=== PATIENT | male | born 1965 | race Caucasian/White ===

== ENCOUNTER → 2023-01-26 13:29 | Outpatient (CLI) | payer BC, SELFPAY ==
[2023-01-26 12:33] LABS: Alanine Aminotransferase 19 U/L (12-78); Albumin Level 2.8 g/dl (3.5-5.0); Alkaline Phosphatase 84 U/L (38-126); Anion Gap 9.5 mEq/L (5-15); Aspartate Amino Transferase 26 U/L (17-59); Bilirubin,Total 0.4 mg/dl (0.2-1.3); Blood Urea Nitrogen 25 mg/dl (9-20); Calcium 8.6 mg/dl (8.4-10.2); Carbon Dioxide 26 mmol/L (22.0-30.0); Chloride 105 mmol/L (98-107); Chol/HDL Ratio 5.8 (1-3.5); Cholesterol 213 mg/dl (140-200); Estimated Glomerular Filt Rate 52 ml/min (>60); GFR (African American) 63 ML/MIN (>60); Globulin 2.8 g/dL (1.3-3.2); Glucose 230 mg/dl (74-100); HDL Cholesterol 37 mg/dl (40-60); Potassium 4.5 mmoL/L (3.5-5.1); Sodium 136 mmol/L (136-145); Total Protein,Serum 5.6 g/dl (6.3-8.2); Triglycerides 165 mg/dl (30-150); VLDL Cholesterol 33 mg/dL (0-40)
[2023-01-26 12:43] LABS: NT Pro Brain Natriuretic Pep. 902 pg/mL (0-125)
[2023-01-26 12:44] LABS: Direct LDL Cholesterol 126.45 mg/dL (100-129)
[2023-01-26 12:51] LABS: Basophils # 0.1 K/mm3 (0-0.2); Basophils % 0.5 % (0.1-2.0); Eosinophils # 0.2 K/mm3 (0.0-0.4); Eosinophils % 2.5 % (0.1-12.0); Hematocrit 41.4 % (42.0-52.0); Hemoglobin 13.8 g/dL (14.1-18.0); Lymphocytes # 2.1 K/mm3 (0.7-4.5); Lymphocytes % 23.5 % (10-50); Mean Corpuscular HGB Conc 33.3 g/dL (31.8-35.4); Mean Corpuscular Hemoglobin 31.9 pg (27.0-31.2); Mean Corpuscular Volume 95.6 fl (80-94); Monocytes # 0.7 K/mm3 (0.1-1.0); Monocytes % 7.6 % (1.7-9.3); Neutrophils % 65.9 % (37.0-80.0); Platelet Count 318 K/mm3 (142-424); Red Blood Count 4.33 M/mm3 (4.60-6.20); Red Cell Distribution Width 13.8 % (11.5-17.5); White Blood Count 9.1 K/mm3 (4.8-10.8)
[2023-01-26 13:07] LABS: Hemoglobin A1C 8.4 % (4.0-6.0)
[2023-01-26 13:42] LABS: 25-OH Vitamin D, Total < 12.8 ng/mL (30-100)
[2023-01-26 15:00] LABS: Thyroid Stimulating Hormone 1.06 uIU/mL (0.465-4.68)
== END ==
LOC: LAB.DROPOF 13:30
PROVIDERS: PCP Internal Medicine; Visit Provider Internal Medicine
DX: Z00.00 Encounter for general adult medical examination without abnormal findings (principal); Z13.29 Encounter for screening for other suspected endocrine disorder; Z13.21 Encounter for screening for nutritional disorder; Z13.1 Encounter for screening for diabetes mellitus; Z13.220 Encounter for screening for lipoid disorders; R60.0 Localized edema; E55.9 Vitamin D deficiency, unspecified; Z68.31 Body mass index [BMI] 31.0-31.9, adult
CPT/HCPCS: 80053; 80061; 82306; 83036; 83880; 84439; 84443; 85025

== ENCOUNTER → 2023-02-02 09:59 | Outpatient (CLI) | payer BC, SELFPAY ==
--- NOTE | 2023-02-02 10:03 | XR_ITS ---
FINAL REPORT CLINICAL HISTORY: Shortness of breath swelling in legs smoker FINDINGS: Two views of the chest were obtained. The heart size and pulmonary vascularity are within normal limits. The mediastinum is normal. No acute pulmonary abnormality is identified. There is no pneumothorax. The bony thorax is intact. IMPRESSION: No active cardiopulmonary disease. Reviewed, Interpreted and Dictated by Ej Grande III, MD Transcribed by Kayla Martinez Authenticated and [facility]
== END ==
LOC: RAD 10:01
PROVIDERS: PCP Internal Medicine; Visit Provider Internal Medicine
DX: I25.10 Atherosclerotic heart disease of native coronary artery without angina pectoris (principal); I11.0 Hypertensive heart disease with heart failure; I50.9 Heart failure, unspecified; E78.5 Hyperlipidemia, unspecified; E11.9 Type 2 diabetes mellitus without complications; Z79.4 Long term (current) use of insulin; Z72.0 Tobacco use
CPT/HCPCS: 71046

== ENCOUNTER → 2023-02-08 14:25 | Outpatient (CLI) | payer BC, SELFPAY ==
--- NOTE | 2023-02-08 14:25 | CA_ITS ---
APPROVED REPORT EXAM: Comprehensive 2D, Doppler, and color-flow Echocardiogram Rough And Truing Machine Operator: RISHI Herr, RVS Ht: 6 ft 4 in Wt: 255lbs BSA: 2.46 BP: 125/75 mmHg Indications: CAD - coronary stents, CHF, Pedal edema, Smoker,. DM, HTN, HLD 2D Dimensions LVDd 5.16 cm M: 4.2 - 5.9 LVEF (Visual) 45.00 % LVDs 4.63 cm M: 2.5 - 4.0 LA Volume 83.00 mL Aortic Root 3.26 cm M: 3.1 - 3.7 LA Volume Index 33.74 mL/m2 (M/F) 16-34 Left Atrium 4.52 cm M: 3.0 - 4.0 LVOT 2.16 cm (M/F) 1.5-2.5 M-Mode Dimensions RVDd 2.75 cm (0.9-2.6) LA Diam 4.03 cm (1.9-4.0) LVDd 5.52 cm (3.5-5.7) Ao Diam 3.49 cm (2.0-3.7) LVDs 4.40 cm (3.5-5.7) IVSd 1.39 cm (0.6-1.1) PWd 1.23 cm (0.6-1.1) EF (Teich) 41.00% EPSs 1.03 cm FS 20.30% EDV (Teich) 148.70 mL TAPSE 3.40 (<1.7) ESV (Teich) 87.70 mL LV Diastology E Decel Time 207.00 (160-240 msec) E/A Ratio 1.34 MED E' 6.80 (< 7 cm/sec) MED A' 9.40 cm/s E'/MED E' Ratio 11.60 (>14) LAT E' 8.60 (<10 cm/sec) LAT A' 11.60 cm/s E/LAT E' Ratio 9.17 (>14) Aortic Valve LVOT Max 99.00 (70-110 cm/s) LVOT VTI 22.99 cm AoV Peak Ishaan. 134.00 (50-130 cm/s) AO Peak GR. 7.20 mmHg AO Mean GR. 3.60 (<5 mmHg) AO VTI 30.14 (18-25 cm) LIA (VTI) 2.80 (2.5-4.5 cm2) Mitral Valve MV A Velocity 59.00 (40-130 cm/s) E/A Ratio 1.34 MV Decel. Time 207.00 (160-240 ms) Pulmonary Valve GA End VMAX 158.00 cm/s Tricuspid Valve TR P. Velocity 224.00 cm/s RAP Estimate 10.00 mmHg RVSP 30.10 mmHg Left Ventricle The left ventricle is normal size. The left ventricular systolic function is normal. The left ventricular ejection fraction is within the normal range. There is increased LV wall thickness. There is normal LV segmental wall motion. The left ventricular diastolic function is normal. LVEF is 55%. Right Ventricle The right ventricle is normal size. The right ventricular systolic function is normal. Atria The left atrium size is normal. The right atrium size is normal. There is no Doppler evidence of interatrial shunt. Aortic Valve The aortic valve opens well. The aortic valve is trileaflet. There is no aortic valvular stenosis. Trace aortic regurgitation. Mitral Valve The mitral valve is normal in structure. No evidence of mitral valve stenosis. Mild mitral regurgitation. Tricuspid Valve The tricuspid valve leaflets are thin and pliable. Trace tricuspid regurgitation. RVSP is normal. Pulmonic Valve The pulmonary valve is normal in structure. Trace pulmonic regurgitation. Great Vessels The aortic root is normal in size. The ascending aorta is normal in size. IVC is normal in size and collapses >50% with inspiration. Pericardium There is no pericardial effusion. Other Information Study Quality: Adequate Conclusion Normal biventricular systolic function. No significant valvular stenosis or regurgitation. Electronically signed by : Emeli Paniagua MD 02/09/2023 14:14:01
== END ==
LOC: RT 14:25
PROVIDERS: PCP Internal Medicine; Visit Provider Internal Medicine
DX: R60.0 Localized edema; I50.30 Unspecified diastolic (congestive) heart failure
CPT/HCPCS: 93306

== ENCOUNTER → 2023-02-14 06:11 | Outpatient (CLI) | payer BC, SELFPAY ==
--- NOTE | 2023-02-14 | CA_ITS ---
APPROVED REPORT Exam: Pharmacologic Technologist: Suzette Persaud, Ht: 6 ft 4 in Wt: 236 lbs BSA: 2.38 m2 HR: 58 bpm BP: 184/85 mmHg Rhythm: SR, RBBB Medical History Medical History: HTN, Hyperlipidemia, Diabetes, Smoking Medications: Lisinopril,,,,, Hydralazine,,,,, Lispro,,,,, Asa,,,,, Atorvastatin,,,,, Carvedilol,,,,, Glargine,,,,, Furosemide,,,,, Allergies: NSAIDS Cardiac Risk Factors: HTN, Hyperlipidemia, Diabetes, Smoking Stress Test Details Test: LEXISCAN HR Resting HR: 66 bpm Max Heart Rate (APMHR): 163 bpm Max HR Achieved: 110 bpm Target HR (85% APMHR): 139 bpm % of APMHR: 67 Recovery HR: 75 bpm BP Resting BP: 184/85 mmHg Max BP: 185/89 mmHg Recovery BP: 176.0/87.0 mmHg ECG Resting ECG: NSR, RBBB Stress ECG: No significant ST changes Arrhythmia: None Clinical Exercise duration: 04:00 min Highest Stage Achieved: Exercise capacity: 1.0 METs Stress ECG Conclusion PT HAD DYSPNEA, HEADACHE NO SIGNIFICANT ST CHANGES CONCLUSION NON-DIAGNOSTIC DUE TO BASELINE ABNORMALITIES MYOVIEW IMAGES ARE REPORTED SEPARATELY Test Summary REST 06:37 . . 66 . 184/ 85 . . Stage 1 . . . . . . . Myoview Injected Stage 1 01:00 . . 84 . . . . Stage 2 01:00 . . 85 . 170/ 92 . . Stage 3 01:00 . . 77 . 170/ 86 . . Stage 4 01:00 . . 87 . 182/100 . Stop exercise at 04:00 RECOVERY 01:00 . . 75 . . . . RECOVERY 02:00 . . 71 . 185/ 89 . . RECOVERY 03:00 . . 69 . 185/ 89 . . RECOVERY 04:00 . . 68 . 185/ 89 . . RECOVERY 05:00 . . 68 . 176/ 87 . . RECOVERY 05:44 . . 85 . 176/ 87 . . Electronically signed by : Emeli Paniagua MD 02/16/2023 14:26:09
--- NOTE | 2023-02-14 06:37 | NM_ITS ---
APPROVED REPORT Exam: Nuclear Stress Test Indication: CAD, 4 STENTS, H/O [place], HTN, DM, HYPERLIPIDEMIA, TOB USE, SOB, SYNCOPE, ABN EKG Patient Location: Outpatient Stress Tech: Suzette Persaud NC Tech:Paige Heredia, ARRT RT (R)(N)(M) Ht: 6 ft 4 in Wt: 226 lbs HR: 58 bpm BP: 184/85 mmHg BSA: 2.33 m2 Rhythm: NSR TID: 1.15 BMI: 27.5 History: CAD, 4 STENTS, H/O [place], HTN, DM, HYPERLIPIDEMIA, TOB USE, SOB, SYNCOPE, ABN EKG Procedure: Patient received 0.4 mg of intravenous Lexiscan, resting heart rate 58 bpm, resting blood pressure 184/85 mmHg, with Lexiscan maximum heart rate achieved was 87 bpm which is % of the maximum predicted heart rate and blood pressure was 182/100 mmHg. With Lexiscan, patient denied any complaint of chest pain. Cardiac Stress and Resting SPECT Images: Cardiac Stress and Resting SPECT images were obtained using technetium 99m Myoview 31.4 mCi stress and 10.86 mCi at rest. Resting and stress imaging in supine and prone positions demonstrate a large sized, severe, fixed perfusion defect in the basal to mid inferior LV wall. There is also a small sized, moderate, partially reversible perfusion defect in the anterior LV wall. Gated imaging demonstrates mild reduction in global LV systolic function. There there is akinesis of the inferior LV wall. LVEF is calculated at 43%. The LVEF may be inaccurate due to ectopy. Conclusion: Large sized, severe, fixed perfusion defect in the basal to mid inferior LV wall. There is also a small sized, moderate, partially reversible perfusion defect in the anterior LV wall. Findings are suggestive of prior infarct, as well as partial reversible ischemia. Gated imaging demonstrates mild reduction in global LV systolic function. There there is akinesis of the inferior LV wall. LVEF is calculated at 43%. The LVEF may be inaccurate due to ectopy. Electronically signed by : Emeli Paniagua MD 02/16/2023 14:30:53
== END ==
LOC: RAD 06:13
PROVIDERS: PCP Internal Medicine; Visit Provider Nurse Practitioner Family
DX: R06.02 Shortness of breath (principal); R94.31 Abnormal electrocardiogram [ECG] [EKG]; I50.9 Heart failure, unspecified; R60.9 Edema, unspecified; E11.9 Type 2 diabetes mellitus without complications; E78.5 Hyperlipidemia, unspecified; G47.33 Obstructive sleep apnea (adult) (pediatric); Z79.4 Long term (current) use of insulin
CPT/HCPCS: 78452; 93017; A9502; J2785

== ENCOUNTER 2023-03-08 09:01 | Day surgery (SDC) | payer BC, SELFPAY ==
[2023-03-08] VITALS (10 sets, daily range): BP systolic 149–177; BP diastolic 71–90; PULSE 51–81; RESP 17–18; O2SAT 95–98; BMI 39.9
--- NOTE | 2023-03-08 07:10 | IR_ITS ---
APPROVED REPORT Patient Location: Outpatient [employer] Worker: RHONDA Rodriguez RT (R) PROCEDURES Left heart catheterization Left ventriculogram Selective coronary angiogram INDICATION High risk abnormal Myoview, Known coronary artery disease, Informed consent was obtained prior to the procedure. COMPLICATIONS NONE Estimated Blood Loss: LESS THAN 10 ML TECHNIQUE One percent lidocaine used to anesthetize the right anterior aspect of the wrist. The right radial artery was accessed via the Seldinger technique. A 6 Amharic sheath was placed in the right radial artery. 2.5 mg of Verapamil, 800 mcg of nitroglycerin, 1mg Lidocaine and 5000 U Heparin were given through the arterial sheath. The papa catheter was also used to perform left heart catheterization, left ventriculogram and selective coronary angiogram. At the end of the procedure the sheath was removed good hemostasis was achieved using Traclet band, patient was transferred to the postop holding area in stable condition. ANGIOGRAPHIC RESULTS The left main artery Has a distal 20% tapering stenosis The left anterior descending artery Has proximal 10 to 20% luminal irregularities with 10% stenoses in the mid vessel. There are 2 large diagonal arteries both of which have proximal 30 to 40% stenoses. The circumflex artery Is a nondominant vessel and gives rise to a moderate-sized ramus intermedius which has proximal 30 to 40% stenosis. A first obtuse marginal artery is a 2 mm vessel and has a proximal 90% stenosis with an additional 80% stenosis followed by an additional 60 to 70% stenosis. The obtuse marginal artery itself is small The right coronary artery Is a large dominant vessel with an ostial 60% stenosis and then a stent in the proximal segment which has 50% in-stent restenosis and then occluded immediately distal to a large RV marginal branch. The distal right coronary fills via [id number] collaterals The MAIN ventriculogram reveals Mildly reduced to 40 to 45% The left ventricular end-diastolic pressure 10 mmHg IMPRESSION Coronary disease as described above Severe stenosis in a small first obtuse marginal artery which is best managed medically. Reduced ejection fraction Normal left ventricular end-diastolic pressure PLAN 1. Continue medical management Electronically signed by : Rajinder Mccullough MD 03/08/2023 12:48:43
[2023-03-08 09:34] LABS: Basophils # 0.1 K/mm3 (0-0.2); Basophils % 0.6 % (0.1-2.0); Eosinophils # 0.3 K/mm3 (0.0-0.4); Eosinophils % 3.4 % (0.1-12.0); Hematocrit 43.2 % (42.0-52.0); Hemoglobin 14.2 g/dL (14.1-18.0); Lymphocytes # 2.1 K/mm3 (0.7-4.5); Lymphocytes % 27.1 % (10-50); Mean Corpuscular Hemoglobin 31.6 pg (27.0-31.2); Mean Corpuscular Volume 95.8 fl (80-94); Mean Platelet Volume 8.8 fl (7.4-10.4); Monocytes # 0.6 K/mm3 (0.1-1.0); Monocytes % 7.5 % (1.7-9.3); Neutrophils # 4.7 K/mm3 (1.8-7.8); Neutrophils % 61.3 % (37.0-80.0); Platelet Count 321 K/mm3 (142-424); Red Blood Count 4.51 M/mm3 (4.60-6.20); Red Cell Distribution Width 13.6 % (11.5-17.5); White Blood Count 7.7 K/mm3 (4.8-10.8)
[2023-03-08 09:38] LABS: Chloride 103 mmol/L (98-107); Sodium 133 mmol/L (136-145)
[2023-03-08 09:39] LABS: Potassium 4.8 mmoL/L (3.5-5.1)
[2023-03-08 09:42] LABS: Anion Gap 4.8 mEq/L (5-15); Blood Urea Nitrogen 37 mg/dl (9-20); Calcium 8.6 mg/dl (8.4-10.2); Carbon Dioxide 30 mmol/L (22.0-30.0); Creatinine Clearance Estimated 72 mL/min (50-200); Estimated Glomerular Filt Rate 42 ml/min (>60); GFR (African American) 51 ML/MIN (>60); Glucose 283 mg/dl (74-100)
== END 2023-03-08 14:40 | disposition home or self-care (01) ==
LOC: CATHLAB 09:02
PROVIDERS: PCP Internal Medicine; Visit Provider Internal Medicine
DX: I25.118 Atherosclerotic heart disease of native coronary artery with other forms of angina pectoris (principal); E11.9 Type 2 diabetes mellitus without complications; E78.5 Hyperlipidemia, unspecified; G47.33 Obstructive sleep apnea (adult) (pediatric); I50.31 Acute diastolic (congestive) heart failure; R94.30 Abnormal result of cardiovascular function study, unspecified; R94.31 Abnormal electrocardiogram [ECG] [EKG]; F17.210 Nicotine dependence, cigarettes, uncomplicated; Z79.4 Long term (current) use of insulin; I11.0 Hypertensive heart disease with heart failure; Z95.5 Presence of coronary angioplasty implant and graft; T82.855A Stenosis of coronary artery stent, initial encounter
CPT/HCPCS: 80048; 85025; 93458; 99152; C1725; C1769; J1644; Q9967

== ENCOUNTER 2023-04-12 14:03 | Outpatient (CLI) | payer BC, SELFPAY ==
[2023-04-12 13:43] LABS: Hemoglobin A1C 10.6 % (4.0-6.0)
[2023-04-12 14:06] LABS: Anion Gap 4.3 mEq/L (5-15); Blood Urea Nitrogen 30 mg/dl (9-20); Calcium 8.2 mg/dl (8.4-10.2); Carbon Dioxide 28 mmol/L (22.0-30.0); Chloride 106 mmol/L (98-107); Estimated Glomerular Filt Rate 48 ml/min (>60); GFR (African American) 58 ML/MIN (>60); Glucose 92 mg/dl (74-100); Potassium 4.3 mmoL/L (3.5-5.1); Sodium 134 mmol/L (136-145)
[2023-04-12 14:53] LABS: Vitamin B12 561 pg/mL (239-931)
[2023-04-12 15:43] LABS: Creatinine,Urine Random 30 mg/dL (Not Estab.)
[2023-04-12 21:09] LABS: Microalbumin > 1140.000 mg/L (0-16.7)
== END 2023-04-12 23:59 ==
LOC: LAB.DROPOF 14:04
PROVIDERS: PCP Internal Medicine; Visit Provider Internal Medicine
DX: E11.9 Type 2 diabetes mellitus without complications (principal); E56.9 Vitamin deficiency, unspecified; R53.83 Other fatigue; Z79.4 Long term (current) use of insulin
CPT/HCPCS: 80048; 82043; 82570; 82607; 83036

== ENCOUNTER 2023-06-29 13:48 | Outpatient (CLI) | payer BC, SELFPAY ==
[2023-06-29 14:34] LABS: Hemoglobin A1C 9.5 % (4.0-6.0)
[2023-06-29 15:02] LABS: Chloride 108 mmol/L (98-107); Potassium 5.4 mmoL/L (3.5-5.1); Sodium 136 mmol/L (136-145)
[2023-06-29 15:05] LABS: Blood Urea Nitrogen 28 mg/dl (9-20); Estimated Glomerular Filt Rate 52 ml/min (>60); GFR (African American) 63 ML/MIN (>60)
[2023-06-29 15:06] LABS: Anion Gap 5.4 mEq/L (5-15); Calcium 8.9 mg/dl (8.4-10.2); Carbon Dioxide 28 mmol/L (22.0-30.0); Glucose 160 mg/dl (74-100)
== END 2023-06-29 23:59 ==
LOC: LAB.DROPOF 13:48
PROVIDERS: PCP Internal Medicine; Visit Provider Internal Medicine
DX: E11.22 Type 2 diabetes mellitus with diabetic chronic kidney disease (principal); N18.30 Chronic kidney disease, stage 3 unspecified; Z79.4 Long term (current) use of insulin
CPT/HCPCS: 80048; 83036

== ENCOUNTER 2023-09-15 12:11 | Observation (INO) | payer BC, SELFPAY ==
[2023-09-15] VITALS (9 sets, daily range): BP systolic 97–136; BP diastolic 58–71; PULSE 49–70; RESP 10–18; TEMP 36.6–36.8; O2SAT 96–99; BMI 24.3; BMI 26.5
--- NOTE | 2023-09-15 12:09 | ECG_ITS ---
APPROVED REPORT Exam: Resting ECG HR:66 bpm ECG Measurements Heart Rate 66 AXES PA 155 P 43 QRSd 145 QRS 99 QT 390 T -20 QTc 403 Conclusion SINUS RHYTHM INDETERMINATE AXIS RIGHT BUNDLE BRANCH BLOCK Electronically signed by : DIMPLE CLEVELAND, 09/16/2023 08:31:21
[2023-09-15] MEDS: ONDANSETRON 4MG/2ML VIAL 4 MG IV (12:20)
--- NOTE | 2023-09-15 12:26 | CT_ITS ---
FINAL REPORT TECHNIQUE: Thin section axial CT images were obtained through the neck after intravenous contrast administration. Coronal and sagittal reformats were also obtained. This study was performed with techniques to keep radiation doses as low as reasonably achievable (ALARA). Individualized dose reduction techniques using automated exposure control or adjustment of mA and/or kV according to the patient''s size were employed. CLINICAL HISTORY: malaise, weight loss COMPARISON: None FINDINGS: The nasopharynx, oropharynx, hypopharynx and larynx are unremarkable. There is no mass or adenopathy. The thyroid gland is unremarkable. The visualized sinuses are clear. There is mild degenerative change of the cervical spine noted. There is calcified plaque present in the left carotid bulb, that produces approximately 50% luminal diameter stenosis. IMPRESSION: No acute process. In the left carotid bulb that produces approximately 50% luminal diameter stenosis. Reviewed, Interpreted and Dictated by Ej Grande III, MD Transcribed by Leonila Lugo Authenticated and [facility]
--- NOTE | 2023-09-15 12:26 | CT_ITS ---
FINAL REPORT TECHNIQUE: Multiple axial CT sections were performed from the foramen magnum to the vertex. Coronal and sagittal reformatted images were also obtained. Precontrast and postcontrast injection images were obtained. This study was performed with technique to keep radiation doses as low as reasonably achievable, (ALARA). Individualized dose reduction techniques using automated exposure control or adjustment of mA and/or kV according to the patient size were employed. CLINICAL HISTORY: malaise, weight loss COMPARISON: None FINDINGS: CT HEAD WITH AND WITHOUT CONTRAST: Mild global atrophy is present. The ventricles are normal in size and appearance. No extra-axial fluid collections are noted. No mass effect or midline shift is seen. No areas of abnormal parenchymal density or enhancement are present. IMPRESSION: Mild global atrophy, otherwise unremarkable CT of the head. Reviewed, Interpreted and Dictated by Ej Grande III, MD Transcribed by Leonila Lugo Authenticated and [facility]
--- NOTE | 2023-09-15 12:29 | XR_ITS ---
FINAL REPORT CLINICAL HISTORY: soa, cp, weak COMPARISON: 02/02/2023 FINDINGS: A single portable view of the chest was obtained. The heart size and pulmonary vascularity are within normal limits. The mediastinum is within normal limits. No acute pulmonary abnormality is identified. The bony thorax is intact. IMPRESSION: No active cardiopulmonary disease. Reviewed, Interpreted and Dictated by Ej Grande III, MD Transcribed by Leonila Lugo Authenticated and [facility]
--- NOTE | 2023-09-15 12:30 | CT_ITS ---
FINAL REPORT TECHNIQUE: Then section axial CT images of the chest were obtained with contrast. Three-D reformatted images were also obtained.This study was performed with techniques to keep radiation doses as low as reasonably achievable (ALARA). Individualized dose reduction techniques using automated exposure control or adjustment of mA and/or kV according to the patient''s size were employed. CLINICAL HISTORY: Weight loss, malaise, chest pain, hypotension COMPARISON: None FINDINGS: There is no evidence of pulmonary embolism. There is no evidence of thoracic aortic aneurysm or dissection. There are mildly enlarged mediastinal and hilar nodes, nonspecific, but favor reactive. Mild bibasilar atelectasis is present. A calcified granuloma is present in the right lower lobe. There are diffuse interstitial and nodular opacities bilaterally, most prominent in the upper lobes. This appearance is nonspecific, but may be seen in patients with mycobacterial or fungal disease. Limited images of the upper abdomen are described in the dictation for the CTA abdomen and pelvis from the same date. IMPRESSION: No evidence of pulmonary embolism. No evidence of thoracic aortic aneurysm or dissection. Diffuse interstitial and nodular opacities bilaterally, most prominent in the upper lobes. The appearance is nonspecific, but may be seen in patients with mycobacterial or fungal disease. Mildly enlarged mediastinal and hilar nodes, nonspecific but favor reactive. Reviewed, Interpreted and Dictated by Ej Grande III, MD Transcribed by Leonila Lugo Authenticated and [facility]
--- NOTE | 2023-09-15 12:30 | CT_ITS ---
FINAL REPORT TECHNIQUE: After the administration of intravenous contrast, axial images were obtained through the abdomen and pelvis by computed tomography. The study was performed with techniques to keep radiation dose as low as reasonably achievable, (ALARA). Individual dose reduction techniques using automated exposure control or adjustment of mA and/or kV according to the patient's size were employed. CLINICAL HISTORY: Weight loss, malaise, chest pain, hypotension COMPARISON: None FINDINGS: CTA ABDOMEN AND PELVIS: Diffuse vascular calcifications are noted in the abdominal aorta. There are separate origins of the splenic and common hepatic arteries. There is calcification at the origin of the superior mesenteric artery without significant stenosis. No renal artery stenosis is identified. The inferior mesenteric artery is patent. Extensive calcifications limits evaluation of mild stenosis in the common iliac arteries. There is moderate 40 to 50% proximal left external iliac stenosis. There is mild stenosis elsewhere in the iliac arteries. There is moderate stenosis of the common femoral arteries with approximately 40 to 50% bilateral stenosis. There is bilateral mild inguinal adenopathy noted, nonspecific and favor reactive. A small umbilical hernia is present containing fat. The solid organs of the abdomen and pelvis are unremarkable. No evidence of significant bowel abnormality is identified. IMPRESSION: Moderate 40 to 50% proximal left external iliac artery stenosis. There is mild stenosis elsewhere in the iliac arteries. Moderate stenosis of the common femoral arteries bilaterally with 40 to 50% stenosis. Reviewed, Interpreted and Dictated by Ej Grande III, MD Transcribed by Leonila Lugo Authenticated and [facility]
[2023-09-15 12:38] LABS: VBG Base Excess -3.6 mmol/L (-2.4-2.3); VBG HCO3 22.1 mmol/L (23-30); VBG Oxygen Saturation 66.7 % (50-70); VBG PCO2 41.1 mmol/L (35-51); VBG PH 7.35 mmol/L (7.31-7.41); VBG PO2 32.9 mmol/L (28-40); VBG Total CO2 23.3 mmol/L (23-27)
[2023-09-15 12:41] LABS: Lactate Venous 2.5 mmol/L (0.4-2.0)
[2023-09-15 12:48] LABS: Basophils % 1.3 % (0.1-2.0); Eosinophils % 0.3 % (0.1-12.0); Hematocrit 43.2 % (42.0-52.0); Hemoglobin 13.7 g/dL (14.1-18.0); Lymphocytes # 0.7 K/mm3 (0.7-4.5); Lymphocytes % 24.6 % (10-50); Mean Corpuscular HGB Conc 31.7 g/dL (31.8-35.4); Mean Corpuscular Hemoglobin 31.4 pg (27.0-31.2); Mean Platelet Volume 8.2 fl (7.4-10.4); Monocytes # 0.2 K/mm3 (0.1-1.0); Monocytes % 6.1 % (1.7-9.3); Neutrophils # 1.9 K/mm3 (1.8-7.8); Neutrophils % 67.7 % (37.0-80.0); Platelet Count 162 K/mm3 (142-424); Red Blood Count 4.37 M/mm3 (4.60-6.20); Red Cell Distribution Width 13.6 % (11.5-17.5); White Blood Count 2.8 K/mm3 (4.8-10.8)
[2023-09-15] MEDS: VANCOMYCIN CONSULT REQUEST 1 EACH NOTAPPLIC (12:56)
[2023-09-15 12:57] LABS: Lactic Acid 1.9 mmol/L (0.7-2.1)
--- NOTE | 2023-09-15 12:57 | HMH.EDGENADL ---
Discharge Plan Disposition Patient Disposition: Admitted Clinical Impressions Clinical Impression: CHF (congestive heart failure), JENNIFER (acute kidney injury), General weakness Discharge ED Provider: Emma Bray General Adult HPI <Sukhdev Lee MD - Last Filed: 09/15/23 15:14> General Chief complaint: Chest Pain Stated complaint: chest pain Time Seen by Provider: 09/15/23 12:20 Mode of Arrival: Wheelchair Source of Information: Patient Limitations: No Limitations Description of Symptoms (Recalled from ER Triage Doc. by RN): Patient reports headache, nausea, off and on chest pain and blurred vision. Sent from doctor's office. States the symptoms started Tuesday. History of Present Illness HPI narrative: Please note that above description of symptoms, in this electronic medical record under categorization of recalled from ER triage doctor by RN are reflective of an initial nursing assessment, however, is not reflective of my full history and physical exam that was personally taken and clarified. Consequentially, this preceding description of symptoms, which may include the patient's categorized chief complaint in the EMR, do not reflect my personal clinical impression, and the ultimate description of history of present illness and patient stated complaints should be deferred to this section of the note. Unless stated otherwise or congruent with this section of the note, additional signs, symptoms, or incongruence should be interpreted as inaccurate with my clinical impression. Related Data Home Medications Medication Instructions Recorded Confirmed aspirin 81 mg chewable tablet 81 mg PO DAILY 01/26/23 09/15/23 insulin glargine 100 unit/mL (3 35 unit SQ HS 01/26/23 09/15/23 mL) subcutaneous pen (Basaglar KwikPen U-100 Insulin) insulin lispro 100 unit/mL 12 unit SQ .COMPLEX 01/26/23 09/15/23 subcutaneous cartridge (Humalog U-100 Insulin) hydralazine 25 mg tablet 25 mg PO BID 09/15/23 09/15/23 Previous Rx's Medication Instructions Recorded atorvastatin 40 mg tablet 40 mg PO DAILY #90 tabs 02/09/23 spironolactone 25 mg tablet 25 mg PO DAILY #30 tabs 02/23/23 (Aldactone) torsemide 100 mg tablet 50 mg (1/2 x 100 mg) PO DAILY #30 02/23/23 tabs carvedilol 12.5 mg tablet 12.5 mg PO BID #180 tabs 03/10/23 clopidogrel 75 mg tablet (Plavix) 75 mg PO DAILY #90 tabs 03/10/23 lisinopril 40 mg tablet 40 mg PO DAILY #90 tabs 06/09/23 venlafaxine 75 mg tablet 75 mg PO DAILY #30 tabs 06/29/23 Allergies Allergy/AdvReac Type Severity Reaction Status Date / Time NSAIDS (Non-Steroidal Allergy itch Verified 09/15/23 11:45 Anti-Inflamma gabapentin AdvReac Mild Verified 09/15/23 11:45 PFSH <Sukhdev Lee MD - Last Filed: 09/15/23 15:14> [facility] Disclaimer: The information contained in this section may have been updated after the patient was seen, as this information can be updated by other users. Medical History (HFpEF) heart failure with preserved ejection fraction Abnormal result of cardiovascular function study Atypical angina CAD (coronary artery disease) Hyperlipidemia Hypertension Lower extremity edema CONNIE (obstructive sleep apnea) Type 2 diabetes mellitus Type 2 diabetes mellitus with stage 2 chronic kidney disease Surgical History H/O heart artery stent 4 stents History of cardiac catheterization Family History Father Cancer Mother Stroke Social History Smoking Status: Current every day smoker alcohol intake: never substance use type: denies use current occupational status: employed Travel in the last 8 weeks: None <Sukhdev Lee MD - Last Filed: 09/15/23 15:14> ROS Obtained: Yes All systems reviewed & no additional complaints except as documented Physical Exam <Sukhdev Lee MD - Last Filed: 09/15/23 15:14> General General appearance: alert, in no apparent distress and lethargic Head Head exam: atraumatic and normocephalic Eye Eye exam: Present normal appearance, PERRL and EOMI ENT ENT exam: Present mucous membranes dry Neck Neck exam: Present normal inspection, full ROM and trachea midline Respiratory Respiratory exam: Present normal lung sounds bilaterally; Absent respiratory distress, wheezes, stridor, accessory muscle use or prolonged expiratory phase Cardiovascular Cardiovascular exam: Present regular rate, normal rhythm and other (Distant heart sounds) Abdominal Exam Abdominal exam: Present soft; Absent distention, tenderness, guarding, rebound or rigidity Extremities Exam Extremities exam: Present normal inspection; Absent edema Neurological Exam Neurological exam: Present alert, oriented X3, CN II-XII intact and normal gait; Absent motor sensory deficit Skin Skin exam: Present warm, dry and pallor; Absent diaphoresis or erythema Medical Decision Making <Sukhdev Lee MD - Last Filed: 09/15/23 15:14> Medical Records Medical records reviewed: Yes I reviewed the patient's medical records. Wali Inquiry Pt receiving controlled substance: No Wali was queried for this patient: No Vital Signs: 09/15/23 12:12 09/15/23 13:00 09/15/23 14:00 Temperature 98.2 F Temperature Source Oral Pulse Rate 64 60 Pulse Rate [Radial] 66 Respiratory Rate 16 13 17 Blood Pressure 97/60 L 102/58 L Blood Pressure [Right Arm] 100/59 L Blood Pressure Mean [Right Arm] 72 Blood Pressure Source [Right Arm] Automatic Cuff Blood Pressure Position [Right Arm] Sitting 02 Sat by Pulse Oximetry 99 97 Oxygen Delivery Method Room Air 09/15/23 14:30 09/15/23 15:00 Temperature Temperature Source Pulse Rate 49 L Pulse Rate [Radial] Respiratory Rate 14 10 L Blood Pressure 98/58 L 110/65 Blood Pressure [Right Arm] Blood Pressure Mean [Right Arm] Blood Pressure Source [Right Arm] Blood Pressure Position [Right Arm] 02 Sat by Pulse Oximetry 98 Oxygen Delivery Method Lab Data Lab Results 09/15/23 12:15: WBC 2.8 L, RBC 4.37 L, Hgb 13.7 L, Hct 43.2, MCV 99.0 H, MCH 31.4 H, MCHC 31.7 L, RDW 13.6, Plt Count 162, MPV 8.2, Neut % (Auto) 67.7, Lymph % (Auto) 24.6, [place] % (Auto) 6.1, Eos % (Auto) 0.3, Baso % (Auto) 1.3, Neut # (Auto) 1.9, Lymph # (Auto) 0.7, [place] # (Auto) 0.2, Eos # (Auto) 0.0, Baso # (Auto) 0.0, ESR 67 H, Sodium 131 L, Potassium 4.2, Chloride 102, Carbon Dioxide 24, Anion Gap 9.2, BUN 40 H, Creatinine 2.10 H, Estimated Creat Clear 50, Estimated GFR 33 L, Est GFR ( Amer) 40 L, Glucose 231 H, Hemoglobin A1c 9.5 H, Uric Acid 7.2, Calcium 8.8, Magnesium 1.8, Total Bilirubin 0.5, AST 68 H, ALT 56, Alkaline Phosphatase 87, Lactate Dehydrogenase 243 L, Troponin I 0.03, C-Reactive Protein 25.9 H, NT-Pro-B Natriuret Pep 2530 H, Total Protein 5.9 L, Albumin 2.9 L, Globulin 3.0, Albumin/Globulin Ratio 1.0 L, Triglycerides 593 H, Cholesterol 251 H, LDL Cholesterol Direct 82.61 L, HDL Cholesterol 23 L, Cholesterol/HDL Ratio 10.9 H, Lipase 308 H, TSH 0.70, Thyroxine (T4) 6.9 09/15/23 12:37: VBG pH 7.35, VBG pCO2 41.1, VBG pO2 32.9, VBG HCO3 22.1 L, VBG Total CO2 23.3, VBG O2 Saturation 66.7, VBG Base Excess -3.6 L, VBG Lactic Acid 2.5 H 09/15/23 12:40: Lactate 1.9, Blood Type A Positive, Antibody Screen Negative 09/15/23 14:41: Urine Color Yellow, Urine Appearance Clear, Urine pH 6.0, Ur Specific [place] 1.015, Urine Protein 2+, Urine Glucose (UA) Negative, Urine Ketones Negative, Urine Blood Trace-i, Urine Nitrate Negative, Urine Bilirubin Negative, Urine Urobilinogen 0.2, Ur Leukocyte Esterase Negative, Urine RBC 5-10, Urine WBC 3-5, Ur Squamous Epith Cells Occasional, Urine Bacteria Trace 09/15/23 12:15 09/15/23 12:15 Orders (Tests/Meds): ED MEDICATIONS Generic Name Dose Route Start Last Admin Trade Name Freq PRN Reason Stop Dose Admin Heparin Sodium (Porcine) 5,000 unit 09/15/23 21:00 Heparin Sodium 5,000 Unit/Ml Vial SQ 10/15/23 20:59 TID SHAMIKA Miscellaneous 1 each 09/15/23 12:30 09/15/23 12:56 Vancomycin Consult Request NOTAPPLIC 10/15/23 12:29 1 each CONSULT PHARMACY SHAMIKA Administration Discontinued Medications Generic Name Dose Route Start Last Admin Trade Name Kaitlynn PRN Reason Stop Dose Admin Furosemide 60 mg 09/15/23 14:00 09/15/23 14:17 Furosemide 40mg/4ml Vial IV 09/15/23 14:01 60 mg ONCE ONE Administration Ampicillin Sodium/Sulbactam 100 mls @ 200 mls/hr 09/15/23 12:26 09/15/23 13:10 Sodium 3 gm/ Sodium Chloride IV 09/15/23 12:27 200 mls/hr ONCE ONE Administration Vancomycin/PEG/NADA/Lysine/Water 1.5 gm in 300 mls @ 150 mls/hr 09/15/23 13:00 09/15/23 14:17 Vancomycin 1.5gm/300ml (Peg) Premix IV 09/15/23 14:59 150 mls/hr ONCE ONE Administration Iopamidol 130 ml 09/15/23 13:29 09/15/23 13:49 Iopamidol-370 (76%);100ml Bottle IV 09/15/23 13:30 130 ml ONCE ONE Administration Iopamidol 100 ml 09/15/23 13:47 09/15/23 13:49 Iopamidol-370 (76%);100ml Bottle IV 09/15/23 13:48 Not Given ONCE ONE Iopamidol 30 ml 09/15/23 13:48 Iopamidol-370 (76%);100ml Bottle IV 09/15/23 13:49 ONCE ONE Ondansetron HCl 4 mg 09/15/23 12:19 09/15/23 12:20 Ondansetron 4mg/2ml Vial IV 09/15/23 12:20 4 mg ONCE ONE Administration Sodium Chloride 50 ml 09/15/23 13:29 09/15/23 13:48 0.9 % Sodium Chloride 50 Ml Vial IV 09/15/23 13:30 50 ml ONCE ONE Administration Sodium Chloride 10 ml 09/15/23 13:29 09/15/23 13:48 Sodium Chloride 0.9% 10ml Syr (Rad Only) IV 09/15/23 13:30 10 ml ONCE ONE Administration Sodium Chloride 10 ml 09/15/23 13:47 09/15/23 13:49 Sodium Chloride 0.9% 10ml Syr (Rad Only) IV 09/15/23 13:48 Not Given ONCE ONE Sodium Chloride 50 ml 09/15/23 13:47 0.9 % Sodium Chloride 50 Ml Vial IV 09/15/23 13:48 ONCE ONE ORDERS Category Date Time Status Type and Screen Stat BBK 09/15/23 12:[address] angio abdomen pelvis Stat Cat Scan 09/15/23 12:[address] head/brain wo/w con Stat Cat Scan 09/15/23 12:[address] soft tissue neck w con Stat Cat Scan 09/15/23 12:26 Completed CTA Chest [CT angio chest - dissection] Stat Cat Scan 09/15/23 12:30 Completed POCUS Point of Care (ER Only) Stat Exams 09/15/23 12:29 Completed XR chest portable Stat Exams 09/15/23 12:29 Completed CRP [C-Reactive Protein] Stat Lab 09/15/23 12:15 Completed Complete Blood Count Auto Diff Stat Lab 09/15/23 12:15 Completed Comprehensive Metabolic Panel Stat Lab 09/15/23 12:15 Completed ESR [Erythrocyte Sedimentation Rate] Stat Lab 09/15/23 12:15 Completed Hemoglobin A1C Stat Lab 09/15/23 12:15 Completed LDH [Lactate Dehydrogenase] Stat Lab 09/15/23 12:15 Completed Lactic Acid Stat Lab 09/15/23 12:40 Completed Lipase Stat Lab 09/15/23 12:15 Completed Lipid Panel Stat Lab 09/15/23 12:15 Completed Magnesium Stat Lab 09/15/23 12:15 Completed NT Pro Brain Natriuretic Pep. Stat Lab 09/15/23 12:15 Completed T4 (Thyroxine) Stat Lab 09/15/23 12:15 Completed TSH [Thyroid Stimulating Hormone] Stat Lab 09/15/23 12:15 Completed Troponin I Q3H Lab 09/15/23 16:07 Received Troponin I Q3H Lab 09/15/23 18:30 Ordered Troponin I Stat Lab 09/15/23 12:15 Completed Uric Acid Stat Lab 09/15/23 12:15 Completed Urinalysis and Microscopic Stat Lab 09/15/23 14:41 Completed Blood Culture Stat Micro 09/15/23 12:40 Received Venous Blood Gas Stat RT 09/15/23 12:37 Completed HEART Score History (anamnesis): Moderately suspicious ECG: Normal Age: 45-65 years Risk factors: 3 or more risk factors Troponin: </= normal limit HEART Score: 4 Medical Decision Narrative: 57-year-old male history of hypertension, hyperlipidemia, CAD D, CONNIE, type 2 diabetes diastolic heart failure, COPD not on home oxygen presenting with multiple complaints. Patient has been feeling generally poor over the last few days. Starting 3 days prior to this visit, started having headaches, patient has no history of headaches. Tylenol Motrin not help. Since that time started feeling nauseated without vomiting. He has had recent unintended weight loss of about 10 pounds. No night sweats. No recent travel. Never had anything like this in the past. Was scheduling follow-up with rn labor and delivery today. In the office was hypotensive, based on clinical appearance and blood pressure, sent to the emergency department for further evaluation. History was obtained via conversation with patient and , cardiology team. On arrival, patient hemodynamically stable, alert, oriented x4, appropriate, GCS 15, moving all extremities spontaneously, pupils equal and reactive to light. Full physical exam performed and significant for ill-appearing male who is in no acute distress. Dry mucous membranes, pale. Cardiac exam with distant heart sounds, but no obvious murmurs, gallops, rubs. No JVD. No lower extremity edema. Pulses are equal symmetric bilateral upper and lower extremities. No pulsatile abdominal mass. Lungs are clear to auscultation without focal wheezes. Differential includes malignancy, metabolic abnormality, microvascular coronary artery disease, CHF, ACS, ME, coronary artery dissection, pneumothorax, PE, dissection, pericarditis, myocarditis, pneumothorax, aortic aneurysm, pneumonia, bronchitis, among others. Patient was given fluids, empiric vancomycin and Unasyn for symptomatic management and correction of underlying abnormalities. Workup independently interpreted and significant for Mildly leukopenic with white count 2.8. VBG nonactionable. Lactate negative. Sodium low at 131, kidney function JENNIFER on CKD with BUN 40, creatinine 2.1 concerning for prerenal versus intrarenal azotemia. A1c elevated at 9.5. LFTs nonactionable. Patient's initial troponin 0.03, BNP elevated at 2530. LDH negative, lipid panel with hyperlipidemia. Thyroid studies negative. Chest x-ray with cardiomegaly and pulmonary venous congestion. CT head without acute intracranial abnormality on my independent interpretation. CT soft tissue neck similar. 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 See radiology read for full review of final results. Independent interpretation of EKG shows sinus rhythm 66 beats a minute no ST changes concerning for acute ischemia, but patient does have T wave inversions 2, 3, aVF without reciprocal change. Branch block morphology. There are low voltages throughout the EKG. WA, QRS, QTc 155, 145, 4 3 ms respectively. Heart score 4. Patient given 60 mg IV Lasix. Prior to final reads and disposition, care ended up oncoming physician. Pipe Fitter Supervisor Maintenance disclaimer Much of this encounter note is an electronic director corporate sales spoken language to printed text. Electronic director corporate sales of the spoken language may permit errors. Although I have reviewed the note, some errors may still exist. <Emma Bray, DO - Last Filed: 09/15/23 16:30> Vital Signs: 09/15/23 12:12 09/15/23 13:00 09/15/23 14:00 Temperature 98.2 F Temperature Source Oral Pulse Rate 64 60 Pulse Rate [Radial] 66 Respiratory Rate 16 13 17 Blood Pressure 97/60 L 102/58 L Blood Pressure [Right Arm] 100/59 L Blood Pressure Mean [Right Arm] 72 Blood Pressure Source [Right Arm] Automatic Cuff Blood Pressure Position [Right Arm] Sitting 02 Sat by Pulse Oximetry 99 97 Oxygen Delivery Method Room Air 09/15/23 14:30 09/15/23 15:00 Temperature Temperature Source Pulse Rate 49 L Pulse Rate [Radial] Respiratory Rate 14 10 L Blood Pressure 98/58 L 110/65 Blood Pressure [Right Arm] Blood Pressure Mean [Right Arm] Blood Pressure Source [Right Arm] Blood Pressure Position [Right Arm] 02 Sat by Pulse Oximetry 98 Oxygen Delivery Method Lab Data Lab Results 09/15/23 12:15: WBC 2.8 L, RBC 4.37 L, Hgb 13.7 L, Hct 43.2, MCV 99.0 H, MCH 31.4 H, MCHC 31.7 L, RDW 13.6, Plt Count 162, MPV 8.2, Neut % (Auto) 67.7, Lymph % (Auto) 24.6, [place] % (Auto) 6.1, Eos % (Auto) 0.3, Baso % (Auto) 1.3, Neut # (Auto) 1.9, Lymph # (Auto) 0.7, [place] # (Auto) 0.2, Eos # (Auto) 0.0, Baso # (Auto) 0.0, ESR 67 H, Sodium 131 L, Potassium 4.2, Chloride 102, Carbon Dioxide 24, Anion Gap 9.2, BUN 40 H, Creatinine 2.10 H, Estimated Creat Clear 50, Estimated GFR 33 L, Est GFR ( Amer) 40 L, Glucose 231 H, Hemoglobin A1c 9.5 H, Uric Acid 7.2, Calcium 8.8, Magnesium 1.8, Total Bilirubin 0.5, AST 68 H, ALT 56, Alkaline Phosphatase 87, Lactate Dehydrogenase 243 L, Troponin I 0.03, C-Reactive Protein 25.9 H, NT-Pro-B Natriuret Pep 2530 H, Total Protein 5.9 L, Albumin 2.9 L, Globulin 3.0, Albumin/Globulin Ratio 1.0 L, Triglycerides 593 H, Cholesterol 251 H, LDL Cholesterol Direct 82.61 L, HDL Cholesterol 23 L, Cholesterol/HDL Ratio 10.9 H, Lipase 308 H, TSH 0.70, Thyroxine (T4) 6.9 09/15/23 12:37: VBG pH 7.35, VBG pCO2 41.1, VBG pO2 32.9, VBG HCO3 22.1 L, VBG Total CO2 23.3, VBG O2 Saturation 66.7, VBG Base Excess -3.6 L, VBG Lactic Acid 2.5 H 09/15/23 12:40: Lactate 1.9, Blood Type A Positive, Antibody Screen Negative 09/15/23 14:41: Urine Color Yellow, Urine Appearance Clear, Urine pH 6.0, Ur Specific [place] 1.015, Urine Protein 2+, Urine Glucose (UA) Negative, Urine Ketones Negative, Urine Blood Trace-i, Urine Nitrate Negative, Urine Bilirubin Negative, Urine Urobilinogen 0.2, Ur Leukocyte Esterase Negative, Urine RBC 5-10, Urine WBC 3-5, Ur Squamous Epith Cells Occasional, Urine Bacteria Trace Orders (Tests/Meds): ED MEDICATIONS Generic Name Dose Route Start Last Admin Trade Name Freq PRN Reason Stop Dose Admin Heparin Sodium (Porcine) 5,000 unit 09/15/23 21:00 Heparin Sodium 5,000 Unit/Ml Vial SQ 10/15/23 20:59 TID SHAMIKA Miscellaneous 1 each 09/15/23 12:30 09/15/23 12:56 Vancomycin Consult Request NOTAPPLIC 10/15/23 12:29 1 each CONSULT PHARMACY SHAMIKA Administration Discontinued Medications Generic Name Dose Route Start Last Admin Trade Name Kaitlynn PRN Reason Stop Dose Admin Furosemide 60 mg 09/15/23 14:00 09/15/23 14:17 Furosemide 40mg/4ml Vial IV 09/15/23 14:01 60 mg ONCE ONE Administration Ampicillin Sodium/Sulbactam 100 mls @ 200 mls/hr 09/15/23 12:26 09/15/23 13:10 Sodium 3 gm/ Sodium Chloride IV 09/15/23 12:27 200 mls/hr ONCE ONE Administration Vancomycin/PEG/NADA/Lysine/Water 1.5 gm in 300 mls @ 150 mls/hr 09/15/23 13:00 09/15/23 14:17 Vancomycin 1.5gm/300ml (Peg) Premix IV 09/15/23 14:59 150 mls/hr ONCE ONE Administration Iopamidol 130 ml 09/15/23 13:29 09/15/23 13:49 Iopamidol-370 (76%);100ml Bottle IV 09/15/23 13:30 130 ml ONCE ONE Administration Iopamidol 100 ml 09/15/23 13:47 09/15/23 13:49 Iopamidol-370 (76%);100ml Bottle IV 09/15/23 13:48 Not Given ONCE ONE Iopamidol 30 ml 09/15/23 13:48 Iopamidol-370 (76%);100ml Bottle IV 09/15/23 13:49 ONCE ONE Ondansetron HCl 4 mg 09/15/23 12:19 09/15/23 12:20 Ondansetron 4mg/2ml Vial IV 09/15/23 12:20 4 mg ONCE ONE Administration Sodium Chloride 50 ml 09/15/23 13:29 09/15/23 13:48 0.9 % Sodium Chloride 50 Ml Vial IV 09/15/23 13:30 50 ml ONCE ONE Administration Sodium Chloride 10 ml 09/15/23 13:29 09/15/23 13:48 Sodium Chloride 0.9% 10ml Syr (Rad Only) IV 09/15/23 13:30 10 ml ONCE ONE Administration Sodium Chloride 10 ml 09/15/23 13:47 09/15/23 13:49 Sodium Chloride 0.9% 10ml Syr (Rad Only) IV 09/15/23 13:48 Not Given ONCE ONE Sodium Chloride 50 ml 09/15/23 13:47 0.9 % Sodium Chloride 50 Ml Vial IV 09/15/23 13:48 ONCE ONE ORDERS Category Date Time Status Type and Screen Stat BBK 09/15/23 12:[address] angio abdomen pelvis Stat Cat Scan 09/15/23 12:[address] head/brain wo/w con Stat Cat Scan 09/15/23 12:[address] soft tissue neck w con Stat Cat Scan 09/15/23 12:26 Completed CTA Chest [CT angio chest - dissection] Stat Cat Scan 09/15/23 12:30 Completed POCUS Point of Care (ER Only) Stat Exams 09/15/23 12:29 Completed XR chest portable Stat Exams 09/15/23 12:29 Completed CRP [C-Reactive Protein] Stat Lab 09/15/23 12:15 Completed Complete Blood Count Auto Diff Stat Lab 09/15/23 12:15 Completed Comprehensive Metabolic Panel Stat Lab 09/15/23 12:15 Completed ESR [Erythrocyte Sedimentation Rate] Stat Lab 09/15/23 12:15 Completed Hemoglobin A1C Stat Lab 09/15/23 12:15 Completed LDH [Lactate Dehydrogenase] Stat Lab 09/15/23 12:15 Completed Lactic Acid Stat Lab 09/15/23 12:40 Completed Lipase Stat Lab 09/15/23 12:15 Completed Lipid Panel Stat Lab 09/15/23 12:15 Completed Magnesium Stat Lab 09/15/23 12:15 Completed NT Pro Brain Natriuretic Pep. Stat Lab 09/15/23 12:15 Completed T4 (Thyroxine) Stat Lab 09/15/23 12:15 Completed TSH [Thyroid Stimulating Hormone] Stat Lab 09/15/23 12:15 Completed Troponin I Q3H Lab 09/15/23 16:07 Received Troponin I Q3H Lab 09/15/23 18:30 Ordered Troponin I Stat Lab 09/15/23 12:15 Completed Uric Acid Stat Lab 09/15/23 12:15 Completed Urinalysis and Microscopic Stat Lab 09/15/23 14:41 Completed Blood Culture Stat Micro 09/15/23 12:40 Received Venous Blood Gas Stat RT 09/15/23 12:37 Completed HEART Score HEART Score: 4 Medical Decision Narrative: 57-year-old male history of hypertension, hyperlipidemia, CAD D, CONNIE, type 2 diabetes diastolic heart failure, COPD not on home oxygen presenting with multiple complaints. Patient has been feeling generally poor over the last few days. Starting 3 days prior to this visit, started having headaches, patient has no history of headaches. Tylenol Motrin not help. Since that time started feeling nauseated without vomiting. He has had recent unintended weight loss of about 10 pounds. No night sweats. No recent travel. Never had anything like this in the past. Was scheduling follow-up with rn labor and delivery today. In the office was hypotensive, based on clinical appearance and blood pressure, sent to the emergency department for further evaluation. History was obtained via conversation with patient and , cardiology team. On arrival, patient hemodynamically stable, alert, oriented x4, appropriate, GCS 15, moving all extremities spontaneously, pupils equal and reactive to light. Full physical exam performed and significant for ill-appearing male who is in no acute distress. Dry mucous membranes, pale. Cardiac exam with distant heart sounds, but no obvious murmurs, gallops, rubs. No JVD. No lower extremity edema. Pulses are equal symmetric bilateral upper and lower extremities. No pulsatile abdominal mass. Lungs are clear to auscultation without focal wheezes. Differential includes malignancy, metabolic abnormality, microvascular coronary artery disease, CHF, ACS, ME, coronary artery dissection, pneumothorax, PE, dissection, pericarditis, myocarditis, pneumothorax, aortic aneurysm, pneumonia, bronchitis, among others. Patient was given fluids, empiric vancomycin and Unasyn for symptomatic management and correction of underlying abnormalities. Workup independently interpreted and significant for Mildly leukopenic with white count 2.8. VBG nonactionable. Lactate negative. Sodium low at 131, kidney function JENNIFER on CKD with BUN 40, creatinine 2.1 concerning for prerenal versus intrarenal azotemia. A1c elevated at 9.5. LFTs nonactionable. Patient's initial troponin 0.03, BNP elevated at 2530. LDH negative, lipid panel with hyperlipidemia. Thyroid studies negative. Chest x-ray with cardiomegaly and pulmonary venous congestion. CT head without acute intracranial abnormality on my independent interpretation. CT soft tissue neck similar. 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 See radiology read for full review of final results. Independent interpretation of EKG shows sinus rhythm 66 beats a minute no ST changes concerning for acute ischemia, but patient does have T wave inversions 2, 3, aVF without reciprocal change. Branch block morphology. There are low voltages throughout the EKG. [place], QRS, QTc 155, 145, 4 3 ms respectively. Heart score 4. Patient given 60 mg IV Lasix. Prior to final reads and disposition, care ended up oncoming physician. Pipe Fitter Supervisor Maintenance disclaimer Much of this encounter note is an electronic director corporate sales spoken language to printed text. Electronic director corporate sales of the spoken language may permit errors. Although I have reviewed the note, some errors may still exist. DO Asa: I assumed care of the patient at 1500. CT scans do not demonstrate any acutely concerning surgical pathology. Please see radiology read for final interpretation. Given JENNIFER, general weakness, and concerns for potential new heart failure, I had an interactive discussion with the hospitalist who admitted the patient for further evaluation and management. He is admitted in stable condition. Critical Care <Sukhdev Lee MD - Last Filed: 09/15/23 15:14> Critical Care Time Critical Care Time: No
[2023-09-15 12:59] LABS: Alanine Aminotransferase 56 U/L (12-78); Albumin Level 2.9 g/dl (3.5-5.0); Alkaline Phosphatase 87 U/L (38-126); Anion Gap 9.2 mEq/L (5-15); Aspartate Amino Transferase 68 U/L (17-59); Bilirubin,Total 0.5 mg/dl (0.2-1.3); Blood Urea Nitrogen 40 mg/dl (9-20); Calcium 8.8 mg/dl (8.4-10.2); Carbon Dioxide 24 mmol/L (22.0-30.0); Chloride 102 mmol/L (98-107); Chol/HDL Ratio 10.9 (1-3.5); Cholesterol 251 mg/dl (140-200); Creatinine Clearance Estimated 50 mL/min (50-200); Estimated Glomerular Filt Rate 33 ml/min (>60); GFR (African American) 40 ML/MIN (>60); Glucose 231 mg/dl (74-100); HDL Cholesterol 23 mg/dl (40-60); Lipase 308 U/L (23-300); Magnesium 1.8 mg/dl (1.6-2.3); Potassium 4.2 mmoL/L (3.5-5.1); Sodium 131 mmol/L (136-145); Total Protein,Serum 5.9 g/dl (6.3-8.2)
[2023-09-15 13:09] LABS: C-Reactive Protein 25.9 mg/L (0-4); Direct LDL Cholesterol 82.61 mg/dL (100-129)
[2023-09-15 13:10] LABS: NT Pro Brain Natriuretic Pep. 2530 pg/mL (0-125); Troponin I 0.03 ng/ml (0.00-0.034)
[2023-09-15] MEDS: AMPICILLIN/SULBACTAM 3 GM in 0.9 % SODIUM CHLORIDE 100 ML IV (13:10)
--- NOTE | 2023-09-15 13:14 | PC.NURSE ---
PT TO CT
[2023-09-15 13:16] LABS: Erythrocyte Sedimentation Rate 67 mm/hr (0-20); Triglycerides 593 mg/dl (30-150)
[2023-09-15 13:38] LABS: T4 (Thyroxine) 6.9 ug/dl (5.53-11.0)
[2023-09-15 13:46] LABS: Lactate Dehydrogenase 243 U/L (313-618); Uric Acid 7.2 mg/dl (3.5-8.5)
[2023-09-15] MEDS: SODIUM CHLORIDE 0.9% 10ML SYR (RAD ONLY) 10 ML IV (13:48)
[2023-09-15] MEDS: 0.9 % SODIUM CHLORIDE 50 ML VIAL IV (13:48)
[2023-09-15] MEDS: IOPAMIDOL-370 (76%);100ML BOTTLE 130 ML IV (13:49)
[2023-09-15] MEDS: FUROSEMIDE 40MG/4ML VIAL 60 MG IV (14:17)
[2023-09-15] MEDS: VANCOMYCIN/WATER FOR INJ (PEG) 1.5 GM/300 ML PIGGYBACK IV (14:17)
[2023-09-15 14:37] LABS: Hemoglobin A1C 9.5 % (4.0-6.0)
[2023-09-15 14:45] LABS: Microscopic, Urine URINE MICROSCOPIC (MICROSCOPIC)
[2023-09-15 15:00] LABS: Appearance,Urine CLEAR (Clear); Bilirubin,Urine Negative (Negative); Blood, Urine TRACE-I (Negative); Color,Urine YELLOW (Yellow); Glucose,Urine (UA) Negative (Negative); Ketones,Urine Negative (Negative); Leukocyte Esterase,Urine Negative (Negative); Nitrate,Urine Negative (Negative); Protein,Urine 2+ (Negative); Specific Gravity, Urine 1.015 (1.005-1.030); Urobilinogen,Urine 0.2 EU/dl (0.2)
--- NOTE | 2023-09-15 16:09 | PC.NURSE ---
ARTIFICIAL STONE SETTER NOTIFIED OF ADMISSION
[2023-09-15 16:17] LABS: Bacteria,Urine Trace /lpf; Squamous Epithelial Cell,Urine Occasional #/hpf (0-5)
--- NOTE | 2023-09-15 16:17 | PC.NURSE ---
Report given to Ani Acuña RN on Med Surg.
--- NOTE | 2023-09-15 16:20 | CA_ITS ---
APPROVED REPORT EXAM: Comprehensive 2D, Doppler, and color-flow Echocardiogram Assistance Coordinator: RISHI Herr, RVS Ht: 6 ft 4 in Wt: 224lbs BSA: 2.32 BP: 110/65 mmHg Indications: CHF, CAD, HF, Smoker, COPD, JENNIFER, Nausea, DM 2D Dimensions IVSd 1.35 cm LVEF (Visual) 51.20 % PWd 1.11 cm LA Volume 67.90 mL LVDd 5.03 cm LA Volume Index 28.50 mL/m2 (M/F) 16-34 LVDs 3.71 cm Left Atrium 3.82 cm M-Mode Dimensions LA Diam 5.20 cm (1.9-4.0) EPSs 0.34 cm TAPSE 3.45 (<1.7) LV Diastology E Decel Time 330 (160-240 msec) E/A Ratio 1.47 MED A' 9.50 cm/s LAT A' 11.60 cm/s Aortic Valve LIA Index 1.20 cm2/m2 AoV Peak [place]. 142.0 (50-130 cm/s) AO Peak GR. 8.10 mmHg AO Mean GR. 4.00 (<5 mmHg) AO VTI 30.4 (18-25 cm) LIA (VTI) 2.86 (2.5-4.5 cm2) Mitral Valve MV A Velocity 54.0 (40-130 cm/s) E/A Ratio 1.47 Pulmonary Valve PV Peak Velocity 92.0 (50-150 cm/s) Tricuspid Valve TR P. Velocity 183.00 cm/s RAP Estimate 10.00 mmHg RVSP 23.30 mmHg Left Ventricle The left ventricle is normal size. The left ventricular systolic function is normal. The left ventricular ejection fraction is within the normal range. There is increased left ventricular wall thickness. There is normal LV segmental wall motion. The left ventricular diastolic function is normal. LVEF is 55%. Right Ventricle The right ventricle is normal size. The right ventricular systolic function is normal. Atria The left atrium size is normal. The right atrium size is normal. There is no Doppler evidence of interatrial shunt. Aortic Valve The aortic valve opens well. There is no aortic valvular stenosis. No aortic regurgitation is present. Mitral Valve The mitral valve is normal in structure. No evidence of mitral valve stenosis. Trace mitral regurgitation. Tricuspid Valve The tricuspid valve leaflets are thin and pliable. Trace tricuspid regurgitation. There is insufficient TR jet to estimate RVSP. Pulmonic Valve The pulmonary valve is normal in structure. Trace pulmonic regurgitation. Great Vessels The aortic root is normal in size. The ascending aorta is normal in size. IVC is normal in size and collapses >50% with inspiration. Pericardium There is no pericardial effusion. Other Information Study Quality: Fair Conclusion Normal biventricular systolic function. No significant valvular stenosis or regurgitation. Electronically signed by : Emeli Paniagua MD 09/18/2023 23:38:55
--- NOTE | 2023-09-15 16:21 | P.HP_ITS ---
History of Present Illness *Admission Date: 09/15/23 *Reason for visit:: nausea, weakness *History of present illness: Mr. Lopez is a 57-year-old male with hypertension, hyperlipidemia, CAD, type 2 diabetes, diastolic heart failure, COPD. He presented to the ER via wheelchair after being sent from his PCPs office due to headache, fatigue, nausea and vomiting. On arrival to the ER, patient states he has been having headaches and some dry heaves for the past 2 to 3 days. Missed work on Tuesday and Tuesday due to developing headache and vomiting while at work. [place] little bit better yesterday mowed his lawn but today felt weak and had low blood pressure in his PCPs office. He is alert and oriented x 4, no focal neurologic symptoms, on room air on evaluation in the ER. Trace lower extremity edema noted. Workup in the ER with elevated BNP of 2500, A1c of 9.5, and creatinine of 2.1 with BUN of 40. Findings concerning for CHF exacerbation and JENNIFER. Chest imaging showed pulmonary venous congestion. No abnormality on CT of head. 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 Medicine was consulted for admission and further management. Received Lasix in the ER. Diuresing well at this time. Stable on room air. States he feels somewhat better since being treated in the ER. Denies any chest pain at this time. Tolerating p.o. intake on exam. Denies current nausea or vomiting. [facility] Disclaimer: The information contained in this section may have been updated after the patient was seen, as this information can be updated by other users. Medical History (HFpEF) heart failure with preserved ejection fraction Abnormal result of cardiovascular function study Atypical angina CAD (coronary artery disease) Hyperlipidemia Hypertension Lower extremity edema CONNIE (obstructive sleep apnea) Type 2 diabetes mellitus Type 2 diabetes mellitus with stage 2 chronic kidney disease Surgical History H/O heart artery stent 4 stents History of cardiac catheterization Family History Father Cancer Mother Stroke Social History Smoking Status: Current every day smoker alcohol intake: never substance use type: denies use current occupational status: employed Travel in the last 8 weeks: None Review of Systems Review of Systems Review of systems (narrative): 14 point review of systems performed, pertinent positives and negatives as per HPI Meds Home Medications and Allergies Home Medications Medication Instructions Recorded Confirmed Type aspirin 81 mg chewable tablet 81 mg PO DAILY 01/26/23 09/15/23 History insulin glargine 100 unit/mL (3 35 unit SQ HS 01/26/23 09/15/23 History mL) subcutaneous pen (Basaglar KwikPen U-100 Insulin) insulin lispro 100 unit/mL 12 unit SQ .COMPLEX 01/26/23 09/15/23 History subcutaneous cartridge (Humalog U-100 Insulin) atorvastatin 40 mg tablet 40 mg PO DAILY #90 tabs 02/09/23 09/15/23 Rx spironolactone 25 mg tablet 25 mg PO DAILY #30 tabs 02/23/23 09/15/23 Rx (Aldactone) torsemide 100 mg tablet 50 mg (1/2 x 100 mg) PO DAILY #30 02/23/23 09/15/23 Rx tabs carvedilol 12.5 mg tablet 12.5 mg PO BID #180 tabs 03/10/23 09/15/23 Rx clopidogrel 75 mg tablet (Plavix) 75 mg PO DAILY #90 tabs 03/10/23 09/15/23 Rx lisinopril 40 mg tablet 40 mg PO DAILY #90 tabs 06/09/23 09/15/23 Rx venlafaxine 75 mg tablet 75 mg PO DAILY #30 tabs 06/29/23 09/15/23 Rx hydralazine 25 mg tablet 25 mg PO BID 09/15/23 09/15/23 History New Prescriptions to Start Prescriptions: Allergies Allergy/AdvReac Type Severity Reaction Status Date / Time NSAIDS (Non-Steroidal Allergy itch Verified 09/15/23 11:45 Anti-Inflamma gabapentin AdvReac Mild Verified 09/15/23 11:45 Exam Data for Last 24 hours Vital signs and Labs for Last 24 Hours: Temp Pulse Resp BP Pulse Ox O2 Del Method 98.2 F 49 L 10 L 110/65 98 Room Air 09/15/23 12:12 09/15/23 15:00 09/15/23 15:00 09/15/23 15:00 09/15/23 15:00 09/15/23 12:12 Laboratory Results - last 24 hr 09/15/23 12:15: WBC 2.8 L, RBC 4.37 L, Hgb 13.7 L, Hct 43.2, MCV 99.0 H, MCH 31.4 H, MCHC 31.7 L, RDW 13.6, Plt Count 162, MPV 8.2, Neut % (Auto) 67.7, Lymph % (Auto) 24.6, [place] % (Auto) 6.1, Eos % (Auto) 0.3, Baso % (Auto) 1.3, Neut # (Auto) 1.9, Lymph # (Auto) 0.7, [place] # (Auto) 0.2, Eos # (Auto) 0.0, Baso # (Auto) 0.0, ESR 67 H, Sodium 131 L, Potassium 4.2, Chloride 102, Carbon Dioxide 24, Anion Gap 9.2, BUN 40 H, Creatinine 2.10 H, Estimated Creat Clear 50, Estimated GFR 33 L, Est GFR ( Amer) 40 L, Glucose 231 H, Hemoglobin A1c 9.5 H, Uric Acid 7.2, Calcium 8.8, Magnesium 1.8, Total Bilirubin 0.5, AST 68 H, ALT 56, Alkaline Phosphatase 87, Lactate Dehydrogenase 243 L, Troponin I 0.03, C-Reactive Protein 25.9 H, NT-Pro-B Natriuret Pep 2530 H, Total Protein 5.9 L, Albumin 2.9 L, Globulin 3.0, Albumin/Globulin Ratio 1.0 L, Triglycerides 593 H, Cholesterol 251 H, LDL Cholesterol Direct 82.61 L, HDL Cholesterol 23 L, Cholesterol/HDL Ratio 10.9 H, Lipase 308 H, TSH 0.70, Thyroxine (T4) 6.9 09/15/23 12:37: VBG pH 7.35, VBG pCO2 41.1, VBG pO2 32.9, VBG HCO3 22.1 L, VBG Total CO2 23.3, VBG O2 Saturation 66.7, VBG Base Excess -3.6 L, VBG Lactic Acid 2.5 H 09/15/23 12:40: Lactate 1.9, Blood Type A Positive, Antibody Screen Negative 09/15/23 14:41: Urine Color Yellow, Urine Appearance Clear, Urine pH 6.0, Ur Specific [place] 1.015, Urine Protein 2+, Urine Glucose (UA) Negative, Urine Ketones Negative, Urine Blood Trace-i, Urine Nitrate Negative, Urine Bilirubin Negative, Urine Urobilinogen 0.2, Ur Leukocyte Esterase Negative, Urine RBC 5- 10, Urine WBC 3-5, Ur Squamous Epith Cells Occasional, Urine Bacteria Trace I & O for Last 24 hours: Intake & Output 09/12/23 09/13/23 09/14/23 09/15/23 23:59 23:59 23:59 23:59 Weight 90.718 kg Constitutional Constitutional: no acute distress, average body habitus and cooperative *Routine HEENT Exam Head: Present normocephalic Eye: Present EOMI and PERRL ENT: Present mucous membranes moist *Routine Neck Exam Neck: Present supple; Absent lymphadenopathy *Routine Respiratory Exam Respiratory: Present CTA bilaterally; Absent rhonchi, wheezes or crackles *Routine Cardiovascular Exam Cardiovascular: Present RRR *Routine Abdominal Exam Abdominal: Present soft and normoactive bowel sounds; Absent tenderness *Routine Rectal Exam Rectal:: deferred *Routine Genitalia Exam Genitalia:: deferred *Routine Extremities Exam Extremities: Present edema (Trace bilateral lower extremity edema to knees); Absent cyanosis or clubbing *Routine Skin Exam Skin: Present warm; Absent rash *Routine Neurological Exam Neurological: Present alert, oriented X3 and moving all extremities; Absent altered mental status Assessment and Plan *Assessment and plan (1) (HFpEF) heart failure with preserved ejection fraction: Status: Acute Qualifiers: Heart failure chronicity: acute on chronic Qualified Code(s): I50.33 - Acute on chronic diastolic (congestive) heart failure Category: Medical Code(s): I50.30 - Unspecified diastolic (congestive) heart failure (2) Diabetes mellitus type 2, uncontrolled, with complications: Status: Acute Category: Medical (3) JENNIFER (acute kidney injury): Status: Acute Category: Medical Code(s): N17.9 - Acute kidney failure, unspecified (4) General weakness: Status: Acute Category: Medical Code(s): R53.1 - Weakness (5) CKD stage 3 due to type 2 diabetes mellitus: Status: Chronic Category: Medical Code(s): E11.22 - Type 2 diabetes mellitus with diabetic chronic kidney disease; N18.30 - Chronic kidney disease, stage 3 unspecified (6) CAD (coronary artery disease): Status: Chronic Qualifiers: Coronary Disease-Associated Artery/Lesion type: [place] artery [place] vs. transplanted heart: [place] heart Associated angina: with other forms of angina Qualified Code(s): I25.118 - Atherosclerotic heart disease of [place] coronary artery with other forms of angina pectoris Category: Medical Code(s): I25.10 - Atherosclerotic heart disease of [place] coronary artery without angina pectoris (7) Hypertension: Status: Chronic Qualifiers: Hypertension type: primary hypertension Qualified Code(s): I10 - Essential (primary) hypertension Category: Medical Code(s): I10 - Essential (primary) hypertension (8) Hyperlipidemia: Status: Chronic Qualifiers: Hyperlipidemia type: unspecified Qualified Code(s): E78.5 - Hyperlipidemia, unspecified Category: Medical Code(s): E78.5 - Hyperlipidemia, unspecified Plan 57-year-old male who presents to the ER from his PCPs office due to weakness and low blood pressure. Discussed case with ER physician, has concern for CHF exacerbation with elevated BNP, JENNIFER, need for further workup and management with cardiology. Requested admission. Medicine agreed to admit for further treatment. Diuresing well. Patient feeling somewhat better since admission. No nausea or vomiting at this time. Cardiology consulted to see patient in the morning. Chest imaging reviewed that showed no focal pneumonia or consolidation, does have increased pulmonary vasculature congestion, CT also shows nonspecific findings. Patient is a longtime smoker with over [id number] history. Low concern of acute infection at this time. Weakness Acute on chronic heart failure preserved ejection fraction CAD -BNP elevated at 2500, previous echo with diastolic dysfunction, preserved EF. Repeat echo obtained, formal read pending -History of CAD and hypertension. -Cardiology consulted to assist with management, will see patient in the morning. -Holding home blood pressure regimen due to normotensive state. Will continue home aspirin 81 mg daily, Lipitor 40 mg daily, Plavix 75 mg daily -Continue home torsemide 50 mg daily with spironolactone 25 mg daily - repeat CBC, CMP, magnesium ordered for the morning Uncontrolled diabetes with hyperglycemia -A1c 9.5 -Fingersticks ACHS with sliding scale insulin -Continue home Lantus 30 units nightly JENNIFER on CKD -Baseline creatinine 1.5, BUN 40 and creatinine 2.1 on admission. Diuresing x1, will monitor labs closely for improvement -Currently does not appear dehydrated, concern for JENNIFER secondary to problem 1 -Continue home torsemide and spironolactone as above. Caution with. Holding ROXANN inhibitor. Avoiding NSAIDs. Continue Effexor 75 mg daily for mood Full code Subcu heparin Diabetic diet
[2023-09-15 16:34] LABS: Troponin I 0.02 ng/ml (0.00-0.034)
[2023-09-15 16:41] LABS: Reflex Lactic Add Lactic Reflex
--- NOTE | 2023-09-15 17:39 | PC.NURSE ---
A&OX4. RESTING IN BED SINCE ARRIVAL TO FLOOR. HAS A GOOD APPETITE. STATES HE IS FEELING MUCH BETTER THAN BEFORE. HAS HAD NO NEEDS OR C/O SINCE ARRIVAL TO FLOOR. VSS.
[2023-09-15 17:40] LABS: Lactic Acid Follow Up (RFLX 1) 1.2 mmol/L (0.7-2.1)
[2023-09-15 19:19] LABS: Troponin I 0.02 ng/ml (0.00-0.034)
[2023-09-15] MEDS: HEPARIN SODIUM 5,000 UNIT/ML VIAL 5000 UNIT SQ (20:20)
[2023-09-15] MEDS: humaLOG 100 UNITS/ML 10ML VIAL (SSI) SQ (20:21)
[2023-09-15] MEDS: INSULIN GLARGINE 100 UNITS/ML 3ML FLEXPEN 30 UNIT SQ (20:21)
[2023-09-15 20:24] LABS: POC Glucose,Bedside 394 (70-110)
[2023-09-15] MEDS: ACETAMINOPHEN 325MG TAB 650 MG PO (22:36)
[2023-09-15] MEDS: MORPHINE 2MG/ML SYRINGE 2 MG IV (23:45)
--- NOTE | 2023-09-15 23:47 | PC.NURSE ---
PATIENT ASSISTED TO THE BR, COUGHED AND THREW UP WATER WHICH HE HAD BEEN DRINKING. H/A RETURNED 09/18. MEDICATED WITH MORPHINE 2 MG IVP.
[2023-09-16] VITALS (7 sets, daily range): BP systolic 116–168; BP diastolic 68–92; PULSE 57–93; RESP 16–18; TEMP 36.6–37.3; O2SAT 93–98; BMI 25.8
[2023-09-16 00:50] LABS: POC Glucose,Bedside 139 (70-110)
--- NOTE | 2023-09-16 00:51 | PC.NURSE ---
DURING MN ROUNDS PATIENT WAS WARM SWEATY. FSBS 139. LOW GRADE TEMP 99.2 ORAL. BP 124/71 HR 65 18 RESPS AND 93 % ON RA. DENIES H/A, NAUSEA. VOICES NO COMPLAINTS AT THIS TIME.
--- NOTE | 2023-09-16 04:32 | PC.NURSE ---
RESTING QUIETLY AT THIS TIME. SINUS RHYTHM/SINUS BRADYCADIA/BBB NOTED ON TELEMETRY. C/O H/A AND RECEIVED BOTH TYLENOL PO AT 6 WHICH HELPED FOR A SHORT WHILE AND THEN MORPHINE 2 MG IVP AT 2345 WHICH WAS EFFECTIVE THUS FAR. VITAL SIGNS STABLE/AFEBRILE.
[2023-09-16 05:33] LABS: POC Glucose,Bedside 114 (70-110)
[2023-09-16 06:18] LABS: Chloride 106 mmol/L (98-107)
[2023-09-16 06:19] LABS: Basophils % 1.3 % (0.1-2.0); Eosinophils % 0.7 % (0.1-12.0); Hematocrit 38.3 % (42.0-52.0); Lymphocytes # 1.1 K/mm3 (0.7-4.5); Lymphocytes % 39.1 % (10-50); Mean Corpuscular HGB Conc 31.7 g/dL (31.8-35.4); Mean Corpuscular Volume 97.6 fl (80-94); Mean Platelet Volume 9.1 fl (7.4-10.4); Monocytes # 0.3 K/mm3 (0.1-1.0); Monocytes % 9.2 % (1.7-9.3); Neutrophils # 1.5 K/mm3 (1.8-7.8); Neutrophils % 49.8 % (37.0-80.0); Platelet Count 143 K/mm3 (142-424); Potassium 4.1 mmoL/L (3.5-5.1); Red Blood Count 3.92 M/mm3 (4.60-6.20); Red Cell Distribution Width 13.7 % (11.5-17.5); Sodium 132 mmol/L (136-145); White Blood Count 2.9 K/mm3 (4.8-10.8)
[2023-09-16 06:21] LABS: Alanine Aminotransferase 54 U/L (12-78); Albumin Level 2.4 g/dl (3.5-5.0); Albumin/Globulin Ratio 0.9 (1.1-1.8); Alkaline Phosphatase 83 U/L (38-126); Anion Gap 6.1 mEq/L (5-15); Aspartate Amino Transferase 59 U/L (17-59); Bilirubin,Total 0.3 mg/dl (0.2-1.3); Blood Urea Nitrogen 43 mg/dl (9-20); Carbon Dioxide 24 mmol/L (22.0-30.0); Creatinine Clearance Estimated 46 mL/min (50-200); Estimated Glomerular Filt Rate 28 ml/min (>60); GFR (African American) 34 ML/MIN (>60); Globulin 2.6 g/dL (1.3-3.2); Glucose 107 mg/dl (74-100)
[2023-09-16 06:22] LABS: Magnesium 1.7 mg/dl (1.6-2.3)
[2023-09-16 06:24] LABS: Hemoglobin 12.1 g/dL (14.1-18.0)
--- NOTE | 2023-09-16 06:42 | PC.NURSE ---
NPO SINCE MN ORDERED.
--- NOTE | 2023-09-16 07:34 | HMH.PHAINT1 ---
Pharmacy Intervention Comments: HOME MEDICATION LIST VERIFIED USING LIST FROM OUTPATIENT PHARMACY, CARDIOLOGY AND PRIMARY CARE OFFICE NOTES AND PT INTERVIEW
[2023-09-16] MEDS: HEPARIN SODIUM 5,000 UNIT/ML VIAL 5000 UNIT SQ ×3 (09:01→20:07)
--- NOTE | 2023-09-16 09:18 | P.CONCA_ITS ---
History of Present Illness History of Present Illness Consult date: 09/16/23 Requesting physician: Giorgi Conley Chief complaint: headache and vomiting History of present illness: This is a 57-year-old white male with past medical history of coronary artery disease with COSTA in 2009 and a medical management heart cath in February 2023, hyperlipidemia, hypertension, history of HFpEF and type II diabetes mellitus who presented to emergency department yesterday with complaints of 3 days of nausea, vomiting and headache/neck pain. Patient reports he never has headaches and this headache and neck pain were bad enough that he had to leave work. Patient was evaluated in PCP office yesterday and was noted to be hypotensive with a blood pressure of 68/42 and acutely ill-appearing. Patient was taken to emergency department from PCP office. Upon arrival to emergency department EKG showed sinus rhythm at a rate of 66, the right bundle branch block and no acute ischemic changes noted. Labs were as follow: WBC 2.8, hemoglobin 13.7, sodium 131, BUN 40, creatinine 2.10, hemoglobin A1c 9.5, lactate 1.9, serial troponins negative, C-reactive protein 25.9, proBNP 2530. Chest x-ray was negative for acute cardiopulmonary process. CT head was negative for acute changes. CT of neck showed a left carotid bulb that produced a 50% luminal diameter stenosis. CT abdomen pelvis showed a moderate 40 to 50% proximal left external iliac arter y stenosis with mild stenosis elsewhere in the iliac arteries. Moderate stenosis of the common femoral artery bilaterally with 40 to 50% stenosis. Chest CTA showed no evidence of pulmonary embolism or thoracic aortic aneurysm or dissection. No evidence of pulmonary edema or pleural effusion. Diffuse interstitial and nodular opacities bilaterally were noted in the upper lobes which were nonspecific. Mildly enlarged mediastinal and hilar nodes nonspecific but favor reactive in nature. He was given IV diuretics in emergency department for concern for questionable pulmonary vascular congestion noted on chest x-ray and elevated BNP. Morning labs from today show a worsening kidney function with a BUN of 43 and a creatinine of 2.4. Patient reports headache has improved and no longer has nausea. Patient denies chest pain, shortness of breath, lower extremity edema or orthopnea. [facility] Disclaimer: The information contained in this section may have been updated after the patient was seen, as this information can be updated by other users. Medical History (HFpEF) heart failure with preserved ejection fraction Abnormal result of cardiovascular function study Atypical angina CAD (coronary artery disease) Hyperlipidemia Hypertension Lower extremity edema CONNIE (obstructive sleep apnea) Type 2 diabetes mellitus Type 2 diabetes mellitus with stage 2 chronic kidney disease Surgical History H/O heart artery stent 4 stents History of cardiac catheterization Family History Father Cancer Mother Stroke Social History Smoking Status: Current every day smoker alcohol intake: never substance use type: denies use current occupational status: employed Travel in the last 8 weeks: None Review of Systems Eyes Eyes: Reports photophobia Comments: severe headache and neck pain *Gastrointestinal Comments: nausea and vomiting Exam Data for Last 24 hours Vital signs and Labs for Last 24 Hours: Temp Pulse Resp BP Pulse Ox O2 Del Method 97.9 F 60 18 127/71 97 Room Air 09/16/23 08:00 09/16/23 08:00 09/16/23 08:00 09/16/23 08:00 09/16/23 08:00 09/16/23 08:51 Laboratory Results - last 24 hr 09/15/23 12:15: WBC 2.8 L, RBC 4.37 L, Hgb 13.7 L, Hct 43.2, MCV 99.0 H, MCH 31.4 H, MCHC 31.7 L, RDW 13.6, Plt Count 162, MPV 8.2, Neut % (Auto) 67.7, Lymph % (Auto) 24.6, [place] % (Auto) 6.1, Eos % (Auto) 0.3, Baso % (Auto) 1.3, Neut # (Auto) 1.9, Lymph # (Auto) 0.7, [place] # (Auto) 0.2, Eos # (Auto) 0.0, Baso # (Auto) 0.0, ESR 67 H, Sodium 131 L, Potassium 4.2, Chloride 102, Carbon Dioxide 24, Anion Gap 9.2, BUN 40 H, Creatinine 2.10 H, Estimated Creat Clear 50, Estimated GFR 33 L, Est GFR ( Amer) 40 L, Glucose 231 H, Hemoglobin A1c 9.5 H, Uric Acid 7.2, Calcium 8.8, Magnesium 1.8, Total Bilirubin 0.5, AST 68 H, ALT 56, Alkaline Phosphatase 87, Lactate Dehydrogenase 243 L, Troponin I 0.03, C-Reactive Protein 25.9 H, NT-Pro-B Natriuret Pep 2530 H, Total Protein 5.9 L, Albumin 2.9 L, Globulin 3.0, Albumin/Globulin Ratio 1.0 L, Triglycerides 593 H, Cholesterol 251 H, LDL Cholesterol Direct 82.61 L, HDL Cholesterol 23 L, Cholesterol/HDL Ratio 10.9 H, Lipase 308 H, TSH 0.70, Thyroxine (T4) 6.9 09/15/23 12:37: VBG pH 7.35, VBG pCO2 41.1, VBG pO2 32.9, VBG HCO3 22.1 L, VBG Total CO2 23.3, VBG O2 Saturation 66.7, VBG Base Excess -3.6 L, VBG Lactic Acid 2.5 H 09/15/23 12:40: Lactate 1.9, Blood Type A Positive, Antibody Screen Negative 09/15/23 14:41: Urine Color Yellow, Urine Appearance Clear, Urine pH 6.0, Ur Specific [place] 1.015, Urine Protein 2+, Urine Glucose (UA) Negative, Urine Ketones Negative, Urine Blood Trace-i, Urine Nitrate Negative, Urine Bilirubin Negative, Urine Urobilinogen 0.2, Ur Leukocyte Esterase Negative, Urine RBC 5- 10, Urine WBC 3-5, Ur Squamous Epith Cells Occasional, Urine Bacteria Trace 09/15/23 16:07: Troponin I 0.02 09/15/23 17:22: Lactate 1.2 09/15/23 18:25: Troponin I 0.02 09/15/23 20:04: POC Glucose 394 H* 09/16/23 00:35: POC Glucose 139 H 09/16/23 05:12: POC Glucose 114 H 09/16/23 05:41: WBC 2.9 L, RBC 3.92 L, Hgb 12.1 L D, Hct 38.3 L, MCV 97.6 H, MCH 31.0, MCHC 31.7 L, RDW 13.7, Plt Count 143, MPV 9.1, Neut % (Auto) 49.8, Lymph % (Auto) 39.1, [place] % (Auto) 9.2, Eos % (Auto) 0.7, Baso % (Auto) 1.3, Neut # (Au to) 1.5 L, Lymph # (Auto) 1.1, [place] # (Auto) 0.3, Eos # (Auto) 0.0, Baso # (Auto) 0.0, Sodium 132 L, Potassium 4.1, Chloride 106, Carbon Dioxide 24, Anion Gap 6.1, BUN 43 H, Creatinine 2.40 H, Estimated Creat Clear 46, Estimated GFR 28 L, Est GFR ( Amer) 34 L, Glucose 107 H D, Calcium 8.0 L, Magnesium 1.7, Total Bilirubin 0.3, AST 59, ALT 54, Alkaline Phosphatase 83, Total Protein 5.0 L, Albumin 2.4 L D, Globulin 2.6, Albumin/Globulin Ratio 0.9 L I & O for Last 24 hours: Intake & Output 09/13/23 09/14/23 09/15/23 09/16/23 23:59 23:59 23:59 23:59 Intake Total 0 600 600 / 600 Output Total 0 / 0 Balance - 599 600 / 600 Weight 218 lb 2 oz 211 lb 14.4 oz Constitutional Constitutional: no acute distress *Routine Respiratory Exam Respiratory: Present CTA bilaterally and symmetric chest movement *Routine Cardiovascular Exam Cardiovascular: Present RRR, Normal S1 and Normal S2 *Routine Abdominal Exam Abdominal: Present soft and normoactive bowel sounds; Absent tenderness *Routine Extremities Exam Extremities: Present full ROM and normal capillary refill; Absent edema *Routine Skin Exam Skin: Present intact, dry and warm Detailed Neck Exam: Thyroids Thyroid: Absent bruit Meds Home Medications and Allergies Home Medications Medication Instructions Recorded Confirmed Type aspirin 81 mg chewable tablet 81 mg PO DAILY 01/26/23 09/15/23 History insulin glargine 100 unit/mL (3 35 unit SQ HS 01/26/23 09/15/23 History mL) subcutaneous pen (Basaglar KwikPen U-100 Insulin) insulin lispro 100 unit/mL 12 unit SQ .COMPLEX 01/26/23 09/15/23 History subcutaneous cartridge (Humalog U-100 Insulin) atorvastatin 40 mg tablet 40 mg PO DAILY #90 tabs 11/01/23 06/06/24 Rx spironolactone 25 mg tablet 25 mg PO DAILY #30 tabs 02/23/23 09/15/23 Rx (Aldactone) torsemide 100 mg tablet 50 mg (1/2 x 100 mg) PO DAILY #30 02/23/23 09/15/23 Rx tabs carvedilol 12.5 mg tablet 12.5 mg PO BID #180 tabs 03/10/23 09/15/23 Rx clopidogrel 75 mg tablet (Plavix) 75 mg PO DAILY #90 tabs 03/10/23 09/15/23 Rx lisinopril 40 mg tablet 40 mg PO DAILY #90 tabs 06/09/23 09/15/23 Rx venlafaxine 75 mg tablet 75 mg PO DAILY #30 tabs 06/29/23 09/15/23 Rx hydralazine 25 mg tablet 25 mg PO BID 09/15/23 09/15/23 History New Prescriptions to Start Prescriptions: Allergies Allergy/AdvReac Type Severity Reaction Status Date / Time NSAIDS (Non-Steroidal Allergy itch Verified 09/15/23 11:45 Anti-Inflamma gabapentin AdvReac Mild Verified 09/15/23 11:45 Assessment and Plan *Assessment and plan (1) General weakness: Status: Acute Category: Medical Code(s): R53.1 - Weakness (2) JENNIFER (acute kidney injury): Status: Acute Category: Medical Code(s): N17.9 - Acute kidney failure, unspecified (3) Acute medical illness: Status: Acute Category: Medical Code(s): Z78.9 - Other specified health status (4) CAD (coronary artery disease): Status: Chronic Qualifiers: Associated angina: with other forms of angina Coronary Disease- Associated Artery/Lesion type: [place] artery [place] vs. transplanted heart: [place] heart Qualified Code(s): I25.118 - Atherosclerotic heart disease of [place] coronary artery with other forms of angina pectoris Category: Medical Code(s): I25.10 - Atherosclerotic heart disease of [place] coronary artery without angina pectoris (5) Hypertension: Status: Chronic Qualifiers: Hypertension type: primary hypertension Qualified Code(s): I10 - Essential (primary) hypertension Category: Medical Code(s): I10 - Essential (primary) hypertension (6) Hyperlipidemia: Status: Chronic Qualifiers: Hyperlipidemia type: unspecified Qualified Code(s): E78.5 - Hyperlipidemia, unspecified Category: Medical Code(s): E78.5 - Hyperlipidemia, unspecified (7) (HFpEF) heart failure with preserved ejection fraction: Status: Acute Qualifiers: Heart failure chronicity: acute on chronic Qualified Code(s): I50.33 - Acute on chronic diastolic (congestive) heart failure Category: Medical Code(s): I50.30 - Unspecified diastolic (congestive) heart failure (8) Headache: Status: Acute Category: Medical Code(s): R51.9 - Headache, unspecified (9) Vomiting: Status: Acute Category: Medical Code(s): R11.10 - Vomiting, unspecified (10) Diabetes mellitus type 2, uncontrolled, with complications: Status: Acute Category: Medical Plan Headache Vomiting x 3 days Acute illness Concern for viral meningitis CTA head negative for acute process Will defer to primary service History of coronary artery disease Medical management heart cath in February 2023 History of COSTA in 2009 Serial troponins negative EKG without acute ischemic changes Continue Plavix 75 mg daily, atorvastatin 40 mg daily, carvedilol 12.5 mg p.o. twice daily History of HFpEF Patient does not appear volume overloaded at this time, likely dehydrated. Patient denies shortness of breath, lower extremity edema or orthopnea. Chest x-ray and CTA of chest negative for pulmonary edema or vascular congestion. Patient hypotensive upon arrival. Continue lisinopril 40 mg daily. Hold Aldactone and torsemide for today Rehydrate with normal saline at 75 mL/h for total volume of 250 Primary service can slowly add back diuretics depending on patient's course over the weekend Preliminary echo report shows a normal ejection fraction with no valvular insufficiency noted. Official read is pending Acute on chronic kidney injury Creatinine 2.10 on admission, 2.4 today after diuretics Continue lisinopril 40 mg daily. Hold Aldactone and torsemide for today Rehydrate with normal saline at 75 mL/h for total volume of [address] soft tissue neck shows no acute process, left carotid bulb that produces approximately 50% luminal diameter stenosis PAD CTA abdomen pelvis 09/15/2023: Moderate 40 to 50% proximal left external iliac stenosis. . Mild stenosis elsewhere in the iliac arteries moderate stenosis of the common femoral arteries with approximately 40 to 50% bilateral stenosis. Continue atorvastatin and Plavix Patient will need angiogram with runoff on an outpatient basis after acute illness. History of hypertension-was hypotensive on presentation well-controlled currently Continue lisinopril 40 mg daily Hyperlipidemia LDL goal less than 55, LDL is 82. Continue atorvastatin 40 mg daily Diabetes mellitus type 2 Defer to primary service Summary 09/16/2023: Recommend holding diuretics for today and rehydrate with a total of 250 mL normal saline. Primary service can slowly add back diuretics based on patient's course throughout the weekend. At this time patient does not appear volume overloaded and denies shortness of breath, orthopnea, lower extremity edema. Chest x-ray and CTA chest negative for pleural effusions or pulmonary edema. Preliminary echo report shows a normal ejection fraction, no valvular insufficiencies. Official read is pending. Cardiac meds: Plavix 75 mg daily Aspirin 81 mg daily Coreg 12.5 mg p.o. twice daily Lisinopril 40 mg daily Aldactone-hold 09/16/2023 Torsemide-hold 09/16/2023
[2023-09-16] MEDS: ASPIRIN 81MG CHEWABLE TABLET 81 MG PO (10:01)
[2023-09-16] MEDS: CLOPIDOGREL 75MG TAB 75 MG PO (10:01)
--- NOTE | 2023-09-16 10:21 | P.PN_ITS ---
Subjective *Date: 09/16/23 *Time: 12:39 Interval history: Patient did well overnight. No fever. No nausea or vomiting. Denies any chest pain or shortness of breath this morning. Laying flat on initial exam. Had response initially to diuresis, was thirsty this morning on exam. Creatinine showed a bump this morning. Cardiology evaluating today. Medical Exam Vital signs and Labs for Last 24 Hours: Vital Signs Temp Pulse Pulse Resp BP BP Pulse Ox 09/16/23 08:51 09/16/23 08:00 60 09/16/23 08:00 97.9 F 60 18 127/71 97 09/16/23 06:31 09/16/23 05:00 09/16/23 04:00 57 L 09/16/23 04:00 98.1 F 60 16 116/68 96 09/16/23 03:00 09/16/23 01:00 09/16/23 00:00 99.2 F 65 18 124/71 93 L 09/16/23 00:00 67 09/15/23 23:00 09/15/23 21:00 09/15/23 20:00 98.1 F 70 18 136/71 97 09/15/23 20:00 96 09/15/23 20:00 61 09/15/23 17:37 09/15/23 17:00 09/15/23 16:45 97.9 F 59 L 18 121/69 96 09/15/23 16:35 98.1 F 49 L 10 L 110/65 09/15/23 16:34 98.2 F 60 15 101/63 L 09/15/23 15:00 49 L 10 L 110/65 98 09/15/23 14:30 14 98/58 L 09/15/23 14:00 60 17 102/58 L 97 09/15/23 13:00 64 13 97/60 L 09/15/23 12:12 98.2 F 66 16 100/59 L 99 O2 Del Method 09/16/23 08:51 Room Air 09/16/23 08:00 09/16/23 08:00 Room Air 09/16/23 06:31 Room Air 09/16/23 05:00 Room Air 09/16/23 04:00 09/16/23 04:00 Room Air 09/16/23 03:00 Room Air 09/16/23 01:00 Room Air 09/16/23 00:00 Room Air 09/16/23 00:00 09/15/23 23:00 Room Air 09/15/23 21:00 Room Air 09/15/23 20:00 Room Air 09/15/23 20:00 Room Air 09/15/23 20:00 09/15/23 17:37 Room Air 09/15/23 17:00 Room Air 09/15/23 16:45 Room Air 09/15/23 16:35 Room Air 09/15/23 16:34 Room Air 09/15/23 15:00 09/15/23 14:30 09/15/23 14:00 09/15/23 13:00 09/15/23 12:12 Room Air Intake and Output 09/15/23 09/16/23 09/16/23 23:59 07:59 15:59 Intake Total 0 / 600 600 / 600 0 / 600 Output Total 1 / 1 0 / 0 Balance -1 / 599 600 / 600 0 / 600 Intake: Intake, Oral Amount 0 / 600 600 / 600 0 / 600 Output: Output, Urine Amount 1 / 1 0 / 0 Other: Number of Unmeasured Voids 1 2 Weight 98.94 kg 96.116 kg Patient Weight 09/16/23 23:59 Weight 96.116 kg Laboratory Results - last 24 hr 09/15/23 12:15: WBC 2.8 L, RBC 4.37 L, Hgb 13.7 L, Hct 43.2, MCV 99.0 H, MCH 31.4 H, MCHC 31.7 L, RDW 13.6, Plt Count 162, MPV 8.2, Neut % (Auto) 67.7, Lymph % (Auto) 24.6, [place] % (Auto) 6.1, Eos % (Auto) 0.3, Baso % (Auto) 1.3, Neut # (Auto) 1.9, Lymph # (Auto) 0.7, [place] # (Auto) 0.2, Eos # (Auto) 0.0, Baso # (Auto) 0.0, ESR 67 H, Sodium 131 L, Potassium 4.2, Chloride 102, Carbon Dioxide 24, Anion Gap 9.2, BUN 40 H, Creatinine 2.10 H, Estimated Creat Clear 50, Estimated GFR 33 L, Est GFR ( Amer) 40 L, Glucose 231 H, Hemoglobin A1c 9.5 H, Uric Acid 7.2, Calcium 8.8, Magnesium 1.8, Total Bilirubin 0.5, AST 68 H, ALT 56, Alkaline Phosphatase 87, Lactate Dehydrogenase 243 L, Troponin I 0.03, C-Reactive Protein 25.9 H, NT-Pro-B Natriuret Pep 2530 H, Total Protein 5.9 L, Albumin 2.9 L, Globulin 3.0, Albumin/Globulin Ratio 1.0 L, Triglycerides 593 H, Cholesterol 251 H, LDL Cholesterol Direct 82.61 L, HDL Cholesterol 23 L, Cholesterol/HDL Ratio 10.9 H, Lipase 308 H, TSH 0.70, Thyroxine (T4) 6.9 09/15/23 12:37: VBG pH 7.35, VBG pCO2 41.1, VBG pO2 32.9, VBG HCO3 22.1 L, VBG Total CO2 23.3, VBG O2 Saturation 66.7, VBG Base Excess -3.6 L, VBG Lactic Acid 2.5 H 09/15/23 12:40: Lactate 1.9, Blood Type A Positive, Antibody Screen Negative 09/15/23 14:41: Urine Color Yellow, Urine Appearance Clear, Urine pH 6.0, Ur Specific [place] 1.015, Urine Protein 2+, Urine Glucose (UA) Negative, Urine Ketones Negative, Urine Blood Trace-i, Urine Nitrate Negative, Urine Bilirubin Negative, Urine Urobilinogen 0.2, Ur Leukocyte Esterase Negative, Urine RBC 5- 10, Urine WBC 3-5, Ur Squamous Epith Cells Occasional, Urine Bacteria Trace 09/15/23 16:07: Troponin I 0.02 09/15/23 17:22: Lactate 1.2 09/15/23 18:25: Troponin I 0.02 09/15/23 20:04: POC Glucose 394 H* 09/16/23 00:35: POC Glucose 139 H 09/16/23 05:12: POC Glucose 114 H 09/16/23 05:41: WBC 2.9 L, RBC 3.92 L, Hgb 12.1 L D, Hct 38.3 L, MCV 97.6 H, MCH 31.0, MCHC 31.7 L, RDW 13.7, Plt Count 143, MPV 9.1, Neut % (Auto) 49.8, Lymph % (Auto) 39.1, [place] % (Auto) 9.2, Eos % (Auto) 0.7, Baso % (Auto) 1.3, Neut # (Auto) 1.5 L, Lymph # (Auto) 1.1, [place] # (Auto) 0.3, Eos # (Auto) 0.0, Baso # (Auto) 0.0, Sodium 132 L, Potassium 4.1, Chloride 106, Carbon Dioxide 24, Anion Gap 6.1, BUN 43 H, Creatinine 2.40 H, Estimated Creat Clear 46, Estimated GFR 28 L, Est GFR ( Amer) 34 L, Glucose 107 H D, Calcium 8.0 L, Magnesium 1.7, Total Bilirubin 0.3, AST 59, ALT 54, Alkaline Phosphatase 83, Total Protein 5.0 L, Albumin 2.4 L D, Globulin 2.6, Albumin/Globulin Ratio 0.9 L I & O for Labs for Last 24 Hours: Intake & Output 09/13/23 09/14/23 09/15/23 09/16/23 23:59 23:59 23:59 23:59 Intake Total 0 / 600 600 / 600 Output Total 1 / 1 0 / 0 Balance - 599 600 / 600 Weight 98.94 kg 96.116 kg Constitutional: Present no acute distress, average body habitus and cooperative Head: Present atraumatic and normocephalic ENT: Present normal exam Neck: Present normal inspection Respiratory: Present normal respiratory effort; Absent rhonchi, wheezes or crackles Cardiac: Present Reg Rate and Rhythm GI: Present soft and normal bowel sounds; Absent distention or tenderness Extremities: Present normal inspection and full ROM; Absent edema Skin: Present intact; Absent erythema Neuro: Present Grossly Intact, alert, awake, oriented x 3 and moves all extremities Assessment and Plan *Assessment and plan (1) (HFpEF) heart failure with preserved ejection fraction: Status: Acute Qualifiers: Heart failure chronicity: acute on chronic Qualified Code(s): I50.33 - Acute on chronic diastolic (congestive) heart failure Category: Medical Code(s): I50.30 - Unspecified diastolic (congestive) heart failure (2) Diabetes mellitus type 2, uncontrolled, with complications: Status: Acute Category: Medical (3) JENNIFER (acute kidney injury): Status: Acute Category: Medical Code(s): N17.9 - Acute kidney failure, unspecified (4) General weakness: Status: Acute Category: Medical Code(s): R53.1 - Weakness (5) CKD stage 3 due to type 2 diabetes mellitus: Status: Chronic Category: Medical Code(s): E11.22 - Type 2 diabetes mellitus with diabetic chronic kidney disease; N18.30 - Chronic kidney disease, stage 3 unspecified (6) CAD (coronary artery disease): Status: Chronic Qualifiers: Coronary Disease-Associated Artery/Lesion type: [place] artery [place] vs. transplanted heart: [place] heart Associated angina: with other forms of angina Qualified Code(s): I25.118 - Atherosclerotic heart disease of [place] coronary artery with other forms of angina pectoris Category: Medical Code(s): I25.10 - Atherosclerotic heart disease of [place] coronary artery without angina pectoris (7) Hypertension: Status: Chronic Qualifiers: Hypertension type: primary hypertension Qualified Code(s): I10 - Essential (primary) hypertension Category: Medical Code(s): I10 - Essential (primary) hypertension (8) Hyperlipidemia: Status: Chronic Qualifiers: Hyperlipidemia type: unspecified Qualified Code(s): E78.5 - Hyperlipidemia, unspecified Category: Medical Code(s): E78.5 - Hyperlipidemia, unspecified Plan 57-year-old male who presents to the ER from his PCPs office due to weakness and low blood pressure. Discussed case with ER physician, has concern for CHF exacerbation with elevated BNP, JENNIFER, need for further workup and management with cardiology. Requested admission. Medicine agreed to admit for further treatment. Diuresing well. Patient feeling somewhat better since admission. No nausea or vomiting at this time. Cardiology consulted to see patient in the morning. Chest imaging reviewed that showed no focal pneumonia or consolidation, does have increased pulmonary vasculature congestion, CT also shows nonspecific findings. Patient is a longtime smoker with over [id number] history. Low concern of acute infection at this time. Continues to require inpatient management. Monitoring for improvement in kidney function. Problems addressed as follows: Weakness Acute on chronic heart failure preserved ejection fraction CAD - BNP elevated at 2500, previous echo with diastolic dysfunction, preserved EF. Repeat echo obtained, formal read pending - History of CAD and hypertension. - Cardiology consulted to assist with management, given poor response to diuretics and worsening kidney function, will change course and gently hydrate today. Holding home diuretics And blood pressure regimen. - Will continue home aspirin 81 mg daily, Lipitor 40 mg daily, Plavix 75 mg daily - repeat CBC, CMP, magnesium ordered for the morning Uncontrolled diabetes with hyperglycemia -A1c 9.5 -Fingersticks ACHS with sliding scale insulin -Continue home Lantus 30 units nightly, morning glucose 107 JENNIFER on CKD -Baseline creatinine 1.5, BUN 40 and creatinine 2.1 on admission. Increased BUN to 43 and creatinine 2.4 this morning. -Gentle hydration as above. Holding home diuretics. Holding ROXANN inhibitor. Avoiding NSAIDs. Continue Effexor 75 mg daily for mood Full code Subcu heparin Diabetic diet
[2023-09-16] MEDS: humaLOG 100 UNITS/ML 10ML VIAL (SSI) SQ ×3 (10:57→20:07)
[2023-09-16 10:58] LABS: POC Glucose,Bedside 157 (70-110)
[2023-09-16] MEDS: LACTATED RINGERS 1000ML 500 ML 75 ML IV (11:55)
[2023-09-16 17:02] LABS: Chloride 101 mmol/L (98-107); Potassium 4.7 mmoL/L (3.5-5.1); Sodium 128 mmol/L (136-145)
[2023-09-16 17:05] LABS: Anion Gap 5.7 mEq/L (5-15); Blood Urea Nitrogen 45 mg/dl (9-20); Calcium 7.5 mg/dl (8.4-10.2); Carbon Dioxide 26 mmol/L (22.0-30.0); Creatinine Clearance Estimated 46 mL/min (50-200); Estimated Glomerular Filt Rate 28 ml/min (>60); GFR (African American) 34 ML/MIN (>60); Glucose 315 mg/dl (74-100)
[2023-09-16 17:18] LABS: POC Glucose,Bedside 351 (70-110)
--- NOTE | 2023-09-16 17:21 | PC.NURSE ---
Care assumed from Prosper at 1630. When entering the patient's room, patient was sitting on the edge of the bed eating his meal. Patient verbalized that he was hard of hearing. Patient is alert and oriented x4. Fsbs was collected with a result of of 351. Patient was administered 15 units of insulin. Bowel sounds active, lungs clear bilaterally throughout. Patient's radial pulses are 2+ and equal. Has 20g in the left AC with LR @ 75. Patient reports no pain and has no requests at this time.
[2023-09-16] MEDS: INSULIN GLARGINE 100 UNITS/ML 3ML FLEXPEN 40 UNIT SQ (20:06)
[2023-09-16] MEDS: ATORVASTATIN 40MG TABLET 40 MG PO (20:06)
[2023-09-16] MEDS: 0.9 % SODIUM CHLORIDE 500 ML 100 ML IV (20:14)
[2023-09-17] VITALS: BP 156/70; PULSE 60; PULSE 66; RESP 20; TEMP 37.4; O2SAT 97
[2023-09-17 04:00] VITALS: BP 140/72; PULSE 60; PULSE 61; RESP 16; TEMP 36.8; O2SAT 98; BMI 26.9
--- NOTE | 2023-09-17 06:23 | PC.NURSE ---
pt rested well this shift, A&Ox4, ambulates to and from the bathroom independently, no c/o pain this shift, FSBS this am 79, refused snack, call button is in reach
[2023-09-17 06:58] LABS: POC Glucose,Bedside 79 (70-110)
[2023-09-17 06:58] LABS: POC Glucose,Bedside 69 (70-110)
[2023-09-17 06:58] LABS: POC Glucose,Bedside 173 (70-110)
[2023-09-17 07:13] LABS: Chloride 108 mmol/L (98-107); Sodium 133 mmol/L (136-145)
[2023-09-17 07:14] LABS: Potassium 3.8 mmoL/L (3.5-5.1)
[2023-09-17 07:16] LABS: Alanine Aminotransferase 54 U/L (12-78); Albumin Level 2.4 g/dl (3.5-5.0); Albumin/Globulin Ratio 0.9 (1.1-1.8); Alkaline Phosphatase 91 U/L (38-126); Anion Gap 4.8 mEq/L (5-15); Aspartate Amino Transferase 56 U/L (17-59); Bilirubin,Total 0.3 mg/dl (0.2-1.3); Blood Urea Nitrogen 37 mg/dl (9-20); Calcium 7.8 mg/dl (8.4-10.2); Carbon Dioxide 24 mmol/L (22.0-30.0); Creatinine Clearance Estimated 58 mL/min (50-200); Estimated Glomerular Filt Rate 35 ml/min (>60); GFR (African American) 42 ML/MIN (>60); Globulin 2.6 g/dL (1.3-3.2); Glucose 72 mg/dl (74-100)
[2023-09-17 07:17] LABS: Basophils # 0.1 K/mm3 (0-0.2); Basophils % 1.6 % (0.1-2.0); Eosinophils # 0.1 K/mm3 (0.0-0.4); Eosinophils % 1.1 % (0.1-12.0); Hematocrit 36.3 % (42.0-52.0); Lymphocytes # 1.9 K/mm3 (0.7-4.5); Lymphocytes % 42.7 % (10-50); Magnesium 1.9 mg/dl (1.6-2.3); Mean Corpuscular Hemoglobin 31.3 pg (27.0-31.2); Mean Corpuscular Volume 95.1 fl (80-94); Monocytes # 0.4 K/mm3 (0.1-1.0); Monocytes % 9.4 % (1.7-9.3); Neutrophils % 45.3 % (37.0-80.0); Platelet Count 143 K/mm3 (142-424); Red Blood Count 3.82 M/mm3 (4.60-6.20); Red Cell Distribution Width 13.7 % (11.5-17.5); White Blood Count 4.5 K/mm3 (4.8-10.8)
[2023-09-17 08:00] VITALS: BP 139/74; PULSE 60; RESP 18; TEMP 36.6; O2SAT 96
[2023-09-17] MEDS: VENLAFAXINE XR 75MG CAPSULE 75 MG PO (08:04)
[2023-09-17] MEDS: CLOPIDOGREL 75MG TAB 75 MG PO (08:05)
[2023-09-17] MEDS: ASPIRIN 81MG CHEWABLE TABLET 81 MG PO (08:05)
[2023-09-17] MEDS: HEPARIN SODIUM 5,000 UNIT/ML VIAL 5000 UNIT SQ (08:05)
--- NOTE | 2023-09-17 11:47 | EXP.DC.SUM ---
General Admission date:: 09/15/23 Discharge date: 09/17/23 HPI HPI HPI: Mr. Lopez is a 57-year-old male with hypertension, hyperlipidemia, CAD, type 2 diabetes, diastolic heart failure, COPD. He presented to the ER via wheelchair after being sent from his PCPs office due to headache, fatigue, nausea and vomiting. On arrival to the ER, patient states he has been having headaches and some dry heaves for the past 2 to 3 days. Missed work on Tuesday and Tuesday due to developing headache and vomiting while at work. [place] little bit better yesterday mowed his lawn but today felt weak and had low blood pressure in his PCPs office. He is alert and oriented x 4, no focal neurologic symptoms, on room air on evaluation in the ER. Trace lower extremity edema noted. Workup in the ER with elevated BNP of 2500, A1c of 9.5, and creatinine of 2.1 with BUN of 40. Findings concerning for CHF exacerbation and JENNIFER. Chest imaging showed pulmonary venous congestion. No abnormality on CT of head. 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 Medicine was consulted for admission and further management. Received Lasix in the ER. Diuresing well at this time. Stable on room air. States he feels somewhat better since being treated in the ER. Denies any chest pain at this time. Tolerating p.o. intake on exam. Denies current nausea or vomiting. Hospital Course Hospital Course Hospital Course: 57-year-old male who presents to the ER from his PCPs office due to weakness and low blood pressure. Discussed case with ER physician, has concern for CHF exacerbation with elevated BNP, JENNIFER, need for further workup and management with cardiology. Requested admission. Medicine agreed to admit for further treatment. Diuresing well. Patient feeling somewhat better since admission. No nausea or vomiting at this time. Cardiology consulted to see patient in the morning. Chest imaging reviewed that showed no focal pneumonia or consolidation, does have increased pulmonary vasculature congestion, CT also shows nonspecific findings. Patient is a longtime smoker with over 21-tcop-ykpt history. Low concern of acute infection at this time. BNP initially elevated. Attempted diuresis with poor response. Developed mild kidney infection that improved with gentle hydration. GI symptoms resolved. Suspect patient had gastroenteritis underlying his initial presentation and lab abnormalities. Given his clinical improvement, will discharge home with close follow-up with cardiology and further management as an outpatient. Holding diuretics at discharge due to slowly improving kidney function. Problems addressed as follows: Weakness Acute on chronic heart failure preserved ejection fraction CAD -BNP initially elevated at 2500 on admission, had poor response to diuresis. Repeat echo was obtained during admission that showed normal EF with no valvular insufficiency. Cardiology was consulted and assisted with case. Decision made to transition course and gently rehydrate patient. Showed improvement in his kidney function. Tolerating p.o. intake with no further emesis. Given stability on room air, lack of edema, will hold diuretics and continue goal-directed therapy for CAD. Plan for close follow-up as an outpatient. Repeat labs ordered to monitor kidney function. Patient to return to hospital in the next 24 to 48 hours for labs. - Continue Plavix 75 mg daily, atorvastatin 40 mg daily, carvedilol 12.5 mg p.o. twice daily PAD Hyperlipidemia CTA abdomen pelvis 09/15/2023: Moderate 40 to 50% proximal left external iliac stenosis. . Mild stenosis elsewhere in the iliac arteries moderate stenosis of the common femoral arteries with approximately 40 to 50% bilateral stenosis. Continue atorvastatin and Plavix. Patient will need angiogram with runoff on an outpatient basis after acute illness. Uncontrolled diabetes with hyperglycemia -A1c 9.5. Fingersticks with sliding scale during admission. Will continue home Lantus 30 units nightly. Will need further adjustment of treatment as an outpatient. Consider addition of Jardiance. JENNIFER on CKD -Baseline creatinine 1.5, BUN 40 and creatinine 2.1 on admission. Creatinine peaked at 2.4, improved to 2.0 with BUN of 37 on morning of discharge. Will hold diuretics and ROXANN inhibitor. Follow-up with cardiology in the coming week with repeat labs Continue Effexor 75 mg daily for mood Exam Data for Last 24 hours Vital signs and Labs for Last 24 Hours: Temp Pulse Resp BP Pulse Ox O2 Del Method 98 F 60 18 139/74 96 Room Air 09/17/23 08:00 09/17/23 08:00 09/17/23 08:00 09/17/23 08:00 09/17/23 08:00 09/17/23 11:00 Laboratory Results - last 24 hr 09/16/23 16:48: Sodium 128 L, Potassium 4.7, Chloride 101, Carbon Dioxide 26, Anion Gap 5.7, BUN 45 H, Creatinine 2.40 H, Estimated Creat Clear 46, Estimated GFR 28 L, Est GFR ( Amer) 34 L, Glucose 315 H D, Calcium 7.5 L 09/16/23 16:57: POC Glucose 351 H* 09/16/23 19:46: POC Glucose 173 H 09/17/23 00:32: POC Glucose 69 L 09/17/23 05:27: POC Glucose 79 09/17/23 06:26: WBC 4.5 L D, RBC 3.82 L, Hgb 12.0 L, Hct 36.3 L, MCV 95.1 H, MCH 31.3 H, MCHC 33.0, RDW 13.7, Plt Count 143, MPV 9.0, Neut % (Auto) 45.3, Lymph % (Auto) 42.7, [place] % (Auto) 9.4 H, Eos % (Auto) 1.1, Baso % (Auto) 1.6, Neut # (Auto) 2.0, Lymph # (Auto) 1.9, [place] # (Auto) 0.4, Eos # (Auto) 0.1, Baso # (Auto) 0.1, Sodium 133 L, Potassium 3.8, Chloride 108 H, Carbon Dioxide 24, Anion Gap 4.8 L, BUN 37 H, Creatinine 2.00 H, Estimated Creat Clear 58, Estimated GFR 35 L, Est GFR ( Amer) 42 L D, Glucose 72 L D, Calcium 7.8 L, Magnesium 1.9 D, Total Bilirubin 0.3, AST 56, ALT 54, Alkaline Phosphatase 91, Total Protein 5.0 L, Albumin 2.4 L, Globulin 2.6, Albumin/Globulin Ratio 0.9 L I & O for Last 24 hours: Intake & Output 09/14/23 09/15/23 09/16/23 09/17/23 23:59 23:59 23:59 23:59 Intake Total 0 / 600 1320 / 1820 900 / 900 Output Total 0 / 0 0 / 0 Balance - 1320 / 1820 900 / 900 Weight 98.94 kg 96.11 kg 100.335 kg Microbiology Reports for the Last 24 Hours: Microbiology 09/15/23 12:40 Blood Blood Culture - Preliminary NO GROWTH AFTER 24 HOURS 09/15/23 12:40 Blood Blood Culture - Preliminary NO GROWTH AFTER 24 HOURS Constitutional Constitutional: no acute distress *Routine HEENT Exam Head: Present normocephalic Eye: Present EOMI and PERRL ENT: Present mucous membranes moist *Routine Neck Exam Neck: Present supple; Absent lymphadenopathy *Routine Respiratory Exam Respiratory: Present CTA bilaterally; Absent rhonchi, wheezes or crackles *Routine Cardiovascular Exam Cardiovascular: Present RRR *Routine Abdominal Exam Abdominal: Present soft and normoactive bowel sounds; Absent tenderness *Routine Rectal Exam Patient deferred: visual exam *Routine Exam Patient deferred: penile exam *Routine Extremities Exam Extremities: Absent cyanosis, clubbing or edema *Routine Skin Exam Skin: Present warm; Absent rash *Routine Neurological Exam Neurological: Present alert, oriented X3 and moving all extremities; Absent altered mental status Results Data Completed and Pending Labs on day of discharge: Labs from last 24 hours 09/17/23 09/17/23 09/17/23 06:26 05:27 00:32 WBC 4.5 L D RBC 3.82 L Hgb 12.0 L Hct 36.3 L MCV 95.1 H MCH 31.3 H MCHC 33.0 RDW 13.7 Plt Count 143 MPV 9.0 Neut % (Auto) 45.3 Lymph % (Auto) 42.7 [place] % (Auto) 9.4 H Eos % (Auto) 1.1 Baso % (Auto) 1.6 Neut # (Auto) 2.0 Lymph # (Auto) 1.9 [place] # (Auto) 0.4 Eos # (Auto) 0.1 Baso # (Auto) 0.1 Sodium 133 L Potassium 3.8 Chloride 108 H Carbon Dioxide 24 Anion Gap 4.8 L BUN 37 H Creatinine 2.00 H Estimated Creat Clear 58 Estimated GFR 35 L Est GFR ( Amer) 42 L D Glucose 72 L D POC Glucose 79 69 L Calcium 7.8 L Magnesium 1.9 D Total Bilirubin 0.3 AST 56 ALT 54 Alkaline Phosphatase 91 Total Protein 5.0 L Albumin 2.4 L Globulin 2.6 Albumin/Globulin Ratio 0.9 L 09/16/23 09/16/23 09/16/23 19:46 16:57 16:48 WBC RBC Hgb Hct MCV MCH MCHC RDW Plt Count MPV Neut % (Auto) Lymph % (Auto) [place] % (Auto) Eos % (Auto) Baso % (Auto) Neut # (Auto) Lymph # (Auto) [place] # (Auto) Eos # (Auto) Baso # (Auto) Sodium 128 L Potassium 4.7 Chloride 101 Carbon Dioxide 26 Anion Gap 5.7 BUN 45 H Creatinine 2.40 H Estimated Creat Clear 46 Estimated GFR 28 L Est GFR ( Amer) 34 L Glucose 315 H D POC Glucose 173 H 351 H* Calcium 7.5 L Magnesium Total Bilirubin AST ALT Alkaline Phosphatase Total Protein Albumin Globulin Albumin/Globulin Ratio Preliminary micro results at discharge 09/15/23 12:40 Blood Culture - Preliminary Blood NO GROWTH AFTER 24 HOURS 09/15/23 12:40 Blood Culture - Preliminary Blood NO GROWTH AFTER 24 HOURS DS: Diagnosis Discharge Diagnosis (1) (HFpEF) heart failure with preserved ejection fraction: Status: Acute Code(s): I50.30 - Unspecified diastolic (congestive) heart failure Qualifiers: Heart failure chronicity: acute on chronic Qualified Code(s): I50.33 - Acute on chronic diastolic (congestive) heart failure (2) Diabetes mellitus type 2, uncontrolled, with complications: Status: Acute (3) JENNIFER (acute kidney injury): Status: Acute Code(s): N17.9 - Acute kidney failure, unspecified (4) General weakness: Status: Acute Code(s): R53.1 - Weakness (5) CKD stage 3 due to type 2 diabetes mellitus: Status: Chronic Code(s): E11.22 - Type 2 diabetes mellitus with diabetic chronic kidney disease; N18.30 - Chronic kidney disease, stage 3 unspecified (6) CAD (coronary artery disease): Status: Chronic Code(s): I25.10 - Atherosclerotic heart disease of [place] coronary artery without angina pectoris Qualifiers: Associated angina: with other forms of angina Coronary Disease-Associated Artery/Lesion type: lime artery [place] vs. transplanted heart: lime heart Qualified Code(s): I25.118 - Atherosclerotic heart disease of [place] coronary artery with other forms of angina pectoris (7) Hypertension: Status: Chronic Code(s): I10 - Essential (primary) hypertension Qualifiers: Hypertension type: primary hypertension Qualified Code(s): I10 - Essential (primary) hypertension (8) Hyperlipidemia: Status: Chronic Code(s): E78.5 - Hyperlipidemia, unspecified Qualifiers: Hyperlipidemia type: unspecified Qualified Code(s): E78.5 - Hyperlipidemia, unspecified Meds Home Medications and Allergies Home Medications Medication Instructions Recorded Confirmed Type aspirin 81 mg chewable tablet 81 mg PO DAILY 01/26/23 09/15/23 History insulin glargine 100 unit/mL (3 35 unit SQ HS 01/26/23 09/15/23 History mL) subcutaneous pen (Basaglar KwikPen U-100 Insulin) insulin lispro 100 unit/mL 12 unit SQ .COMPLEX 01/26/23 09/15/23 History subcutaneous cartridge (Humalog U-100 Insulin) atorvastatin 40 mg tablet 40 mg PO DAILY #90 tabs 02/09/23 09/15/23 Rx spironolactone 25 mg tablet 25 mg PO DAILY #30 tabs 02/23/23 09/15/23 Rx (Aldactone) torsemide 100 mg tablet 50 mg (1/2 x 100 mg) PO DAILY #30 02/23/23 09/15/23 Rx tabs carvedilol 12.5 mg tablet 12.5 mg PO BID #180 tabs 03/10/23 09/15/23 Rx clopidogrel 75 mg tablet (Plavix) 75 mg PO DAILY #90 tabs 03/10/23 09/15/23 Rx lisinopril 40 mg tablet 40 mg PO DAILY #90 tabs 06/09/23 09/15/23 Rx venlafaxine 75 mg tablet 75 mg PO DAILY #30 tabs 06/29/23 09/15/23 Rx hydralazine 25 mg tablet 25 mg PO BID 09/15/23 09/15/23 History New Prescriptions to Start Prescriptions: Allergies Allergy/AdvReac Type Severity Reaction Status Date / Time NSAIDS (Non-Steroidal Allergy itch Verified 09/15/23 11:45 Anti-Inflamma gabapentin AdvReac Mild Verified 09/15/23 11:45 Discharge Plan Disposition Patient Disposition: Home, Self-Care Condition: Fair Follow up Plan Follow up with: Deepa Mitchell APRN [Nurse Practitioner] - 10/05/23 9:00 am Sophia Mera APRN [Primary Care Provider] - 09/22/23 10:00 am Prescriptions/Medication Reconciliation: Continued Humalog U-100 Insulin 100 unit/mL cartridge 12 unit SQ .COMPLEX Rx Instructions: 12 units subcutaneously 12 at breakfast, 14 at lunch, 18 at dinner; insulin glargine [Basaglar KwikPen U-100 Insulin] 100 unit/mL (3 mL) insulin pen 35 unit SQ HS aspirin 81 mg tablet,chewable 81 mg PO DAILY atorvastatin 40 mg tablet 40 mg PO DAILY Qty: 90 2RF carvedilol 12.5 mg tablet 12.5 mg PO BID Qty: 180 3RF clopidogrel [Plavix] 75 mg tablet 75 mg PO DAILY Qty: 90 3RF venlafaxine 75 mg tablet 75 mg PO DAILY Qty: 30 2RF hydralazine 25 mg tablet 25 mg PO BID Held torsemide 100 mg tablet 50 mg PO DAILY Qty: 30 2RF Hold Instructions: Hold pending follow-up with cardiology spironolactone [Aldactone] 25 mg tablet 25 mg PO DAILY Qty: 30 2RF Hold Instructions: Hold pending follow-up with cardiology lisinopril 40 mg tablet 40 mg PO DAILY Qty: 90 1RF Hold Instructions: Resume Tuesday09/19/23 Problem Reconciliation Problems Reviewed?: Yes Patient Discharge Instructions ACTIVITY: Continue current activity DIET: continue same diet Stand Alone Forms: [facility] Work Release Patient Instructions: Low-Carbohydrate Diet (Alternative Therapy), Carbohydrate-Counting Diet, DI for Heart Failure, DI for Muscle Weakness, DI for Acute Kidney Injury Providers Primary Care Provider: Sophia Mera Admit Provider: Giorgi Conley Attending Provider: Giorgi Conley
[2023-09-17 12:00] VITALS: BP 164/84; PULSE 56; RESP 17; TEMP 36.6; O2SAT 96
--- NOTE | 2023-09-19 14:03 | CARE MANAGER ---
Called and spoke with patient regarding recent discharge. Patient stated that he has stopped the medications that were held at discharge. He was aware of scheduled f/u appts. No concerns voiced at time of call.
== END 2023-09-17 12:51 | disposition home or self-care (01) ==
LOC: ER 16:10 → 2ND 16:15
PROVIDERS: Emergency Medicine; Admitting Provider Internal Medicine Adolescent Medicine; Emergency Provider Emergency Medicine; PCP Nurse Practitioner Family; Visit Provider Internal Medicine Adolescent Medicine
DX: I50.33 Acute on chronic diastolic (congestive) heart failure (principal); N18.30 Chronic kidney disease, stage 3 unspecified; E11.22 Type 2 diabetes mellitus with diabetic chronic kidney disease; I25.118 Atherosclerotic heart disease of native coronary artery with other forms of angina pectoris; E78.5 Hyperlipidemia, unspecified; Z79.899 Other long term (current) drug therapy; I13.0 Hypertensive heart and chronic kidney disease with heart failure and stage 1 through stage 4 chronic kidney disease, or unspecified chronic kidney disease; J44.9 Chronic obstructive pulmonary disease, unspecified; Z95.5 Presence of coronary angioplasty implant and graft; F17.210 Nicotine dependence, cigarettes, uncomplicated; Z79.4 Long term (current) use of insulin; E11.65 Type 2 diabetes mellitus with hyperglycemia; N17.9 Acute kidney failure, unspecified
CPT/HCPCS: 36415; 70470; 70491; 71045; 71275; 74174; 80048; 80053; 80061; 81001; 82803; 82962; 83036; 83605; 83615; 83690; 83735; 83880; 84436; 84443; 84484; 84550; 85025; 85651; 86140; 86850; 87040; 93005; 93306; 99285; G0378; J1644; J2405; J7120; Q9967

== ENCOUNTER 2023-09-29 14:36 | Outpatient (CLI) | payer BC, SELFPAY ==
[2023-09-29 13:33] LABS: Anion Gap 9.6 mEq/L (5-15); Blood Urea Nitrogen 28 mg/dl (9-20); Calcium 8.5 mg/dl (8.4-10.2); Carbon Dioxide 26 mmol/L (22.0-30.0); Chloride 107 mmol/L (98-107); Estimated Glomerular Filt Rate 45 ml/min (>60); GFR (African American) 54 ML/MIN (>60); Glucose 140 mg/dl (74-100); Potassium 5.6 mmoL/L (3.5-5.1); Sodium 137 mmol/L (136-145)
[2023-09-29 13:52] LABS: 25-OH Vitamin D, Total < 12.8 ng/mL (30-100)
== END 2023-09-29 23:59 | disposition home or self-care (01) ==
LOC: LAB.DROPOF 14:36
PROVIDERS: PCP Nurse Practitioner Family; Visit Provider Nurse Practitioner Family
DX: E11.22 Type 2 diabetes mellitus with diabetic chronic kidney disease (principal); Z79.4 Long term (current) use of insulin; N18.30 Chronic kidney disease, stage 3 unspecified; E55.9 Vitamin D deficiency, unspecified
CPT/HCPCS: 80048; 82306

== ENCOUNTER 2023-10-19 08:48 | Day surgery (SDC) | payer BC, SELFPAY ==
[2023-10-19] VITALS (12 sets, daily range): BP systolic 159–195; BP diastolic 84–105; PULSE 50–68; RESP 17–20; TEMP 37.1; O2SAT 97–100; BMI 26.6
--- NOTE | 2023-10-19 07:13 | IR_ITS ---
APPROVED REPORT Patient Location: Outpatient PROCEDURES Catheter placement in the abdominal aorta Abdominal aortography Repositioning of the catheter in the abdominal aorta Bilateral iliofemoral runoff Bare-metal stent deployment to the proximal left common iliac artery INDICATION Abnormal RUSTY, [place] claudication class III, Left common iliac artery stenosis, Informed consent was obtained prior to the procedure. COMPLICATIONS NONE Estimated Blood Loss: LESS THAN 10 ML TECHNIQUE 1% lidocaine used anesthetize right groin the right femoral artery was accessed via the center technique and a 5 [place] sheath is placed in the right femoral artery. A pigtail catheter was advanced under fluoroscopic guidance into the abdominal aorta where abdominal aortography was performed. The catheter was then repositioned and bilateral iliofemoral runoff was performed. Following this therapeutic heparin was administered giving a therapeutic ACT and the 5 [place] sheath was exchanged for a long 23 cm 6 [place] sheath. An advantage wire was advanced into the left common iliac artery and an 8 mm x 57 mm balloon mounted bare-metal stent was deployed at 14 laura reducing the stenosis. A 9 mm x 20 mm balloon was then deployed in the proximal segment and deployed at 18 laura to post dilate. Excellent angiographic results were obtained. At the end of procedure the apparatus was removed the groin is reprepped closure change sheath was removed and hemostasis was achieved using Perclose device patient was transferred to postop putting in stable condition ANGIOGRAPHIC RESULTS Infrarenal abdominal aorta is calcified with no focal stenosis greater than 10% Right common iliac artery is moderately calcified but widely patent as is the internal and right external iliac artery. The right common femoral artery is also moderately calcified with 20% mid vessel stenosis. Right profunda femoris artery is widely patent but still has diffuse 40% stenoses. The right superficial femoral artery has proximal 30 to 40% stenoses with an additional calcified eccentric mid vessel stenosis at Emmanuel's canal. The right popliteal artery has diffuse 30% atheromatous plaque. Below the knee there is three-vessel runoff with a large anterior tibialis artery and smaller posterior tibialis artery and smaller peroneal artery but nevertheless patent Left common iliac artery has a calcified proximal eccentric 80% stenosis followed by an additional eccentric 40% stenosis. The left internal iliac artery is calcified with proximal 40 to 50% stenosis while the external iliac artery has eccentric 40% stenosis. The left common femoral artery is calcified but patent the left profunda femoris artery is patent. The left superficial femoral artery has proximal 50% stenoses and is then occluded over 2 cm at the junction between the SFA and the popliteal artery. The popliteal artery is collateralized from both the SFA and the profunda femoris artery and is then patent into a large anterior and posterior tibialis artery with a smaller peroneal artery which is then occluded at mid vessel. The there is two-vessel runoff below the knee on the left from the AT and PT IMPRESSION Peripheral artery disease as described above Severe disease in the left common iliac artery with successful stenting reducing the lesion to 0% with 1 balloon mounted bare-metal stent Persistent occlusion of the distal left SFA into the popliteal artery Two-vessel runoff below the knee on the left side Three-vessel runoff below the knee on the right side PLAN 1. Aspirin Plavix 2. Avoidance of tobacco products 3. LDL less than 55 to be achieved high intensity statin 4. Patient can be brought back to the [facility] in 4 weeks after the iliac artery stent is endothelialized and then undergo balloon lithotripsy followed by drug-coated angioplasty to the left SFA left popliteal artery 5. Recommend physical therapy. If patient's claudication has resolved or has significantly improved following the iliac artery stenting the SFA popliteal artery can be managed medically Electronically signed by : Rajinder Mccullough MD 10/21/2023 12:36:59
[2023-10-19 09:38] LABS: Basophils # 0.1 K/mm3 (0-0.2); Basophils % 1.1 % (0.1-2.0); Eosinophils # 0.3 K/mm3 (0.0-0.4); Eosinophils % 2.7 % (0.1-12.0); Hematocrit 42.7 % (42.0-52.0); Hemoglobin 13.9 g/dL (14.1-18.0); Lymphocytes # 3.1 K/mm3 (0.7-4.5); Lymphocytes % 34.4 % (10-50); Mean Corpuscular HGB Conc 32.5 g/dL (31.8-35.4); Mean Corpuscular Hemoglobin 31.7 pg (27.0-31.2); Mean Corpuscular Volume 97.3 fl (80-94); Mean Platelet Volume 7.5 fl (7.4-10.4); Monocytes # 0.6 K/mm3 (0.1-1.0); Monocytes % 6.7 % (1.7-9.3); Platelet Count 313 K/mm3 (142-424); Red Blood Count 4.39 M/mm3 (4.60-6.20); Red Cell Distribution Width 14.1 % (11.5-17.5); White Blood Count 9.1 K/mm3 (4.8-10.8)
[2023-10-19 09:47] LABS: Anion Gap 2.5 mEq/L (5-15); Blood Urea Nitrogen 29 mg/dl (9-20); Calcium 8.5 mg/dl (8.4-10.2); Carbon Dioxide 28 mmol/L (22.0-30.0); Chloride 108 mmol/L (98-107); Creatinine Clearance Estimated 76 mL/min (50-200); Estimated Glomerular Filt Rate 48 ml/min (>60); GFR (African American) 58 ML/MIN (>60); Glucose 153 mg/dl (74-100); Potassium 4.5 mmoL/L (3.5-5.1); Sodium 134 mmol/L (136-145)
[2023-10-19] MEDS: LIDOCAINE 1% 10ML MDV 20 ML IJ (10:47)
[2023-10-19] MEDS: HEPARIN 1,000 UNITS/500ML NS (CATH LAB) 3000 UNIT IV (10:47)
[2023-10-19] MEDS: diphenhydrAMINE 50MG/ML VIAL 50 MG IV (10:48)
[2023-10-19] MEDS: 0.9 % SODIUM CHLORIDE 500 ML 25 ML IV (10:48)
[2023-10-19] MEDS: HEPARIN 1,000 UNITS/ML 10ML VIAL (CATH LAB) 10000 UNIT IV (11:40)
[2023-10-19] MEDS: FENTANYL 100MCG/2ML VIAL 50 MCG IV (11:40)
[2023-10-19] MEDS: MIDAZOLAM HCL 1MG/1ML 5ML VIAL 1 MG IV (11:41)
[2023-10-19] MEDS: IOPAMIDOL-250 (51%) 100ML BOT 170 ML IV (12:16)
[2023-10-19 12:28] LABS: CATHL Activated Clotting Time 316 SEC (74-125)
== END 2023-10-19 15:03 | disposition home or self-care (01) ==
PROVIDERS: PCP Internal Medicine; Visit Provider Internal Medicine
DX: I77.1 Stricture of artery (principal); I25.118 Atherosclerotic heart disease of native coronary artery with other forms of angina pectoris; I13.0 Hypertensive heart and chronic kidney disease with heart failure and stage 1 through stage 4 chronic kidney disease, or unspecified chronic kidney disease; N17.9 Acute kidney failure, unspecified; E11.22 Type 2 diabetes mellitus with diabetic chronic kidney disease; Z79.899 Other long term (current) drug therapy; Z79.4 Long term (current) use of insulin; N18.2 Chronic kidney disease, stage 2 (mild); F17.210 Nicotine dependence, cigarettes, uncomplicated; I70.212 Atherosclerosis of native arteries of extremities with intermittent claudication, left leg; I73.9 Peripheral vascular disease, unspecified; G47.33 Obstructive sleep apnea (adult) (pediatric); I50.30 Unspecified diastolic (congestive) heart failure
CPT/HCPCS: 37221; 75625; 75710; 80048; 85025; 85347; 99152; 99153; C1725; C1760; C1769; C1876; C1894; J1644; J2250; J3010; Q9966

== ENCOUNTER 2023-10-24 09:57 | Outpatient (CLI) | payer BC, SELFPAY ==
[2023-10-24 10:14] LABS: Basophils # 0.1 K/mm3 (0-0.2); Basophils % 0.9 % (0.1-2.0); Eosinophils # 0.5 K/mm3 (0.0-0.4); Eosinophils % 4.7 % (0.1-12.0); Hematocrit 42.9 % (42.0-52.0); Hemoglobin 14.1 g/dL (14.1-18.0); Lymphocytes # 2.9 K/mm3 (0.7-4.5); Lymphocytes % 30.1 % (10-50); Mean Corpuscular HGB Conc 32.8 g/dL (31.8-35.4); Mean Corpuscular Hemoglobin 31.3 pg (27.0-31.2); Mean Corpuscular Volume 95.5 fl (80-94); Monocytes # 0.4 K/mm3 (0.1-1.0); Monocytes % 4.6 % (1.7-9.3); Neutrophils # 5.8 K/mm3 (1.8-7.8); Neutrophils % 59.7 % (37.0-80.0); Platelet Count 308 K/mm3 (142-424); Red Blood Count 4.49 M/mm3 (4.60-6.20); Red Cell Distribution Width 14.4 % (11.5-17.5); White Blood Count 9.7 K/mm3 (4.8-10.8)
[2023-10-24 10:35] LABS: Anion Gap 1.6 mEq/L (5-15); Blood Urea Nitrogen 32 mg/dl (9-20); Calcium 8.7 mg/dl (8.4-10.2); Carbon Dioxide 27 mmol/L (22.0-30.0); Chloride 109 mmol/L (98-107); Estimated Glomerular Filt Rate 45 ml/min (>60); GFR (African American) 54 ML/MIN (>60); Glucose 182 mg/dl (74-100); Potassium 4.6 mmoL/L (3.5-5.1); Sodium 133 mmol/L (136-145)
== END 2023-10-24 23:59 | disposition home or self-care (01) ==
LOC: LAB 09:58
PROVIDERS: PCP Internal Medicine; Visit Provider Internal Medicine
DX: I25.10 Atherosclerotic heart disease of native coronary artery without angina pectoris (principal)
CPT/HCPCS: 36415; 80048; 85025

== ENCOUNTER 2024-01-05 13:19 | Outpatient (CLI) | payer BC, SELFPAY ==
[2024-01-05 12:55] LABS: Microscopic, Urine URINE MICROSCOPIC (MICROSCOPIC)
[2024-01-05 13:16] LABS: Appearance,Urine CLEAR (Clear); Bilirubin,Urine Negative (Negative); Blood, Urine TRACE-I (Negative); Color,Urine YELLOW (Yellow); Glucose,Urine (UA) Negative (Negative); Ketones,Urine Negative (Negative); Leukocyte Esterase,Urine Negative (Negative); Nitrate,Urine Negative (Negative); PH,Urine 6.5 (5.0-8.5); Protein,Urine 3+ (Negative); Urobilinogen,Urine 0.2 EU/dl (0.2)
[2024-01-05 13:25] LABS: Basophils % 0.5 % (0.1-2.0); Eosinophils # 0.2 K/mm3 (0.0-0.4); Eosinophils % 2.7 % (0.1-12.0); Hematocrit 38.7 % (42.0-52.0); Hemoglobin 12.3 g/dL (14.1-18.0); Lymphocytes # 2.4 K/mm3 (0.7-4.5); Lymphocytes % 28.6 % (10-50); Mean Corpuscular HGB Conc 31.9 g/dL (31.8-35.4); Mean Corpuscular Hemoglobin 31.7 pg (27.0-31.2); Mean Corpuscular Volume 99.6 fl (80-94); Mean Platelet Volume 8.5 fl (7.4-10.4); Monocytes # 0.7 K/mm3 (0.1-1.0); Monocytes % 7.8 % (1.7-9.3); Neutrophils % 60.3 % (37.0-80.0); Platelet Count 333 K/mm3 (142-424); Red Blood Count 3.89 M/mm3 (4.60-6.20); Red Cell Distribution Width 13.8 % (11.5-17.5); White Blood Count 8.3 K/mm3 (4.8-10.8)
[2024-01-05 13:30] LABS: Creatinine,Urine Random 66 mg/dL (Not Estab.)
[2024-01-05 13:34] LABS: Bacteria,Urine Trace /lpf; RBC,Urine Occasional #/hpf (0-3); Squamous Epithelial Cell,Urine Occasional #/hpf (0-5)
[2024-01-05 14:10] LABS: Alanine Aminotransferase 16 U/L (12-78); Albumin Level 3.1 g/dl (3.5-5.0); Albumin/Globulin Ratio 1.1 (1.1-1.8); Alkaline Phosphatase 67 U/L (38-126); Anion Gap 4.5 mEq/L (5-15); Aspartate Amino Transferase 25 U/L (17-59); Bilirubin,Total 0.5 mg/dl (0.2-1.3); Blood Urea Nitrogen 42 mg/dl (9-20); Calcium 8.9 mg/dl (8.4-10.2); Carbon Dioxide 26 mmol/L (22.0-30.0); Chloride 109 mmol/L (98-107); Chol/HDL Ratio 8.9 (1-3.5); Cholesterol 322 mg/dl (140-200); Estimated Glomerular Filt Rate 37 ml/min (>60); GFR (African American) 44 ML/MIN (>60); Globulin 2.7 g/dL (1.3-3.2); Glucose 74 mg/dl (74-100); HDL Cholesterol 36 mg/dl (40-60); Hemoglobin A1C 9.4 % (4.0-6.0); Potassium 4.5 mmoL/L (3.5-5.1); Sodium 135 mmol/L (136-145); Total Protein,Serum 5.8 g/dl (6.3-8.2); Triglycerides 141 mg/dl (30-150); VLDL Cholesterol 28 mg/dL (0-40)
[2024-01-05 14:14] LABS: Iron 56 ug/dL (49-181)
[2024-01-05 14:25] LABS: Total Iron Binding Capacity 274 ug/dL (261-462)
[2024-01-05 14:26] LABS: Direct LDL Cholesterol 242.05 mg/dL (100-129)
[2024-01-05 14:29] LABS: 25-OH Vitamin D, Total < 12.8 ng/mL (30-100)
[2024-01-05 14:31] LABS: Free T4 (Free Thyroxine) 1.11 ng/dl (0.78-2.19)
[2024-01-05 14:44] LABS: Prostate Specific Ag Screen 1.1 ng/ml (0.0-4.0); Thyroid Stimulating Hormone 0.94 uIU/mL (0.465-4.68)
[2024-01-05 14:49] LABS: Ferritin 44.3 ng/ml (17.9-464)
[2024-01-05 15:03] LABS: Vitamin B12 676 pg/mL (239-931)
[2024-01-05 15:20] LABS: HIV (1&2) Antibody Rapid NONREACTIVE (NONREACTIVE)
[2024-01-07 07:12] LABS: HCV Ab Non Reactive (Non Reactive)
== END 2024-01-05 23:59 | disposition home or self-care (01) ==
LOC: LAB.DROPOF 13:20
PROVIDERS: PCP Nurse Practitioner Family; Visit Provider Nurse Practitioner Family
DX: E11.40 Type 2 diabetes mellitus with diabetic neuropathy, unspecified (principal); E11.22 Type 2 diabetes mellitus with diabetic chronic kidney disease; N18.30 Chronic kidney disease, stage 3 unspecified; R53.83 Other fatigue; E78.5 Hyperlipidemia, unspecified; Z12.5 Encounter for screening for malignant neoplasm of prostate; E55.9 Vitamin D deficiency, unspecified; Z11.59 Encounter for screening for other viral diseases; E53.8 Deficiency of other specified B group vitamins; G47.33 Obstructive sleep apnea (adult) (pediatric); Z11.4 Encounter for screening for human immunodeficiency virus [HIV]; Z72.0 Tobacco use; Z79.85 Long-term (current) use of injectable non-insulin antidiabetic drugs; Z79.4 Long term (current) use of insulin
CPT/HCPCS: 80050; 80053; 80061; 81001; 82043; 82306; 82570; 82607; 82728; 83036; 83540; 83550; 84156; 84439; 84443; 85025; 86803; 87086; 87389; G0103

== ENCOUNTER 2024-03-20 13:44 | Outpatient (CLI) | payer BC, SELFPAY ==
[2024-03-20 13:16] LABS: Microscopic, Urine URINE MICROSCOPIC (MICROSCOPIC)
[2024-03-20 13:34] LABS: Basophils # 0.1 K/mm3 (0-0.2); Basophils % 0.7 % (0.1-2.0); Eosinophils # 0.2 K/mm3 (0.0-0.4); Eosinophils % 2.2 % (0.1-12.0); Hematocrit 43.6 % (42.0-52.0); Hemoglobin 14.7 g/dL (14.1-18.0); Lymphocytes # 2.2 K/mm3 (0.7-4.5); Lymphocytes % 22.9 % (10-50); Mean Corpuscular HGB Conc 33.6 g/dL (31.8-35.4); Mean Corpuscular Hemoglobin 31.2 pg (27.0-31.2); Mean Corpuscular Volume 92.8 fl (80-94); Monocytes # 0.7 K/mm3 (0.1-1.0); Monocytes % 7.4 % (1.7-9.3); Neutrophils # 6.5 K/mm3 (1.8-7.8); Neutrophils % 66.8 % (37.0-80.0); Platelet Count 320 K/mm3 (142-424); Red Blood Count 4.69 M/mm3 (4.60-6.20); Red Cell Distribution Width 13.8 % (11.5-17.5); White Blood Count 9.8 K/mm3 (4.8-10.8)
[2024-03-20 14:14] LABS: Alanine Aminotransferase 17 U/L (12-78); Albumin Level 3.1 g/dl (3.5-5.0); Albumin/Globulin Ratio 1.2 (1.1-1.8); Alkaline Phosphatase 84 U/L (38-126); Anion Gap 9.4 mEq/L (5-15); Aspartate Amino Transferase 28 U/L (17-59); Bilirubin,Total 0.6 mg/dl (0.2-1.3); Blood Urea Nitrogen 33 mg/dl (9-20); Calcium 8.8 mg/dl (8.4-10.2); Carbon Dioxide 26 mmol/L (22.0-30.0); Chloride 107 mmol/L (98-107); Estimated Glomerular Filt Rate 34 ml/min (>60); GFR (African American) 42 ML/MIN (>60); Globulin 2.6 g/dL (1.3-3.2); Glucose 133 mg/dl (74-100); Potassium 4.4 mmoL/L (3.5-5.1); Sodium 138 mmol/L (136-145); Total Protein,Serum 5.7 g/dl (6.3-8.2)
[2024-03-20 14:18] LABS: Appearance,Urine CLEAR (Clear); Bilirubin,Urine Negative (Negative); Blood, Urine TRACE-I (Negative); Color,Urine YELLOW (Yellow); Glucose,Urine (UA) 3+ (Negative); Ketones,Urine Negative (Negative); Leukocyte Esterase,Urine Negative (Negative); Nitrate,Urine Negative (Negative); Protein,Urine 3+ (Negative); Specific Gravity, Urine 1.025 (1.005-1.030); Urobilinogen,Urine 0.2 EU/dl (0.2)
[2024-03-20 14:24] LABS: Intact Parathyroid Hormone 123.6 pg/mL (7.5-53.5)
[2024-03-20 14:32] LABS: 25-OH Vitamin D, Total < 12.8 ng/mL (30-100)
[2024-03-20 14:35] LABS: RBC,Urine Occasional #/hpf (0-3); WBC,Urine Occasional #/hpf (0-3)
[2024-03-20 14:46] LABS: Creatinine,Urine Random 97 mg/dL (Not Estab.)
== END 2024-03-20 23:59 | disposition home or self-care (01) ==
LOC: LAB.DROPOF 13:44
PROVIDERS: PCP Internal Medicine; Visit Provider Internal Medicine
DX: N18.30 Chronic kidney disease, stage 3 unspecified (principal); E11.22 Type 2 diabetes mellitus with diabetic chronic kidney disease; Z13.1 Encounter for screening for diabetes mellitus; Z00.00 Encounter for general adult medical examination without abnormal findings; Z13.21 Encounter for screening for nutritional disorder; Z79.4 Long term (current) use of insulin; Z79.85 Long-term (current) use of injectable non-insulin antidiabetic drugs
CPT/HCPCS: 80053; 81001; 82306; 82570; 83036; 83970; 84156; 85025

== ENCOUNTER 2024-04-10 14:57 | Outpatient (CLI) | payer BC, SELFPAY ==
--- NOTE | 2024-04-10 14:59 | US_ITS ---
FINAL REPORT CLINICAL HISTORY: ckd STAGE 3 COMPARISON: None FINDINGS: RENAL ULTRASOUND Ultrasound images of the kidneys were obtained. Limited images of the liver parenchyma demonstrates normal echogenicity. The right kidney measures 12.0 cm in length. It is normal echogenicity. There is no hydronephrosis. The left kidney measures 12.2 cm in length. It is normal echogenicity. There is no hydronephrosis. IMPRESSION: Normal renal ultrasound. Reviewed, Interpreted and Dictated by Earnestine Marsh MD Transcribed by Dagmar Handley Authenticated and [facility]
== END 2024-04-10 23:59 | disposition home or self-care (01) ==
LOC: RAD 14:57
PROVIDERS: PCP Internal Medicine; Visit Provider Student in an Organized Health Care Education/Training Program
DX: E11.22 Type 2 diabetes mellitus with diabetic chronic kidney disease (principal); N18.30 Chronic kidney disease, stage 3 unspecified; N17.9 Acute kidney failure, unspecified
CPT/HCPCS: 76770

== ENCOUNTER 2024-07-19 13:30 | Outpatient (CLI) | payer BC, SELFPAY | END 2024-07-19 23:59 | disposition home or self-care (01) | LOC: LAB.DROPOF 07-20 08:46 | PROVIDERS: PCP Nurse Practitioner; Visit Provider Nurse Practitioner | DX: R09.89 Other specified symptoms and signs involving the circulatory and respiratory systems (principal); B35.1 Tinea unguium; E11.22 Type 2 diabetes mellitus with diabetic chronic kidney disease; N18.30 Chronic kidney disease, stage 3 unspecified; L60.3 Nail dystrophy; L57.0 Actinic keratosis; L84 Corns and callosities | CPT/HCPCS: 87102; 87206; 87220 ==

== ENCOUNTER 2024-08-20 17:10 | Emergency (ER) | payer BC, SELFPAY ==
--- NOTE | 2024-08-20 17:40 | PC.NURSE ---
pts significant other notified registration that he is now having chest pain.
--- NOTE | 2024-08-20 17:43 | ECG_ITS ---
APPROVED REPORT Exam: Resting ECG HR:66 bpm ECG Measurements Heart Rate 66 AXES MA 161 P 50 QRSd 154 QRS 45 QT 400 T -20 QTc 413 Conclusion SINUS RHYTHM INDETERMINATE AXIS RIGHT BUNDLE BRANCH BLOCK [120+ ms QRS DURATION, UPRIGHT V1, 40+ ms S IN I/aVL/V4/V5/V6] No STEMI Electronically signed by : PATTIE HARRIS, 08/20/2024 19:19:24
[2024-08-20 17:49] VITALS: BP 168/98; PULSE 67; RESP 20; TEMP 36.8; O2SAT 96; BMI 28.0
--- NOTE | 2024-08-20 17:50 | XR_ITS ---
PROCEDURE INFORMATION: Exam: XR Chest Exam date and time: 08/20/2024 6:05 PM Age: 58 years old Clinical indication: Pain; Shortness of breath; Other: Cp; Additional info: Soa/cp TECHNIQUE: Imaging protocol: Radiologic exam of the chest. Views: 1 view. COMPARISON: CR XR CHEST PORTABLE 09/15/2023 1:32 PM FINDINGS: Lungs: Chronic appearing interstitial changes present bilaterally. Granuloma in the right lung base. Probable left granuloma also noted. No focal infiltrates. Pleural spaces: Unremarkable. No pleural effusion. No pneumothorax. Heart/Mediastinum: Unremarkable. No cardiomegaly. Bones/joints: Unremarkable. IMPRESSION: Chronic appearing interstitial changes present bilaterally. Granuloma in the right lung base. Probable left granuloma also noted. No focal infiltrates.
[2024-08-20 17:51] LABS: POC Glucose,Bedside 255 (70-110)
[2024-08-20 18:00] LABS: Basophils # 0.1 K/mm3 (0-0.2); Basophils % 0.8 % (0.1-2.0); Coronavirus 19, PCR Not Detected (NotDetected); Eosinophils # 0.1 Kmm3 (0.0-0.4); Hematocrit 39.5 % (42.0-52.0); Hemoglobin 13.7 g/dL (14.1-18.0); Immature Granulocytes # 0.04 10^3uL; Immature Granulocytes % 0.4 %; Influenza A, PCR Not Detected (NotDetected); Influenza B, PCR Not Detected (NotDetected); Lymphocytes # 1.4 K/mm3 (0.7-4.5); Lymphocytes % 15.4 % (10-50); Mean Corpuscular HGB Conc 34.7 g/dL (31.8-35.4); Mean Corpuscular Hemoglobin 31.4 pg (27.0-31.2); Mean Corpuscular Volume 90.4 fl (80-94); Mean Platelet Volume 10.2 fl (7.4-10.4); Monocytes % 10.9 % (1.7-9.3); Neutrophils # 6.4 K/mm3 (1.8-7.8); Neutrophils % 71.5 % (37.0-80.0); Nucleated Red Blood Cells # 0 10^3/uL; Nucleated Red Blood Cells % 0 %; Platelet Count 305 K/mm3 (142-424); Red Blood Count 4.37 M/mm3 (4.60-6.20); Red Cell Distribution Width 13.8 % (11.5-17.5); Red Cell Distribution Width-SD 46.5 fL; White Blood Count 8.9 K/mm3 (4.8-10.8)
--- NOTE | 2024-08-20 18:02 | ED_ITS ---
Discharge Plan Disposition Patient Disposition: Home, Self-Care Condition: Good Prescriptions Prescriptions: New prednisone 20 mg tablet 40 mg PO DAILY 4 Days Qty: 8 0RF amoxicillin-pot clavulanate 875-125 mg tablet 1 tab PO BID Qty: 20 0RF azithromycin 500 mg tablet 500 mg PO DAILY 2 Days Qty: 2 0RF Rx Instructions: start on day 2 of therapy No Action aspirin 81 mg tablet,chewable 81 mg PO DAILY meloxicam 7.5 mg tablet 7.5 mg PO DAILY Qty: 30 2RF Kerendia 10 mg tablet 10 mg PO DAILY Qty: 30 2RF doxycycline hyclate 100 mg tablet 100 mg PO BID Qty: 60 0RF nicotine 21 mg/24 hr patch 24 hour 1 patch transdermal DAILY Qty: 28 1RF carvedilol [Coreg] 25 mg tablet 25 mg PO BID Qty: 60 5RF Rx Instructions: give with food (meal/snack) varenicline tartrate [Chantix Starting Month Box] 0.5 mg (11)- 1 mg (42) tablets,dose pack See Rx Instructions PO PER PKG DIR Qty: 53 0RF Rx Instructions: orally per package directions; PO PER PKG DIR rosuvastatin 5 mg tablet 5 mg PO DAILY Qty: 30 2RF ferrous sulfate 324 mg (65 mg iron) tablet,delayed release (DR/EC) 324 mg PO BID Qty: 180 3RF insulin glargine [Lantus Solostar U-100 Insulin] 100 unit/mL (3 mL) insulin pen 20 unit SQ BID Qty: 15 5RF Humalog U-100 Insulin 100 unit/mL cartridge See Rx Instructions SQ .COMPLEX Qty: 15 11RF Rx Instructions: 14 units at breakfast, 16 units at lunch, 20 units at dinner; cholecalciferol (vitamin D3) 1,250 mcg (50,000 unit) capsule 1,250 mcg PO WEEKLY Qty: 12 1RF torsemide 100 mg tablet 100 mg PO DAILY Qty: 90 3RF Rx Instructions: take 1/2 tab once daily losartan-hydrochlorothiazide 100-12.5 mg tablet See Rx Instructions .ROUTE .COMPLEX Qty: 90 3RF Dose Instruction: Take 1 tablet by mouth once daily Rx Instructions: Take 1 tablet by mouth once daily clopidogrel [Plavix] 75 mg tablet 75 mg PO DAILY Qty: 90 3RF Mounjaro 5 mg/0.5 mL pen injector 5 mg SQ WEEKLY Qty: 2.5 2RF terbinafine HCl 250 mg tablet 125 mg PO DAILY Qty: 30 1RF sulfamethoxazole-trimethoprim [Bactrim DS] 800-160 mg tablet 1 tab PO DAILY Qty: 10 0RF amlodipine [Norvasc] 5 mg tablet 5 mg PO DAILY Qty: 30 11RF Referrals Follow up/Referrals: Rajinder Reynolds DO [Primary Care Provider] - See instructions Activity Restrictions/Add. Instructions Additional Instructions/Restrictions: You were evaluated in the emergency department today. 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 Use the inhaler provided to you 2 puffs every 4-6 hours as needed for wheezing. Follow-up closely with your primary care provider for reassessment and recheck of your labs. Return to the emergency department right away for new or worsening symptoms. Clinical Impressions Clinical Impression: Pneumonia, Wheezing, Acute kidney injury superimposed on CKD, Hyponatremia Stand Alone Forms Stand Alone Forms: Work/School Release Instructions Patient Instructions: DI for Pneumonia -- Adult Print Language Print Language: Greek Discharge ED Provider: Emma Bray General Adult HPI <SHELLI Swenson - Last Filed: 08/20/24 18:54> General Chief complaint: Shortness of Breath/Dyspnea Stated complaint: Cough,Wheezing Time Seen by Provider: 08/20/24 17:54 Mode of Arrival: Ambulatory Source of Information: Patient Limitations: No Limitations History of Present Illness HPI narrative: 58-year-old male presents the emergency department with a 4 to 5-day history of subjective fever chills shortness of breath cough, that is nonproductive, and congestion, patient also admits to intermittent pleuritic type chest pain, thus prompted his emergency department visit. Patient denies any nausea vomiting abdominal pain constipation diarrhea no urinary type symptomatology, no hematuria hematochezia melena hemoptysis or hematemesis, patient has other past medical history consistent with current everyday smoker, coronary artery disease status post 4 stent placement and 1 femoral stent placement on the right, vitamin B12 deficiency, COPD, hypertension, hyperlipidemia, type 2 diabetes insulin dependent, diabetic polyneuropathy, peripheral artery disease, CHF, CONNIE, he is on dual antiplatelet therapy of Plavix and aspirin, distress vitals unremarkable, patient [place] any alcohol or other drug use. Onset (ago): day(s) Related Data Home Medications ?Medication ?Instructions ?Recorded ?Confirmed aspirin 81 mg chewable tablet 81 mg PO DAILY 01/26/23 07/19/24 Previous Rx's ?Medication ?Instructions ?Recorded carvedilol 25 mg tablet (Coreg) 25 mg PO BID #60 tabs 12/08/23 nicotine 21 mg/24 hr daily 1 patch transdermal DAILY #28 ea 01/05/24 transdermal patch cholecalciferol (vitamin D3) 1,250 1,250 mcg PO WEEKLY #12 caps 01/08/24 mcg (50,000 unit) capsule ferrous sulfate 324 mg (65 mg 324 mg PO BID #180 tabs 01/08/24 iron) tablet,delayed release insulin glargine 100 unit/mL (3 20 unit (0.2 mL) SQ BID #15 mL 01/08/24 mL) subcutaneous pen (Lantus Solostar U-100 Insulin) insulin lispro 100 unit/mL See Rx Instructions SQ .COMPLEX 01/08/24 subcutaneous cartridge (Humalog #15 mL U-100 Insulin) torsemide 100 mg tablet 100 mg PO DAILY #90 tabs 01/13/24 losartan 100 See Rx Instructions .Route 01/25/24 mg-hydrochlorothiazide 12.5 mg .COMPLEX #90 tabs tablet rosuvastatin 5 mg tablet 5 mg PO DAILY #30 tabs 03/20/24 varenicline tartrate 0.5 mg (11)-1 See Rx Instructions PO PER PKG DIR 03/20/24 mg (42) tablets in a dose pack #53 tabs (Chantix Starting Month Box) clopidogrel 75 mg tablet (Plavix) 75 mg PO DAILY #90 tabs 04/05/24 finerenone 10 mg tablet (Kerendia) 10 mg PO DAILY #30 tabs 05/16/24 meloxicam 7.5 mg tablet 7.5 mg PO DAILY #30 tabs 05/16/24 tirzepatide 5 mg/0.5 mL 5 mg (0.5 mL) SQ WEEKLY #2.5 mL 06/08/24 subcutaneous pen injector (Mounjaro) doxycycline hyclate 100 mg tablet 100 mg PO BID #60 tabs 06/20/24 sulfamethoxazole 800 1 tab PO DAILY #10 tabs 06/26/24 mg-trimethoprim 160 mg tablet (Bactrim DS) terbinafine HCl 250 mg tablet 125 mg (1/2 x 250 mg) PO DAILY #30 06/26/24 tabs amlodipine 5 mg tablet (Norvasc) 5 mg PO DAILY #30 tabs 06/29/24 amoxicillin 875 mg-potassium 1 tab PO BID #20 tabs 08/20/24 clavulanate 125 mg tablet azithromycin 500 mg tablet 500 mg PO DAILY 2 days #2 tabs 08/20/24 prednisone 20 mg tablet 40 mg (2 x 20 mg) PO DAILY 4 days 08/20/24 #8 tabs Allergies Allergy/AdvReac Type Severity Reaction Status Date / Time NSAIDS (Non-Steroidal Allergy itch Verified 07/19/24 13:19 Anti-Inflamma gabapentin AdvReac Severe Verified 07/19/24 13:19 [facility] <SHELLI Swenson - Last Filed: 08/20/24 18:54> [facility] Disclaimer: The information contained in this section may have been updated after the patient was seen, as this information can be updated by other users. Medical History Dietary counseling Exercise counseling Screening for depression Screening for endocrine disorder JENNIFER (acute kidney injury) Hospital discharge follow-up Heart failure Screening for colon cancer Encounter for vitamin deficiency screening Vitamin deficiency Acute medical illness Establishing care with new doctor, encounter for Vaccine counseling Type 2 diabetes mellitus with stage 2 chronic kidney disease Atypical angina Abnormal result of cardiovascular function study (HFpEF) heart failure with preserved ejection fraction Type 2 diabetes mellitus Hyperlipidemia Hypertension CONNIE (obstructive sleep apnea) CAD (coronary artery disease) Lower extremity edema Surgical History H/O heart artery stent 4 stents History of cardiac catheterization Family History Father Cancer Mother Stroke Social History Smoking Status: Current every day smoker alcohol intake: never substance use type: denies use current occupational status: employed Travel in the last 8 weeks?: None Have you lived/traveled outside [place] in past 30 days?: No Contact w/someone who lives/traveled outside US past 30 days?: No Exposure to someone with infectious disease in past 14 days?: No Do you have a fever (greater than 100.4 F or 38 C)?: No Have you tested positive for COVID-19?: No Exposed to someone with COVID-19 in past 14 days?: No Do you have a sore throat?: No Do you have a cough?: No Do you have any weakness?: No Do you have any diarrhea?: No Are you experiencing any unusual bleeding?: No Do you have any muscle aches/pain?: No Do you have any abdominal pain?: No Are you experiencing loss of taste or smell?: No Other Medical History Have you received the Flu Vaccine for this season: No Have you received the Pneumonia Vaccine: No <SHELLI Swenson - Last Filed: 08/20/24 18:54> ROS Obtained: Yes All systems reviewed & no additional complaints except as documented Physical Exam <SHELLI Swenson - Last Filed: 08/20/24 18:54> General General appearance: alert and in no apparent distress Head Head exam: atraumatic and normocephalic Eye Eye exam: Present PERRL and EOMI ENT ENT exam: Present mucous membranes moist Neck Neck exam: Present normal inspection Chest Chest inspection: Present normal inspection and symmetric chest wall rise Respiratory Respiratory exam: Present normal lung sounds bilaterally, wheezes and other (Mild diffuse wheezes noted throughout bilateral lung field); Absent respiratory distress Cardiovascular Cardiovascular exam: Present regular rate and normal rhythm Abdominal Exam Abdominal exam: Present soft; Absent tenderness, guarding, rigidity or psoas sign Extremities Exam Extremities exam: Present normal inspection, edema and other (Bilateral +1 pitting edema of the lower extremities otherwise neurovascular intact) Neurological Exam Neurological exam: Present alert and oriented X3 Psychiatric Psychiatric exam: Present normal affect Skin Skin exam: Present warm and dry Medical Decision Making <SHELLI Swenson - Last Filed: 08/20/24 18:54> Medical Records Medical records reviewed: Yes I reviewed the patient's medical records. Screening: Per USPSTF and CDC recommendations, given the prevalence of disease in our region, it is our hospital?s policy to screen for HIV and viral Hepatitis for all patients aged 18 and over and those with ongoing risk factors. Wali Inquiry Pt receiving controlled substance: No Wali was queried for this patient: No Vital Signs: 08/20/24 17:49 08/20/24 18:40 08/20/24 21:13 Temperature 98.2 F 98.3 F Temperature Source Oral Oral Pulse Rate 65 89 Pulse Rate [Left] 67 Respiratory Rate 20 18 Blood Pressure 182/87 H 196/69 H Blood Pressure [Right Arm] 168/98 H Blood Pressure Mean [Right Arm] 121 Blood Pressure Source Automatic Cuff Blood Pressure Source [Right Arm] Automatic Cuff Blood Pressure Position Sitting Blood Pressure Position [Right Arm] Sitting 02 Sat by Pulse Oximetry 96 98 Oxygen Delivery Method Room Air Room Air Room Air Lab Data Lab results reviewed: Yes I reviewed the patient's lab results. Lab Results 08/20/24 17:44: POC Glucose 255 H 08/20/24 17:53: WBC 8.9, RBC 4.37 L, Hgb 13.7 L, Hct 39.5 L, MCV 90.4, MCH 31.4 H, MCHC 34.7, RDW 13.8, Plt Count 305, MPV 10.2, Neut % (Auto) 71.5, Lymph % (Auto) 15.4, [place] % (Auto) 10.9 H, Eos % (Auto) 1.0, Baso % (Auto) 0.8, Neut # (Auto) 6.4, Lymph # (Auto) 1.4, [place] # (Auto) 1.0, Eos # (Auto) 0.1, Baso # (Auto) 0.1, PT 9.8 L, INR 0.86 L, D-Dimer 1.30 H, Sodium 130 L, Potassium 4.6, Chloride 106, Carbon Dioxide 27, Anion Gap 1.6 L, BUN 34 H, Creatinine 2.20 H, Estimated Creat Clear 54, Estimated GFR 31 L, Est GFR ( Amer) 37 L, G lucose 267 H, Calcium 8.1 L, Magnesium 1.9, Total Bilirubin 0.4, AST 32, ALT 18, Alkaline Phosphatase 84, Troponin I 0.03, NT-Pro-B Natriuret Pep 2850 H, Total Protein 5.9 L, Albumin 2.9 L, Globulin 3.0, Albumin/Globulin Ratio 1.0 L, SARS-CoV-2 (PCR) Not detected, Influenza A Untype (PCR) Not detected, Influenza Type B (PCR) Not detected 08/20/24 20:02: Troponin I 0.03 08/20/24 17:53 08/20/24 17:53 Orders (Tests/Meds): ED MEDICATIONS Discontinued Medications Generic Name Dose Route Start Last Admin Trade Name Kaitlynn PRN Reason Stop Dose Admin Albuterol Sulfate 2 puff 08/20/24 20:53 08/20/24 21:01 Albuterol-Hfa 90mcg/Puff Inhaler 8gm 08/20/24 20:54 2 puff ONCE ONE Administration Albuterol/Ipratropium 6 ml 08/20/24 18:52 08/20/24 19:07 Ipratropium/Albuterol 3 Ml Neb 08/20/24 18:53 6 ml ONCE ONE Administration Amoxicillin/Clavulanate Potassium 1 each 08/20/24 20:52 08/20/24 21:01 Amoxicillin/Clavulanate Potassium 875/125mg Tablet PO 08/20/24 20:53 1 each ONCE ONE Administration Azithromycin 500 mg 08/20/24 20:52 08/20/24 21:01 Azithromycin 250mg Tablet PO 08/20/24 20:53 500 mg ONCE ONE Administration Lactated Ringer's 500 mls @ 999 mls/hr 08/20/24 20:11 08/20/24 20:17 Lactated Ringer's 500ml IV 08/20/24 20:41 999 mls/hr .Q31M ONE Administration Iopamidol 70 ml 08/20/24 20:37 08/20/24 20:39 Iopamidol-370 (76%);100ml Bottle IV 08/20/24 20:38 70 ml ONCE ONE Administration Methylprednisolone Sodium Succinate 125 mg 08/20/24 18:53 08/20/24 19:07 Methylprednisolone Sod Succ 125mg Vial IV 08/20/24 18:54 125 mg ONCE ONE Administration Miscellaneous 1 unit 08/20/24 20:53 08/20/24 21:01 Aerochamber/Optihaler MC 08/20/24 20:54 1 unit ONCE ONE Administration Sodium Chloride 50 ml 08/20/24 20:37 08/20/24 20:39 0.9 % Sodium Chloride 50 Ml Vial IV 08/20/24 20:38 50 ml ONCE ONE Administration Sodium Chloride 10 ml 08/20/24 20:37 08/20/24 20:39 Sodium Chloride 0.9% 10ml Syr (Rad Only) IV 08/20/24 20:38 10 ml ONCE ONE Administration ORDERS Category Date Time Status CTA Chest [CT angio chest PE protocol] Stat Cat Scan 08/20/24 20:06 Completed XR chest portable Stat Exams 08/20/24 17:50 Completed Complete Blood Count Auto Diff Stat Lab 08/20/24 17:53 Completed Comprehensive Metabolic Panel Stat Lab 08/20/24 17:53 Completed D-Dimer Stat Lab 08/20/24 17:53 Completed Magnesium Stat Lab 08/20/24 17:53 Completed NT Pro Brain Natriuretic Pep. Stat Lab 08/20/24 17:53 Completed POC Glucose,Bedside Routine Lab 08/20/24 17:44 Completed PT INR [Prothrombin Time INR] Stat Lab 08/20/24 17:53 Completed Rapid PCR Covid and Flu A/B Stat Lab 08/20/24 17:53 Completed Troponin I Q3H Lab 08/20/24 20:02 Completed Troponin I Stat Lab 08/20/24 17:53 Completed Medical Decision Narrative: 58-year-old male presents emergency department with URI type symptomatology, shortness of breath and chest pain, differential diagnose COVID limited to acute bronchitis, pneumonia, ACS, cardiac arrhythmia, electrolyte disturbance, acute CHF exacerbation, pleurisy, other URI among others. Will obtain basic laboratory studies, magnesium level proBNP PT/INR, rapid PCR COVID and flu, POC glucose, chest x-ray, EKG, CBC is notable for erythrocyte pi?a at 4.37, hemoglobin is 13.7, hematocrit 39.5, otherwise unremarkable CBC Coags unremarkable. CMP is notable for mild hyponatremia at 130, BUN is elevated at 34, creatinine is elevated at 2.2, GFR 31, hypocalcemia at 8.1, hypoalbuminemia 2.9. Patient's initial troponin is 0.03, proBNP is elevated at 2850, otherwise unremarkable CMP. I reviewed the patient's chest x-ray along the corresponding radiologic report, chronic appearing interstitial changes present bilaterally granuloma in the right lung base, probable left granuloma also noted no focal infiltrates. I discussed patient case with send patient Dr. Bray at shift change, she will be assuming remainder the patient's care/workup. Will add on D-dimer and wait on repeat troponin due to the patient's cardiac history and pleuritic nature of his chest pain, will also give 6 mL DuoNeb per RT and 125 mg IV Solu-Medrol for COPD exacerbation type symptomatology. <Emma Bray, DO - Last Filed: 08/20/24 21:36> Vital Signs: 08/20/24 17:49 08/20/24 18:40 08/20/24 21:13 Temperature 98.2 F 98.3 F Temperature Source Oral Oral Pulse Rate 65 89 Pulse Rate [Left] 67 Respiratory Rate 20 18 Blood Pressure 182/87 H 196/69 H Blood Pressure [Right Arm] 168/98 H Blood Pressure Mean [Right Arm] 121 Blood Pressure Source Automatic Cuff Blood Pressure Source [Right Arm] Automatic Cuff Blood Pressure Position Sitting Blood Pressure Position [Right Arm] Sitting 02 Sat by Pulse Oximetry 96 98 Oxygen Delivery Method Room Air Room Air Room Air Lab Data Lab Results 08/20/24 17:44: POC Glucose 255 H 08/20/24 17:53: WBC 8.9, RBC 4.37 L, Hgb 13.7 L, Hct 39.5 L, MCV 90.4, MCH 31.4 H, MCHC 34.7, RDW 13.8, Plt Count 305, MPV 10.2, Neut % (Auto) 71.5, Lymph % (Auto) 15.4, [place] % (Auto) 10.9 H, Eos % (Auto) 1.0, Baso % (Auto) 0.8, Neut # (Auto) 6.4, Lymph # (Auto) 1.4, [place] # (Auto) 1.0, Eos # (Auto) 0.1, Baso # (Auto) 0.1, PT 9.8 L, INR 0.86 L, D-Dimer 1.30 H, Sodium 130 L, Potassium 4.6, Chloride 106, Carbon Dioxide 27, Anion Gap 1.6 L, BUN 34 H, Creatinine 2.20 H, Estimated Creat Clear 54, Estimated GFR 31 L, Est GFR ( Amer) 37 L, G lucose 267 H, Calcium 8.1 L, Magnesium 1.9, Total Bilirubin 0.4, AST 32, ALT 18, Alkaline Phosphatase 84, Troponin I 0.03, NT-Pro-B Natriuret Pep 2850 H, Total Protein 5.9 L, Albumin 2.9 L, Globulin 3.0, Albumin/Globulin Ratio 1.0 L, SARS-CoV-2 (PCR) Not detected, Influenza A Untype (PCR) Not detected, Influenza Type B (PCR) Not detected 08/20/24 20:02: Troponin I 0.03 Orders (Tests/Meds): ED MEDICATIONS Discontinued Medications Generic Name Dose Route Start Last Admin Trade Name Kaitlynn PRN Reason Stop Dose Admin Albuterol Sulfate 2 puff 08/20/24 20:53 08/20/24 21:01 Albuterol-Hfa 90mcg/Puff Inhaler 8gm IH 08/20/24 20:54 2 puff ONCE ONE Administration Albuterol/Ipratropium 6 ml 08/20/24 18:52 08/20/24 19:07 Ipratropium/Albuterol 3 Ml Neb IH 08/20/24 18:53 6 ml ONCE ONE Administration Amoxicillin/Clavulanate Potassium 1 each 08/20/24 20:52 08/20/24 21:01 Amoxicillin/Clavulanate Potassium 875/125mg Tablet PO 08/20/24 20:53 1 each ONCE ONE Administration Azithromycin 500 mg 08/20/24 20:52 08/20/24 21:01 Azithromycin 250mg Tablet PO 08/20/24 20:53 500 mg ONCE ONE Administration Lactated Ringer's 500 mls @ 999 mls/hr 08/20/24 20:11 08/20/24 20:17 Lactated Ringer's 500ml IV 08/20/24 20:41 999 mls/hr .Q31M ONE Administration Iopamidol 70 ml 08/20/24 20:37 08/20/24 20:39 Iopamidol-370 (76%);100ml Bottle IV 08/20/24 20:38 70 ml ONCE ONE Administration Methylprednisolone Sodium Succinate 125 mg 08/20/24 18:53 08/20/24 19:07 Methylprednisolone Sod Succ 125mg Vial IV 08/20/24 18:54 125 mg ONCE ONE Administration Miscellaneous 1 unit 08/20/24 20:53 08/20/24 21:01 Aerochamber/Optihaler MC 08/20/24 20:54 1 unit ONCE ONE Administration Sodium Chloride 50 ml 08/20/24 20:37 08/20/24 20:39 0.9 % Sodium Chloride 50 Ml Vial IV 08/20/24 20:38 50 ml ONCE ONE Administration Sodium Chloride 10 ml 08/20/24 20:37 08/20/24 20:39 Sodium Chloride 0.9% 10ml Syr (Rad Only) IV 08/20/24 20:38 10 ml ONCE ONE Administration ORDERS Category Date Time Status CTA Chest [CT angio chest PE protocol] Stat Cat Scan 08/20/24 20:06 Completed XR chest portable Stat Exams 08/20/24 17:50 Completed Complete Blood Count Auto Diff Stat Lab 08/20/24 17:53 Completed Comprehensive Metabolic Panel Stat Lab 08/20/24 17:53 Completed D-Dimer Stat Lab 08/20/24 17:53 Completed Magnesium Stat Lab 08/20/24 17:53 Completed NT Pro Brain Natriuretic Pep. Stat Lab 08/20/24 17:53 Completed POC Glucose,Bedside Routine Lab 08/20/24 17:44 Completed PT INR [Prothrombin Time INR] Stat Lab 08/20/24 17:53 Completed Rapid PCR Covid and Flu A/B Stat Lab 08/20/24 17:53 Completed Troponin I Q3H Lab 08/20/24 20:02 Completed Troponin I Stat Lab 08/20/24 17:53 Completed ECG Data Tracing #1: I reviewed this ECG and interpreted as documented below: Normal sinus rhythm with a ventricular rate of 66 bpm. Right bundle branch block. No acute STEMI ECG initial impression date: 08/20/24 ECG initial impression time: 17:45 Medical Decision Narrative: 58-year-old male presents emergency department with URI type symptomatology, shortness of breath and chest pain, differential diagnose COVID limited to acute bronchitis, pneumonia, ACS, cardiac arrhythmia, electrolyte disturbance, acute CHF exacerbation, pleurisy, other URI among others. Will obtain basic laboratory studies, magnesium level proBNP PT/INR, rapid PCR COVID and flu, POC glucose, chest x-ray, EKG, CBC is notable for erythrocyte pi?a at 4.37, hemoglobin is 13.7, hematocrit 39.5, otherwise unremarkable CBC Coags unremarkable. CMP is notable for mild hyponatremia at 130, BUN is elevated at 34, creatinine is elevated at 2.2, GFR 31, hypocalcemia at 8.1, hypoalbuminemia 2.9. Patient's initial troponin is 0.03, proBNP is elevated at 2850, otherwise unremarkable CMP. I reviewed the patient's chest x-ray along the corresponding radiologic report, chronic appearing interstitial changes present bilaterally granuloma in the right lung base, probable left granuloma also noted no focal infiltrates. I discussed patient case with send patient Dr. Bray at shift change, she will be assuming remainder the patient's care/workup. Will add on D-dimer and wait on repeat troponin due to the patient's cardiac history and pleuritic nature of his chest pain, will also give 6 mL DuoNeb per RT and 125 mg IV Solu-Medrol for COPD exacerbation type symptomatology. DO Asa: I was consulted by the LANA, and we discussed the complexity of the problems being addressed. I approved the treatment and management plan for this patient's care in the emergency department, thus performing a substantive portion of the medical decision making. I assumed solo care for patient at 1900 at time of departure of the LANA. Labs demonstrated reassuring CBC with very mild anemia but no significant leukocytosis. Chemistry obtained demonstrates mild JENNIFER on CKD, mild hyponatremia with history of hyponatremia in the past. BNP is elevated a little bit higher than prior lab evaluation but not significantly. D-dimer was obtained and was elevated, so CT PE protocol was added on. Chemistry otherwise is reassuring. I independently interpreted CT PE prior to radiology read and noted groundglass opacities but no large PE or pneumothorax. Please see radiology read for final interpretation. Family elected to leave prior to results of second troponin, as they have dogs at home and did not want to stay until resulted. Given the patient is lying in bed in no acute distress with reassuring vital signs and cardiac telemetry, I feel that he is appropriate for discharge via patient directed discharge. He was provided with inhaler and prescription for prednisone given wheezing as well as prescriptions for Augmentin and azithromycin for antibiotic coverage for pneumonia. I gave him instructions for close follow-up with PCP for reassessment as well as strict return precautions. Second troponin resulted after discharge and was unchanged from initial with no significant delta troponin Emma Bray DO Critical Care <SHELLI Swenson - Last Filed: 08/20/24 18:54> Critical Care Time Critical Care Time: No
[2024-08-20 18:12] LABS: INR 0.86 (0.9-1.1); Prothrombin Time 9.8 seconds (10.1-12.5)
[2024-08-20 18:13] LABS: Chloride 106 mmol/L (98-107)
[2024-08-20 18:14] LABS: Albumin Level 2.9 g/dl (3.5-5.0); Potassium 4.6 mmoL/L (3.5-5.1); Sodium 130 mmol/L (136-145)
[2024-08-20 18:16] LABS: Alanine Aminotransferase 18 U/L (12-78); Anion Gap 1.6 mEq/L (5-15); Aspartate Amino Transferase 32 U/L (17-59); Blood Urea Nitrogen 34 mg/dl (9-20); Carbon Dioxide 27 mmol/L (22.0-30.0); Creatinine Clearance Estimated 54 mL/min (50-200); Estimated Glomerular Filt Rate 31 ml/min (>60); GFR (African American) 37 ML/MIN (>60); Total Protein,Serum 5.9 g/dl (6.3-8.2)
[2024-08-20 18:17] LABS: Alkaline Phosphatase 84 U/L (38-126); Bilirubin,Total 0.4 mg/dl (0.2-1.3); Calcium 8.1 mg/dl (8.4-10.2); Glucose 267 mg/dl (74-100); Magnesium 1.9 mg/dl (1.6-2.3)
[2024-08-20 18:26] LABS: NT Pro Brain Natriuretic Pep. 2850 pg/mL (0-125)
[2024-08-20 18:29] LABS: Troponin I 0.03 ng/ml (0.00-0.034)
[2024-08-20 18:40] VITALS: BP 182/87; PULSE 65; O2SAT 98
[2024-08-20] MEDS: METHYLPREDNISOLONE SOD SUCC 125MG VIAL 125 MG IV (19:07)
[2024-08-20] MEDS: IPRATROPIUM/ALBUTEROL 3 ML NEB 6 ML IH (19:07)
--- NOTE | 2024-08-20 20:06 | CT_ITS ---
PROCEDURE INFORMATION: Exam: CTA Chest With Contrast Exam date and time: 08/20/2024 8:30 PM Age: 58 years old Clinical indication: Pain; Chest pressure; Additional info: Chest pain, elevated dimer TECHNIQUE: Imaging protocol: Computed tomographic angiography of the chest with contrast. Exam focused on the arteries. 3D rendering (Not supervised by radiologist): MIP and/or 3D reconstructed images were created by the technologist. Radiation optimization: All CT scans at this facility use at least one of these dose optimization techniques: automated exposure control; mA and/or kV adjustment per patient size (includes targeted exams where dose is matched to clinical indication); or iterative reconstruction. Contrast material: ISOVUE; Contrast volume: 70 ml; Contrast route: INTRAVENOUS (IV); COMPARISON: CT ANGIO CHEST 09/15/2023 1:22 PM FINDINGS: Pulmonary arteries: Normal. No pulmonary emboli. Aorta: Unremarkable. No aortic aneurysm. No aortic dissection. Lungs: Patchy bilateral upper lobe focal areas of ground-glass density new since the prior examination.. No consolidation. No masses. Pleural spaces: Unremarkable. No pneumothorax. No pleural effusion. Heart: Coronary calcification is noted. . No cardiomegaly. No pericardial effusion. Coronary arteries: Extensive coronary calcium. Lymph nodes: Unremarkable. No enlarged lymph nodes. Bones/joints: Unremarkable. No acute fracture. Soft tissues: Unremarkable. IMPRESSION: 1. No evidence of pulmonary embolus. 2. Patchy areas of ground-glass infiltrate are seen with an upper lobe predominance etiology is unclear but may be early atypical or other infiltrates. Correlate with clinical signs and symptoms. 3. Coronary atherosclerosis.
[2024-08-20] MEDS: RINGERS SOLUTION,LACTATED 500 ML 999 ML IV (20:17)
[2024-08-20] MEDS: IOPAMIDOL-370 (76%);100ML BOTTLE 70 ML IV (20:39)
[2024-08-20] MEDS: 0.9 % SODIUM CHLORIDE 50 ML VIAL IV (20:39)
[2024-08-20] MEDS: SODIUM CHLORIDE 0.9% 10ML SYR (RAD ONLY) 10 ML IV (20:39)
[2024-08-20] MEDS: ALBUTEROL-HFA 90MCG/PUFF INHALER 8GM 2 PUFF IH (21:01)
[2024-08-20] MEDS: AEROCHAMBER/OPTIHALER 1 UNIT MC (21:01)
[2024-08-20] MEDS: AZITHROMYCIN 250MG TABLET 500 MG PO (21:01)
[2024-08-20] MEDS: AMOXICILLIN/CLAVULANATE POTASSIUM 875/125MG TABLET 1 EACH PO (21:01)
[2024-08-20 21:13] VITALS: BP 196/69; PULSE 89; RESP 18; TEMP 36.8; O2SAT 95
[2024-08-20 21:14] LABS: Troponin I 0.03 ng/ml (0.00-0.034)
== END 2024-08-20 21:14 | disposition home or self-care (01) ==
PROVIDERS: Physician Assistant; Emergency Provider Emergency Medicine; PCP Internal Medicine
DX: J18.9 Pneumonia, unspecified organism (principal); R07.81 Pleurodynia; R06.2 Wheezing; E87.1 Hypo-osmolality and hyponatremia; I45.10 Unspecified right bundle-branch block; F17.210 Nicotine dependence, cigarettes, uncomplicated; N17.9 Acute kidney failure, unspecified; N18.30 Chronic kidney disease, stage 3 unspecified; E11.22 Type 2 diabetes mellitus with diabetic chronic kidney disease; I12.9 Hypertensive chronic kidney disease with stage 1 through stage 4 chronic kidney disease, or unspecified chronic kidney disease
CPT/HCPCS: 71045; 71275; 80053; 82962; 83735; 83880; 84484; 85025; 85378; 85610; 87636; 93005; 96374; 99285; J2919; J7120; Q9967

== ENCOUNTER 2024-08-31 11:39 | Observation (INO) | payer BC, SELFPAY ==
[2024-08-31] VITALS (37 sets, daily range): BP systolic 114–180; BP diastolic 64–96; PULSE 55–74; RESP 12–26; TEMP 36.3–36.9; O2SAT 95–100; BMI 26.2
--- NOTE | 2024-08-31 12:00 | ECG_ITS ---
APPROVED REPORT Exam: Resting ECG HR:63 bpm ECG Measurements Heart Rate 63 AXES RI 136 P 7 QRSd 145 QRS -15 QT 405 T -42 QTc 411 Conclusion SINUS RHYTHM WITH SINUS ARRHYTHMIA RIGHT BUNDLE BRANCH BLOCK [120+ ms QRS DURATION, UPRIGHT V1, 40+ ms S IN I/aVL/V4/V5/V6] ABNORMAL ECG Electronically signed by : NAOMI ZHAO, 09/03/2024 07:43:11
[2024-08-31 12:03] LABS: POC Glucose,Bedside 419 (70-110)
[2024-08-31 12:16] LABS: Basophils # 0.1 K/mm3 (0-0.2); Basophils % 0.5 % (0.1-2.0); Eosinophils # 0.4 Kmm3 (0.0-0.4); Eosinophils % 2.6 % (0.1-12.0); Hematocrit 21.1 % (42.0-52.0); Hemoglobin 7.2 g/dL (14.1-18.0); Immature Granulocytes # 0.12 10^3uL; Immature Granulocytes % 0.9 %; Lymphocytes # 2.3 K/mm3 (0.7-4.5); Lymphocytes % 16.9 % (10-50); Mean Corpuscular HGB Conc 34.1 g/dL (31.8-35.4); Mean Corpuscular Hemoglobin 31.4 pg (27.0-31.2); Mean Corpuscular Volume 92.1 fl (80-94); Mean Platelet Volume 10.4 fl (7.4-10.4); Monocytes # 1.2 K/mm3 (0.1-1.0); Monocytes % 8.9 % (1.7-9.3); Neutrophils # 9.5 K/mm3 (1.8-7.8); Neutrophils % 70.2 % (37.0-80.0); Nucleated Red Blood Cells # 0 10^3/uL; Nucleated Red Blood Cells % 0 %; Platelet Count 348 K/mm3 (142-424); Red Blood Count 2.29 M/mm3 (4.60-6.20); Red Cell Distribution Width 13.9 % (11.5-17.5); Red Cell Distribution Width-SD 46.5 fL; White Blood Count 13.6 K/mm3 (4.8-10.8)
--- NOTE | 2024-08-31 12:25 | ED_ITS ---
Discharge Plan Disposition Patient Disposition: Admitted Clinical Impressions Clinical Impression: ABLA (acute blood loss anemia), Melena, Hyperosmolar hyperglycemic state (HHS) Hyperglycemia due to type 2 diabetes mellitus Qualifiers: Diabetes mellitus straw baler insulin use: with detention use Qualified Code(s): E11.65 - Type 2 diabetes mellitus with hyperglycemia Discharge ED Provider: Dat Garcia General Adult HPI <SHELLI Carter - Last Filed: 08/31/24 20:46> General Chief complaint: Altered Mental Status Stated complaint: SOB, Low BP, Dizzy Time Seen by Provider: 08/31/24 12:25 Mode of Arrival: Wheelchair Source of Information: Patient and Spouse Description of Symptoms (Recalled from ER Triage Doc. by RN): Pt presents for evaluation of feeling light headed, low bp (lowest at home was SBP of , feeling confused. Pt states he was recently seen here and diagnosed with pneumonia. Pt completed course of abx. FSBS in triage 419. Pt is GCS 15, A&Ox4 History of Present Illness HPI narrative: Patient presents for evaluation of hypotension lightheadedness and some confusion. 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 Patient was recently admitted to our facility approximately 10 to 11 days ago and diagnosed with pneumonia. However since his discharge he has had increasing exercise intolerance even with light exertion feeling short of breath having a low blood pressure but also has began having polyuria polydipsia. He is an insulin-dependent type 2 diabetic. He denies chest pain fever chills hemoptysis hematochezia hematemesis hematuria but does report that he has had dark stools upon questioning. He does not have any abdominal pain currently. Patient reports that he takes Aleve occasionally but nothing every day. Additionally he was put on steroids upon discharge for his pneumonia he states. Related Data Home Medications ?Medication ?Instructions ?Recorded ?Confirmed aspirin 81 mg chewable tablet 81 mg PO DAILY 01/26/23 08/31/24 losartan 100 1 tab PO DAILY 08/27/24 08/31/24 mg-hydrochlorothiazide 12.5 mg tablet Previous Rx's ?Medication ?Instructions ?Recorded carvedilol 25 mg tablet (Coreg) 25 mg PO BID #60 tabs 12/08/23 insulin glargine 100 unit/mL (3 20 unit (0.2 mL) SQ BID #15 mL 01/08/24 mL) subcutaneous pen (Lantus Solostar U-100 Insulin) insulin lispro 100 unit/mL See Rx Instructions SQ .COMPLEX 01/08/24 subcutaneous cartridge (Humalog #15 mL U-100 Insulin) clopidogrel 75 mg tablet (Plavix) 75 mg PO DAILY #90 tabs 04/05/24 amlodipine 5 mg tablet (Norvasc) 5 mg PO DAILY #30 tabs 06/29/24 Allergies Allergy/AdvReac Type Severity Reaction Status Date / Time NSAIDS (Non-Steroidal Allergy itch Verified 08/27/24 10:42 Anti-Inflamma gabapentin AdvReac Severe Verified 08/27/24 10:42 PFS <SHELLI Carter - Last Filed: 08/31/24 20:46> [facility] Disclaimer: The information contained in this section may have been updated after the patient was seen, as this information can be updated by other users. Medical History Dietary counseling Exercise counseling Screening for depression Screening for endocrine disorder JENNIFER (acute kidney injury) Hospital discharge follow-up Heart failure Screening for colon cancer Encounter for vitamin deficiency screening Vitamin deficiency Acute medical illness Establishing care with new doctor, encounter for Vaccine counseling Type 2 diabetes mellitus with stage 2 chronic kidney disease Atypical angina Abnormal result of cardiovascular function study (HFpEF) heart failure with preserved ejection fraction Type 2 diabetes mellitus Hyperlipidemia Hypertension CONNIE (obstructive sleep apnea) CAD (coronary artery disease) Lower extremity edema Surgical History H/O heart artery stent 4 stents History of cardiac catheterization Family History Father Cancer Mother Stroke Social History (Updated 08/31/24 @ 16:09 by Bina Rhoades RN) Smoking Status: Current some day smoker alcohol intake: never substance use type: denies use current occupational status: employed Travel in the last 8 weeks?: None Have you lived/traveled outside US in past 30 days?: No Contact w/someone who lives/traveled outside US past 30 days?: No Exposure to someone with infectious disease in past 14 days?: No Do you have a fever (greater than 100.4 F or 38 C)?: No Have you tested positive for COVID-19?: No Exposed to someone with COVID-19 in past 14 days?: No Do you have a sore throat?: No Do you have a cough?: No Do you have any weakness?: No Do you have any diarrhea?: No Are you experiencing any unusual bleeding?: No Do you have any muscle aches/pain?: No Do you have any abdominal pain?: No Are you experiencing loss of taste or smell?: No Other Medical History Have you received the Flu Vaccine for this season: No Have you received the Pneumonia Vaccine: No <SHELLI Carter - Last Filed: 08/31/24 20:46> ROS Obtained: Yes Systems reviewed as appropriate & no additional complaints except as documented Physical Exam <SHELLI Carter - Last Filed: 08/31/24 20:46> General General appearance: alert and in no apparent distress Respiratory Respiratory exam: Present normal lung sounds bilaterally Cardiovascular Cardiovascular exam: Present regular rate Neurological Exam Neurological exam: Present alert and oriented X3 Medical Decision Making <SHELLI Carter - Last Filed: 08/31/24 20:46> Medical Records Medical records reviewed: Yes I reviewed the patient's medical records. Screening: Per USPSTF and CDC recommendations, given the prevalence of disease in our region, it is our hospital?s policy to screen for HIV and viral Hepatitis for all patients aged 18 and over and those with ongoing risk factors. Wali Inquiry Pt receiving controlled substance: No Vital Signs: 08/31/24 11:56 08/31/24 12:24 08/31/24 12:30 Temperature 98.3 F Temperature Source Temporal Artery Scan Pulse Rate 55 L 59 L Pulse Rate [Right] 64 Respiratory Rate 18 12 21 Blood Pressure 123/72 129/70 Blood Pressure [Right Arm] 114/64 Blood Pressure Mean [Right Arm] 80 Blood Pressure Source [Right Arm] Automatic Cuff Blood Pressure Position [Right Arm] Sitting 02 Sat by Pulse Oximetry 95 100 100 Oxygen Delivery Method Room Air 08/31/24 13:00 08/31/24 13:30 08/31/24 15:11 Temperature 98 F Temperature Source Pulse Rate 59 L 57 L 60 Pulse Rate [Right] Respiratory Rate 12 12 14 Blood Pressure 139/73 132/73 152/78 H Blood Pressure [Right Arm] Blood Pressure Mean [Right Arm] Blood Pressure Source [Right Arm] Blood Pressure Position [Right Arm] 02 Sat by Pulse Oximetry 99 100 Oxygen Delivery Method Room Air Room Air Lab Data Lab results reviewed: Yes I reviewed the patient's lab results. Lab Results 08/31/24 11:57: POC Glucose 419 H* 08/31/24 12:02: WBC 13.6 H, RBC 2.29 L, Hgb 7.2 L, Hct 21.1 L, MCV 92.1, MCH 31.4 H, MCHC 34.1, RDW 13.9, Plt Count 348, MPV 10.4, Neut % (Auto) 70.2, Lymph % (Auto) 16.9, [place] % (Auto) 8.9, Eos % (Auto) 2.6, Baso % (Auto) 0.5, Neut # (Auto) 9.5 H, Lymph # (Auto) 2.3, [place] # (Auto) 1.2 H, Eos # (Auto) 0.4, Baso # (Auto) 0.1, Sodium 129 L, Potassium 4.3, Chloride 107, Carbon Dioxide 25, Anion Gap 1.3 L, BUN 56 H, Creatinine 2.00 H, Estimated Creat Clear 56, Estimated GFR 34 L, Est GFR ( Amer) 42 L, Glucose 430 H*, Calcium 7.8 L, Total Bilirubin 0.4, AST 19, ALT 17, Alkaline Phosphatase 66, Total Protein 4.6 L, A lbumin 2.2 L, Globulin 2.4, Albumin/Globulin Ratio 0.9 L 08/31/24 13:00: VBG pH 7.37, VBG pCO2 40.6, VBG pO2 32.4, VBG HCO3 22.8 L, VBG Total CO2 24.0, VBG O2 Saturation 61.0, VBG Base Excess -2.5 L, VBG Lactic Acid 1.4, Lactate 0.9, Phosphorus 3.3, Magnesium 1.8, Acetone Level None detected, Blood Type A Positive, Antibody Screen Negative, Crossmatch ([facility]) See Detail 08/31/24 13:03: Urine Color Yellow, Urine Appearance Clear, Urine pH 6.0, Ur Specific [place] 1.020, Urine Protein 3+ A, Urine Glucose (UA) 3+, Urine Ketones Negative, Urine Blood 1+ A, Urine Nitrate Negative, Urine Bilirubin Negative, Urine Urobilinogen 0.2, Ur Leukocyte Esterase Negative, Urine RBC Occasional, Urine WBC None, Ur Squamous Epith Cells Occasional, Urine Bacteria Trace, Urine Opiates Screen Negative, Urine Methadone Screen Negative, Ur Barbituates Screen Negative, Ur Phencyclidine Scrn Negative, Ur Amphetamines Screen Negative, U Benzodiazepines Scrn Negative, Urine Cocaine Screen Negative, U Marijuana (THC) Screen Negative 08/31/24 14:20: Stool Occult Blood Positive A 08/31/24 19:33 08/31/24 12:02 Orders (Tests/Meds): ED MEDICATIONS Generic Name Dose Route Start Last Admin Trade Name Freq PRN Reason Stop Dose Admin Acetaminophen 650 mg 08/31/24 14:43 08/31/24 23:16 Acetaminophen 325mg Tab PO 09/30/24 14:42 650 mg Q4HP PRN Administration Fever or Mild Pain (1-3) Sodium Chloride 250 mls @ 25 mls/hr 08/31/24 14:30 08/31/24 21:06 Sod Chlor 0.9% 250ml Bag IV 09/01/24 14:29 25 mls/hr .Q10H SHAMIKA Administration Lactated Ringer's 1,000 mls @ 100 mls/hr 08/31/24 14:45 08/31/24 16:21 Lactated Ringer's 1000 Ml Bag IV 09/30/24 14:44 100 mls/hr .Q10H SHAMIKA Administration Insulin Glargine 10 unit 08/31/24 21:00 08/31/24 20:51 Insulin Glargine 100 Units/Ml 3ml Flexpen SUBCUT 09/30/24 20:59 10 units HS SHAMIKA Administration Insulin Human Lispro 0 unit 08/31/24 21:00 08/31/24 20:51 Humalog 100 Units/Ml 10ml Vial (Ssi) SUBCUT 09/30/24 20:59 12 unit ACHS SHAMIKA Administration Protocol Ondansetron HCl 4 mg 08/31/24 14:44 Ondansetron 4mg/2ml Vial IV 09/30/24 14:43 Q6HP PRN Nausea Pantoprazole Sodium 40 mg 08/31/24 21:00 08/31/24 20:50 Pantoprazole 40mg Vial IV 09/30/24 20:59 40 mg BID SHAMIKA Administration Sodium Chloride 10 ml 08/31/24 14:44 Sodium Chloride 0.9% 10ml Flush Syringe IV 09/30/24 14:43 NEEDED PRN Maintain IV Site Sodium Chloride 10 ml 08/31/24 14:44 08/31/24 20:51 Sodium Chloride 0.9% 10ml Vial IV 09/30/24 14:43 10 ml NEEDED PRN Administration dilute protonix Sucralfate 1 gm 08/31/24 16:30 08/31/24 20:51 Sucralfate 1gm Tablet PO 09/30/24 16:29 1 gm ACHS SHAMIKA Administration Discontinued Medications Generic Name Dose Route Start Last Admin Trade Name Freq PRN Reason Stop Dose Admin Sodium Chloride 2,600 mls @ 1,300 mls/hr 08/31/24 12:48 08/31/24 13:30 Sod Chlor 0.9% 1000ml Bag 30 ml/kg infuse over 2 hr (2600 ml) 08/31/24 14:47 1,300 mls/hr IV Administration .Q2H ONE Pantoprazole Sodium 80 mg/ 100 mls @ 10 mls/hr 08/31/24 14:30 08/31/24 15:27 Sodium Chloride IV 09/03/24 14:29 Not Given .Q10H SHAMIKA ORDERS Category Date Time Status Red Blood Cells Stat BBK 08/31/24 13:00 Completed Type and Screen Stat BBK 08/31/24 13:00 Completed Acetone, Serum (Rapid) Stat Lab 08/31/24 13:00 Completed Complete Blood Count Auto Diff Stat Lab 08/31/24 12:02 Completed Comprehensive Metabolic Panel Stat Lab 08/31/24 12:02 Completed Drug Screen,Urine Stat Lab 08/31/24 13:03 Completed Lactic Acid Stat Lab 08/31/24 13:00 Completed Magnesium Stat Lab 08/31/24 13:00 Completed Occult Blood,Stool Stat Lab 08/31/24 14:20 Completed POC Glucose,Bedside Routine Lab 08/31/24 11:57 Completed Phosphorous Stat Lab 08/31/24 13:00 Completed Urinalysis and Microscopic Stat Lab 08/31/24 13:03 Completed VBG [Venous Blood Gas] Stat RT 08/31/24 13:00 Completed Medical Decision Narrative: In summary patient is a 58-year-old male who presents to the emergency department for evaluation of weakness lightheadedness polyuria polydipsia and melena. Patient is initially hemodynamically stable with a blood pressure 114/64 heart rate 64 normal sinus rhythm on bedside monitor breathing 18 times a minute satting at 95% on room air upon arrival, afebrile at 98.3. Physical exam reveals a well-nourished well-developed 58-year-old gentleman who currently is in no acute distress. Breath sounds clear and equal bilateral to the bases without adventitious sounds there is no odor of ketones breath however his mucosas dry. Breath sounds clear and equal bilateral to the bases without adventitious sounds abdomen soft nontender no rebound or guarding no rigidity. Bowel sounds normal active. Digital rectal exam reveals dark tarry stool but no fresh blood. Differential diagnosis includes DKA versus upper GI bleed versus electrolyte abnormality versus sepsis versus drug intoxication although less likely. Initial workup will be conducted with hematologic labs stool for occult blood EKG. Initial interventions include crystalloid bolus for now as patient has no fever and pain other interventions deferred to LARSEN is more clear. Initial workup reviewed by me shows that his white count is 13.6 hemoglobin and hematocrit are 7.2 and 21.1 which are markedly different since his discharge with an absolute neutrophil count of 9.5. VBG shows a normal pH with no lactic acidosis, chemistry shows sodium 129 gap of 1.3 a BUN of 56 creatinine of 2 and GFR 42 serum glucose of 430 lactate is 0.9 serum calcium of 7.8 which is uncorrected for hypoalbuminemia and likely normal phosphorus is 3.3 magnesium is 1.8 analysis shows 3+ of protein otherwise is bland stool for occult blood is positive drug screen is negative and acetone is also undetectable. I have ordered a type and screen and a transfusion of 1 unit of packed red blood cells patient's workup is significant for hyperglycemia but not DKA but with a markedly decreased hemoglobin at 7.2 today down from 13.7 on 08/20/2024. I had interactive discussion with Dr. Hines of general surgery, regarding patient presentation LARSEN and patient management, who is agreeable for evaluation and possible EGD in the morning. I then had indirect discussion with hospital medicine regarding patient presentation LARSEN patient management and he will be admitted for further evaluation and care, clear liquid diet till midnight n.p.o. after midnight and EGD in the a.m. with general surgery as the plan. <Dat Garcia MD - Last Filed: 08/31/24 23:31> Vital Signs: 08/31/24 11:56 08/31/24 12:24 08/31/24 12:30 Temperature 98.3 F Temperature Source Temporal Artery Scan Pulse Rate 55 L 59 L Pulse Rate [Right] 64 Respiratory Rate 18 12 21 Blood Pressure 123/72 129/70 Blood Pressure [Right Arm] 114/64 Blood Pressure Mean [Right Arm] 80 Blood Pressure Source [Right Arm] Automatic Cuff Blood Pressure Position [Right Arm] Sitting 02 Sat by Pulse Oximetry 95 100 100 Oxygen Delivery Method Room Air 08/31/24 13:00 08/31/24 13:30 08/31/24 15:11 Temperature 98 F Temperature Source Pulse Rate 59 L 57 L 60 Pulse Rate [Right] Respiratory Rate 12 12 14 Blood Pressure 139/73 132/73 152/78 H Blood Pressure [Right Arm] Blood Pressure Mean [Right Arm] Blood Pressure Source [Right Arm] Blood Pressure Position [Right Arm] 02 Sat by Pulse Oximetry 99 100 Oxygen Delivery Method Room Air Room Air Lab Data Lab Results 08/31/24 11:57: POC Glucose 419 H* 08/31/24 12:02: WBC 13.6 H, RBC 2.29 L, Hgb 7.2 L, Hct 21.1 L, MCV 92.1, MCH 31.4 H, MCHC 34.1, RDW 13.9, Plt Count 348, MPV 10.4, Neut % (Auto) 70.2, Lymph % (Auto) 16.9, [place] % (Auto) 8.9, Eos % (Auto) 2.6, Baso % (Auto) 0.5, Neut # (Auto) 9.5 H, Lymph # (Auto) 2.3, [place] # (Auto) 1.2 H, Eos # (Auto) 0.4, Baso # (Auto) 0.1, Sodium 129 L, Potassium 4.3, Chloride 107, Carbon Dioxide 25, Anion Gap 1.3 L, BUN 56 H, Creatinine 2.00 H, Estimated Creat Clear 56, Estimated GFR 34 L, Est GFR ( Amer) 42 L, Glucose 430 H*, Calcium 7.8 L, Total Bilirubin 0.4, AST 19, ALT 17, Alkaline Phosphatase 66, Total Protein 4.6 L, A lbumin 2.2 L, Globulin 2.4, Albumin/Globulin Ratio 0.9 L 08/31/24 13:00: VBG pH 7.37, VBG pCO2 40.6, VBG pO2 32.4, VBG HCO3 22.8 L, VBG Total CO2 24.0, VBG O2 Saturation 61.0, VBG Base Excess -2.5 L, VBG Lactic Acid 1.4, Lactate 0.9, Phosphorus 3.3, Magnesium 1.8, Acetone Level None detected, Blood Type A Positive, Antibody Screen Negative, Crossmatch ([facility]) See Detail 08/31/24 13:03: Urine Color Yellow, Urine Appearance Clear, Urine pH 6.0, Ur Specific [place] 1.020, Urine Protein 3+ A, Urine Glucose (UA) 3+, Urine Ketones Negative, Urine Blood 1+ A, Urine Nitrate Negative, Urine Bilirubin Negative, Urine Urobilinogen 0.2, Ur Leukocyte Esterase Negative, Urine RBC Occasional, Urine WBC None, Ur Squamous Epith Cells Occasional, Urine Bacteria Trace, Urine Opiates Screen Negative, Urine Methadone Screen Negative, Ur Barbituates Screen Negative, Ur Phencyclidine Scrn Negative, Ur Amphetamines Screen Negative, U Benzodiazepines Scrn Negative, Urine Cocaine Screen Negative, U Marijuana (THC) Screen Negative 08/31/24 14:20: Stool Occult Blood Positive A Orders (Tests/Meds): ED MEDICATIONS Generic Name Dose Route Start Last Admin Trade Name Freq PRN Reason Stop Dose Admin Acetaminophen 650 mg 08/31/24 14:43 08/31/24 23:16 Acetaminophen 325mg Tab PO 09/30/24 14:42 650 mg Q4HP PRN Administration Fever or Mild Pain (1-3) Sodium Chloride 250 mls @ 25 mls/hr 08/31/24 14:30 08/31/24 21:06 Sod Chlor 0.9% 250ml Bag IV 09/01/24 14:29 25 mls/hr .Q10H SHAMIKA Administration Lactated Ringer's 1,000 mls @ 100 mls/hr 08/31/24 14:45 08/31/24 16:21 Lactated Ringer's 1000 Ml Bag IV 09/30/24 14:44 100 mls/hr .Q10H SHAMIKA Administration Insulin Glargine 10 unit 08/31/24 21:00 08/31/24 20:51 Insulin Glargine 100 Units/Ml 3ml Flexpen SUBCUT 09/30/24 20:59 10 units HS SHAMIKA Administration Insulin Human Lispro 0 unit 08/31/24 21:00 08/31/24 20:51 Humalog 100 Units/Ml 10ml Vial (Ssi) SUBCUT 09/30/24 20:59 12 unit ACHS SHAMIKA Administration Protocol Ondansetron HCl 4 mg 08/31/24 14:44 Ondansetron 4mg/2ml Vial IV 09/30/24 14:43 Q6HP PRN Nausea Pantoprazole Sodium 40 mg 08/31/24 21:00 08/31/24 20:50 Pantoprazole 40mg Vial IV 09/30/24 20:59 40 mg BID SHAMIKA Administration Sodium Chloride 10 ml 08/31/24 14:44 Sodium Chloride 0.9% 10ml Flush Syringe IV 09/30/24 14:43 NEEDED PRN Maintain IV Site Sodium Chloride 10 ml 08/31/24 14:44 08/31/24 20:51 Sodium Chloride 0.9% 10ml Vial IV 09/30/24 14:43 10 ml NEEDED PRN Administration dilute protonix Sucralfate 1 gm 08/31/24 16:30 08/31/24 20:51 Sucralfate 1gm Tablet PO 09/30/24 16:29 1 gm ACHS SHAMIKA Administration Discontinued Medications Generic Name Dose Route Start Last Admin Trade Name Freq PRN Reason Stop Dose Admin Sodium Chloride 2,600 mls @ 1,300 mls/hr 08/31/24 12:48 08/31/24 13:30 Sod Chlor 0.9% 1000ml Bag 30 ml/kg infuse over 2 hr (2600 ml) 08/31/24 14:47 1,300 mls/hr IV Administration .Q2H ONE Pantoprazole Sodium 80 mg/ 100 mls @ 10 mls/hr 08/31/24 14:30 08/31/24 15:27 Sodium Chloride IV 09/03/24 14:29 Not Given .Q10H SHAMIKA ORDERS Category Date Time Status Red Blood Cells Stat BBK 08/31/24 13:00 Completed Type and Screen Stat BBK 08/31/24 13:00 Completed Acetone, Serum (Rapid) Stat Lab 08/31/24 13:00 Completed Complete Blood Count Auto Diff Stat Lab 08/31/24 12:02 Completed Comprehensive Metabolic Panel Stat Lab 08/31/24 12:02 Completed Drug Screen,Urine Stat Lab 08/31/24 13:03 Completed Lactic Acid Stat Lab 08/31/24 13:00 Completed Magnesium Stat Lab 08/31/24 13:00 Completed Occult Blood,Stool Stat Lab 08/31/24 14:20 Completed POC Glucose,Bedside Routine Lab 08/31/24 11:57 Completed Phosphorous Stat Lab 08/31/24 13:00 Completed Urinalysis and Microscopic Stat Lab 08/31/24 13:03 Completed VBG [Venous Blood Gas] Stat RT 08/31/24 13:00 Completed Medical Decision Narrative: In summary patient is a 58-year-old male who presents to the emergency department for evaluation of weakness lightheadedness polyuria polydipsia and melena. Patient is initially hemodynamically stable with a blood pressure 114/64 heart rate 64 normal sinus rhythm on bedside monitor breathing 18 times a minute satting at 95% on room air upon arrival, afebrile at 98.3. Physical exam reveals a well-nourished well-developed 58-year-old gentleman who currently is in no acute distress. Breath sounds clear and equal bilateral to the bases without adventitious sounds there is no odor of ketones breath however his mucosas dry. Breath sounds clear and equal bilateral to the bases without adventitious sounds abdomen soft nontender no rebound or guarding no rigidity. Bowel sounds normal active. Digital rectal exam reveals dark tarry stool but no fresh blood. Differential diagnosis includes DKA versus upper GI bleed versus electrolyte abnormality versus sepsis versus drug intoxication although less likely. Initial workup will be conducted with hematologic labs stool for occult blood EKG. Initial interventions include crystalloid bolus for now as patient has no fever and pain other interventions deferred to LARSEN is more clear. Initial workup reviewed by me shows that his white count is 13.6 hemoglobin and hematocrit are 7.2 and 21.1 which are markedly different since his discharge with an absolute neutrophil count of 9.5. VBG shows a normal pH with no lactic acidosis, chemistry shows sodium 129 gap of 1.3 a BUN of 56 creatinine of 2 and GFR 42 serum glucose of 430 lactate is 0.9 serum calcium of 7.8 which is uncorrected for hypoalbuminemia and likely normal phosphorus is 3.3 magnesium is 1.8 analysis shows 3+ of protein otherwise is bland stool for occult blood is positive drug screen is negative and acetone is also undetectable. I have ordered a type and screen and a transfusion of 1 unit of packed red blood cells patient's workup is significant for hyperglycemia but not DKA but with a markedly decreased hemoglobin at 7.2 today down from 13.7 on 08/20/2024. I had interactive discussion with Dr. Hines of general surgery, regarding patient presentation LARSEN and patient management, who is agreeable for evaluation and possible EGD in the morning. I then had indirect discussion with hospital medicine regarding patient presentation LARSEN patient management and he will be admitted for further evaluation and care, clear liquid diet till midnight n.p.o. after midnight and EGD in the a.m. with general surgery as the plan. I was consulted by the LANA, and we discussed the complexity of the problems being addressed. I approve the treatment and management plan for this patient's care in the emergency department, thus performing a substantive portion of the medical decision making. Dat Garcia MD Critical Care <SHELLI Carter - Last Filed: 08/31/24 20:46> Critical Care Time Critical Care Time: Yes Attestation: On 08/31/24, the high probability of a clinically significant, sudden or life threatening deterioration of the following system(s) required my full and direct attention, intervention and personal management. The time I documented below is in addition to time spent performing reported procedures but includes the following listed in this critical care notation. Total Time Total Critical Care Time: 30
[2024-08-31 12:27] LABS: Albumin Level 2.2 g/dl (3.5-5.0); Chloride 107 mmol/L (98-107)
[2024-08-31 12:28] LABS: Sodium 129 mmol/L (136-145)
[2024-08-31 12:30] LABS: Alanine Aminotransferase 17 U/L (12-78); Albumin/Globulin Ratio 0.9 (1.1-1.8); Alkaline Phosphatase 66 U/L (38-126); Aspartate Amino Transferase 19 U/L (17-59); Bilirubin,Total 0.4 mg/dl (0.2-1.3); Blood Urea Nitrogen 56 mg/dl (9-20); Carbon Dioxide 25 mmol/L (22.0-30.0); Creatinine Clearance Estimated 56 mL/min (50-200); Estimated Glomerular Filt Rate 34 ml/min (>60); GFR (African American) 42 ML/MIN (>60); Globulin 2.4 g/dL (1.3-3.2); Total Protein,Serum 4.6 g/dl (6.3-8.2)
[2024-08-31 12:31] LABS: Anion Gap 1.3 mEq/L (5-15); Calcium 7.8 mg/dl (8.4-10.2); Potassium 4.3 mmoL/L (3.5-5.1)
[2024-08-31 12:34] LABS: Glucose 430 mg/dl (74-100)
[2024-08-31 13:07] LABS: Microscopic, Urine URINE MICROSCOPIC (MICROSCOPIC)
[2024-08-31 13:14] LABS: Appearance,Urine CLEAR (Clear); Bilirubin,Urine Negative (Negative); Blood, Urine 1+ (Negative); Color,Urine YELLOW (Yellow); Glucose,Urine (UA) 3+ (Negative); Ketones,Urine Negative (Negative); Leukocyte Esterase,Urine Negative (Negative); Nitrate,Urine Negative (Negative); Protein,Urine 3+ (Negative); Urobilinogen,Urine 0.2 EU/dl (0.2)
[2024-08-31 13:18] LABS: Lactate Venous 1.4 mmol/L (0.4-2.0); VBG Base Excess -2.5 mmol/L (-2.4-2.3); VBG HCO3 22.8 mmol/L (23-30); VBG PCO2 40.6 mmol/L (35-51); VBG PH 7.37 mmol/L (7.31-7.41); VBG PO2 32.4 mmol/L (28-40)
[2024-08-31 13:20] LABS: Acetone, Serum (Rapid) None Detected (None Detect)
[2024-08-31 13:24] LABS: Magnesium 1.8 mg/dl (1.6-2.3); Phosphorous 3.3 mg/dl (2.5-4.5)
[2024-08-31 13:25] LABS: Lactic Acid 0.9 mmol/L (0.7-2.1)
[2024-08-31] MEDS: SODIUM CHLORIDE 1300 ML IV (13:30)
[2024-08-31 13:31] LABS: Barbiturates Screen,Urine Negative ng/ml (<200)
[2024-08-31 13:32] LABS: Amphetamine/Metha Screen,Urine Negative ng/ml (<1000); Bacteria,Urine Trace /lpf; Benzodiazepines Screen,Urine Negative ng/ml (<200); RBC,Urine Occasional #/hpf (0-3); Squamous Epithelial Cell,Urine Occasional #/hpf (0-5)
[2024-08-31 13:33] LABS: Methadone Screen,Urine Negative ng/ml (<300)
[2024-08-31 13:34] LABS: Cannabinoid Screen,Urine Negative ng/ml (<50); Cocaine Screen,Urine Negative ng/ml (<300)
[2024-08-31 13:35] LABS: Opiate Screen,Urine Negative ng/ml (<300); Phencyclidine Screen,Urine Negative ng/ml (<25)
--- NOTE | 2024-08-31 14:06 | HMH.PHAINT1 ---
Pharmacy Intervention Comments: MEDICATION RECONCILIATION COMPLETED ON PATIENT USING EXTERNAL FILL HISTORY FROM PHARMACY. -LIDIA BERNARDO, CINDYD
[2024-08-31 14:34] LABS: Occult Blood,Stool Positive (Negative)
--- NOTE | 2024-08-31 14:42 | P.HP_ITS ---
History of Present Illness *Admission Date: 08/31/24 *Reason for visit:: Lightheadedness *History of present illness: Ciaran Lopez is a 58-year-old male with a medical history significant for CAD with stents, hypertension, type 2 diabetes who presents with lightheadedness and feeling unwell in spite of being treated for pneumonia outpatient. Patient presented about 2 weeks ago for the respiratory symptoms and discharged with amoxicillin and azithromycin, prednisone for pneumonia. Patient has finished this course, however has felt lightheadedness and also has had dark diarrhea since starting antibiotics. He is states he has been having on and off postprandial dyspepsia, hiccups, abdominal pain for many months. He states he is extremely stressed with his job and has been for a while. Took 1-2 naproxen several days ago for headache, but does not use this regularly. Current smoker, but denies alcohol use. No other recent changes to medications or diet. Has never had a colonoscopy. Workup in the ED significant for hemoglobin 7.2 (previously 13.7 about 2 weeks ago), BUN 56 which is much above baseline, glucose 430, positive FOBT. Rectal evaluation revealed melena. General surgery was consulted by ED who recommended EGD tomorrow. Case discussed with ED provider and decision was made to admit patient for GI bleed. [facility] Disclaimer: The information contained in this section may have been updated after the patient was seen, as this information can be updated by other users. Medical History Dietary counseling Exercise counseling Screening for depression Screening for endocrine disorder JENNIFER (acute kidney injury) Hospital discharge follow-up Heart failure Screening for colon cancer Encounter for vitamin deficiency screening Vitamin deficiency Acute medical illness Establishing care with new doctor, encounter for Vaccine counseling Type 2 diabetes mellitus with stage 2 chronic kidney disease Atypical angina Abnormal result of cardiovascular function study (HFpEF) heart failure with preserved ejection fraction Type 2 diabetes mellitus Hyperlipidemia Hypertension CONNIE (obstructive sleep apnea) CAD (coronary artery disease) Lower extremity edema Surgical History H/O heart artery stent 4 stents History of cardiac catheterization Family History Father Cancer Mother Stroke Social History (Updated 08/31/24 @ 16:09 by Bina Rhoades RN) Smoking Status: Current some day smoker alcohol intake: never substance use type: denies use current occupational status: employed Travel in the last 8 weeks?: None Have you lived/traveled outside US in past 30 days?: No Contact w/someone who lives/traveled outside US past 30 days?: No Exposure to someone with infectious disease in past 14 days?: No Do you have a fever (greater than 100.4 F or 38 C)?: No Have you tested positive for COVID-19?: No Exposed to someone with COVID-19 in past 14 days?: No Do you have a sore throat?: No Do you have a cough?: No Do you have any weakness?: No Do you have any diarrhea?: No Are you experiencing any unusual bleeding?: No Do you have any muscle aches/pain?: No Do you have any abdominal pain?: No Are you experiencing loss of taste or smell?: No Other Medical History Have you received the Flu Vaccine for this season: No Have you received the Pneumonia Vaccine: No Meds Home Medications and Allergies Home Medications ?Medication ?Instructions ?Recorded ?Confirmed ?Type aspirin 81 mg chewable tablet 81 mg PO DAILY 01/26/23 08/31/24 History carvedilol 25 mg tablet (Coreg) 25 mg PO BID #60 tabs 12/08/23 08/31/24 Rx insulin glargine 100 unit/mL (3 20 unit (0.2 mL) SQ BID #15 mL 01/08/24 08/31/24 Rx mL) subcutaneous pen (Lantus Solostar U-100 Insulin) insulin lispro 100 unit/mL See Rx Instructions SQ .COMPLEX 01/08/24 08/31/24 Rx subcutaneous cartridge (Humalog #15 mL U-100 Insulin) clopidogrel 75 mg tablet (Plavix) 75 mg PO DAILY #90 tabs 04/05/24 08/31/24 Rx amlodipine 5 mg tablet (Norvasc) 5 mg PO DAILY #30 tabs 06/29/24 08/31/24 Rx losartan 100 1 tab PO DAILY 08/27/24 08/31/24 History mg-hydrochlorothiazide 12.5 mg tablet New Prescriptions to Start Prescriptions: Allergies Allergy/AdvReac Type Severity Reaction Status Date / Time NSAIDS (Non-Steroidal Allergy itch Verified 08/27/24 10:42 Anti-Inflamma gabapentin AdvReac Severe Verified 08/27/24 10:42 Exam Data for Last 24 hours Vital signs and Labs for Last 24 Hours: Temp Pulse Resp BP Pulse Ox O2 Del Method 98.3 F 57 L 12 132/73 100 Room Air 08/31/24 11:56 08/31/24 13:30 08/31/24 13:30 08/31/24 13:30 08/31/24 13:30 08/31/24 13:30 Laboratory Results - last 24 hr 08/31/24 11:57: POC Glucose 419 H* 08/31/24 12:02: WBC 13.6 H, RBC 2.29 L, Hgb 7.2 L, Hct 21.1 L, MCV 92.1, MCH 31.4 H, MCHC 34.1, RDW 13.9, Plt Count 348, MPV 10.4, Neut % (Auto) 70.2, Lymph % (Auto) 16.9, [place] % (Auto) 8.9, Eos % (Auto) 2.6, Baso % (Auto) 0.5, Neut # (Auto) 9.5 H, Lymph # (Auto) 2.3, [place] # (Auto) 1.2 H, Eos # (Auto) 0.4, Baso # (Auto) 0.1, Sodium 129 L, Potassium 4.3, Chloride 107, Carbon Dioxide 25, Anion Gap 1.3 L, BUN 56 H, Creatinine 2.00 H, Estimated Creat Clear 56, Estimated GFR 34 L, Est GFR ( Amer) 42 L, Glucose 430 H*, Calcium 7.8 L, Total Bilirubin 0.4, AST 19, ALT 17, Alkaline Phosphatase 66, Total Protein 4.6 L, Albumin 2.2 L, Globulin 2.4, Albumin/Globulin Ratio 0.9 L 08/31/24 13:00: VBG pH 7.37, VBG pCO2 40.6, VBG pO2 32.4, VBG HCO3 22.8 L, VBG T otal CO2 24.0, VBG O2 Saturation 61.0, VBG Base Excess -2.5 L, VBG Lactic Acid 1.4, Lactate 0.9, Phosphorus 3.3, Magnesium 1.8, Acetone Level None detected, Blood Type A Positive, Antibody Screen Negative 08/31/24 13:03: Urine Color Yellow, Urine Appearance Clear, Urine pH 6.0, Ur Specific [place] 1.020, Urine Protein 3+ A, Urine Glucose (UA) 3+, Urine Ketones Negative, Urine Blood 1+ A, Urine Nitrate Negative, Urine Bilirubin Negative, Urine Urobilinogen 0.2, Ur Leukocyte Esterase Negative, Urine RBC Occasional, Urine WBC None, Ur Squamous Epith Cells Occasional, Urine Bacteria Trace, Urine Opiates Screen Negative, Urine Methadone Screen Negative, Ur Barbituates Screen Negative, Ur Phencyclidine Scrn Negative, Ur Amphetamines Screen Negative, U Benzodiazepines Scrn Negative, Urine Cocaine Screen Negative, U Marijuana (THC) Screen Negative 08/31/24 14:20: Stool Occult Blood Positive A I & O for Last 24 hours: Intake & Output 08/28/24 08/29/24 08/30/24 08/31/24 23:59 23:59 23:59 23:59 Weight 97.522 kg Constitutional Constitutional: no acute distress *Routine HEENT Exam Head: Present normocephalic Eye: Present EOMI and PERRL ENT: Present mucous membranes moist *Routine Neck Exam Neck: Present supple; Absent lymphadenopathy *Routine Respiratory Exam Respiratory: Present CTA bilaterally *Routine Cardiovascular Exam Cardiovascular: Present RRR *Routine Abdominal Exam Abdominal: Present soft, normoactive bowel sounds and tenderness Comments: Significant epigastric tenderness to palpation. *Routine Rectal Exam Rectal:: deferred *Routine Genitalia Exam Genitalia:: deferred *Routine Extremities Exam Extremities: Absent cyanosis, clubbing or edema *Routine Skin Exam Skin: Present warm; Absent rash *Routine Neurological Exam Neurological: Present alert and oriented X3 Assessment and Plan *Assessment and plan (1) Black tarry stools: Status: Acute Category: Medical Code(s): K92.1 - Melena (2) GI bleed: Status: Acute Category: Medical Code(s): K92.2 - Gastrointestinal hemorrhage, unspecified Plan Ciaran Lopez is a 58-year-old male with a medical history significant for CAD with stents, hypertension, type 2 diabetes who presents with lightheadedness and feeling unwell in spite of being treated for pneumonia outpatient. Patient presented about 2 weeks ago for the respiratory symptoms and discharged with amoxicillin and azithromycin, prednisone for pneumonia. Patient has finished this course, however has felt lightheadedness and also has had dark diarrhea since starting antibiotics. He is states he has been having on and off postprandial dyspepsia, hiccups, abdominal pain for many months. He states he is extremely stressed with his job and has been for a while. Took 1-2 naproxen several days ago for headache, but does not use this regularly. Current smoker, but denies alcohol use. No other recent changes to medications or diet. Has never had a colonoscopy. Workup in the ED significant for hemoglobin 7.2 (previously 13.7 about 2 weeks ago), BUN 56 which is much above baseline, glucose 430, positive FOBT. Rectal evaluation revealed melena. General surgery was consulted by ED who recommended EGD tomorrow. Case discussed with ED provider and decision was made to admit patient for GI bleed. #Upper GI bleed #Suspected PUD ? Two-week onset of dark diarrhea, acute on chronic epigastric pain. Significant stress at work, he intermittently uses NSAIDs. On Plavix, aspirin therapy. No alcohol use. ? Initial hemoglobin 7.2 (previously 13.7 about 2 weeks ago) BUN 56 which is much above baseline. ? Vital signs stable, no tachycardia or soft pressures. ? ED initiated 1 unit transfusion of PRBC. Follow-up repeat H&H. ? Started Protonix 40 mg twice daily, Carafate with meals. ? Clear liquid diet, n.p.o. at midnight. ? Continuous cardiac telemetry. #Type 2 diabetes #Hyperglycemia ? Initial glucose 430, hemoglobin A1c 9.0% last year. ? Follow-up repeat hemoglobin A1c. ? SSI, ACHS glucose checks. ? Lantus 10 units tonight as patient will be n.p.o. tomorrow. #CAD with stents #PAD with stent ? Hold aspirin, Plavix due to GI bleed. Full code DVT prophylaxis: Hold due to GI bleed
--- NOTE | 2024-08-31 14:45 | PC.NURSE ---
WILMER RN called report
--- NOTE | 2024-08-31 15:16 | PC.NURSE ---
arrived by stretcher from ED
[2024-08-31] MEDS: 0.9 % SODIUM CHLORIDE 250 ML 25 ML IV ×2 (15:45→21:06)
[2024-08-31] MEDS: SUCRALFATE 1GM TABLET 1 GM PO ×2 (16:12→20:51)
[2024-08-31] MEDS: LACTATED RINGERS 1000ML 1,000 ML 100 ML IV (16:21)
--- NOTE | 2024-08-31 17:55 | PC.NURSE ---
PT HAS DONE WELL SINCE ARRIVING TO THE FLOOR. HE REPORTED SOME CRAMPING ABD PAIN OF 5/10 ON ADMISSION. REPORTS PAIN IS BETTER AFTER CARAFATE. VSS. STATED HE WANTED A STOOL SAMPLE TO CHECK FOR C-DIFF DUE TO PT REPORTING DIARRHEA AT HOME. NO BM SINCE ADMISSION.
[2024-08-31 19:54] LABS: Hematocrit 20.4 % (42.0-52.0)
[2024-08-31 20:41] LABS: POC Glucose,Bedside 406 (70-110)
[2024-08-31] MEDS: PANTOPRAZOLE 40MG VIAL 40 MG IV (20:50)
[2024-08-31] MEDS: INSULIN GLARGINE 100 UNITS/ML 3ML FLEXPEN 10 UNIT SUBCUT (20:51)
[2024-08-31] MEDS: SODIUM CHLORIDE 0.9% 10ML VIAL 10 ML IV (20:51)
[2024-08-31] MEDS: humaLOG 100 UNITS/ML 10ML VIAL (SSI) SUBCUT (20:51)
[2024-08-31] MEDS: ACETAMINOPHEN 325MG TAB 650 MG PO (23:16)
[2024-09-01] VITALS (21 sets, daily range): BP systolic 107–204; BP diastolic 53–107; PULSE 55–80; RESP 11–20; TEMP 36.1–37.1; O2SAT 94–100; BMI 27.7
--- NOTE | 2024-09-01 04:21 | PC.NURSE ---
Alert and oriented. Complained of stomach tenderness and aching, aware, meds per JUN. Headache one time, treated per JUN. Received 2 units PRBC this shift, MD Owens aware of post 1 hour from last 2 units. Vital signs have remained stable. Uses bathroom with standby assist, no bowel movement this shift, no bleeding noted. Room air, lung sounds clear. BLE edema +1, nonpitting. Call light in reach.
--- NOTE | 2024-09-01 04:41 | PC.NURSE ---
Notified Roman CHAVES about weight gain from admission, 97.5kg to 103.3kg.
[2024-09-01 06:31] LABS: Basophils # 0.1 K/mm3 (0-0.2); Basophils % 0.5 % (0.1-2.0); Eosinophils # 0.3 Kmm3 (0.0-0.4); Eosinophils % 3.1 % (0.1-12.0); Hematocrit 24.7 % (42.0-52.0); Hemoglobin 8.5 g/dL (14.1-18.0); Immature Granulocytes # 0.07 10^3uL; Immature Granulocytes % 0.7 %; Lymphocytes # 2.4 K/mm3 (0.7-4.5); Lymphocytes % 23.5 % (10-50); Mean Corpuscular HGB Conc 34.4 g/dL (31.8-35.4); Mean Corpuscular Hemoglobin 30.4 pg (27.0-31.2); Mean Corpuscular Volume 88.2 fl (80-94); Mean Platelet Volume 10.1 fl (7.4-10.4); Monocytes # 1.3 K/mm3 (0.1-1.0); Monocytes % 12.4 % (1.7-9.3); Neutrophils # 6.2 K/mm3 (1.8-7.8); Neutrophils % 59.8 % (37.0-80.0); Nucleated Red Blood Cells # 0 10^3/uL; Nucleated Red Blood Cells % 0 %; Platelet Count 287 K/mm3 (142-424); Red Cell Distribution Width 15.3 % (11.5-17.5); Red Cell Distribution Width-SD 49.1 fL; White Blood Count 10.3 K/mm3 (4.8-10.8)
[2024-09-01 06:37] LABS: Alanine Aminotransferase 12 U/L (12-78); Albumin Level 1.8 g/dl (3.5-5.0); Albumin/Globulin Ratio 0.8 (1.1-1.8); Alkaline Phosphatase 58 U/L (38-126); Anion Gap 0.8 mEq/L (5-15); Aspartate Amino Transferase 21 U/L (17-59); Bilirubin,Total 0.4 mg/dl (0.2-1.3); Blood Urea Nitrogen 42 mg/dl (9-20); Calcium 7.3 mg/dl (8.4-10.2); Carbon Dioxide 23 mmol/L (22.0-30.0); Chloride 114 mmol/L (98-107); Creatinine Clearance Estimated 74 mL/min (50-200); Estimated Glomerular Filt Rate 45 ml/min (>60); GFR (African American) 54 ML/MIN (>60); Globulin 2.2 g/dL (1.3-3.2); Glucose 137 mg/dl (74-100); Magnesium 1.7 mg/dl (1.6-2.3); Potassium 3.8 mmoL/L (3.5-5.1); Sodium 134 mmol/L (136-145)
[2024-09-01] MEDS: SUCRALFATE 1GM TABLET 1 GM PO ×4 (06:43→21:27)
[2024-09-01 06:52] LABS: POC Glucose,Bedside 166 (70-110)
--- NOTE | 2024-09-01 08:00 | EXP.SURG.CON ---
History of Present Illness *Admission Date: 08/31/24 *Reason for visit:: Gastrointestinal hemorrhage *History of present illness: This is a 58-year-old gentleman who presented to the emergency department with increasing fatigue and black stool . He has a complex cardiovascular history including coronary stents (aspirin/Plavix). Please see HPI forwarded from admission H&P below. Forwarded from emergency department evaluation/admission H&P: Ciaran Lopez is a 58-year-old male with a medical history significant for CAD with stents, hypertension, type 2 diabetes who presents with lightheadedness and feeling unwell in spite of being treated for pneumonia outpatient. Patient presented about 2 weeks ago for the respiratory symptoms and discharged with amoxicillin and azithromycin, prednisone for pneumonia. Patient has finished this course, however has felt lightheadedness and also has had dark diarrhea since starting antibiotics. He is states he has been having on and off postprandial dyspepsia, hiccups, abdominal pain for many months. He states he is extremely stressed with his job and has been for a while. Took 1-2 naproxen several days ago for headache, but does not use this regularly. Current smoker, but denies alcohol use. No other recent changes to medications or diet. Has never had a colonoscopy. Workup in the ED significant for hemoglobin 7.2 (previously 13.7 about 2 weeks ago), BUN 56 which is much above baseline, glucose 430, positive FOBT. Rectal evaluation revealed melena. General surgery was consulted by ED who recommended EGD tomorrow. Case discussed with ED provider and decision was made to admit patient for GI bleed. [facility] Disclaimer: The information contained in this section may have been updated after the patient was seen, as this information can be updated by other users. Medical History Dietary counseling Exercise counseling Screening for depression Screening for endocrine disorder JENNIFER (acute kidney injury) Hospital discharge follow-up Heart failure Screening for colon cancer Encounter for vitamin deficiency screening Vitamin deficiency Acute medical illness Establishing care with new doctor, encounter for Vaccine counseling Type 2 diabetes mellitus with stage 2 chronic kidney disease Atypical angina Abnormal result of cardiovascular function study (HFpEF) heart failure with preserved ejection fraction Type 2 diabetes mellitus Hyperlipidemia Hypertension CONNIE (obstructive sleep apnea) CAD (coronary artery disease) Lower extremity edema Surgical History H/O heart artery stent 4 stents History of cardiac catheterization Family History Father Cancer Mother Stroke Social History (Updated 08/31/24 @ 16:09 by Bina Rhoades RN) Smoking Status: Current some day smoker alcohol intake: never substance use type: denies use current occupational status: employed Travel in the last 8 weeks?: None Have you lived/traveled outside US in past 30 days?: No Contact w/someone who lives/traveled outside US past 30 days?: No Exposure to someone with infectious disease in past 14 days?: No Do you have a fever (greater than 100.4 F or 38 C)?: No Have you tested positive for COVID-19?: No Exposed to someone with COVID-19 in past 14 days?: No Do you have a sore throat?: No Do you have a cough?: No Do you have any weakness?: No Do you have any diarrhea?: No Are you experiencing any unusual bleeding?: No Do you have any muscle aches/pain?: No Do you have any abdominal pain?: No Are you experiencing loss of taste or smell?: No Meds Home Medications and Allergies Home Medications ?Medication ?Instructions ?Recorded ?Confirmed ?Type aspirin 81 mg chewable tablet 81 mg PO DAILY 01/26/23 08/31/24 History carvedilol 25 mg tablet (Coreg) 25 mg PO BID #60 tabs 12/08/23 08/31/24 Rx insulin glargine 100 unit/mL (3 20 unit (0.2 mL) SQ BID #15 mL 01/08/24 08/31/24 Rx mL) subcutaneous pen (Lantus Solostar U-100 Insulin) insulin lispro 100 unit/mL See Rx Instructions SQ .COMPLEX 01/08/24 08/31/24 Rx subcutaneous cartridge (Humalog #15 mL U-100 Insulin) clopidogrel 75 mg tablet (Plavix) 75 mg PO DAILY #90 tabs 04/05/24 08/31/24 Rx amlodipine 5 mg tablet (Norvasc) 5 mg PO DAILY #30 tabs 06/29/24 08/31/24 Rx losartan 100 1 tab PO DAILY 05/19/25 05/23/25 History mg-hydrochlorothiazide 12.5 mg tablet New Prescriptions to Start Prescriptions: Allergies Allergy/AdvReac Type Severity Reaction Status Date / Time NSAIDS (Non-Steroidal Allergy itch Verified 08/27/24 10:42 Anti-Inflamma gabapentin AdvReac Severe Verified 08/27/24 10:42 Exam (Inpt) Vital signs and Labs for Last 24 Hours: Temp Pulse Resp BP Pulse Ox O2 Del Method 97.9 F 59 L 15 152/81 H 99 Room Air 09/01/24 04:00 09/01/24 06:00 09/01/24 06:00 09/01/24 06:00 09/01/24 06:00 09/01/24 07:42 Laboratory Results - last 24 hr 08/31/24 11:57: POC Glucose 419 H* 08/31/24 12:02: WBC 13.6 H, RBC 2.29 L, Hgb 7.2 L, Hct 21.1 L, MCV 92.1, MCH 31.4 H, MCHC 34.1, RDW 13.9, Plt Count 348, MPV 10.4, Neut % (Auto) 70.2, Lymph % (Auto) 16.9, [place] % (Auto) 8.9, Eos % (Auto) 2.6, Baso % (Auto) 0.5, Neut # (Auto) 9.5 H, Lymph # (Auto) 2.3, [place] # (Auto) 1.2 H, Eos # (Auto) 0.4, Baso # (Auto) 0.1, Sodium 129 L, Potassium 4.3, Chloride 107, Carbon Dioxide 25, Anion Gap 1.3 L, BUN 56 H, Creatinine 2.00 H, Estimated Creat Clear 56, Estimated GFR 34 L, Est GFR ( Amer) 42 L, Glucose 430 H*, Calcium 7.8 L, Total Bilirubin 0.4, AST 19, ALT 17, Alkaline Phosphatase 66, Total Protein 4.6 L, Albumin 2.2 L, Globulin 2.4, Albumin/Globulin Ratio 0.9 L 08/31/24 13:00: VBG pH 7.37, VBG pCO2 40.6, VBG pO2 32.4, VBG HCO3 22.8 L, VBG Total CO2 24.0, VBG O2 Saturation 61.0, VBG Base Excess -2.5 L, VBG Lactic Acid 1.4, Lactate 0.9, Phosphorus 3.3, Magnesium 1.8, Acetone Level None detected, Blood Type A Positive, Antibody Screen Negative, Crossmatch ([facility]) See Detail 08/31/24 13:03: Urine Color Yellow, Urine Appearance Clear, Urine pH 6.0, Ur Specific [place] 1.020, Urine Protein 3+ A, Urine Glucose (UA) 3+, Urine Ketones Negative, Urine Blood 1+ A, Urine Nitrate Negative, Urine Bilirubin Negative, Urine Urobilinogen 0.2, Ur Leukocyte Esterase Negative, Urine RBC Occasional, Urine WBC None, Ur Squamous Epith Cells Occasional, Urine Bacteria Trace, Urine Opiates Screen Negative, Urine Methadone Screen Negative, Ur Barbituates Screen Negative, Ur Phencyclidine Scrn Negative, Ur Amphetamines Screen Negative, U Benzodiazepines Scrn Negative, Urine Cocaine Screen Negative, U Marijuana (THC) Screen Negative 08/31/24 14:20: Stool Occult Blood Positive A 08/31/24 19:33: Hgb 7.0 L, Hct 20.4 L* 08/31/24 20:13: POC Glucose 406 H* 09/01/24 01:33: Hgb 8.0 L D, Hct 23.0 L 09/01/24 06:15: WBC 10.3, RBC 2.80 L, Hgb 8.5 L, Hct 24.7 L, MCV 88.2, MCH 30.4, MCHC 34.4, RDW 15.3, Plt Count 287, MPV 10.1, Neut % (Auto) 59.8, Lymph % (Auto) 23.5, [place] % (Auto) 12.4 H, Eos % (Auto) 3.1, Baso % (Auto) 0.5, Neut # (Auto) 6.2, Lymph # (Auto) 2.4, [place] # (Auto) 1.3 H, Eos # (Auto) 0.3, Baso # (Auto) 0.1, Sodium 134 L, Potassium 3.8, Chloride 114 H, Carbon Dioxide 23, Anion Gap 0.8 L, BUN 42 H, Creatinine 1.60 H, Estimated Creat Clear 74, Estimated GFR 45 L, Est GFR ( Amer) 54 L D, Glucose 137 H D, Calcium 7.3 L, Magnesium 1.7, Total Bilirubin 0.4, AST 21, ALT 12 D, Alkaline Phosphatase 58, Total Protein 4.0 L, Albumin 1.8 L D, Globulin 2.2, Albumin/Globulin Ratio 0.8 L 09/01/24 06:44: POC Glucose 166 H I & O for Labs for Last 24 Hours: Intake & Output 08/29/24 08/30/24 08/31/24 09/01/24 11:59 11:59 11:59 11:59 Intake Total 2990 / 2990 Output Total 200 / 200 Balance 2790 / 2790 Weight 215 lb 227 lb 12.8 oz Constitutional: no acute distress Respiratory: Absent respiratory distress Cardiac: Absent Tachycardia GI: Present soft Results Labs 09/01/24 06:15 09/01/24 06:15 Labs: Laboratory Results - last 24 hr 08/31/24 11:57: POC Glucose 419 H* 08/31/24 12:02: WBC 13.6 H, RBC 2.29 L, Hgb 7.2 L, Hct 21.1 L, MCV 92.1, MCH 31.4 H, MCHC 34.1, RDW 13.9, Plt Count 348, MPV 10.4, Neut % (Auto) 70.2, Lymph % (Auto) 16.9, [place] % (Auto) 8.9, Eos % (Auto) 2.6, Baso % (Auto) 0.5, Neut # (Auto) 9.5 H, Lymph # (Auto) 2.3, [place] # (Auto) 1.2 H, Eos # (Auto) 0.4, Baso # (Auto) 0.1, Sodium 129 L, Potassium 4.3, Chloride 107, Carbon Dioxide 25, Anion Gap 1.3 L, BUN 56 H, Creatinine 2.00 H, Estimated Creat Clear 56, Estimated GFR 34 L, Est GFR ( Amer) 42 L, Glucose 430 H*, Calcium 7.8 L, Total Bilirubin 0.4, AST 19, ALT 17, Alkaline Phosphatase 66, Total Protein 4.6 L, Albumin 2.2 L, Globulin 2.4, Albumin/Globulin Ratio 0.9 L 08/31/24 13:00: VBG pH 7.37, VBG pCO2 40.6, VBG pO2 32.4, VBG HCO3 22.8 L, VBG Total CO2 24.0, VBG O2 Saturation 61.0, VBG Base Excess -2.5 L, VBG Lactic Acid 1.4, Lactate 0.9, Phosphorus 3.3, Magnesium 1.8, Acetone Level None detected, Blood Type A Positive, Antibody Screen Negative, Crossmatch (G) See Detail 08/31/24 13:03: Urine Color Yellow, Urine Appearance Clear, Urine pH 6.0, Ur Specific [place] 1.020, Urine Protein 3+ A, Urine Glucose (UA) 3+, Urine Ketones Negative, Urine Blood 1+ A, Urine Nitrate Negative, Urine Bilirubin Negative, Urine Urobilinogen 0.2, Ur Leukocyte Esterase Negative, Urine RBC Occasional, Urine WBC None, Ur Squamous Epith Cells Occasional, Urine Bacteria Trace, Urine Opiates Screen Negative, Urine Methadone Screen Negative, Ur Barbituates Screen Negative, Ur Phencyclidine Scrn Negative, Ur Amphetamines Screen Negative, U Benzodiazepines Scrn Negative, Urine Cocaine Screen Negative, U Marijuana (THC) Screen Negative 08/31/24 14:20: Stool Occult Blood Positive A 08/31/24 19:33: Hgb 7.0 L, Hct 20.4 L* 08/31/24 20:13: POC Glucose 406 H* 09/01/24 01:33: Hgb 8.0 L D, Hct 23.0 L 09/01/24 06:15: WBC 10.3, RBC 2.80 L, Hgb 8.5 L, Hct 24.7 L, MCV 88.2, MCH 30.4, MCHC 34.4, RDW 15.3, Plt Count 287, MPV 10.1, Neut % (Auto) 59.8, Lymph % (Auto) 23.5, [place] % (Auto) 12.4 H, Eos % (Auto) 3.1, Baso % (Auto) 0.5, Neut # (Auto) 6.2, Lymph # (Auto) 2.4, [place] # (Auto) 1.3 H, Eos # (Auto) 0.3, Baso # (Auto) 0.1, Sodium 134 L, Potassium 3.8, Chloride 114 H, Carbon Dioxide 23, Anion Gap 0.8 L, BUN 42 H, Creatinine 1.60 H, Estimated Creat Clear 74, Estimated GFR 45 L, Est GFR ( Amer) 54 L D, Glucose 137 H D, Calcium 7.3 L, Magnesium 1.7, Total Bilirubin 0.4, AST 21, ALT 12 D, Alkaline Phosphatase 58, Total Protein 4.0 L, Albumin 1.8 L D, Globulin 2.2, Albumin/Globulin Ratio 0.8 L 09/01/24 06:44: POC Glucose 166 H Assessment and Plan *Assessment and plan (1) Melena: Status: Acute Category: Medical Code(s): K92.1 - Melena (2) GI bleed: Status: Acute Qualifiers: GI bleed type/associated pathology: melena Qualified Code(s): K92.1 - Melena Category: Medical Code(s): K92.2 - Gastrointestinal hemorrhage, unspecified Plan Continue overall management as per primary service (proton pump enervation, Carafate, etc.) Continue serial hemoglobin/hematocrit Transfuse as needed Esophagogastroduodenoscopy this morning I have discussed the risks and benefits including, but not limited to: Bleeding Infection Damage to surrounding tissue Inherent risks of sedation The patient agrees to proceed.
--- NOTE | 2024-09-01 08:11 | [facility].SCOPE ---
Procedure: Date: 09/01/24 Patient Date of :: 1965 Procedure Performed:: Esophagogastroduodenoscopy with epinephrine injection and biopsy Indications:: Gastrointestinal hemorrhage/melena Performing Provider:: Armen Hines MD Referring Provider:: . Sedation:: Monitored anesthesia care Procedure:: After informed consent was obtained the patient was taken to the endoscopy suite. Sedation ensued after the patient was transferred to the left lateral decubitus position. Pulse, blood pressure, and oxygen saturation were monitored throughout the procedure. The endoscope was advanced beyond the duodenal bulb. Retroflexion within the gastric lumen was accomplished. The gastroscope was carefully removed and the patient was transferred to recovery in stable condition. Please see findings and specimens below for detail. Findings:: No sign of active hemorrhage No old blood within gastric lumen or small bowel Duodenal bulb/sweep margin crater ulcer Epinephrine injection around the ulcer base (10 mL) Specimens:: Antral biopsy Recommendations:: Continue proton pump inhibition/Carafate Follow-up pathology Repeat esophagogastroduodenoscopy in approximately 6 weeks Complications:: No immediate Estimated blood obtained (mL): 1 Colonoscopy Component Colonoscopy Component Was a colonoscopy performed during today's procedure?: No
[2024-09-01] MEDS: PANTOPRAZOLE 40MG VIAL 40 MG IV ×2 (08:19→21:35)
[2024-09-01] MEDS: SODIUM CHLORIDE 0.9% 10ML VIAL 10 ML IV ×2 (08:19→21:35)
[2024-09-01] MEDS: LACTATED RINGERS 1000ML 1,000 ML 25 ML IV (08:19)
--- NOTE | 2024-09-01 08:27 | PC.NURSE ---
pt is off the floor to surgery via stretcher @[id number]
[2024-09-01] MEDS: EPINEPHrine 0.1 MG/ML 10ML SYRINGE (CRASH CART) 1 MG (08:58)
--- NOTE | 2024-09-01 09:00 | EXP.ANES.CKL ---
[facility] Disclaimer: The information contained in this section may have been updated after the patient was seen, as this information can be updated by other users. Medical History Dietary counseling Exercise counseling Screening for depression Screening for endocrine disorder JENNIFER (acute kidney injury) Hospital discharge follow-up Heart failure Screening for colon cancer Encounter for vitamin deficiency screening Vitamin deficiency Acute medical illness Establishing care with new doctor, encounter for Vaccine counseling Type 2 diabetes mellitus with stage 2 chronic kidney disease Atypical angina Abnormal result of cardiovascular function study (HFpEF) heart failure with preserved ejection fraction Type 2 diabetes mellitus Hyperlipidemia Hypertension CONNIE (obstructive sleep apnea) CAD (coronary artery disease) Lower extremity edema Surgical History H/O heart artery stent 4 stents History of cardiac catheterization Family History Father Cancer Mother Stroke Social History (Updated 08/31/24 @ 16:09 by Bina Rhoades RN) Smoking Status: Current some day smoker alcohol intake: never substance use type: denies use current occupational status: employed Travel in the last 8 weeks?: None Have you lived/traveled outside [place] in past 30 days?: No Contact w/someone who lives/traveled outside US past 30 days?: No Exposure to someone with infectious disease in past 14 days?: No Do you have a fever (greater than 100.4 F or 38 C)?: No Have you tested positive for COVID-19?: No Exposed to someone with COVID-19 in past 14 days?: No Do you have a sore throat?: No Do you have a cough?: No Do you have any weakness?: No Do you have any diarrhea?: No Are you experiencing any unusual bleeding?: No Do you have any muscle aches/pain?: No Do you have any abdominal pain?: No Are you experiencing loss of taste or smell?: No [facility] Anesthesia Checklist Patient Identification Patient Identification: Arm Band and Verbal (Name & ) Structural Data Admitted From: Inpatient Planned Operative Procedure/s: EGD Consent for Planned Operative Procedure(s) Verified: Yes Verified Documents: Surgical Consent and History and Physical NPO Status Verified Time NPO: 00:00 Chart Verification Results Verified: CBC, BMP and ECG Additional verifications Patient : No Anesthesia Reactions: No Airway Assessment Mallampati Score:: Class II C-Spine Mobility Assessed: Yes TMJ Mobility Assessed: Yes Dentition: Poor Dentition (No loose/cracked teeth) Neurological Assessment Level of Consciousness: Awake, Alert and Appropriate Anesthesia Plan Anesthesia Risk discussed: Yes Anesthesia Plan: Verified ASA Class: III Anesthesia Type: MAC
--- NOTE | 2024-09-01 09:02 | P.PNANES_ITS ---
[facility] Anesthesia Record Part I Anesthesia Record I Intake, IV Amount: 300 Hydration: Adequate Estimated blood loss (mL): 0 Urine output (mL): 0 Blood Products used (#): none Blood Pressure: 175/77 SaO2: 98 Pulse Rate: 62 Airway Patency: Patent Respiratory Rate: 16 Temperature: 97.0 F Patient is:: Drowsy, Nasal O2 and Stable Stable to PACU at:: 09:00
--- NOTE | 2024-09-01 09:38 | PC.NURSE ---
pt arrived back to the floor from surgery to room 218 @1022
[2024-09-01] MEDS: BELLADONNA ALKALOIDS 60 ML ML PO (09:48)
[2024-09-01] MEDS: MAGNESIUM SULFATE IN WATER 2 GM/50 ML PIGGYBACK IV ×2 (10:22→11:56)
[2024-09-01] MEDS: humaLOG 100 UNITS/ML 10ML VIAL (SSI) SUBCUT ×2 (11:52→15:44)
[2024-09-01 12:12] LABS: POC Glucose,Bedside 318 (70-110)
[2024-09-01] MEDS: miSOPROStoL 200 MCG TABLET PO ×2 (14:17→21:27)
[2024-09-01 15:03] LABS: Hematocrit 25.1 % (42.0-52.0); Hemoglobin 8.5 g/dL (14.1-18.0)
[2024-09-01 16:08] LABS: POC Glucose,Bedside 252 (70-110)
--- NOTE | 2024-09-01 16:43 | PC.NURSE ---
PT IS RESTING IN BED. ALERT AND ORIENTED X4. TOLERATING CLEAR LIQUIDS. WHEN PT ARRIVED BACK TO THE FLOOR FROM EGD HE WAS HAVING SIGNIFICANT EPIGASTRIC PAIN. PHYSICIAN NOTIFIED. GI COCKTAIL ORDERED AND RESOLVED PT'S PAIN. LUNG SOUNDS CLEAR. ABDOMEN SOFT WITH ACTIVE BOWEL SOUNDS. SWELLING NOTED TO BLE. SAndreaORALIA WITH BBB ON TELEMETRY. WILL CONTINUE TO MONITOR.
[2024-09-01] MEDS: LACTATED RINGERS 1000ML 1,000 ML 100 ML IV (20:45)
[2024-09-01 20:54] LABS: POC Glucose,Bedside 143 (70-110)
[2024-09-01] MEDS: INSULIN GLARGINE 100 UNITS/ML 3ML FLEXPEN 10 UNIT SUBCUT (21:27)
--- NOTE | 2024-09-01 21:34 | EXP.PN ---
Subjective *Date: 09/01/24 *Time: 21:34 Interval history: Patient feels much better today, tolerated EGD well. Duodenal ulcer found. Hemoglobin stable. If continues to be stable tomorrow, anticipate discharge. Exam Data for Last 24 hours Vital signs and Labs for Last 24 Hours: Temp Pulse Resp BP Pulse Ox O2 Del Method 98.2 F 55 L 18 148/70 H 98 Room Air 09/01/24 19:41 09/01/24 20:00 09/01/24 19:41 09/01/24 19:41 09/01/24 19:41 09/01/24 19:41 Laboratory Results - last 24 hr 08/31/24 13:00: Blood Type A Positive, Antibody Screen Negative, Crossmatch (AHG) See Detail 09/01/24 01:33: Hgb 8.0 L D, Hct 23.0 L 09/01/24 06:15: WBC 10.3, RBC 2.80 L, Hgb 8.5 L, Hct 24.7 L, MCV 88.2, MCH 30.4, MCHC 34.4, RDW 15.3, Plt Count 287, MPV 10.1, Neut % (Auto) 59.8, Lymph % (Auto) 23.5, [place] % (Auto) 12.4 H, Eos % (Auto) 3.1, Baso % (Auto) 0.5, Neut # (Auto) 6.2, Lymph # (Auto) 2.4, [place] # (Auto) 1.3 H, Eos # (Auto) 0.3, Baso # (Auto) 0.1, Sodium 134 L, Potassium 3.8, Chloride 114 H, Carbon Dioxide 23, Anion Gap 0.8 L, BUN 42 H, Creatinine 1.60 H, Estimated Creat Clear 74, Estimated GFR 45 L, Est GFR ( Amer) 54 L D, Glucose 137 H D, Calcium 7.3 L, Magnesium 1.7, Total Bilirubin 0.4, AST 21, ALT 12 D, Alkaline Phosphatase 58, Total Protein 4.0 L, Albumin 1.8 L D, Globulin 2.2, Albumin/Globulin Ratio 0.8 L 09/01/24 06:44: POC Glucose 166 H 09/01/24 11:51: POC Glucose 318 H* 09/01/24 14:14: Hgb 8.5 L, Hct 25.1 L 09/01/24 15:41: POC Glucose 252 H 09/01/24 20:40: POC Glucose 143 H I & O for Last 24 hours: Intake & Output 08/29/24 08/30/24 08/31/24 09/01/24 23:59 23:59 23:59 23:59 Intake Total 2740 / 2740 1050 / 1050 Output Total 200 / 200 0 / 0 Balance 2540 / 2540 1050 / 1050 Weight 97.522 kg 103.328 kg Constitutional Constitutional: no acute distress *Routine HEENT Exam Head: Present normocephalic Eye: Present EOMI and PERRL ENT: Present mucous membranes moist *Routine Neck Exam Neck: Present supple; Absent lymphadenopathy *Routine Respiratory Exam Respiratory: Present CTA bilaterally *Routine Cardiovascular Exam Cardiovascular: Present RRR *Routine Abdominal Exam Abdominal: Present soft, normoactive bowel sounds and tenderness *Routine Extremities Exam Extremities: Absent cyanosis, clubbing or edema *Routine Skin Exam Skin: Present warm; Absent rash *Routine Neurological Exam Neurological: Present alert and oriented X3 Assessment and Plan *Assessment and plan (1) Black tarry stools: Status: Acute Category: Medical Code(s): K92.1 - Melena (2) GI bleed: Status: Acute Qualifiers: GI bleed type/associated pathology: melena Qualified Code(s): K92.1 - Melena Category: Medical Code(s): K92.2 - Gastrointestinal hemorrhage, unspecified Plan Ciaran Lopez is a 58-year-old male with a medical history significant for CAD with stents, hypertension, type 2 diabetes who presents with lightheadedness and feeling unwell in spite of being treated for pneumonia outpatient. Patient presented about 2 weeks ago for the respiratory symptoms and discharged with amoxicillin and azithromycin, prednisone for pneumonia. Patient has finished this course, however has felt lightheadedness and also has had dark diarrhea since starting antibiotics. He is states he has been having on and off postprandial dyspepsia, hiccups, abdominal pain for many months. He states he is extremely stressed with his job and has been for a while. Took 1-2 naproxen several days ago for headache, but does not use this regularly. Current smoker, but denies alcohol use. No other recent changes to medications or diet. Has never had a colonoscopy. Workup in the ED significant for hemoglobin 7.2 (previously 13.7 about 2 weeks ago), BUN 56 which is much above baseline, glucose 430, positive FOBT. Rectal evaluation revealed melena. General surgery was consulted by ED who recommended EGD tomorrow. Case discussed with ED provider and decision was made to admit patient for GI bleed. #Upper GI bleed #Suspected PUD ? Two-week onset of dark diarrhea, acute on chronic epigastric pain. Significant stress at work, he intermittently uses NSAIDs. On Plavix, aspirin therapy. No alcohol use. ? Initial hemoglobin 7.2 (previously 13.7 about 2 weeks ago) BUN 56 which is much above baseline. Transfuse 1 unit PRBC. ? General Surgery consulted, Dr. Hines EGD revealed duodenal ulcer without bleeding at that time. Localized epinephrine administered. Repeat H&H reassuring 8.5. Vital signs stable. ? Discussed with general surgery, will monitor overnight and follow-up on H&H tomorrow. If stable, anticipate discharge. If downtrend, plan for repeat EGD for possible clipping. ? Continue Protonix 40 mg twice daily, Carafate with meals. ? Started misoprostol 200 mcg 3 times daily in the setting of DAPT therapy. ? Clear liquid diet, n.p.o. at midnight in case patient needs to be rescoped. ? Continuous cardiac telemetry. #Type 2 diabetes #Hyperglycemia ? Initial glucose 430, hemoglobin A1c 9.0% last year. ? Follow-up repeat hemoglobin A1c. ? SSI, ACHS glucose checks. ? Lantus 10 units tonight as patient will be n.p.o. tomorrow. #CAD with stents #PAD with stent ? Hold Plavix, discontinue aspirin as PCI with stents has been more than a year ago. Full code DVT prophylaxis: Hold due to GI bleed
[2024-09-02] VITALS: BP 141/74; PULSE 60; PULSE 61; RESP 16; TEMP 36.9; O2SAT 96
[2024-09-02 04:00] VITALS: BP 155/70; PULSE 60; PULSE 68; RESP 16; TEMP 36.6; O2SAT 96; BMI 26.8
--- NOTE | 2024-09-02 04:58 | PC.NURSE ---
Pt is NPO since midnight due to precaution of having to be rescoped if H/H decreases. v/s, ox4. pt denies any active bleeding. Blood glucose monitored. No acute events to report. Plan of care ongoing.
[2024-09-02 06:21] LABS: POC Glucose,Bedside 141 (70-110)
[2024-09-02] MEDS: SUCRALFATE 1GM TABLET 1 GM PO ×2 (06:46→11:46)
[2024-09-02] MEDS: LACTATED RINGERS 1000ML 1,000 ML 100 ML IV (06:46)
[2024-09-02 08:00] VITALS: BP 113/83; PULSE 102; RESP 16; TEMP 36.8; O2SAT 97
[2024-09-02 08:02] LABS: Basophils % 0.3 % (0.1-2.0); Eosinophils # 0.3 Kmm3 (0.0-0.4); Eosinophils % 2.1 % (0.1-12.0); Hematocrit 25.7 % (42.0-52.0); Hemoglobin 8.9 g/dL (14.1-18.0); Immature Granulocytes # 0.07 10^3uL; Immature Granulocytes % 0.6 %; Lymphocytes # 2.7 K/mm3 (0.7-4.5); Lymphocytes % 22.3 % (10-50); Mean Corpuscular HGB Conc 34.6 g/dL (31.8-35.4); Mean Corpuscular Volume 89.5 fl (80-94); Mean Platelet Volume 10.3 fl (7.4-10.4); Monocytes # 1.2 K/mm3 (0.1-1.0); Neutrophils # 7.8 K/mm3 (1.8-7.8); Neutrophils % 64.7 % (37.0-80.0); Nucleated Red Blood Cells # 0 10^3/uL; Nucleated Red Blood Cells % 0 %; Platelet Count 322 K/mm3 (142-424); Red Blood Count 2.87 M/mm3 (4.60-6.20); Red Cell Distribution Width 15.4 % (11.5-17.5); Red Cell Distribution Width-SD 49.3 fL
[2024-09-02 08:31] LABS: Alanine Aminotransferase 10 U/L (12-78); Albumin Level 1.9 g/dl (3.5-5.0); Albumin/Globulin Ratio 0.8 (1.1-1.8); Alkaline Phosphatase 61 U/L (38-126); Anion Gap 3.6 mEq/L (5-15); Aspartate Amino Transferase 19 U/L (17-59); Bilirubin,Total 0.3 mg/dl (0.2-1.3); Blood Urea Nitrogen 32 mg/dl (9-20); Calcium 7.4 mg/dl (8.4-10.2); Carbon Dioxide 24 mmol/L (22.0-30.0); Chloride 111 mmol/L (98-107); Creatinine Clearance Estimated 67 mL/min (50-200); Estimated Glomerular Filt Rate 42 ml/min (>60); GFR (African American) 50 ML/MIN (>60); Globulin 2.3 g/dL (1.3-3.2); Glucose 111 mg/dl (74-100); Magnesium 2.2 mg/dl (1.6-2.3); Potassium 3.6 mmoL/L (3.5-5.1); Sodium 135 mmol/L (136-145); Total Protein,Serum 4.2 g/dl (6.3-8.2)
[2024-09-02] MEDS: SODIUM CHLORIDE 0.9% 10ML VIAL 10 ML IV (08:53)
[2024-09-02] MEDS: PANTOPRAZOLE 40MG VIAL 40 MG IV (08:53)
[2024-09-02] MEDS: miSOPROStoL 200 MCG TABLET PO ×2 (08:53→13:29)
[2024-09-02] MEDS: CLOPIDOGREL 75MG TAB 75 MG PO (08:54)
--- NOTE | 2024-09-02 09:08 | EXP.SURG.PN ---
Subjective Patient reports: feels better Exam Data for Last 24 hours Vital signs and Labs for Last 24 Hours: Temp Pulse Resp BP Pulse Ox O2 Del Method O2 Flow Rate 98.2 F 102 H 16 113/83 97 Nasal Cannula 3 09/02/24 08:00 09/02/24 08:00 09/02/24 08:00 09/02/24 08:00 09/02/24 08:00 09/02/24 08:00 09/02/24 08:00 Laboratory Results - last 24 hr 09/01/24 11:51: POC Glucose 318 H* 09/01/24 14:14: Hgb 8.5 L, Hct 25.1 L 09/01/24 15:41: POC Glucose 252 H 09/01/24 20:40: POC Glucose 143 H 09/02/24 06:00: WBC 12.0 H, RBC 2.87 L, Hgb 8.9 L, Hct 25.7 L, MCV 89.5, MCH 31.0, MCHC 34.6, RDW 15.4, Plt Count 322, MPV 10.3, Neut % (Auto) 64.7, Lymph % (Auto) 22.3, [place] % (Auto) 10.0 H, Eos % (Auto) 2.1, Baso % (Auto) 0.3, Neut # (Auto) 7.8, Lymph # (Auto) 2.7, [place] # (Auto) 1.2 H, Eos # (Auto) 0.3, Baso # (Auto) 0.0 09/02/24 06:05: POC Glucose 141 H 09/02/24 06:30: Sodium 135 L, Potassium 3.6, Chloride 111 H, Carbon Dioxide 24, Anion Gap 3.6 L, BUN 32 H, Creatinine 1.70 H, Estimated Creat Clear 67, Estimated GFR 42 L, Est GFR ( Amer) 50 L, Glucose 111 H, Calcium 7.4 L, Magnesium 2.2 D, Total Bilirubin 0.3, AST 19, ALT 10 L, Alkaline Phosphatase 61, Total Protein 4.2 L, Albumin 1.9 L, Globulin 2.3, Albumin/Globulin Ratio 0.8 L I & O for Last 24 hours: Intake & Output 08/30/24 08/31/24 09/01/24 09/02/24 11:59 11:59 11:59 11:59 Intake Total 3290 / 3290 740 / 740 Output Total 200 / 200 0 / 0 Balance 3090 / 3090 740 / 740 Weight 215 lb 227 lb 12.8 oz 220 lb Constitutional Constitutional: no acute distress *Routine Respiratory Exam Respiratory: Absent respiratory distress *Routine Cardiovascular Exam Cardiovascular: Absent tachycardia Comments: Currently not tachycardic. Note 8 a.m. heart rate reading of 102. Progress Note: A&P Assessment and plan (1) Duodenal ulcer: Status: Acute (2) Black tarry stools: Status: Acute (3) GI bleed: Status: Acute Assessment and Plan Assessment and Plan for All Diagnoses:: AM hemoglobin improved. No sign of definitive ongoing blood loss. Repeat hemoglobin/hematocrit at 2 PM Continue current medical management Possible discharge home soon with close outpatient follow-up Repeat EGD in approximately 6 weeks
[2024-09-02 11:07] LABS: Hemoglobin A1C 9.1 % (4.0-6.0)
[2024-09-02] MEDS: humaLOG 100 UNITS/ML 10ML VIAL (SSI) SUBCUT (11:46)
[2024-09-02 12:00] VITALS: PULSE 70
[2024-09-02 12:03] LABS: POC Glucose,Bedside 291 (70-110)
[2024-09-02 14:11] LABS: Hematocrit 27.2 % (42.0-52.0); Hemoglobin 9.4 g/dL (14.1-18.0)
--- NOTE | 2024-09-02 14:42 | EXP.DC.SUM ---
General Admission date:: 08/31/24 HPI HPI HPI: This is a 58-year-old gentleman who presented to the emergency department with increasing fatigue and black stool . He has a complex cardiovascular history including coronary stents (aspirin/Plavix). Please see HPI forwarded from admission H&P below. Forwarded from emergency department evaluation/admission H&P: Ciaran Lopez is a 58-year-old male with a medical history significant for CAD with stents, hypertension, type 2 diabetes who presents with lightheadedness and feeling unwell in spite of being treated for pneumonia outpatient. Patient presented about 2 weeks ago for the respiratory symptoms and discharged with amoxicillin and azithromycin, prednisone for pneumonia. Patient has finished this course, however has felt lightheadedness and also has had dark diarrhea since starting antibiotics. He is states he has been having on and off postprandial dyspepsia, hiccups, abdominal pain for many months. He states he is extremely stressed with his job and has been for a while. Took 1-2 naproxen several days ago for headache, but does not use this regularly. Current smoker, but denies alcohol use. No other recent changes to medications or diet. Has never had a colonoscopy. Workup in the ED significant for hemoglobin 7.2 (previously 13.7 about 2 weeks ago), BUN 56 which is much above baseline, glucose 430, positive FOBT. Rectal evaluation revealed melena. General surgery was consulted by ED who recommended EGD tomorrow. Case discussed with ED provider and decision was made to admit patient for GI bleed. Hospital Course Hospital Course Hospital Course: Ciaran Lopez is a 58-year-old male with a medical history significant for CAD with stents, hypertension, type 2 diabetes who presents with lightheadedness and feeling unwell in spite of being treated for pneumonia outpatient. Patient presented about 2 weeks ago for the respiratory symptoms and discharged with amoxicillin and azithromycin, prednisone for pneumonia. Patient has finished this course, however has felt lightheadedness and also has had dark diarrhea since starting antibiotics. He is states he has been having on and off postprandial dyspepsia, hiccups, abdominal pain for many months. He states he is extremely stressed with his job and has been for a while. Took 1-2 naproxen several days ago for headache, but does not use this regularly. Current smoker, but denies alcohol use. No other recent changes to medications or diet. Has never had a colonoscopy. Workup in the ED significant for hemoglobin 7.2 (previously 13.7 about 2 weeks ago), BUN 56 which is much above baseline, glucose 430, positive FOBT. Rectal evaluation revealed melena. General surgery was consulted by ED who recommended EGD tomorrow. Case discussed with ED provider and decision was made to admit patient for GI bleed. #Epigastric pain #Upper GI bleed #Duodenal ulcer ? Two-week onset of dark diarrhea, acute on chronic epigastric pain. Significant stress at work, he intermittently uses NSAIDs. On Plavix, aspirin therapy. No alcohol use. ? Initial hemoglobin 7.2 (previously 13.7 about 2 weeks ago) BUN 56 which is much above baseline. Transfused 1 unit PRBC with improvement in hemoglobin. ? General Surgery consulted, Dr. Hines EGD revealed duodenal ulcer without bleeding at that time. Localized epinephrine administered. ? Hemoglobin improved to 9.4 on day of discharge. Vital signs stable. No abdominal pain. Tolerating food without issues. ? Started Protonix 40 mg twice daily, Carafate with meals as needed. ? Started misoprostol 200 mcg 3 times daily in the setting of DAPT therapy. ? Follow-up with Dr. Hines in 1 week. #Type 2 diabetes #Hyperglycemia ? Initial glucose 430, hemoglobin A1c 9.1%. Has been challenging to control due to insurance constraints. ? Continue home regimen. #CAD with stents #PAD with stent ? Continue Plavix 75 mg, discontinue aspirin as PCI with stents has been more than a year ago. Total time spent on discharge: 32 minutes on chart review, counseling, documentation, and direct care with patient. Exam Data for Last 24 hours Vital signs and Labs for Last 24 Hours: Temp Pulse Resp BP Pulse Ox O2 Del Method O2 Flow Rate 98.2 F 70 16 113/83 97 Room Air 3 09/02/24 08:00 09/02/24 12:00 09/02/24 08:00 09/02/24 08:00 09/02/24 08:00 09/02/24 12:35 09/02/24 08:00 Laboratory Results - last 24 hr 09/01/24 14:14: Hgb 8.5 L, Hct 25.1 L 09/01/24 15:41: POC Glucose 252 H 09/01/24 20:40: POC Glucose 143 H 09/02/24 06:00: WBC 12.0 H, RBC 2.87 L, Hgb 8.9 L, Hct 25.7 L, MCV 89.5, MCH 31.0, MCHC 34.6, RDW 15.4, Plt Count 322, MPV 10.3, Neut % (Auto) 64.7, Lymph % (Auto) 22.3, [place] % (Auto) 10.0 H, Eos % (Auto) 2.1, Baso % (Auto) 0.3, Neut # (Auto) 7.8, Lymph # (Auto) 2.7, [place] # (Auto) 1.2 H, Eos # (Auto) 0.3, Baso # (Auto) 0.0 09/02/24 06:05: POC Glucose 141 H 09/02/24 06:30: Sodium 135 L, Potassium 3.6, Chloride 111 H, Carbon Dioxide 24, Anion Gap 3.6 L, BUN 32 H, Creatinine 1.70 H, Estimated Creat Clear 67, Estimated GFR 42 L, Est GFR ( Amer) 50 L, Glucose 111 H, Hemoglobin A1c 9.1 H, Calcium 7.4 L, Magnesium 2.2 D, Total Bilirubin 0.3, AST 19, ALT 10 L, Alkaline Phosphatase 61, Total Protein 4.2 L, Albumin 1.9 L, Globulin 2.3, Albumin/Globulin Ratio 0.8 L 09/02/24 11:46: POC Glucose 291 H 09/02/24 13:50: Hgb 9.4 L, Hct 27.2 L I & O for Last 24 hours: Intake & Output 08/30/24 08/31/24 09/01/24 09/02/24 23:59 23:59 23:59 23:59 Intake Total 2740 / 2740 1050 / 1290 960 / 960 Output Total 200 / 200 0 / 0 0 / 0 Balance 2540 / 2540 1050 / 1290 960 / 960 Weight 97.522 kg 103.328 kg 99.79 kg Constitutional Constitutional: no acute distress *Routine HEENT Exam Head: Present normocephalic Eye: Present EOMI and PERRL ENT: Present mucous membranes moist *Routine Neck Exam Neck: Present supple; Absent lymphadenopathy *Routine Respiratory Exam Respiratory: Present CTA bilaterally *Routine Cardiovascular Exam Cardiovascular: Present RRR *Routine Abdominal Exam Abdominal: Present soft and normoactive bowel sounds; Absent tenderness *Routine Extremities Exam Extremities: Absent cyanosis, clubbing or edema *Routine Skin Exam Skin: Present warm; Absent rash *Routine Neurological Exam Neurological: Present alert and oriented X3 Results Data Completed and Pending Labs on day of discharge: Labs from last 24 hours 09/02/24 09/02/24 09/02/24 13:50 11:46 06:30 WBC RBC Hgb 9.4 L Hct 27.2 L MCV MCH MCHC RDW Plt Count MPV Neut % (Auto) Lymph % (Auto) [place] % (Auto) Eos % (Auto) Baso % (Auto) Neut # (Auto) Lymph # (Auto) [place] # (Auto) Eos # (Auto) Baso # (Auto) Sodium 135 L Potassium 3.6 Chloride 111 H Carbon Dioxide 24 Anion Gap 3.6 L BUN 32 H Creatinine 1.70 H Estimated Creat Clear 67 Estimated GFR 42 L Est GFR ( Amer) 50 L Glucose 111 H POC Glucose 291 H Hemoglobin A1c 9.1 H Calcium 7.4 L Magnesium 2.2 D Total Bilirubin 0.3 AST 19 ALT 10 L Alkaline Phosphatase 61 Total Protein 4.2 L Albumin 1.9 L Globulin 2.3 Albumin/Globulin Ratio 0.8 L 09/02/24 09/02/24 09/01/24 06:05 06:00 20:40 WBC 12.0 H RBC 2.87 L Hgb 8.9 L Hct 25.7 L MCV 89.5 MCH 31.0 MCHC 34.6 RDW 15.4 Plt Count 322 MPV 10.3 Neut % (Auto) 64.7 Lymph % (Auto) 22.3 [place] % (Auto) 10.0 H Eos % (Auto) 2.1 Baso % (Auto) 0.3 Neut # (Auto) 7.8 Lymph # (Auto) 2.7 [place] # (Auto) 1.2 H Eos # (Auto) 0.3 Baso # (Auto) 0.0 Sodium Potassium Chloride Carbon Dioxide Anion Gap BUN Creatinine Estimated Creat Clear Estimated GFR Est GFR ( Amer) Glucose POC Glucose 141 H 143 H Hemoglobin A1c Calcium Magnesium Total Bilirubin AST ALT Alkaline Phosphatase Total Protein Albumin Globulin Albumin/Globulin Ratio 09/01/24 09/01/24 15:41 14:14 WBC RBC Hgb 8.5 L Hct 25.1 L MCV MCH MCHC RDW Plt Count MPV Neut % (Auto) Lymph % (Auto) [place] % (Auto) Eos % (Auto) Baso % (Auto) Neut # (Auto) Lymph # (Auto) [place] # (Auto) Eos # (Auto) Baso # (Auto) Sodium Potassium Chloride Carbon Dioxide Anion Gap BUN Creatinine Estimated Creat Clear Estimated GFR Est GFR ( Amer) Glucose POC Glucose 252 H Hemoglobin A1c Calcium Magnesium Total Bilirubin AST ALT Alkaline Phosphatase Total Protein Albumin Globulin Albumin/Globulin Ratio DS: Diagnosis Discharge Diagnosis (1) Duodenal ulcer: Status: Acute Code(s): K26.9 - Duodenal ulcer, unspecified as acute or chronic, without hemorrhage or perforation (2) Black tarry stools: Status: Acute Code(s): K92.1 - Melena (3) GI bleed: Status: Acute Code(s): K92.2 - Gastrointestinal hemorrhage, unspecified Qualifiers: GI bleed type/associated pathology: melena Qualified Code(s): K92.1 - Melena Meds Home Medications and Allergies Home Medications ?Medication ?Instructions ?Recorded ?Confirmed ?Type carvedilol 25 mg tablet (Coreg) 25 mg PO BID #60 tabs 12/08/23 08/31/24 Rx insulin glargine 100 unit/mL (3 20 unit (0.2 mL) SQ BID #15 mL 01/08/24 08/31/24 Rx mL) subcutaneous pen (Lantus Solostar U-100 Insulin) insulin lispro 100 unit/mL See Rx Instructions SQ .COMPLEX 01/08/24 08/31/24 Rx subcutaneous cartridge (Humalog #15 mL U-100 Insulin) clopidogrel 75 mg tablet (Plavix) 75 mg PO DAILY #90 tabs 04/05/24 08/31/24 Rx amlodipine 5 mg tablet (Norvasc) 5 mg PO DAILY #30 tabs 06/29/24 08/31/24 Rx losartan 100 1 tab PO DAILY 08/27/24 08/31/24 History mg-hydrochlorothiazide 12.5 mg tablet misoprostol 200 mcg tablet 200 mcg PO TID 30 days #90 tabs 09/02/24 Rx pantoprazole 40 mg tablet,delayed 40 mg PO BID #60 tabs 09/02/24 Rx release (Protonix) sucralfate 1 gram tablet 1 g PO ACHS PRN Abdominal Pain 30 09/02/24 Rx days #30 tabs New Prescriptions to Start Prescriptions: misoprostol Uzair Morris pantoprazole [Protonix] Uzair Morris sucralfate Uzair Morris Allergies Allergy/AdvReac Type Severity Reaction Status Date / Time NSAIDS (Non-Steroidal Allergy itch Verified 08/27/24 10:42 Anti-Inflamma gabapentin AdvReac Severe Verified 08/27/24 10:42 Discharge Plan Disposition Patient Disposition: Home, Self-Care Condition: Fair Follow up Plan Follow up with: Armen Hines MD [Staff Physician] - 1 week Prescriptions/Medication Reconciliation: New sucralfate 1 gram Tablet 1 g PO ACHS PRN (Reason: Abdominal Pain) 30 Days Qty: 30 0RF misoprostol 200 mcg Tablet 200 mcg PO TID 30 Days Qty: 90 0RF pantoprazole [Protonix] 40 mg tablet,delayed release (DR/EC) 40 mg PO BID Qty: 60 0RF Continued losartan-hydrochlorothiazide 100-12.5 mg tablet 1 tab PO DAILY carvedilol [Coreg] 25 mg tablet 25 mg PO BID Qty: 60 5RF insulin glargine [Lantus Solostar U-100 Insulin] 100 unit/mL (3 mL) insulin pen 20 unit SQ BID Qty: 15 5RF Humalog U-100 Insulin 100 unit/mL cartridge See Rx Instructions SQ .COMPLEX Qty: 15 11RF Rx Instructions: 14 units at breakfast, 16 units at lunch, 20 units at dinner; clopidogrel [Plavix] 75 mg tablet 75 mg PO DAILY Qty: 90 3RF amlodipine [Norvasc] 5 mg tablet 5 mg PO DAILY Qty: 30 11RF Discontinued aspirin 81 mg tablet,chewable 81 mg PO DAILY Problem Reconciliation Problems Reviewed?: Yes Patient Discharge Instructions Patient Instructions: Gastrointestinal Bleeding Print Language: Frisian Providers Primary Care Provider: Rajinder Reynolds Admit Provider: Uzair Morris Attending Provider: Uzair Morris
== END 2024-09-02 15:20 | disposition home or self-care (01) ==
LOC: ER 12:19 → 2ND 15:08
PROVIDERS: Physician Assistant; Surgery; Admitting Provider Student in an Organized Health Care Education/Training Program; Emergency Provider Student in an Organized Health Care Education/Training Program; PCP Internal Medicine; Visit Provider Student in an Organized Health Care Education/Training Program
PROC: 0DJ08ZZ Inspection of Upper Intestinal Tract, Via Natural or Artificial Opening Endoscopic (ICD-10-PCS; principal; 2024-09-01 08:30)
DX: K26.3 Acute duodenal ulcer without hemorrhage or perforation (principal); D62 Acute posthemorrhagic anemia; K92.1 Melena; I25.10 Atherosclerotic heart disease of native coronary artery without angina pectoris; I10 Essential (primary) hypertension; E11.65 Type 2 diabetes mellitus with hyperglycemia; E11.51 Type 2 diabetes mellitus with diabetic peripheral angiopathy without gangrene; G47.33 Obstructive sleep apnea (adult) (pediatric); F17.200 Nicotine dependence, unspecified, uncomplicated; Z88.8 Allergy status to other drugs, medicaments and biological substances; Z95.5 Presence of coronary angioplasty implant and graft; Z56.3 Stressful work schedule; Z80.9 Family history of malignant neoplasm, unspecified; Z82.3 Family history of stroke; Z79.899 Other long term (current) drug therapy; Z79.82 Long term (current) use of aspirin; Z79.4 Long term (current) use of insulin; Z79.02 Long term (current) use of antithrombotics/antiplatelets; Z87.01 Personal history of pneumonia (recurrent)
CPT/HCPCS: 43239; 43255; 36415; 36430; 80053; 80307; 81001; 82009; 82272; 82803; 82962; 83036; 83605; 83735; 84100; 85014; 85018; 85025; 86850; 93005; 99285; G0328; G0378; J0171; J2003; J2470; J2704; J3475; J7030; J7050; J7120; P9016

== ENCOUNTER 2024-09-12 09:51 | Outpatient (CLI) | payer BC, SELFPAY ==
[2024-09-12 10:46] LABS: Hematocrit 23.3 % (42.0-52.0); Hemoglobin 7.8 g/dL (14.1-18.0)
== END 2024-09-12 23:59 | disposition home or self-care (01) ==
PROVIDERS: PCP Internal Medicine; Visit Provider Surgery
DX: D64.9 Anemia, unspecified (principal)
CPT/HCPCS: 36415; 85014; 85018

== ENCOUNTER 2024-09-13 10:37 | Outpatient (CLI) | payer BC, SELFPAY ==
[2024-09-13 10:57] LABS: Hematocrit 22.6 % (42.0-52.0); Hemoglobin 7.3 g/dL (14.1-18.0)
== END 2024-09-13 23:59 | disposition home or self-care (01) ==
LOC: LAB 10:38
PROVIDERS: PCP Internal Medicine; Visit Provider Surgery
DX: K26.4 Chronic or unspecified duodenal ulcer with hemorrhage (principal)
CPT/HCPCS: 36415; 85014; 85018

== ENCOUNTER 2024-09-13 16:51 | Observation (INO) | payer BC, SELFPAY ==
[2024-09-13] VITALS (11 sets, daily range): BP systolic 129–170; BP diastolic 58–93; PULSE 60–75; RESP 15–22; TEMP 36.4–37.1; O2SAT 95–100; BMI 26.4
--- NOTE | 2024-09-13 17:36 | PC.NURSE ---
direct admit this shift. a&ox4. no complaints of pain consistently. pain in RUQ on palpation. 2+ edema noted to BLE. DNR/DNI signed and on the chart. no needs at this time. call light within reach.
--- NOTE | 2024-09-13 17:58 | EXP.HP ---
History of Present Illness *Admission Date: 09/13/24 *Reason for visit:: Acute on chronic anemia, weakness *History of present illness: Ciaran Lopez is a 58-year-old male with a medical history significant for CAD with stents, hypertension, type 2 diabetes who who unfortunately returns due to acute on chronic anemia, weakness, hazy vision. Patient was discharged in stable condition on 09/02/2024 after duodenal ulcer bleed which was treated with localized epinephrine. He followed up with general surgery yesterday who obtained repeat CBC which showed a drop of hemoglobin from 9.4 since admission to 7.8 yesterday. I repeat H&H was obtained today which showed a further drop in hemoglobin to 7.3. Patient endorses weakness, chills, hazy vision. Denies abdominal pain, dark/bloody stools, nausea/vomiting. I spoke to Dr. Hines who recommended direct admission, blood transfusion, and EGD in the morning. [facility] Disclaimer: The information contained in this section may have been updated after the patient was seen, as this information can be updated by other users. Medical History Dietary counseling Exercise counseling Screening for depression Screening for endocrine disorder JENNIFER (acute kidney injury) Hospital discharge follow-up Heart failure Screening for colon cancer Encounter for vitamin deficiency screening Vitamin deficiency Acute medical illness Establishing care with new doctor, encounter for Vaccine counseling Type 2 diabetes mellitus with stage 2 chronic kidney disease Atypical angina Abnormal result of cardiovascular function study (HFpEF) heart failure with preserved ejection fraction Type 2 diabetes mellitus Hyperlipidemia Hypertension CONNIE (obstructive sleep apnea) CAD (coronary artery disease) Lower extremity edema Surgical History History of esophagogastroduodenoscopy (EGD) H/O heart artery stent History of cardiac catheterization Family History Father Cancer Mother Stroke Social History (Updated 09/13/24 @ 17:35 by Savannah Herrmann, SANGEETA) Smoking Status: Current some day smoker alcohol intake: never substance use type: denies use current occupational status: employed Travel in the last 8 weeks?: None Have you lived/traveled outside US in past 30 days?: No Contact w/someone who lives/traveled outside US past 30 days?: No Exposure to someone with infectious disease in past 14 days?: No Do you have a fever (greater than 100.4 F or 38 C)?: No Have you tested positive for COVID-19?: No Exposed to someone with COVID-19 in past 14 days?: No Do you have a sore throat?: No Do you have a cough?: No Do you have any weakness?: No Do you have any diarrhea?: No Are you experiencing any unusual bleeding?: No Do you have any muscle aches/pain?: No Do you have any abdominal pain?: No Are you experiencing loss of taste or smell?: No Other Medical History Have you received the Flu Vaccine for this season: No Have you received the Pneumonia Vaccine: No Meds Home Medications and Allergies Home Medications ?Medication ?Instructions ?Recorded ?Confirmed ?Type carvedilol 25 mg tablet (Coreg) 25 mg PO BID #60 tabs 12/08/23 09/13/24 Rx clopidogrel 75 mg tablet (Plavix) 75 mg PO DAILY #90 tabs 04/05/24 09/13/24 Rx amlodipine 5 mg tablet (Norvasc) 5 mg PO DAILY #30 tabs 06/29/24 09/13/24 Rx losartan 100 1 tab PO DAILY 08/27/24 09/13/24 History mg-hydrochlorothiazide 12.5 mg tablet misoprostol 200 mcg tablet 200 mcg PO TID 30 days #90 tabs 09/02/24 09/13/24 Rx pantoprazole 40 mg tablet,delayed 40 mg PO BID #60 tabs 09/02/24 09/13/24 Rx release (Protonix) sucralfate 1 gram tablet 1 g PO ACHS PRN Abdominal Pain 30 09/02/24 09/13/24 Rx days #30 tabs insulin glargine 100 unit/mL (3 20 unit SQ HS 09/13/24 09/13/24 History mL) subcutaneous pen (Lantus Solostar U-100 Insulin) insulin lispro 100 unit/mL See Protocol SQ ACHS 09/13/24 09/13/24 History subcutaneous cartridge (Humalog U-100 Insulin) New Prescriptions to Start Prescriptions: Allergies Allergy/AdvReac Type Severity Reaction Status Date / Time NSAIDS (Non-Steroidal Allergy itch Verified 09/12/24 09:36 Anti-Inflamma gabapentin AdvReac Severe Verified 09/12/24 09:36 Exam Data for Last 24 hours Vital signs and Labs for Last 24 Hours: Temp Pulse Resp BP Pulse Ox O2 Del Method 98.1 F 60 18 164/84 H 100 Room Air 09/13/24 17:02 09/13/24 17:02 09/13/24 17:02 09/13/24 17:02 09/13/24 17:02 09/13/24 17:02 I & O for Last 24 hours: Intake & Output 09/10/24 09/11/24 09/12/24 09/13/24 23:59 23:59 23:59 23:59 Weight 98.571 kg Constitutional Constitutional: no acute distress *Routine HEENT Exam Head: Present normocephalic Eye: Present EOMI and PERRL ENT: Present mucous membranes moist *Routine Neck Exam Neck: Present supple; Absent lymphadenopathy *Routine Respiratory Exam Respiratory: Present CTA bilaterally *Routine Cardiovascular Exam Cardiovascular: Present RRR *Routine Abdominal Exam Abdominal: Present soft and normoactive bowel sounds; Absent tenderness *Routine Rectal Exam Rectal:: deferred *Routine Genitalia Exam Genitalia:: deferred *Routine Extremities Exam Extremities: Absent cyanosis, clubbing or edema *Routine Skin Exam Skin: Present warm; Absent rash *Routine Neurological Exam Neurological: Present alert and oriented X3 Assessment and Plan *Assessment and plan (1) Duodenal ulcer with hemorrhage: Status: Acute Category: Medical Code(s): K26.4 - Chronic or unspecified duodenal ulcer with hemorrhage Plan Ciaran Lopez is a 58-year-old male with a medical history significant for CAD with stents, hypertension, type 2 diabetes who who unfortunately returns due to acute on chronic anemia, weakness, hazy vision. Patient was discharged in stable condition on 09/02/2024 after duodenal ulcer bleed which was treated with localized epinephrine. He followed up with general surgery yesterday who obtained repeat CBC which showed a drop of hemoglobin from 9.4 since admission to 7.8 yesterday. I repeat H&H was obtained today which showed a further drop in hemoglobin to 7.3. Patient endorses weakness, chills, hazy vision. Denies abdominal pain, dark/bloody stools, nausea/vomiting. I spoke to Dr. Hines who recommended direct admission, blood transfusion, and EGD in the morning. #Acute on chronic anemia #Duodenal ulcer ? Followed up with general surgery yesterday, repeat H&H showed drop in hemoglobin from 9.4-7.8 yesterday. And to 7.3 today. ? Ordered 1 unit PRBC transfusion. Follow-up posttransfusion H&H. Goal hemoglobin > 8 due to CAD with stents. ? IV Protonix 40 mg twice daily, Carafate with meals, misoprostol 200 mcg every 6 hours. ? Clear liquid diet. N.p.o. at midnight. ? General Surgery planning for EGD in the morning. #Type 2 diabetes ? Hemoglobin A1c 9.1%. ? ACHS glucose checks, LDSSI. #CAD with stents #PAD with stent ? Continue Plavix 75 mg, statin. Full code DVT prophylaxis: Hold AC due to GI bleed.
[2024-09-13] MEDS: PANTOPRAZOLE SODIUM 80 MG in 0.9 % SODIUM CHLORIDE 100 ML 100 MG IV (18:04)
[2024-09-13] MEDS: FUROSEMIDE 40MG/4ML VIAL 40 MG IV (18:04)
[2024-09-13] MEDS: miSOPROStoL 200 MCG TABLET PO (18:14)
[2024-09-13 18:33] LABS: Basophils # 0.1 K/mm3 (0-0.2); Basophils % 0.8 % (0.1-2.0); Eosinophils # 0.2 Kmm3 (0.0-0.4); Eosinophils % 3.1 % (0.1-12.0); Hematocrit 21.5 % (42.0-52.0); Hemoglobin 7.1 g/dL (14.1-18.0); Immature Granulocytes # 0.03 10^3uL; Immature Granulocytes % 0.4 %; Lymphocytes # 1.8 K/mm3 (0.7-4.5); Lymphocytes % 25.4 % (10-50); Mean Corpuscular Hemoglobin 29.3 pg (27.0-31.2); Mean Corpuscular Volume 88.8 fl (80-94); Mean Platelet Volume 9.9 fl (7.4-10.4); Monocytes # 0.8 K/mm3 (0.1-1.0); Monocytes % 10.8 % (1.7-9.3); Neutrophils # 4.3 K/mm3 (1.8-7.8); Neutrophils % 59.5 % (37.0-80.0); Nucleated Red Blood Cells # 0 10^3/uL; Nucleated Red Blood Cells % 0 %; Platelet Count 416 K/mm3 (142-424); Red Blood Count 2.42 M/mm3 (4.60-6.20); Red Cell Distribution Width-SD 45.6 fL; White Blood Count 7.2 K/mm3 (4.8-10.8)
[2024-09-13 18:38] LABS: Albumin Level 2.3 g/dl (3.5-5.0); Chloride 96 mmol/L (98-107); Potassium 3.4 mmoL/L (3.5-5.1); Sodium 126 mmol/L (136-145)
[2024-09-13 18:40] LABS: Blood Urea Nitrogen 42 mg/dl (9-20); Creatinine Clearance Estimated 49 mL/min (50-200); Estimated Glomerular Filt Rate 29 ml/min (>60); GFR (African American) 36 ML/MIN (>60)
[2024-09-13 18:41] LABS: Alanine Aminotransferase 12 U/L (12-78); Albumin/Globulin Ratio 0.9 (1.1-1.8); Alkaline Phosphatase 84 U/L (38-126); Anion Gap 5.4 mEq/L (5-15); Aspartate Amino Transferase 16 U/L (17-59); Calcium 7.7 mg/dl (8.4-10.2); Carbon Dioxide 28 mmol/L (22.0-30.0); Globulin 2.7 g/dL (1.3-3.2); Magnesium 1.4 mg/dl (1.6-2.3)
[2024-09-13 18:45] LABS: Bilirubin,Total < 0.1 mg/dl (0.2-1.3)
[2024-09-13 18:50] LABS: NT Pro Brain Natriuretic Pep. 3930 pg/mL (0-125)
[2024-09-13 18:57] LABS: Glucose 603 mg/dl (74-100)
--- NOTE | 2024-09-13 19:10 | PC.NURSE ---
notified of glucose 603. New orders received to give 20 units of humalog.
[2024-09-13] MEDS: humaLOG 100 UNITS/ML 10ML VIAL (SSI) SUBCUT ×2 (19:19→21:36)
[2024-09-13] MEDS: POTASSIUM CHLORIDE 20MEQ TAB 40 MEQ PO ×2 (19:45→22:19)
[2024-09-13 19:50] LABS: Adenovirus,PCR Not Detected (NotDetected); Bordetella Pertussis Not Detected (NotDetected); Chlamydophila Pneumoniae, PCR Not Detected (NotDetected); Coronavirus 19, PCR Not Detected (NotDetected); Coronavirus 229E Not Detected (NotDetected); Coronavirus NL63 Not Detected (NotDetected); Coronavirus OC43 Not Detected (NotDetected); Coronovirus HKU1,PCR Not Detected (NotDetected); Human Metapneumovirus Not Detected (NotDetected); Influenza A, PCR Not Detected (NotDetected); Influenza AH1, 2009 Not Detected (NotDetected); Influenza AH1, PCR Not Detected (NotDetected); Influenza AH3,PCR Not Detected (NotDetected); Influenza B, PCR Not Detected (NotDetected); Mycoplasma Pneumoniae, PCR Not Detected (NotDetected); Parainfluenza 1, PCR Not Detected (NotDetected); Parainfluenza 2, PCR Not Detected (NotDetected); Parainfluenza 3, PCR Not Detected (NotDetected); Parainfluenza 4, PCR Not Detected (NotDetected); Respiratory Syncytial Virus Not Detected (NotDetected); Rhinovirus/Enterovirus Not Detected (NotDetected)
[2024-09-13 19:52] LABS: Microscopic, Urine URINE MICROSCOPIC (MICROSCOPIC)
[2024-09-13 20:05] LABS: Appearance,Urine CLEAR (Clear); Bilirubin,Urine Negative (Negative); Blood, Urine TRACE-I (Negative); Color,Urine YELLOW (Yellow); Glucose,Urine (UA) 3+ (Negative); Ketones,Urine Negative (Negative); Leukocyte Esterase,Urine Negative (Negative); Nitrate,Urine Negative (Negative); Protein,Urine 2+ (Negative); Specific Gravity, Urine 1.015 (1.005-1.030); Urobilinogen,Urine 0.2 EU/dl (0.2)
[2024-09-13 20:41] LABS: Bacteria,Urine 1+ /lpf; Squamous Epithelial Cell,Urine Occasional #/hpf (0-5); WBC,Urine Occasional #/hpf (0-3)
[2024-09-13 20:47] LABS: POC Glucose,Bedside 522 (70-110)
[2024-09-13 21:15] LABS: Glucose,Random 273 mg/dL (74-100)
[2024-09-13 21:16] LABS: Anion Gap 3.2 mEq/L (5-15); Blood Urea Nitrogen 43 mg/dl (9-20); Carbon Dioxide 31 mmol/L (22.0-30.0); Chloride 99 mmol/L (98-107); Creatinine Clearance Estimated 47 mL/min (50-200); Estimated Glomerular Filt Rate 28 ml/min (>60); GFR (African American) 34 ML/MIN (>60); Glucose 271 mg/dl (74-100); Potassium 3.2 mmoL/L (3.5-5.1); Sodium 130 mmol/L (136-145)
[2024-09-13] MEDS: SUCRALFATE 1GM TABLET 1 GM PO (21:36)
[2024-09-13] MEDS: INSULIN GLARGINE 100 UNITS/ML 3ML FLEXPEN 20 UNIT SUBCUT (21:40)
[2024-09-13] MEDS: MAGNESIUM SULFATE IN WATER 2 GM/50 ML PIGGYBACK IV ×2 (22:30→23:30)
[2024-09-13] MEDS: DEXTROSE 50% 50ML SYRINGE (CRASH CART) 50 ML IV (23:48)
[2024-09-13 23:56] LABS: POC Glucose,Bedside 172 (70-110)
[2024-09-13 23:59] LABS: Anion Gap 3.1 mEq/L (5-15); Blood Urea Nitrogen 42 mg/dl (9-20); Calcium 7.9 mg/dl (8.4-10.2); Carbon Dioxide 30 mmol/L (22.0-30.0); Chloride 99 mmol/L (98-107); Creatinine Clearance Estimated 47 mL/min (50-200); Estimated Glomerular Filt Rate 28 ml/min (>60); GFR (African American) 34 ML/MIN (>60); Glucose 146 mg/dl (74-100); Potassium 3.1 mmoL/L (3.5-5.1); Sodium 129 mmol/L (136-145)
[2024-09-14] VITALS (16 sets, daily range): BP systolic 120–158; BP diastolic 65–78; PULSE 50–75; RESP 14–22; TEMP 36.2–36.8; O2SAT 95–100; BMI 27.2; BMI 27.1
[2024-09-14] MEDS: MAGNESIUM SULFATE IN WATER 2 GM/50 ML PIGGYBACK IV (00:30)
[2024-09-14] MEDS: miSOPROStoL 200 MCG TABLET PO ×4 (00:59→23:30)
[2024-09-14 02:06] LABS: Hematocrit 20.5 % (42.0-52.0)
--- NOTE | 2024-09-14 04:34 | PC.NURSE ---
Pt received 1 unit of blood on shift. Pt had a blood glucose level of 603 at 1850, 20 units given by dayshift nurse per provider. Blood glucose was checked 2 hours later, pt was 522. Provider notified. Provider stated to give 15 units plus long acting lantus. Pt came down to 56. Pt became diaphoretic. Pt was given orange juice with 2 packs of sugar and amp D50. Pt's blood glucose was rechecked 15 min later and pt came up to 172. Pt stated he felt better and denied any pain, dizziness, or sweatiness. Blood glucose closely monitored. Provider was notified of a critical lab of and h&h of 7, and 20.5. Provider stated to continue to monitor, no new orders at this time. Pt had potassium and magnesium replaced. Pt NPO at midnight for possible procedure. Plan of care ongoing.
[2024-09-14 06:08] LABS: Albumin Level 2.2 g/dl (3.5-5.0); Chloride 102 mmol/L (98-107); Sodium 131 mmol/L (136-145)
[2024-09-14 06:09] LABS: Potassium 3.7 mmoL/L (3.5-5.1)
[2024-09-14 06:11] LABS: Alanine Aminotransferase 10 U/L (12-78); Albumin/Globulin Ratio 0.8 (1.1-1.8); Alkaline Phosphatase 74 U/L (38-126); Anion Gap 2.7 mEq/L (5-15); Aspartate Amino Transferase 15 U/L (17-59); Blood Urea Nitrogen 40 mg/dl (9-20); Carbon Dioxide 30 mmol/L (22.0-30.0); Creatinine Clearance Estimated 55 mL/min (50-200); Estimated Glomerular Filt Rate 33 ml/min (>60); GFR (African American) 39 ML/MIN (>60); Globulin 2.8 g/dL (1.3-3.2)
[2024-09-14 06:12] LABS: Calcium 7.9 mg/dl (8.4-10.2); Glucose 138 mg/dl (74-100); Magnesium 2.6 mg/dl (1.6-2.3)
[2024-09-14 06:14] LABS: Bilirubin,Total 0.1 mg/dl (0.2-1.3)
[2024-09-14 06:17] LABS: Basophils # 0.1 K/mm3 (0-0.2); Eosinophils # 0.2 Kmm3 (0.0-0.4); Lymphocytes # 2.1 K/mm3 (0.7-4.5); Mean Platelet Volume 9.8 fl (7.4-10.4); Monocytes # 0.9 K/mm3 (0.1-1.0); Nucleated Red Blood Cells # 0 10^3/uL; Nucleated Red Blood Cells % 0 %; Red Cell Distribution Width 14.1 % (11.5-17.5); White Blood Count 8.2 K/mm3 (4.8-10.8)
[2024-09-14 06:31] LABS: Basophils % 0.6 % (0.1-2.0); Eosinophils % 2.6 % (0.1-12.0); Hematocrit 22.7 % (42.0-52.0); Immature Granulocytes # 0.02 10^3uL; Immature Granulocytes % 0.2 %; Lymphocytes % 25.2 % (10-50); Mean Corpuscular HGB Conc 34.8 g/dL (31.8-35.4); Mean Corpuscular Hemoglobin 30.6 pg (27.0-31.2); Monocytes % 10.9 % (1.7-9.3); Neutrophils # 4.9 K/mm3 (1.8-7.8); Neutrophils % 60.5 % (37.0-80.0); Platelet Count 410 K/mm3 (142-424); Red Blood Count 2.58 M/mm3 (4.60-6.20); Red Cell Distribution Width-SD 45.1 fL
[2024-09-14 06:34] LABS: Hemoglobin 7.9 g/dL (14.1-18.0)
--- NOTE | 2024-09-14 06:44 | EXP.SURG.CON ---
History of Present Illness *Admission Date: 09/13/24 *Reason for visit:: symptomatic anemia; duodenal ulcer *History of present illness: This is a 58-year-old gentleman seen in consultation for likely recurrent gastrointestinal hemorrhage from duodenal ulcer. He recently underwent esophagogastroduodenoscopy for evaluation of anemia/melena. Duodenal ulcer with no active bleeding was noted. Epinephrine injection was completed. He initially progressed but has shown evidence of likely recurrent bleed. Please see HPI forwarded from admission H&P below. Forwarded from admission H&P: Ciaran Lopez is a 58-year-old male with a medical history significant for CAD with stents, hypertension, type 2 diabetes who who unfortunately returns due to acute on chronic anemia, weakness, hazy vision. Patient was discharged in stable condition on 09/02/2024 after duodenal ulcer bleed which was treated with localized epinephrine. He followed up with general surgery yesterday who obtained repeat CBC which showed a drop of hemoglobin from 9.4 since admission to 7.8 yesterday. I repeat H&H was obtained today which showed a further drop in hemoglobin to 7.3. Patient endorses weakness, chills, hazy vision. Denies abdominal pain, dark/bloody stools, nausea/vomiting. I spoke to Dr. Hines who recommended direct admission, blood transfusion, and EGD in the morning. [facility] Disclaimer: The information contained in this section may have been updated after the patient was seen, as this information can be updated by other users. Medical History Dietary counseling Exercise counseling Screening for depression Screening for endocrine disorder JENNIFER (acute kidney injury) Hospital discharge follow-up Heart failure Screening for colon cancer Encounter for vitamin deficiency screening Vitamin deficiency Acute medical illness Establishing care with new doctor, encounter for Vaccine counseling Type 2 diabetes mellitus with stage 2 chronic kidney disease Atypical angina Abnormal result of cardiovascular function study (HFpEF) heart failure with preserved ejection fraction Type 2 diabetes mellitus Hyperlipidemia Hypertension CONNIE (obstructive sleep apnea) CAD (coronary artery disease) Lower extremity edema Surgical History History of esophagogastroduodenoscopy (EGD) H/O heart artery stent History of cardiac catheterization Family History Father Cancer Mother Stroke Social History (Updated 09/13/24 @ 17:35 by Savannah Herrmann RN) Smoking Status: Current some day smoker alcohol intake: never substance use type: denies use current occupational status: employed Travel in the last 8 weeks?: None Have you lived/traveled outside US in past 30 days?: No Contact w/someone who lives/traveled outside US past 30 days?: No Exposure to someone with infectious disease in past 14 days?: No Do you have a fever (greater than 100.4 F or 38 C)?: No Have you tested positive for COVID-19?: No Exposed to someone with COVID-19 in past 14 days?: No Do you have a sore throat?: No Do you have a cough?: No Do you have any weakness?: No Do you have any diarrhea?: No Are you experiencing any unusual bleeding?: No Do you have any muscle aches/pain?: No Do you have any abdominal pain?: No Are you experiencing loss of taste or smell?: No Meds Home Medications and Allergies Home Medications ?Medication ?Instructions ?Recorded ?Confirmed ?Type carvedilol 25 mg tablet (Coreg) 25 mg PO BID #60 tabs 12/08/23 09/13/24 Rx clopidogrel 75 mg tablet (Plavix) 75 mg PO DAILY #90 tabs 04/05/24 09/13/24 Rx amlodipine 5 mg tablet (Norvasc) 5 mg PO DAILY #30 tabs 06/29/24 09/13/24 Rx losartan 100 1 tab PO DAILY 08/27/24 09/13/24 History mg-hydrochlorothiazide 12.5 mg tablet misoprostol 200 mcg tablet 200 mcg PO TID 30 days #90 tabs 09/02/24 09/13/24 Rx pantoprazole 40 mg tablet,delayed 40 mg PO BID #60 tabs 09/02/24 09/13/24 Rx release (Protonix) sucralfate 1 gram tablet 1 g PO ACHS PRN Abdominal Pain 30 09/02/24 09/13/24 Rx days #30 tabs insulin glargine 100 unit/mL (3 20 unit SQ HS 09/13/24 09/13/24 History mL) subcutaneous pen (Lantus Solostar U-100 Insulin) insulin lispro 100 unit/mL See Protocol SQ ACHS 09/13/24 09/13/24 History subcutaneous cartridge (Humalog U-100 Insulin) New Prescriptions to Start Prescriptions: Allergies Allergy/AdvReac Type Severity Reaction Status Date / Time NSAIDS (Non-Steroidal Allergy itch Verified 09/12/24 09:36 Anti-Inflamma gabapentin AdvReac Severe Verified 09/12/24 09:36 Exam (Inpt) Vital signs and Labs for Last 24 Hours: Temp Pulse Resp BP Pulse Ox O2 Del Method 97.9 F 60 18 150/75 H 98 Room Air 09/14/24 04:00 09/14/24 04:00 09/14/24 04:00 09/14/24 04:00 09/14/24 04:00 09/14/24 06:09 Laboratory Results - last 24 hr 09/13/24 16:08: WBC 7.2, RBC 2.42 L, Hgb 7.1 L, Hct 21.5 L, MCV 88.8, MCH 29.3, MCHC 33.0, RDW 14.0, Plt Count 416, MPV 9.9, Neut % (Auto) 59.5, Lymph % (Auto) 25.4, [place] % (Auto) 10.8 H, Eos % (Auto) 3.1, Baso % (Auto) 0.8, Neut # (Auto) 4.3, Lymph # (Auto) 1.8, [place] # (Auto) 0.8, Eos # (Auto) 0.2, Baso # (Auto) 0.1, Sodium 126 L, Potassium 3.4 L, Chloride 96 L, Carbon Dioxide 28, Anion Gap 5.4, BUN 42 H, Creatinine 2.30 H, Estimated Creat Clear 49, Estimated GFR 29 L, Est GFR ( Amer) 36 L, Glucose 603 H*, Calcium 7.7 L, Magnesium 1.4 L, Total Bilirubin < 0.1 L, AST 16 L, ALT 12, Alkaline Phosphatase 84, NT-Pro-B Natriuret Pep 3930 H, Total Protein 5.0 L, Albumin 2.3 L, Globulin 2.7, Albumin/Globulin Ratio 0.9 L, Blood Type A Positive, Antibody Screen Negative, Crossmatch (AHG) See Detail 09/13/24 18:17: Urine Color Yellow, Urine Appearance Clear, Urine pH 6.0, Ur Specific [place] 1.015, Urine Protein 2+ A, Urine Glucose (UA) 3+, Urine Ketones Negative, Urine Blood Trace-i, Urine Nitrate Negative, Urine Bilirubin Negative, Urine Urobilinogen 0.2, Ur Leukocyte Esterase Negative, Urine RBC 10-20, Urine WBC Occasional, Ur Squamous Epith Cells Occasional, Urine Bacteria 1+ 09/13/24 19:15: Chlamy pneumoniae PCR Not detected, Adenovirus (PCR) Not detected, B. pertussis DNA (PCR) Not detected, Coronavirus OC43 (PCR) Not detected, Coronavirus HKU1 (PCR) Not detected, Coronavirus 229E (PCR) Not detected, SARS-CoV-2 (PCR) Not detected, Coronavirus NL63 (PCR) Not detected, Human Metapneumovir PCR Not detected, Influenza A (H1) PCR Not detected, Influ A (H1N1/09) PCR Not detected, Influenza A (H3) PCR Not detected, Influenza Type A (PCR) Not detected, Influenza Type B (PCR) Not detected, M. pneumoniae (PCR) Not detected, Parainfluenza 1 (PCR) Not detected, Parainfluenza 2 (PCR) Not detected, Parainfluenza 3 (PCR) Not detected, Parainfluenza 4 (PCR) Not detected, RSV (PCR) Not detected, Entero/Rhino (PCR) Not detected 09/13/24 20:18: POC Glucose 522 H* 09/13/24 20:48: Sodium 130 L, Potassium 3.2 L, Chloride 99, Carbon Dioxide 31 H, Anion Gap 3.2 L, BUN 43 H, Creatinine 2.40 H, Estimated Creat Clear 47, Estimated GFR 28 L, Est GFR ( Amer) 34 L, Glucose 271 H D, Random Glucose 273 H, Calcium 8.0 L 09/13/24 23:38: Sodium 129 L, Potassium 3.1 L, Chloride 99, Carbon Dioxide 30, Anion Gap 3.1 L, BUN 42 H, Creatinine 2.40 H, Estimated Creat Clear 47, Estimated GFR 28 L, Est GFR ( Amer) 34 L, Glucose 146 H D, Calcium 7.9 L 09/13/24 23:43: POC Glucose 172 H 09/14/24 01:53: Hgb 7.0 L, Hct 20.5 L* 09/14/24 05:28: WBC 8.2, RBC 2.58 L, Hgb 7.9 L D, Hct 22.7 L, MCV 88.0, MCH 30.6, MCHC 34.8, RDW 14.1, Plt Count 410, MPV 9.8, Neut % (Auto) 60.5, Lymph % (Auto) 25.2, [place] % (Auto) 10.9 H, Eos % (Auto) 2.6, Baso % (Auto) 0.6, Neut # (Auto) 4.9, Lymph # (Auto) 2.1, [place] # (Auto) 0.9, Eos # (Auto) 0.2, Baso # (Auto) 0.1, Sodium 131 L, Potassium 3.7, Chloride 102, Carbon Dioxide 30, Anion Gap 2.7 L, BUN 40 H, Creatinine 2.10 H, Estimated Creat Clear 55, Estimated GFR 33 L, Est GFR ( Amer) 39 L, Glucose 138 H, Calcium 7.9 L, Magnesium 2.6 H D, Total Bilirubin 0.1 L, AST 15 L, ALT 10 L, Alkaline Phosphatase 74, Total Protein 5.0 L, Albumin 2.2 L, Globulin 2.8, Albumin/Globulin Ratio 0.8 L I & O for Labs for Last 24 Hours: Intake & Output 09/11/24 09/12/24 09/13/24 09/14/24 11:59 11:59 11:59 11:59 Intake Total 390 / 390 Output Total 1400 / 1400 Balance -1010 / -1010 Weight 223 lb 9.6 oz Constitutional: no acute distress Respiratory: Absent respiratory distress Cardiac: Absent Tachycardia GI: Present soft Results Labs 09/14/24 05:28 09/14/24 05:28 Labs: Laboratory Results - last 24 hr 09/13/24 16:08: WBC 7.2, RBC 2.42 L, Hgb 7.1 L, Hct 21.5 L, MCV 88.8, MCH 29.3, MCHC 33.0, RDW 14.0, Plt Count 416, MPV 9.9, Neut % (Auto) 59.5, Lymph % (Auto) 25.4, [place] % (Auto) 10.8 H, Eos % (Auto) 3.1, Baso % (Auto) 0.8, Neut # (Auto) 4.3, Lymph # (Auto) 1.8, [place] # (Auto) 0.8, Eos # (Auto) 0.2, Baso # (Auto) 0.1, Sodium 126 L, Potassium 3.4 L, Chloride 96 L, Carbon Dioxide 28, Anion Gap 5.4, BUN 42 H, Creatinine 2.30 H, Estimated Creat Clear 49, Estimated GFR 29 L, Est GFR ( Amer) 36 L, Glucose 603 H*, Calcium 7.7 L, Magnesium 1.4 L, Total Bilirubin < 0.1 L, AST 16 L, ALT 12, Alkaline Phosphatase 84, NT-Pro-B Natriuret Pep 3930 H, Total Protein 5.0 L, Albumin 2.3 L, Globulin 2.7, Albumin/Globulin Ratio 0.9 L, Blood Type A Positive, Antibody Screen Negative, Crossmatch (AHG) See Detail 09/13/24 18:17: Urine Color Yellow, Urine Appearance Clear, Urine pH 6.0, Ur Specific [place] 1.015, Urine Protein 2+ A, Urine Glucose (UA) 3+, Urine Ketones Negative, Urine Blood Trace-i, Urine Nitrate Negative, Urine Bilirubin Negative, Urine Urobilinogen 0.2, Ur Leukocyte Esterase Negative, Urine RBC 10-20, Urine WBC Occasional, Ur Squamous Epith Cells Occasional, Urine Bacteria 1+ 09/13/24 19:15: Chlamy pneumoniae PCR Not detected, Adenovirus (PCR) Not detected, B. pertussis DNA (PCR) Not detected, Coronavirus OC43 (PCR) Not detected, Coronavirus HKU1 (PCR) Not detected, Coronavirus 229E (PCR) Not detected, SARS-CoV-2 (PCR) Not detected, Coronavirus NL63 (PCR) Not detected, Human Metapneumovir PCR Not detected, Influenza A (H1) PCR Not detected, Influ A (H1N1/09) PCR Not detected, Influenza A (H3) PCR Not detected, Influenza Type A (PCR) Not detected, Influenza Type B (PCR) Not detected, M. pneumoniae (PCR) Not detected, Parainfluenza 1 (PCR) Not detected, Parainfluenza 2 (PCR) Not detected, Parainfluenza 3 (PCR) Not detected, Parainfluenza 4 (PCR) Not detected, RSV (PCR) Not detected, Entero/Rhino (PCR) Not detected 09/13/24 20:18: POC Glucose 522 H* 09/13/24 20:48: Sodium 130 L, Potassium 3.2 L, Chloride 99, Carbon Dioxide 31 H, Anion Gap 3.2 L, BUN 43 H, Creatinine 2.40 H, Estimated Creat Clear 47, Estimated GFR 28 L, Est GFR ( Amer) 34 L, Glucose 271 H D, Random Glucose 273 H, Calcium 8.0 L 09/13/24 23:38: Sodium 129 L, Potassium 3.1 L, Chloride 99, Carbon Dioxide 30, Anion Gap 3.1 L, BUN 42 H, Creatinine 2.40 H, Estimated Creat Clear 47, Estimated GFR 28 L, Est GFR ( Amer) 34 L, Glucose 146 H D, Calcium 7.9 L 09/13/24 23:43: POC Glucose 172 H 09/14/24 01:53: Hgb 7.0 L, Hct 20.5 L* 09/14/24 05:28: WBC 8.2, RBC 2.58 L, Hgb 7.9 L D, Hct 22.7 L, MCV 88.0, MCH 30.6, MCHC 34.8, RDW 14.1, Plt Count 410, MPV 9.8, Neut % (Auto) 60.5, Lymph % (Auto) 25.2, [place] % (Auto) 10.9 H, Eos % (Auto) 2.6, Baso % (Auto) 0.6, Neut # (Auto) 4.9, Lymph # (Auto) 2.1, [place] # (Auto) 0.9, Eos # (Auto) 0.2, Baso # (Auto) 0.1, Sodium 131 L, Potassium 3.7, Chloride 102, Carbon Dioxide 30, Anion Gap 2.7 L, BUN 40 H, Creatinine 2.10 H, Estimated Creat Clear 55, Estimated GFR 33 L, Est GFR ( Amer) 39 L, Glucose 138 H, Calcium 7.9 L, Magnesium 2.6 H D, Total Bilirubin 0.1 L, AST 15 L, ALT 10 L, Alkaline Phosphatase 74, Total Protein 5.0 L, Albumin 2.2 L, Globulin 2.8, Albumin/Globulin Ratio 0.8 L Assessment and Plan *Assessment and plan (1) Duodenal ulcer with hemorrhage: Status: Acute Category: Medical Code(s): K26.4 - Chronic or unspecified duodenal ulcer with hemorrhage Plan: Continue medical treatment. Repeat esophagogastroduodenoscopy this a.m. I have discussed the risks and benefits including, but not limited to: Bleeding Infection Damage to surrounding tissue Inherent risks of sedation The patient agrees to proceed.
--- NOTE | 2024-09-14 06:52 | PC.NURSE ---
Pt off floor with surgery @ [id number].
--- NOTE | 2024-09-14 07:01 | EXP.ANES.CKL ---
[facility] Disclaimer: The information contained in this section may have been updated after the patient was seen, as this information can be updated by other users. Medical History Dietary counseling Exercise counseling Screening for depression Screening for endocrine disorder JENNIFER (acute kidney injury) Hospital discharge follow-up Heart failure Screening for colon cancer Encounter for vitamin deficiency screening Vitamin deficiency Acute medical illness Establishing care with new doctor, encounter for Vaccine counseling Type 2 diabetes mellitus with stage 2 chronic kidney disease Atypical angina Abnormal result of cardiovascular function study (HFpEF) heart failure with preserved ejection fraction Type 2 diabetes mellitus Hyperlipidemia Hypertension CONNIE (obstructive sleep apnea) CAD (coronary artery disease) Lower extremity edema Surgical History History of esophagogastroduodenoscopy (EGD) H/O heart artery stent History of cardiac catheterization Family History Father Cancer Mother Stroke Social History (Updated 09/13/24 @ 17:35 by Savannah Herrmann RN) Smoking Status: Current some day smoker alcohol intake: never substance use type: denies use current occupational status: employed Travel in the last 8 weeks?: None Have you lived/traveled outside US in past 30 days?: No Contact w/someone who lives/traveled outside US past 30 days?: No Exposure to someone with infectious disease in past 14 days?: No Do you have a fever (greater than 100.4 F or 38 C)?: No Have you tested positive for COVID-19?: No Exposed to someone with COVID-19 in past 14 days?: No Do you have a sore throat?: No Do you have a cough?: No Do you have any weakness?: No Do you have any diarrhea?: No Are you experiencing any unusual bleeding?: No Do you have any muscle aches/pain?: No Do you have any abdominal pain?: No Are you experiencing loss of taste or smell?: No [facility] Anesthesia Checklist Patient Identification Patient Identification: Arm Band and Verbal (Name & ) Structural Data Admitted From: Home Planned Operative Procedure/s: EGD Consent for Planned Operative Procedure(s) Verified: Yes Verified Documents: Surgical Consent NPO Status Verified Time NPO: 00:00 Chart Verification Results Verified: CBC and BMP Additional verifications Anesthesia Reactions: No Airway Assessment Mallampati Score:: Class II C-Spine Mobility Assessed: Yes TMJ Mobility Assessed: Yes Dentition: Good Dentition Neurological Assessment Level of Consciousness: Awake, Alert and Appropriate Hx Seizures: No Numbness or tingling in extremities: No Anesthesia Plan Anesthesia Risk discussed: Yes Anesthesia Plan: Verified ASA Class: III Anesthesia Type: MAC
--- NOTE | 2024-09-14 07:17 | HMH.SCOPE ---
Procedure: Date: 09/14/24 Patient Date of :: 1965 Procedure Performed:: Esophagogastroduodenoscopy Indications:: Duodenal ulcer Gastrointestinal hemorrhage Performing Provider:: Armen Hines MD Referring Provider:: . Sedation:: Monitored anesthesia care Procedure:: After informed consent was obtained the patient was taken to the endoscopy suite. Sedation ensued after the patient was transferred to the left lateral decubitus position. Pulse, blood pressure, and oxygen saturation were monitored throughout the procedure. The endoscope was advanced beyond the duodenal bulb. Retroflexion within the gastric lumen was accomplished. The gastroscope was carefully removed and the patient was transferred to recovery in stable condition. Please see findings and specimens below for detail. Findings:: No evidence of active hemorrhage Duodenal bulb/sweep margin crater ulcer with evidence of significant healing (no visible vessel and no clot at base) Specimens:: none Recommendations:: Continue current medical management Evaluation with regard to anemia/blood loss from potential additional source will be ongoing Complications:: No immediate Estimated blood obtained (mL): 0 Colonoscopy Component Colonoscopy Component Was a colonoscopy performed during today's procedure?: No
--- NOTE | 2024-09-14 07:48 | NM_ITS ---
FINAL REPORT CLINICAL HISTORY: post scope G I BLEED 12:40 ultra tag 1:00pm 25.9mci Sodium Pertechnetate inj into lt ant FINDINGS: GI BLEEDING SCAN NM 25.9 mCi of Tc 99m labeled RBC was administered. Immediate dynamic flow images were obtained which demonstrates normal activity in the heart, spleen, aorta and bilateral iliac arteries. Dynamic images were obtained 2 hours post injection of radiotracer. No suspicious focus of radiotracer accumulation in the abdomen to suggest active GI bleed. IMPRESSION: No evidence of active GI bleed. Authenticated and ERN
[2024-09-14 08:04] LABS: Iron 38 ug/dL (49-181)
[2024-09-14 08:05] LABS: Phosphorous 4.1 mg/dl (2.5-4.5)
[2024-09-14 08:13] LABS: Total Iron Binding Capacity 250 ug/dL (261-462)
--- NOTE | 2024-09-14 08:25 | CA_ITS ---
APPROVED REPORT EXAM: Comprehensive 2D, Doppler, and color-flow Echocardiogram [employer] Finishing Supervisor: Yasmin Sandoval RVT Ht: 6 ft 3 in Wt: 223lbs BSA: 2.30 BP: 113/83 mmHg Indications: ELEVATED BNP,CORNARY ARTERY DISEASE,ANEMIA 2D Dimensions IVSd 0.96 cm M: 0.6-1.2 LVEF (Visual) 52.80 % PWd 1.00 cm M: 0.6 - 1.2 LA Volume 48.90 mL LVDd 5.74 cm M: 4.2 - 5.9 LA Volume Index 21.26 mL/m2 (M/F) 16-34 LVDs 4.16 cm M: 2.5 - 4.0 M-Mode Dimensions LA Diam 4.35 cm (1.9-4.0) TAPSE 2.90 (<1.7) LV Diastology E Decel Time 220 (160-240 msec) E/A Ratio 2.0 Aortic Valve LIA Index 1.21 cm2/m2 AoV Peak [place]. 138.0 (50-130 cm/s) AO Peak GR. 7.60 mmHg AO Mean GR. 4.40 (<5 mmHg) AO VTI 35.7 (18-25 cm) LIA (VTI) 2.84 (2.5-4.5 cm2) Mitral Valve MV E Max [place]. 92.0 (40-130 cm/s) MV A Velocity 47.0 (40-130 cm/s) E/A Ratio 1.97 MV PHT 64.0 ms Pulmonary Valve PV Peak Velocity 89.0 (50-150 cm/s) Left Ventricle The left ventricle is normal size. The left ventricular systolic function is normal. The left ventricular ejection fraction is within the normal range. There is increased LV wall thickness. There is normal LV segmental wall motion. The left ventricular diastolic function is normal. LVEF is 60%. Right Ventricle The right ventricle is normal size. The right ventricular systolic function is normal. Atria Left atrium is mildly dilated. Right atrium is mildly dilated. There is no Doppler evidence of interatrial shunt. Aortic Valve The aortic valve is mildly thickened. There is no aortic valvular stenosis. Trace aortic regurgitation. Mitral Valve The mitral valve is normal in structure. No evidence of mitral valve stenosis. Mild mitral regurgitation. Tricuspid Valve Tricuspid valve is grossly normal in structure and function. Trace tricuspid regurgitation. There is insufficient TR jet to estimate RVSP. Pulmonic Valve The pulmonary valve is normal in structure. Trace pulmonic regurgitation. Great Vessels The aortic root is normal in size. IVC is normal in size and collapses >50% with inspiration. Pericardium There is no pericardial effusion. Other Information Study Quality: Fair Conclusion Normal biventricular systolic function. Mild biatrial dilation. Mild MR. Electronically signed by : Emeli Paniagua MD 09/14/2024 11:20:43
[2024-09-14 08:41] LABS: Ferritin 91.5 ng/ml (17.9-464)
[2024-09-14 09:07] LABS: Lactate Dehydrogenase 162 U/L (313-618)
--- NOTE | 2024-09-14 09:40 | HMH.PHAINT1 ---
Pharmacy Intervention Comments: HOME MEDICATION LIST VERIFIED USING LIST FROM OUTPATIENT PHARMACY
[2024-09-14] MEDS: IRBESARTAN 150MG TAB 150 MG PO (09:57)
[2024-09-14] MEDS: hydroCHLOROthiazide 12.5MG CAPSULE 12.5 MG PO (09:57)
[2024-09-14] MEDS: PANTOPRAZOLE 40MG VIAL 40 MG IV ×2 (09:58→21:05)
[2024-09-14 10:37] LABS: POC Glucose,Bedside > 600 (70-110)
[2024-09-14 10:37] LABS: POC Glucose,Bedside 150 (70-110)
[2024-09-14] MEDS: SUCRALFATE 1GM TABLET 1 GM PO ×3 (12:18→21:05)
[2024-09-14] MEDS: [UNRECOGNIZED DRUG - OTHER] IV (14:07)
[2024-09-14] MEDS: ISOTOPE TE 99 SODIUM PERTECH (PER MCI) 1 MCI IV (14:07)
[2024-09-14 15:40] LABS: Hematocrit 24.7 % (42.0-52.0); Hemoglobin 8.2 g/dL (14.1-18.0)
[2024-09-14] MEDS: humaLOG 100 UNITS/ML 10ML VIAL (SSI) SUBCUT ×2 (16:42→21:05)
[2024-09-14 17:53] LABS: POC Glucose,Bedside 212 (70-110)
[2024-09-14] MEDS: FUROSEMIDE 40MG/4ML VIAL 40 MG IV (18:58)
--- NOTE | 2024-09-14 19:28 | PC.NURSE ---
alert and oriented x4. Patient went for nuclear study earlier during the shift, advanced to diabetic diet upon stabilization of hemoglobin, tolerating without issues. No complaints of pain, trace edema in BLE, IV lasix administered per MD order. VSS.
[2024-09-14] MEDS: INSULIN GLARGINE 100 UNITS/ML 3ML FLEXPEN 20 UNIT SUBCUT (21:05)
[2024-09-14] MEDS: SODIUM CHLORIDE 0.9% 10ML VIAL 10 ML IV (21:05)
--- NOTE | 2024-09-14 21:59 | EXP.EVENT.NO ---
bcx positive gram + cocci clusters. vanc started
--- NOTE | 2024-09-14 22:07 | EXP.PN ---
Subjective *Date: 09/14/24 *Time: 22:07 Interval history: Patient doing well today, no signs of bleeding. Was frustrated with being n.p.o. most of the day, but improved after receiving food. Hemoglobin improving, continue diuresis. Exam Data for Last 24 hours Vital signs and Labs for Last 24 Hours: Temp Pulse Resp BP Pulse Ox O2 Del Method O2 Flow Rate 97.8 F 63 14 151/65 H 98 Room Air 3 09/14/24 20:00 09/14/24 20:00 09/14/24 20:00 09/14/24 20:00 09/14/24 20:00 09/14/24 20:00 09/14/24 07:21 Laboratory Results - last 24 hr 09/13/24 16:08: Blood Type A Positive, Antibody Screen Negative, Crossmatch (AHG) See Detail 09/13/24 19:02: POC Glucose > 600 H* 09/13/24 23:38: Sodium 129 L, Potassium 3.1 L, Chloride 99, Carbon Dioxide 30, Anion Gap 3.1 L, BUN 42 H, Creatinine 2.40 H, Estimated Creat Clear 47, Estimated GFR 28 L, Est GFR ( Amer) 34 L, Glucose 146 H D, Calcium 7.9 L 09/13/24 23:43: POC Glucose 172 H 09/14/24 01:53: Hgb 7.0 L, Hct 20.5 L* 09/14/24 05:28: WBC 8.2, RBC 2.58 L, Hgb 7.9 L D, Hct 22.7 L, MCV 88.0, MCH 30.6, MCHC 34.8, RDW 14.1, Plt Count 410, MPV 9.8, Neut % (Auto) 60.5, Lymph % (Auto) 25.2, [place] % (Auto) 10.9 H, Eos % (Auto) 2.6, Baso % (Auto) 0.6, Neut # (Auto) 4.9, Lymph # (Auto) 2.1, [place] # (Auto) 0.9, Eos # (Auto) 0.2, Baso # (Auto) 0.1, Sodium 131 L, Potassium 3.7, Chloride 102, Carbon Dioxide 30, Anion Gap 2.7 L, BUN 40 H, Creatinine 2.10 H, Estimated Creat Clear 55, Estimated GFR 33 L, Est GFR ( Amer) 39 L, Glucose 138 H, Uric Acid TNP, Calcium 7.9 L, Phosphorus 4.1, Magnesium 2.6 H D, Iron 38 L, TIBC 250 L, Iron Saturation 15.56511, Ferritin 91.5 D, Total Bilirubin 0.1 L, AST 15 L, ALT 10 L, Alkaline Phosphatase 74, Lactate Dehydrogenase 162 L, Total Protein 5.0 L, Albumin 2.2 L, Globulin 2.8, Albumin/Globulin Ratio 0.8 L, Vitamin B12 TNP 09/14/24 07:05: POC Glucose 150 H 09/14/24 15:20: Hgb 8.2 L, Hct 24.7 L 09/14/24 16:40: POC Glucose 212 H I & O for Last 24 hours: Intake & Output 09/11/24 09/12/24 09/13/24 09/14/24 23:59 23:59 23:59 23:59 Intake Total 0 / 390 860 / 860 Output Total 800 / 800 600 / 600 Balance -800 / -410 260 / 260 Weight 98.571 kg 101 kg Microbiology Reports for the Last 24 Hours: Microbiology 09/13/24 16:08 Blood Blood Culture - Preliminary 09/13/24 16:08 Blood Blood Culture - Preliminary NO GROWTH AFTER 24 HOURS Constitutional Constitutional: no acute distress *Routine HEENT Exam Head: Present normocephalic Eye: Present EOMI and PERRL ENT: Present mucous membranes moist *Routine Neck Exam Neck: Present supple; Absent lymphadenopathy *Routine Respiratory Exam Respiratory: Present CTA bilaterally *Routine Cardiovascular Exam Cardiovascular: Present RRR *Routine Abdominal Exam Abdominal: Present soft and normoactive bowel sounds; Absent tenderness *Routine Extremities Exam Extremities: Absent cyanosis, clubbing or edema *Routine Skin Exam Skin: Present warm; Absent rash *Routine Neurological Exam Neurological: Present alert and oriented X3 Assessment and Plan *Assessment and plan (1) Duodenal ulcer with hemorrhage: Status: Acute Category: Medical Code(s): K26.4 - Chronic or unspecified duodenal ulcer with hemorrhage Plan Ciaran Lopez is a 58-year-old male with a medical history significant for CAD with stents, hypertension, type 2 diabetes who who unfortunately returns due to acute on chronic anemia, weakness, hazy vision. Patient was discharged in stable condition on 09/02/2024 after duodenal ulcer bleed which was treated with localized epinephrine. He followed up with general surgery yesterday who obtained repeat CBC which showed a drop of hemoglobin from 9.4 since admission to 7.8 yesterday. I repeat H&H was obtained today which showed a further drop in hemoglobin to 7.3. Patient endorses weakness, chills, hazy vision. Denies abdominal pain, dark/bloody stools, nausea/vomiting. I spoke to Dr. Hines who recommended direct admission, blood transfusion, and EGD in the morning. #Acute on chronic anemia #Duodenal ulcer ? Followed up with general surgery yesterday, repeat H&H showed drop in hemoglobin from 9.4-7.8 yesterday. And to 7.3 today. ? IV Protonix 40 mg twice daily, Carafate with meals, misoprostol 200 mcg every 6 hours. ? General Surgery consulted, s/p EGD without bleeding duodenal ulcer. Recommended tagged RBC nuclear study. Pending report at this time. ? Hemoglobin improved to 8.2 after 1 unit transfusion, though seems to be improving even after transfusion. #HFpEF exacerbation - Presented with volume overload, BNP 3930. Concern of volume overload and has caused artificially low hemoglobin. ? ECHO shows normal biventricular systolic function, but increased LV wall thickness. ? Continue Lasix 40 mg daily. #Type 2 diabetes ? Hemoglobin A1c 9.1%. ? ACHS glucose checks, LDSSI. #CAD with stents #PAD with stent ? Continue Plavix 75 mg, statin. Full code DVT prophylaxis: Hold AC due to GI bleed.
[2024-09-14] MEDS: VANCOMYCIN CONSULT REQUEST 1 EACH NOTAPPLIC (22:22)
[2024-09-14] MEDS: VANCOMYCIN HCL 2,000 MG in 0.9 % SODIUM CHLORIDE 250 ML 125 MG IV (23:30)
[2024-09-15] VITALS (7 sets, daily range): BP systolic 142–160; BP diastolic 72–79; PULSE 53–67; RESP 14–16; TEMP 36.4–36.8; O2SAT 98–99; BMI 27.3
--- NOTE | 2024-09-15 04:53 | PC.NURSE ---
Addendum entered by Doris Chiang RN 09/15/24 06:05: FSBS 122 at this time Original Note: patient alert and oriented X4, FSBS at beginning of shift 360 insulin given per jun, FSBS this am 69 orange juice and peanut butter crackers given, lab reported positive blood cultures, OCCUPATIONAL HEALTH TECHNICIAN notified and vancomycin ordered and administered. no complaints of pain this shift, call button in reach
[2024-09-15] MEDS: miSOPROStoL 200 MCG TABLET PO ×3 (05:52→18:56)
[2024-09-15] MEDS: SUCRALFATE 1GM TABLET 1 GM PO ×4 (05:52→20:26)
[2024-09-15 07:36] LABS: Basophils % 0.5 % (0.1-2.0); Eosinophils # 0.3 Kmm3 (0.0-0.4); Eosinophils % 3.5 % (0.1-12.0); Hematocrit 21.8 % (42.0-52.0); Hemoglobin 7.4 g/dL (14.1-18.0); Immature Granulocytes # 0.01 10^3uL; Immature Granulocytes % 0.1 %; Lymphocytes # 2.1 K/mm3 (0.7-4.5); Lymphocytes % 28.4 % (10-50); Mean Corpuscular HGB Conc 33.9 g/dL (31.8-35.4); Mean Corpuscular Hemoglobin 29.6 pg (27.0-31.2); Mean Corpuscular Volume 87.2 fl (80-94); Mean Platelet Volume 9.6 fl (7.4-10.4); Monocytes # 0.9 K/mm3 (0.1-1.0); Monocytes % 12.3 % (1.7-9.3); Neutrophils # 4.2 K/mm3 (1.8-7.8); Neutrophils % 55.2 % (37.0-80.0); Nucleated Red Blood Cells # 0 10^3/uL; Nucleated Red Blood Cells % 0 %; Platelet Count 425 K/mm3 (142-424); Red Cell Distribution Width 14.3 % (11.5-17.5); Red Cell Distribution Width-SD 45.3 fL; White Blood Count 7.5 K/mm3 (4.8-10.8)
[2024-09-15 07:39] LABS: Albumin Level 2.2 g/dl (3.5-5.0); Sodium 132 mmol/L (136-145)
[2024-09-15 07:41] LABS: Blood Urea Nitrogen 33 mg/dl (9-20); Creatinine Clearance Estimated 61 mL/min (50-200); Estimated Glomerular Filt Rate 37 ml/min (>60); GFR (African American) 44 ML/MIN (>60)
[2024-09-15 07:42] LABS: Alanine Aminotransferase 11 U/L (12-78); Albumin/Globulin Ratio 0.8 (1.1-1.8); Alkaline Phosphatase 76 U/L (38-126); Aspartate Amino Transferase 20 U/L (17-59); Calcium 7.8 mg/dl (8.4-10.2); Globulin 2.7 g/dL (1.3-3.2); Glucose 110 mg/dl (74-100); Magnesium 2.1 mg/dl (1.6-2.3); Total Protein,Serum 4.9 g/dl (6.3-8.2)
[2024-09-15 08:07] LABS: Bilirubin,Total < 0.1 mg/dl (0.2-1.3)
[2024-09-15 08:40] LABS: Anion Gap 3.7 mEq/L (5-15); Chloride 103 mmol/L (98-107); Potassium 3.7 mmoL/L (3.5-5.1)
[2024-09-15 08:51] LABS: Carbon Dioxide 29 mmol/L (22.0-30.0)
--- NOTE | 2024-09-15 08:59 | EXP.PHA.CONS ---
Pharmacy Consult Date: 09/15/24 Time: 08:59 Referring provider: GIGI HOPE Reason for Consult:: VANCOMYCIN DOSING CONSULT Allergies Allergy/AdvReac Type Severity Reaction Status Date / Time NSAIDS (Non-Steroidal Allergy itch Verified 09/12/24 09:36 Anti-Inflamma gabapentin AdvReac Severe Verified 09/12/24 09:36 Home Medications ?Medication ?Instructions ?Recorded ?Confirmed ?Type carvedilol 25 mg tablet (Coreg) 25 mg PO BID #60 tabs 12/08/23 09/13/24 Rx clopidogrel 75 mg tablet (Plavix) 75 mg PO DAILY #90 tabs 04/05/24 09/13/24 Rx amlodipine 5 mg tablet (Norvasc) 5 mg PO DAILY #30 tabs 06/29/24 09/13/24 Rx losartan 100 1 tab PO DAILY 08/27/24 09/13/24 History mg-hydrochlorothiazide 12.5 mg tablet misoprostol 200 mcg tablet 200 mcg PO TID 30 days #90 tabs 09/02/24 09/13/24 Rx pantoprazole 40 mg tablet,delayed 40 mg PO BID #60 tabs 09/02/24 09/13/24 Rx release (Protonix) sucralfate 1 gram tablet 1 g PO ACHS PRN Abdominal Pain 30 09/02/24 09/13/24 Rx days #30 tabs insulin glargine 100 unit/mL (3 20 unit SQ HS 09/13/24 09/13/24 History mL) subcutaneous pen (Lantus Solostar U-100 Insulin) insulin lispro 100 unit/mL See Protocol SQ ACHS 09/13/24 09/13/24 History subcutaneous cartridge (Humalog U-100 Insulin) New Prescriptions to Start Prescriptions: Height: 1.93 m Weight: 102.058 kg Laboratory Results:: Laboratory Results - last 24 hr 09/13/24 19:02: POC Glucose > 600 H* 09/14/24 05:28: Lactate Dehydrogenase 162 L 09/14/24 07:05: POC Glucose 150 H 09/14/24 15:20: Hgb 8.2 L, Hct 24.7 L 09/14/24 16:40: POC Glucose 212 H 09/15/24 06:48: WBC 7.5, RBC 2.50 L, Hgb 7.4 L, Hct 21.8 L, MCV 87.2, MCH 29.6, MCHC 33.9, RDW 14.3, Plt Count 425 H, MPV 9.6, Neut % (Auto) 55.2, Lymph % (Auto) 28.4, [place] % (Auto) 12.3 H, Eos % (Auto) 3.5, Baso % (Auto) 0.5, Neut # (Auto) 4.2, Lymph # (Auto) 2.1, [place] # (Auto) 0.9, Eos # (Auto) 0.3, Baso # (Auto) 0.0, Sodium 132 L, Potassium 3.7, Chloride 103, Carbon Dioxide 29, Anion Gap 3.7 L, BUN 33 H, Creatinine 1.90 H, Estimated Creat Clear 61, Estimated GFR 37 L, Est GFR ( Amer) 44 L, Glucose 110 H, Calcium 7.8 L, Magnesium 2.1 D, Total Bilirubin < 0.1 L, AST 20 D, ALT 11 L, Alkaline Phosphatase 76, Total Protein 4.9 L, Albumin 2.2 L, Globulin 2.7, Albumin/Globulin Ratio 0.8 L Medical History: Medical History (Updated 09/12/24 @ 09:44 by Armen Hines MD) Dietary counseling Exercise counseling Screening for depression Screening for endocrine disorder JENNIFER (acute kidney injury) Hospital discharge follow-up Heart failure Screening for colon cancer Encounter for vitamin deficiency screening Vitamin deficiency Acute medical illness Establishing care with new doctor, encounter for Vaccine counseling Type 2 diabetes mellitus with stage 2 chronic kidney disease Atypical angina Abnormal result of cardiovascular function study (HFpEF) heart failure with preserved ejection fraction Type 2 diabetes mellitus Hyperlipidemia Hypertension CONNIE (obstructive sleep apnea) CAD (coronary artery disease) Lower extremity edema Assessment and Plan Assessment and plan all Dx Assessment and Plan for all problems:: Pharmacokinetic dosing service Objective: Age: 58 yo Serum creatinine: 1.9 mg/dL Height: 76.0 Inches Weight (kg): 102.058 Diagnosis: POSITIVE BLOOD CXS Assessment: IBW (kg): 86.80 Dosing wt(kg): 102.058 Estimated Creatinine clearance (ml/min): 52.0 CRCL method: Cockcroft and Gault using ibw(default). Drug selected: Vancomycin Loading dose (mg): 2000 MG Vd (liters): 71.4 (factor used: 0.7 L/kg) [place] (hr-1): 0.048 Half life (hrs): 14.44 CLvanco=?? 3.427 L/hr Recommended dose: 1750 mg Interval: 24 hrs Infusion time (hrs): 2.0 Predicted peak (mcg/mL): 34.2 Predicted trough (mcg/mL): 11.90 Total body weight is being used for vancomycin dosing. Recommendations: Give Vancomycin 1750 mg q 24 hrs with an expected Cpeak of 34.2 mcg/ml and an expected Ctrough of 11.90 mcg/ml TO START 09/15/24 AT 21:00, PATIENT RECEIVED ONE TIME LOADING DOSE OF VANCOMYCIN 2000 MG IV ONCE 09/14/24 AT 23:30. AUC 0-24 /RAMONA Data: RAMONA 0.5 mcg/mL:?? AUC/RAMONA:? 1021.3 RAMONA 1.0 mcg/mL:?? AUC/RAMONA:? 510.7 --------- RAMONA 1.5 mcg/mL:?? AUC/RAMONA:? 340.4 RAMONA 2.0 mcg/mL:?? AUC/RAMONA:? 255.3 Thank you for the consult
[2024-09-15 09:13] LABS: Haptoglobin 451 mg/dL (29-370)
--- NOTE | 2024-09-15 09:47 | P.PN_ITS ---
Subjective Patient reports: no new complaints Narrative: The patient reports no recurrence of melena. No bright red blood per rectum. Exam Data for Last 24 hours Vital signs and Labs for Last 24 Hours: Temp Pulse Resp BP Pulse Ox O2 Del Method O2 Flow Rate 98.3 F 65 16 142/74 H 98 Room Air 3 09/15/24 09:11 09/15/24 09:11 09/15/24 09:11 09/15/24 09:11 09/15/24 09:11 09/15/24 09:11 09/14/24 07:21 Laboratory Results - last 24 hr 09/13/24 19:02: POC Glucose > 600 H* 09/14/24 05:28: Haptoglobin 451 H 09/14/24 07:05: POC Glucose 150 H 09/14/24 15:20: Hgb 8.2 L, Hct 24.7 L 09/14/24 16:40: POC Glucose 212 H 09/15/24 06:48: WBC 7.5, RBC 2.50 L, Hgb 7.4 L, Hct 21.8 L, MCV 87.2, MCH 29.6, MCHC 33.9, RDW 14.3, Plt Count 425 H, MPV 9.6, Neut % (Auto) 55.2, Lymph % (Auto) 28.4, [place] % (Auto) 12.3 H, Eos % (Auto) 3.5, Baso % (Auto) 0.5, Neut # (Auto) 4.2, Lymph # (Auto) 2.1, [place] # (Auto) 0.9, Eos # (Auto) 0.3, Baso # (Auto) 0.0, Sodium 132 L, Potassium 3.7, Chloride 103, Carbon Dioxide 29, Anion Gap 3.7 L, BUN 33 H, Creatinine 1.90 H, Estimated Creat Clear 61, Estimated GFR 37 L, Est GFR ( Amer) 44 L, Glucose 110 H, Calcium 7.8 L, Magnesium 2.1 D, Total Bilirubin < 0.1 L, AST 20 D, ALT 11 L, Alkaline Phosphatase 76, Total Protein 4.9 L, Albumin 2.2 L, Globulin 2.7, Albumin/Globulin Ratio 0.8 L I & O for Last 24 hours: Intake & Output 09/12/24 09/13/24 09/14/24 09/15/24 11:59 11:59 11:59 11:59 Intake Total 390 / 390 1350 / 1350 Output Total 1400 / 1400 0 / 0 Balance -1010 / -1010 1350 / 1350 Weight 223 lb 9.6 oz 225 lb Microbiology Reports for the Last 24 Hours: Microbiology 09/13/24 16:08 Blood Blood Culture - Preliminary Gram Positive Cocci 09/13/24 16:08 Blood Blood Culture - Preliminary NO GROWTH AFTER 24 HOURS Constitutional Constitutional: no acute distress *Routine Respiratory Exam Respiratory: Absent respiratory distress *Routine Cardiovascular Exam Cardiovascular: Absent tachycardia Progress Note: A&P Assessment and plan (1) Duodenal ulcer with hemorrhage: Status: Acute Assessment and plan: Repeat esophagogastroduodenoscopy yesterday reveals ulcer with evidence of significant healing and no evidence of bleeding. (2) Black tarry stools: Status: Resolved Assessment and plan: No melena reported since prior hospitalization (3) Anemia: Status: Acute Assessment and plan: Possibly [id number] condition with recent hemorrhage. No evidence of ongoing bleeding from duodenal ulcer. A possible secondary source such as AVM in the small bowel or colon remains. Assessment and Plan Assessment and Plan for All Diagnoses:: AM hemoglobin 7.4. Hemoglobin readings on this admission have ranged from 7.1- 8.2. At initial appropriate response to a 1 unit transfusion noted. No recurrent melena noted since prior hospitalization. Chronic renal insufficiency noted. Endoscopic findings, laboratory evaluation, vital signs, etc. are somewhat discordant when taken into consideration globally. Repeat hemoglobin/hematocrit at 2 PM Continue current medical management Follow-up results of tagged red blood cell scan Consider colonoscopy either during this hospitalization or in near future (pending results of above) May ultimately benefit from UGI/SBFT followed by capsule endoscopy May ultimately require transfer to a tertiary center for vascular intervention
[2024-09-15] MEDS: IRBESARTAN 150MG TAB 150 MG PO (09:59)
[2024-09-15] MEDS: FUROSEMIDE 40MG/4ML VIAL 40 MG IV (09:59)
[2024-09-15] MEDS: ACETAMINOPHEN 325MG TAB 650 MG PO ×2 (09:59→20:26)
[2024-09-15] MEDS: PANTOPRAZOLE 40MG VIAL 40 MG IV ×2 (09:59→20:27)
[2024-09-15] MEDS: humaLOG 100 UNITS/ML 10ML VIAL (SSI) SUBCUT ×3 (11:34→20:27)
[2024-09-15 11:37] LABS: POC Glucose,Bedside 195 (70-110)
[2024-09-15 14:39] LABS: Hematocrit 23.6 % (42.0-52.0); Hemoglobin 7.7 g/dL (14.1-18.0)
[2024-09-15 17:10] LABS: POC Glucose,Bedside 321 (70-110)
--- NOTE | 2024-09-15 18:40 | P.PN_ITS ---
Subjective *Date: 09/15/24 *Time: 18:40 Interval history: Patient doing well, no concerns. No abdominal pain, signs of bleeding. Follow- up hemoglobin in the morning, discharge if stable. Exam Data for Last 24 hours Vital signs and Labs for Last 24 Hours: Temp Pulse Resp BP Pulse Ox O2 Del Method O2 Flow Rate 98.2 F 58 L 16 144/72 H 98 Room Air 3 09/15/24 16:00 09/15/24 16:00 09/15/24 16:00 09/15/24 16:00 09/15/24 16:00 09/15/24 18:13 09/14/24 07:21 Laboratory Results - last 24 hr 09/14/24 05:28: Haptoglobin 451 H 09/15/24 06:48: WBC 7.5, RBC 2.50 L, Hgb 7.4 L, Hct 21.8 L, MCV 87.2, MCH 29.6, MCHC 33.9, RDW 14.3, Plt Count 425 H, MPV 9.6, Neut % (Auto) 55.2, Lymph % (Auto) 28.4, [place] % (Auto) 12.3 H, Eos % (Auto) 3.5, Baso % (Auto) 0.5, Neut # (Auto) 4.2, Lymph # (Auto) 2.1, [place] # (Auto) 0.9, Eos # (Auto) 0.3, Baso # (Auto) 0.0, Sodium 132 L, Potassium 3.7, Chloride 103, Carbon Dioxide 29, Anion Gap 3.7 L, BUN 33 H, Creatinine 1.90 H, Estimated Creat Clear 61, Estimated GFR 37 L, Est GFR ( Amer) 44 L, Glucose 110 H, Calcium 7.8 L, Magnesium 2.1 D, Total Bilirubin < 0.1 L, AST 20 D, ALT 11 L, Alkaline Phosphatase 76, Total Protein 4.9 L, Albumin 2.2 L, Globulin 2.7, Albumin/Globulin Ratio 0.8 L, Folate 10.20 09/15/24 11:09: POC Glucose 195 H 09/15/24 13:50: Hgb 7.7 L, Hct 23.6 L 09/15/24 16:09: POC Glucose 321 H* I & O for Last 24 hours: Intake & Output 09/12/24 09/13/24 09/14/24 09/15/24 23:59 23:59 23:59 23:59 Intake Total 0 / 390 860 / 1470 1180 / 1180 Output Total 800 / 800 600 / 600 0 / 0 Balance -800 / -410 260 / 870 1180 / 1180 Weight 98.571 kg 101 kg 102.058 kg Microbiology Reports for the Last 24 Hours: Microbiology 09/13/24 16:08 Blood Blood Culture - Preliminary NO GROWTH AFTER 48 HOURS 09/13/24 16:08 Blood Blood Culture - Preliminary Gram Positive Cocci Constitutional Constitutional: no acute distress *Routine HEENT Exam Head: Present normocephalic Eye: Present EOMI and PERRL ENT: Present mucous membranes moist *Routine Neck Exam Neck: Present supple; Absent lymphadenopathy *Routine Respiratory Exam Respiratory: Present CTA bilaterally *Routine Cardiovascular Exam Cardiovascular: Present RRR *Routine Abdominal Exam Abdominal: Present soft and normoactive bowel sounds; Absent tenderness *Routine Extremities Exam Extremities: Absent cyanosis, clubbing or edema *Routine Skin Exam Skin: Present warm; Absent rash *Routine Neurological Exam Neurological: Present alert and oriented X3 Assessment and Plan *Assessment and plan (1) Duodenal ulcer with hemorrhage: Status: Acute Category: Medical Code(s): K26.4 - Chronic or unspecified duodenal ulcer with hemorrhage Plan Ciaran Lopez is a 58-year-old male with a medical history significant for CAD with stents, hypertension, type 2 diabetes who who unfortunately returns due to acute on chronic anemia, weakness, hazy vision. Patient was discharged in stable condition on 09/02/2024 after duodenal ulcer bleed which was treated with localized epinephrine. He followed up with general surgery yesterday who obtained repeat CBC which showed a drop of hemoglobin from 9.4 since admission to 7.8 yesterday. I repeat H&H was obtained today which showed a further drop in hemoglobin to 7.3. Patient endorses weakness, chills, hazy vision. Denies abdominal pain, dark/bloody stools, nausea/vomiting. I spoke to Dr. Hines who recommended direct admission, blood transfusion, and EGD in the morning. #Acute on chronic anemia #Duodenal ulcer ? Followed up with general surgery yesterday, repeat H&H showed drop in hemoglobin from 9.4-7.8 yesterday. And to 7.3 today. ? IV Protonix 40 mg twice daily, Carafate with meals, misoprostol 200 mcg every 6 hours. ? General Surgery consulted, s/p EGD on 09/14/2024 without bleeding duodenal ulcer. Recommended tagged RBC nuclear study, which resulted today as normal. ? Hemoglobin improved to 8.2 after 1 unit transfusion, though seems to be improving even after transfusion. ? Hemoglobin continues to fluctuate, currently 7.7 without active signs of bleeding. ? Follow-up FOBT. ? Discussed with general surgery, will monitor overnight and repeat hemoglobin in the morning to ensure stability before discharge. #HFpEF exacerbation #JENNIFER on CKD stage III - Presented with volume overload, BNP 3930. Concern of volume overload and has caused artificially low hemoglobin. ? ECHO shows normal biventricular systolic function, but increased LV wall thickness. ? Continue Lasix 40 mg daily. Started spironolactone 25 mg. ? Creatinine improving from 2.4-1.9. #Type 2 diabetes ? Hemoglobin A1c 9.1%. ? ACHS glucose checks, LDSSI. #CAD with stents #PAD with stent ? Continue Plavix 75 mg, statin. Full code DVT prophylaxis: Hold AC due to possible GI bleed. Patient ambulatory, walking the hallways.
[2024-09-15] MEDS: CARVEDILOL 25MG TABLET 25 MG PO (20:26)
[2024-09-15] MEDS: SODIUM CHLORIDE 0.9% 10ML VIAL 10 ML IV (20:27)
[2024-09-15] MEDS: INSULIN GLARGINE 100 UNITS/ML 3ML FLEXPEN 20 UNIT SUBCUT (20:28)
[2024-09-15 21:02] LABS: POC Glucose,Bedside 326 (70-110)
[2024-09-16] VITALS: BP 141/76; PULSE 60; RESP 16; TEMP 36.4; O2SAT 96
[2024-09-16] MEDS: miSOPROStoL 200 MCG TABLET PO ×2 (00:16→05:07)
[2024-09-16 04:00] VITALS: BP 155/80; PULSE 55; PULSE 80; RESP 16; TEMP 37.1; O2SAT 94; BMI 27.1
[2024-09-16] MEDS: humaLOG 100 UNITS/ML 10ML VIAL (SSI) SUBCUT (05:07)
[2024-09-16] MEDS: SUCRALFATE 1GM TABLET 1 GM PO ×2 (05:07→11:31)
[2024-09-16 05:26] LABS: POC Glucose,Bedside 204 (70-110)
[2024-09-16 05:26] LABS: POC Glucose,Bedside 122 (70-110)
[2024-09-16 05:26] LABS: POC Glucose,Bedside 360 (70-110)
[2024-09-16 05:26] LABS: POC Glucose,Bedside 69 (70-110)
--- NOTE | 2024-09-16 05:55 | PC.NURSE ---
Pt has c/o back pain and was treated per JUN. Pt has had no acute changes to note this shift.
[2024-09-16 06:29] LABS: Basophils # 0.1 K/mm3 (0-0.2); Basophils % 0.7 % (0.1-2.0); Eosinophils # 0.3 Kmm3 (0.0-0.4); Eosinophils % 3.6 % (0.1-12.0); Hematocrit 23.3 % (42.0-52.0); Hemoglobin 7.8 g/dL (14.1-18.0); Immature Granulocytes # 0.02 10^3uL; Immature Granulocytes % 0.3 %; Lymphocytes # 1.9 K/mm3 (0.7-4.5); Lymphocytes % 26.2 % (10-50); Mean Corpuscular HGB Conc 33.5 g/dL (31.8-35.4); Mean Corpuscular Hemoglobin 29.3 pg (27.0-31.2); Mean Corpuscular Volume 87.6 fl (80-94); Mean Platelet Volume 9.5 fl (7.4-10.4); Monocytes # 0.8 K/mm3 (0.1-1.0); Monocytes % 10.5 % (1.7-9.3); Neutrophils # 4.3 K/mm3 (1.8-7.8); Neutrophils % 58.7 % (37.0-80.0); Nucleated Red Blood Cells # 0 10^3/uL; Nucleated Red Blood Cells % 0 %; Platelet Count 400 K/mm3 (142-424); Red Blood Count 2.66 M/mm3 (4.60-6.20); Red Cell Distribution Width-SD 44.2 fL; White Blood Count 7.2 K/mm3 (4.8-10.8)
[2024-09-16 06:30] LABS: Albumin Level 2.2 g/dl (3.5-5.0); Chloride 106 mmol/L (98-107); Sodium 134 mmol/L (136-145)
[2024-09-16 06:31] LABS: Potassium 3.6 mmoL/L (3.5-5.1)
[2024-09-16 06:33] LABS: Alanine Aminotransferase 12 U/L (12-78); Albumin/Globulin Ratio 0.8 (1.1-1.8); Anion Gap 0.6 mEq/L (5-15); Aspartate Amino Transferase 15 U/L (17-59); Blood Urea Nitrogen 29 mg/dl (9-20); Carbon Dioxide 31 mmol/L (22.0-30.0); Creatinine Clearance Estimated 55 mL/min (50-200); Estimated Glomerular Filt Rate 33 ml/min (>60); GFR (African American) 39 ML/MIN (>60); Globulin 2.7 g/dL (1.3-3.2); Total Protein,Serum 4.9 g/dl (6.3-8.2)
[2024-09-16 06:34] LABS: Alkaline Phosphatase 75 U/L (38-126); Calcium 7.7 mg/dl (8.4-10.2); Glucose 165 mg/dl (74-100)
[2024-09-16 07:17] LABS: Bilirubin,Total < 0.1 mg/dl (0.2-1.3)
[2024-09-16 07:32] VITALS: PULSE 80
[2024-09-16 08:00] VITALS: BP 140/70; PULSE 60; RESP 18; TEMP 36.7; O2SAT 96
[2024-09-16] MEDS: CARVEDILOL 25MG TABLET 25 MG PO (08:04)
[2024-09-16] MEDS: SODIUM CHLORIDE 0.9% 10ML VIAL 10 ML IV (08:04)
[2024-09-16] MEDS: IRBESARTAN 150MG TAB 150 MG PO (08:04)
[2024-09-16] MEDS: PANTOPRAZOLE 40MG VIAL 40 MG IV (08:04)
[2024-09-16] MEDS: ACETAMINOPHEN 325MG TAB 650 MG PO (08:14)
--- NOTE | 2024-09-16 10:01 | P.PN_ITS ---
Subjective Patient reports: no new complaints Exam Data for Last 24 hours Vital signs and Labs for Last 24 Hours: Temp Pulse Resp BP Pulse Ox O2 Del Method O2 Flow Rate 98.0 F 60 18 140/70 96 Room Air 3 09/16/24 08:00 09/16/24 08:00 09/16/24 08:00 09/16/24 08:00 09/16/24 08:00 09/16/24 09:00 09/14/24 07:21 Laboratory Results - last 24 hr 09/14/24 20:29: POC Glucose 360 H* 09/15/24 04:35: POC Glucose 69 L 09/15/24 05:57: POC Glucose 122 H 09/15/24 11:09: POC Glucose 195 H 09/15/24 13:50: Hgb 7.7 L, Hct 23.6 L 09/15/24 16:09: POC Glucose 321 H* 09/15/24 20:24: POC Glucose 326 H* 09/16/24 05:05: POC Glucose 204 H 09/16/24 06:05: WBC 7.2, RBC 2.66 L, Hgb 7.8 L, Hct 23.3 L, MCV 87.6, MCH 29.3, MCHC 33.5, RDW 14.0, Plt Count 400, MPV 9.5, Neut % (Auto) 58.7, Lymph % (Auto) 26.2, [place] % (Auto) 10.5 H, Eos % (Auto) 3.6, Baso % (Auto) 0.7, Neut # (Auto) 4.3, Lymph # (Auto) 1.9, [place] # (Auto) 0.8, Eos # (Auto) 0.3, Baso # (Auto) 0.1, Sodium 134 L, Potassium 3.6, Chloride 106, Carbon Dioxide 31 H, Anion Gap 0.6 L, BUN 29 H, Creatinine 2.10 H, Estimated Creat Clear 55, Estimated GFR 33 L, Est GFR ( Amer) 39 L, Glucose 165 H D, Calcium 7.7 L, Magnesium 2.0, Total Bilirubin < 0.1 L, AST 15 L, ALT 12, Alkaline Phosphatase 75, Total Protein 4.9 L, Albumin 2.2 L, Globulin 2.7, Albumin/Globulin Ratio 0.8 L I & O for Last 24 hours: Intake & Output 09/13/24 09/14/24 09/15/24 09/16/24 11:59 11:59 11:59 11:59 Intake Total 390 / 390 1350 / 1350 1050 / 1050 Output Total 1400 / 1400 0 / 0 0 / 0 Balance -1010 / -1010 1350 / 1350 1050 / 1050 Weight 223 lb 9.6 oz 225 lb 222 lb 5 oz Microbiology Reports for the Last 24 Hours: Microbiology 09/13/24 16:08 Blood Blood Culture - Preliminary NO GROWTH AFTER 48 HOURS 09/13/24 16:08 Blood Blood Culture - Preliminary Gram Positive Cocci Constitutional Constitutional: no acute distress *Routine Respiratory Exam Respiratory: Absent respiratory distress *Routine Cardiovascular Exam Cardiovascular: Absent tachycardia Progress Note: A&P Assessment and plan (1) Duodenal ulcer with hemorrhage: Status: Acute Assessment and plan: Repeat esophagogastroduodenoscopy on September 14, 2024 reveals ulcer with evidence of significant healing and no evidence of bleeding. (2) Black tarry stools: Status: Resolved Assessment and plan: No melena reported since prior hospitalization (3) Anemia: Status: Acute Assessment and plan: Possibly [id number] condition with recent hemorrhage. No evidence of ongoing bleeding from duodenal ulcer. A possible secondary source such as AVM in the small bowel or colon remains; however, tagged red blood cell scan dated September 13, 2024 negative for active bleed. Assessment and Plan Assessment and Plan for All Diagnoses:: AM hemoglobin 7.8. Hemoglobin readings on this admission have ranged from 7.1- 8.2. At initial appropriate response to a 1 unit transfusion noted. No recurrent melena noted since prior hospitalization. Chronic renal insufficiency noted. Tagged red blood cell scan dated September 13, 2024 reveals no evidence of active bleeding. Stable from surgical standpoint for discharge home with close outpatient follow- up Consider colonoscopy in near future May ultimately benefit from UGI/SBFT followed by capsule endoscopy
--- NOTE | 2024-09-16 10:53 | EXP.DC.SUM ---
General Admission date:: 09/13/24 HPI HPI HPI: This is a 58-year-old gentleman seen in consultation for likely recurrent gastrointestinal hemorrhage from duodenal ulcer. He recently underwent esophagogastroduodenoscopy for evaluation of anemia/melena. Duodenal ulcer with no active bleeding was noted. Epinephrine injection was completed. He initially progressed but has shown evidence of likely recurrent bleed. Please see HPI forwarded from admission H&P below. Forwarded from admission H&P: Ciaran Lopez is a 58-year-old male with a medical history significant for CAD with stents, hypertension, type 2 diabetes who who unfortunately returns due to acute on chronic anemia, weakness, hazy vision. Patient was discharged in stable condition on 09/02/2024 after duodenal ulcer bleed which was treated with localized epinephrine. He followed up with general surgery yesterday who obtained repeat CBC which showed a drop of hemoglobin from 9.4 since admission to 7.8 yesterday. I repeat H&H was obtained today which showed a further drop in hemoglobin to 7.3. Patient endorses weakness, chills, hazy vision. Denies abdominal pain, dark/bloody stools, nausea/vomiting. I spoke to Dr. Hines who recommended direct admission, blood transfusion, and EGD in the morning. Hospital Course Hospital Course Hospital Course: Ciaran Lopez is a 58-year-old male with a medical history significant for CAD with stents, hypertension, type 2 diabetes who who unfortunately returns due to acute on chronic anemia, weakness, hazy vision. Patient was discharged in stable condition on 09/02/2024 after duodenal ulcer bleed which was treated with localized epinephrine. He followed up with general surgery yesterday who obtained repeat CBC which showed a drop of hemoglobin from 9.4 since admission to 7.8 yesterday. Repeat H&H was obtained admission which showed a further drop in hemoglobin to 7.3. Patient endorses weakness, chills, hazy vision. Denies abdominal pain, dark/bloody stools, nausea/vomiting. I spoke to Dr. Hines who recommended direct admission, blood transfusion, and EGD in the morning. #Acute on chronic anemia #Duodenal ulcer ? Followed up with general surgery day before admission, repeat H&H showed drop in hemoglobin from 9.4 since last discharge to 7.8 yesterday. 7.3 on admission. ? Hemoglobin improved to 8.2 after 1 unit transfusion. ? General Surgery consulted, s/p EGD on 09/14/2024 without bleeding duodenal ulcer. In fact, ulcer was healing well. Recommended tagged RBC nuclear study, which was also normal. ? Hemoglobin did vacillate during admission, but stabilized around 8.0. 7.8 on day of discharge. ? Patient was found to be fluid overloaded on admission, could have contributed to dilutional effect of hemoglobin. He was also hyperglycemic in 500s, which could have been contributing to weakness and he is a patient. ? Continue Protonix 40 mg twice daily, misoprostol 200 mcg twice daily. ?Follow-up with general surgery within 1 week. #HFpEF exacerbation #JENNIFER on CKD stage III - Presented with volume overload, BNP 3930. Concern of volume overload and has caused artificially low hemoglobin. ? ECHO shows normal biventricular systolic function, but increased LV wall thickness. ? Clinically improved with IV Lasix diuresis and spironolactone. Hemoglobin improved from 2.4-2.1. ? Discharged with Lasix 40 mg, spironolactone 25 mg. ? Advised to follow-up with cardiology within 1 week. #Type 2 diabetes #Hyperglycemia ? Initial glucose in 500s, hemoglobin A1c 9.1%, improved during admission. Has been challenging to control due to insurance constraints. ? Continue home regimen and follow-up with PCP within 2 weeks. #CAD with stents #PAD with stent ? Continue Plavix 75 mg, statin. Total time spent on discharge: 32 minutes on chart review, counseling, documentation, and direct care with patient. Exam Data for Last 24 hours Vital signs and Labs for Last 24 Hours: Temp Pulse Resp BP Pulse Ox O2 Del Method O2 Flow Rate 98.0 F 60 18 140/70 96 Room Air 3 09/16/24 08:00 09/16/24 08:00 09/16/24 08:00 09/16/24 08:00 09/16/24 08:00 09/16/24 09:00 09/14/24 07:21 Laboratory Results - last 24 hr 09/14/24 20:29: POC Glucose 360 H* 09/15/24 04:35: POC Glucose 69 L 09/15/24 05:57: POC Glucose 122 H 09/15/24 11:09: POC Glucose 195 H 09/15/24 13:50: Hgb 7.7 L, Hct 23.6 L 09/15/24 16:09: POC Glucose 321 H* 09/15/24 20:24: POC Glucose 326 H* 09/16/24 05:05: POC Glucose 204 H 09/16/24 06:05: WBC 7.2, RBC 2.66 L, Hgb 7.8 L, Hct 23.3 L, MCV 87.6, MCH 29.3, MCHC 33.5, RDW 14.0, Plt Count 400, MPV 9.5, Neut % (Auto) 58.7, Lymph % (Auto) 26.2, [place] % (Auto) 10.5 H, Eos % (Auto) 3.6, Baso % (Auto) 0.7, Neut # (Auto) 4.3, Lymph # (Auto) 1.9, [place] # (Auto) 0.8, Eos # (Auto) 0.3, Baso # (Auto) 0.1, Sodium 134 L, Potassium 3.6, Chloride 106, Carbon Dioxide 31 H, Anion Gap 0.6 L, BUN 29 H, Creatinine 2.10 H, Estimated Creat Clear 55, Estimated GFR 33 L, Est GFR ( Amer) 39 L, Glucose 165 H D, Calcium 7.7 L, Magnesium 2.0, Total Bilirubin < 0.1 L, AST 15 L, ALT 12, Alkaline Phosphatase 75, Total Protein 4.9 L, Albumin 2.2 L, Globulin 2.7, Albumin/Globulin Ratio 0.8 L I & O for Last 24 hours: Intake & Output 09/13/24 09/14/24 09/15/24 09/16/24 23:59 23:59 23:59 23:59 Intake Total 0 / 390 860 / 1470 1450 / 1690 480 / 480 Output Total 800 / 800 600 / 600 0 / 0 Balance -800 / -410 260 / 870 1450 / 1690 480 / 480 Weight 98.571 kg 101 kg 102.058 kg 100.839 kg Microbiology Reports for the Last 24 Hours: Microbiology 09/13/24 16:08 Blood Blood Culture - Preliminary NO GROWTH AFTER 48 HOURS 09/13/24 16:08 Blood Blood Culture - Preliminary Gram Positive Cocci Constitutional Constitutional: no acute distress *Routine HEENT Exam Head: Present normocephalic Eye: Present EOMI and PERRL ENT: Present mucous membranes moist *Routine Neck Exam Neck: Present supple; Absent lymphadenopathy *Routine Respiratory Exam Respiratory: Present CTA bilaterally *Routine Cardiovascular Exam Cardiovascular: Present RRR *Routine Abdominal Exam Abdominal: Present soft and normoactive bowel sounds; Absent tenderness *Routine Extremities Exam Extremities: Absent cyanosis, clubbing or edema *Routine Skin Exam Skin: Present warm; Absent rash *Routine Neurological Exam Neurological: Present alert and oriented X3 Results Data Completed and Pending Labs on day of discharge: Labs from last 24 hours 09/16/24 09/16/24 09/15/24 06:05 05:05 20:24 WBC 7.2 RBC 2.66 L Hgb 7.8 L Hct 23.3 L MCV 87.6 MCH 29.3 MCHC 33.5 RDW 14.0 Plt Count 400 MPV 9.5 Neut % (Auto) 58.7 Lymph % (Auto) 26.2 [place] % (Auto) 10.5 H Eos % (Auto) 3.6 Baso % (Auto) 0.7 Neut # (Auto) 4.3 Lymph # (Auto) 1.9 [place] # (Auto) 0.8 Eos # (Auto) 0.3 Baso # (Auto) 0.1 Sodium 134 L Potassium 3.6 Chloride 106 Carbon Dioxide 31 H Anion Gap 0.6 L BUN 29 H Creatinine 2.10 H Estimated Creat Clear 55 Estimated GFR 33 L Est GFR ( Amer) 39 L Glucose 165 H D POC Glucose 204 H 326 H* Calcium 7.7 L Magnesium 2.0 Total Bilirubin < 0.1 L AST 15 L ALT 12 Alkaline Phosphatase 75 Total Protein 4.9 L Albumin 2.2 L Globulin 2.7 Albumin/Globulin Ratio 0.8 L 09/15/24 09/15/24 09/15/24 16:09 13:50 11:09 WBC RBC Hgb 7.7 L Hct 23.6 L MCV MCH MCHC RDW Plt Count MPV Neut % (Auto) Lymph % (Auto) [place] % (Auto) Eos % (Auto) Baso % (Auto) Neut # (Auto) Lymph # (Auto) [place] # (Auto) Eos # (Auto) Baso # (Auto) Sodium Potassium Chloride Carbon Dioxide Anion Gap BUN Creatinine Estimated Creat Clear Estimated GFR Est GFR ( Amer) Glucose POC Glucose 321 H* 195 H Calcium Magnesium Total Bilirubin AST ALT Alkaline Phosphatase Total Protein Albumin Globulin Albumin/Globulin Ratio 09/15/24 09/15/24 09/14/24 05:57 04:35 20:29 WBC RBC Hgb Hct MCV MCH MCHC RDW Plt Count MPV Neut % (Auto) Lymph % (Auto) [place] % (Auto) Eos % (Auto) Baso % (Auto) Neut # (Auto) Lymph # (Auto) [place] # (Auto) Eos # (Auto) Baso # (Auto) Sodium Potassium Chloride Carbon Dioxide Anion Gap BUN Creatinine Estimated Creat Clear Estimated GFR Est GFR ( Amer) Glucose POC Glucose 122 H 69 L 360 H* Calcium Magnesium Total Bilirubin AST ALT Alkaline Phosphatase Total Protein Albumin Globulin Albumin/Globulin Ratio Preliminary micro results at discharge 09/13/24 16:08 Blood Culture - Preliminary Blood NO GROWTH AFTER 48 HOURS 09/13/24 16:08 Blood Culture - Preliminary Blood Gram Positive Cocci DS: Diagnosis Discharge Diagnosis (1) Duodenal ulcer with hemorrhage: Status: Acute Code(s): K26.4 - Chronic or unspecified duodenal ulcer with hemorrhage (2) Black tarry stools: Status: Resolved Code(s): K92.1 - Melena (3) Anemia: Status: Acute Code(s): D64.9 - Anemia, unspecified Meds Home Medications and Allergies Home Medications ?Medication ?Instructions ?Recorded ?Confirmed ?Type carvedilol 25 mg tablet (Coreg) 25 mg PO BID #60 tabs 12/08/23 09/26/24 Rx clopidogrel 75 mg tablet (Plavix) 75 mg PO DAILY #90 tabs 04/05/24 09/26/24 Rx pantoprazole 40 mg tablet,delayed 40 mg PO BID #60 tabs 09/02/24 09/26/24 Rx release (Protonix) insulin lispro 100 unit/mL See Protocol SQ ACHS 09/13/24 09/26/24 History subcutaneous cartridge (Humalog U-100 Insulin) furosemide 40 mg tablet (Lasix) 40 mg PO DAILY 30 days #30 tabs 09/16/24 09/26/24 Rx misoprostol 200 mcg tablet 200 mcg PO BID 30 days #90 tabs 09/16/24 09/26/24 Rx insulin glargine 100 unit/mL (3 30 unit SQ HS 09/18/24 09/26/24 History mL) subcutaneous pen (Lantus Solostar U-100 Insulin) insulin lispro 100 unit/mL SQ 09/26/24 09/26/24 History subcutaneous pen New Prescriptions to Start Prescriptions: furosemide [Lasix] TriciasharriUzair Allergies Allergy/AdvReac Type Severity Reaction Status Date / Time NSAIDS (Non-Steroidal Allergy itch Verified 09/26/24 09:02 Anti-Inflamma gabapentin AdvReac Severe Verified 09/26/24 09:02 Discharge Plan Disposition Patient Disposition: Home, Self-Care Condition: Fair Follow up Plan Follow up with: Armen Hines MD [Staff Physician, General Surgery] - 09/19/24 Referral Note: Need repeat hemoglobin/hematocrit on day of office visit Prescriptions/Medication Reconciliation: New furosemide [Lasix] 40 mg tablet 40 mg PO DAILY 30 Days Qty: 30 0RF Continued carvedilol [Coreg] 25 mg tablet 25 mg PO BID Qty: 60 5RF clopidogrel [Plavix] 75 mg tablet 75 mg PO DAILY Qty: 90 3RF pantoprazole [Protonix] 40 mg tablet,delayed release (DR/EC) 40 mg PO BID Qty: 60 0RF Humalog U-100 Insulin 100 unit/mL cartridge See Protocol SQ ACHS Protocol: Insulin Corrective High-Dose Regimen Condition: Fingerstick Blood Glucose Dose/Route: Insulin Units Condition: 151-200 mg/dl Dose/Route: 5 units/SQ Condition: 201-250 mg/dl Dose/Route: 7 units/SQ Condition: 251-300 mg/dl Dose/Route: 10 units/SQ Condition: 301-350 mg/dl Dose/Route: 12 units/SQ Condition: 351-400 mg/dl Dose/Route: 15 units/SQ Condition: 401-450 mg/dl Dose/Route: 20 units/SQ Condition: > 450 mg/dl Dose/Route: CALL Protocol Text: High Intensity Sliding Scale Insulin Changed misoprostol 200 mcg Tablet 200 mcg PO BID 30 Days Qty: 90 0RF Discontinued losartan-hydrochlorothiazide 100-12.5 mg tablet 1 tab PO DAILY No Action insulin lispro 100 unit/mL insulin pen SQ insulin glargine [Lantus Solostar U-100 Insulin] 100 unit/mL (3 mL) insulin pen 30 unit SQ HS Problem Reconciliation Problems Reviewed?: Yes Patient Discharge Instructions Stand Alone Forms: [facility] Work Release Patient Instructions: Anemia, Duodenal Ulcer, Carbohydrate-Counting Diet, DI for Diabetes Type 2, Using Nutrition Labels: Carbohydrate Diet Print Language: Danish Providers Primary Care Provider: Rajinder Reynolds Admsathya Provider: Uzair Morris Attending Provider: Uzair Morris
[2024-09-16] MEDS: CLOPIDOGREL 75MG TAB 75 MG PO (11:31)
--- NOTE | 2024-09-18 11:20 | SW/DCPLANNER ---
Spoke with patient on the phone. Patient stated that he is doing good. Patient stated that he is aware of his appointments. Patient stated that he was able to pickle maker his new medicine. Patient stated that he has no concerns or questions at this time. Connor Castillo
[2024-09-18 15:13] LABS: POC Glucose,Bedside 50 (70-110)
[2024-09-18 15:14] LABS: POC Glucose,Bedside 56 (70-110)
== END 2024-09-16 11:43 | disposition home or self-care (01) ==
PROVIDERS: Student in an Organized Health Care Education/Training Program; Surgery; Admitting Provider Student in an Organized Health Care Education/Training Program; PCP Internal Medicine; Visit Provider Student in an Organized Health Care Education/Training Program
PROC: 0DJ08ZZ Inspection of Upper Intestinal Tract, Via Natural or Artificial Opening Endoscopic (ICD-10-PCS; principal; 2024-09-14 07:00)
DX: K26.4 Chronic or unspecified duodenal ulcer with hemorrhage (principal); I13.0 Hypertensive heart and chronic kidney disease with heart failure and stage 1 through stage 4 chronic kidney disease, or unspecified chronic kidney disease; E11.51 Type 2 diabetes mellitus with diabetic peripheral angiopathy without gangrene; E11.65 Type 2 diabetes mellitus with hyperglycemia; E11.22 Type 2 diabetes mellitus with diabetic chronic kidney disease; I25.118 Atherosclerotic heart disease of native coronary artery with other forms of angina pectoris; N18.30 Chronic kidney disease, stage 3 unspecified; N17.9 Acute kidney failure, unspecified; I50.30 Unspecified diastolic (congestive) heart failure; E78.5 Hyperlipidemia, unspecified; D53.9 Nutritional anemia, unspecified; Z87.891 Personal history of nicotine dependence; Z88.8 Allergy status to other drugs, medicaments and biological substances; Z95.5 Presence of coronary angioplasty implant and graft; Z88.6 Allergy status to analgesic agent; Z79.4 Long term (current) use of insulin; Z79.02 Long term (current) use of antithrombotics/antiplatelets; Z79.899 Other long term (current) drug therapy
CPT/HCPCS: 43235; 0223U; 36415; 36430; 78278; 80048; 80053; 81001; 81596; 82728; 82746; 82947; 82962; 83540; 83550; 83615; 83735; 83880; 84100; 85014; 85018; 85025; 86850; 87040; 87077; 87186; 87633; 93306; 96374; 96375; 96376; A9512; A9560; G0378; J1642; J1938; J2003; J2470; J2704; J3370; J3372; J3475; J7050; P9016

== ENCOUNTER 2024-09-19 08:53 | Outpatient (CLI) | payer BC, SELFPAY ==
--- OUTSIDE RECORDS SUMMARY | 2024-09-19 08:56 | XMS_ITS | Clinical Summary ---
Author Organization [facility] Address [address] [place] [address] Care Team Providers Care Geophysical Support Specialist Name Role Phone Alphonso Yarbrough MD Primary Care Provider [phone] Allergies Active Allergy Reactions Criticality Noted Date Comments Gabapentin Itching Medium 03/30/2024 Statins Nausea,Dizziness Low 03/30/2024 Medications lisinopril-hydr oCHLOROthiazide 20-12.5 MG tablet Take 1 tablet by mouth 1 (one) time each day. Active carvedilol (Coreg) 3.125 MG tablet Take 1 tablet (3.125 mg) by mouth 2 (two) times a day with meals. Active Insulin Lispro (Admelog, HumaLOG) 100 UNIT/ML injection vial Inject under the skin 3 (three) times a day with meals. 11 units at breakfast 14 units at lunch 18 units at dinner Active insulin glargine (Basaglar KwikPen) 100 UNIT/ML injection pen Inject 24 Units under the skin every night. Active aspirin 81 MG EC tablet Take 1 tablet (81 mg) by mouth 1 (one) time each day. Active methocarbamol 1000 MG tablet Take 1,000 mg by mouth 4 (four) times a day for 10 days. 40 tablet 3 Active clopidogrel (Plavix) 75 MG tablet Take 1 tablet (75 mg) by mouth 1 (one) time each day. 4 Active semaglutide (Ozempic, 0.25 or 0.5 MG/DOSE,) 2 MG/1.5ML solution pen-injector inj. pen Inject 0.1875 mL (0.25 mg) under the skin 1 (one) time per week. Active empagliflozin (Jardiance) 10 MG Take 1 tablet (10 mg) by mouth 1 (one) time each day. Active Active Problems Problem Noted Date Diagnosed Date CKD stage 3 due to type 2 diabetes mellitus 03/12 Asymptomatic microscopic hematuria 03/30/2024 Persistent proteinuria 03/30/2024 Pelvic hematoma in male 06/30/2022 Overview (06/30/2022): Small right anterior pelvic wall hematomas Abd benign, NTND H/H stable, trending up 13.4/40.2 06/30 Closed fracture of one rib of right side 023 Overview (06/29/2022): Right 4th rib fx, seen best on shoulder films, clinically tender -Pulm hygiene, IS -Pain control Fall from height of greater than 3 feet 06/28/19 23 Overview (06/29/2022): Admit to SGT progressive Tertiary 06/28 HTN (hypertension) 06/27/2022 Overview (06/30/2022): Resume home meds as able -Home Coreg resumed 06/29 -Home lisinopril resumed 06/30 Insulin dependent type 2 diabetes mellitus 06/27 Overview (06/27/2022): SSI inpatient, A1c pending Carb restrict diet Hypoalbuminemia 06/27/2022 Overview (06/27/2022): Likely chronic, 2/2 diet Leukocytosis 06/27/2022 Overview (06/30/2022): Likely reactive in setting of trauma Resolved 06/30 Hyperglycemia 06/27/2022 Overview (06/27/2022): 2/2 diabetes, continue to monitor Lactic acidosis 06/27/2022 Overview (06/27/2022): Fluid resuscitate JENNIFER (acute kidney injury) 06/27/2022 Overview (06/30/2022): Cr 1.62 on admit, unclear baseline IVF, PO hydration, continue to monitor Stable 1.67 Follow up with PCP for continued surveillance Hx of myocardial infarction 06/27/2022 Overview (06/29/2022): Several years ago, s/p PCI with 4 stents per patient Home aspirin resumed 06/29 Closed fracture of thoracic vertebra 06/27/2022 Overview (06/30/2022): T10/T11 compression fractures Mild T5/6 SEP compression deformities NSGY spine consulted - No neurosurgical intervention - No bracing indicated or mobility restrictions Follow up with Corazon Sofia in 4-6 weeks with AP/lateral thoracic spine XR - ordered COPD (chronic obstructive pulmonary disease) Overview (06/27/2022): Progressive, cont pulse ox Duonebs inpatient Smoking cessation counseling provided Tobacco use 06/27/2022 Overview (06/27/2022): 40 pack years Smoking cessation counseling provided Atherosclerosis 06/27/2022 Overview (06/30/2022): Peripheral and central on CTA 2/2 tobacco use, DM, HTN TTE - no significant regurgitation/stenosis. LVEF estimated at 45 - 50%. Carotid duplex - no significant stenosis, mild plaque L ICA Follow up with PCP for further surveillance Overweight (BMI 25.0-29.9) 06/27/2022 Overview (06/27/2022): Complicates care Syncope 06/27/2022 Overview (06/30/2022): Possible cause for fall EKG abnormal, but difficult to assess given hx [place] Carotid US to better assess for stenosis (CTA appx 20% by NASCET) -No evidence of hemodynamically significant stenosis (<50 %) Echo to assess for aortic stenosis, cardiac etiology -Unremarkable for cardiac etiology, no significant regurgitation/stenosis CAD (coronary artery disease) 06/27/2022 Overview (06/30/2022): TTE given hx NV, CAD, commorbidites -No significant regurgitation/stenosis -The left ventricular systolic function is mildly reduced. The LVEF is visually estimated at 45 - 50% -Follow up with PCP for surveillance Significant 3-vessel coronary artery calcifications with increased risk of acute cardiac events Discussed with patient, follow up with PCP for surveillance Accidental fall from ladder Overview (06/29/2022): Fall ~12ft from ladder s/p syncopal event Immunizations Immunization Administration Dates Next Due Influenza, injectable, quadrivalent, preservativ e free 01/31/2017 Influenza, seasonal, injectable, preservative fr ee 03/16/2010 Moderna COVID-19 Vaccine Bivalent 6months+ 12/23 Pfizer-BioNTGingr COVID-19 Vaccine (Purple Cap) 12 + 07/23/2020,06/25/2020 Social History Tobacco Use Types Packs/Day Years Used Date Smoking Tobacco: Every Day Cigarettes Smokeless Tobacco: Never Tobacco Cessation:Ready to Q uit: Yes; Counseling Given: Yes Alcohol Use Standard Drinks/Week Comments Not Currently 0 (1 standard drink = 0.6 oz pur e alcohol) CAGE ASSESSMENT Answer Date Recorded Cage unable to access Not on file 06/27/2022 Maximum number of drinks you had on a given occasion in the last month? 0 drinks 06/27/2022 How many alcoholic Beverages do you typically drink in a week? 0 - 7 per week 06/27/2022 Have you ever felt you should CUT down on your d rinking? 0 06/27/2022 Have you been ANNOYED by peo ple criticizing your drinking? 0 06/27/2022 Have you felt GUILTY about your drinking? 0 06/27/2022 Have you had a drink first t melissa in the morning (EYE-HEALTHCARE ARCHITECT) to steady your nerves or to get rid of a hangover? 0 06/27/2022 CAGE Questionnaire Score 0 023 Sex and Gender Information Value Date Recorded Sex Assigned at Not on file Legal Sex Male 8:18 PM EDT Gender Identity Not on file Sexual Orientation Not on file Last Filed Vital Signs Vital Sign Reading Time Taken Comments Blood Pressure 138/76 03/30/2024 11:03 AM EST Pulse 80 03/30/2024 11:03 AM EST Temperature 36.6 C (97.8 F) 03/30/2024 11:03 AM EST Respiratory Rate 18 03/30/2024 11:03 AM EST Oxygen Saturation 97% 03/30/2024 11:03 AM EST Inhaled Oxygen Concentration - - Weight 101 kg (222 lb) 03/30/2024 11:03 AM EST Height 193 cm (6' 4 ) 03/30/2024 11:03 AM EST Body Mass Index 27.02 03/30/2024 11:03 AM EST Plan of Treatment Health Maintenance Due Date Last Done Comments [facility]-Depression Screening 1965 [facility]-HIV Screening 1965 [facility]-Hepatitis C Screening 1965 [facility]-Infant/Child/Adol SDOH Screenings 1965 Diabetes: Dental Exam 10/20/1975 [facility]- SDOH Screenings 10/20/1983 [facility]-Adult SDOH Screenings 10/20/1983 [facility]-DTaP,Tdap,and Td Vaccines (1 - Tdap) 1984 [facility]-Hepatitis B Vaccines (1 of 3 - 19+ 3-dose series) 1984 [facility]-Pneumococcal Vaccine: 50+ Years (1 of 2 - PCV) 1984 CT Colonography 2010 Colonoscopy 2010 FIT-DNA 2010 FIT 2010 FOBT 2010 Sigmoidoscopy 2010 [facility]-Colorectal Cancer Screening 2010 [facility]-Zoster Vaccines (1 of 2) 10/20/2015 [facility]-Diabetes: Hemoglobin A1C 04/04/2023, 09/24/2022, 06/27/2022, Additional history exists [id number] Vaccine ( season) 2023 12/23/2021, 07/23/2020, 06/25/2020 [facility]-Influenza Vaccine (Season Ended) 2024 01/31/2017, 03/16/2010 [facility]-Obesity Intervention Completed 03/30/2024 HPV Vaccines Aged Out No longer eligi ble based on patient's age to complete this topic [facility]-HIB Vaccines Aged Out No longer e ligible based on patient's age to complete this topic [facility]-Hepatitis A Vaccines Aged Out No longer eligible based on patient's age to complete this topic [facility]-IPV Vaccines Aged Out No longer e ligible based on patient's age to complete this topic [facility]-Rotavirus Vaccines Aged Out No lo nger eligible based on patient's age to complete this topic Procedures Procedure Name Priority Date/Time Associated Diagnosis Comments HEMOGLOBIN A1C Add-On 06/27/2022 3:31 PM EDT from Last 3 Months or Most Recently Relevant to Health Maintenance Results * (ABNORMAL) Hemoglobin A1c (06/27/2022 3:31 PM EDT) Hemoglobin A1c 10.2(H) <5.7 % 06/27/2022 10:05 PM EDT [facility] Blood Venous blood specimen / Unknown Venipuncture / Unknown 06/27/2022 3:31 PM EDT 06/27/2022 3:33 PM EDT Narrative [facility] - 06/27/2022 10:05 PM EDT HA1C Interpretive Data: Diagnosis of Diabetes: Diabetic > or = 6.5% Pre-diabetic 5.7 to 6.4% Non-diabetic < or = 5.6% Glycemic Targets for Type I and Type II Diabetics: Non- Adults <7.0% Adults <6.0% Children and Adolescents <7.5% Source: [place] [employer]. Standards of medical care in diabetes,2017. Diabetes Care.2017:40 (suppl 1):S1-S135. HbA1c assay performed by an ion-exchange chromatography method that is certified traceable to the DCCT. us Renetta Fang MD LAB BLOOD ORDERABLES Final Re sult [facility] [address] [place] [address] from Last 3 Months or Most Recently Relevant to Health Maintenance Insurance ANTH Advance Directives * Full Code (Latest Code Status on File) Date Activated Date Inactivated Comments 06/27/2022 8:46 PM 06/30/2022 6:04 PM Question Answer Comments Patient has decision-making capacity? Yes Care Teams Geophysical Support Specialist Relationship Specialty Start Date End Date Alphonso Yarbrough MD [address] [facility] [address] [place] [address] PCP - General 08/22/20
--- OUTSIDE RECORDS SUMMARY | 2024-09-19 08:56 | XMS_ITS | Clinical Summary ---
Author Organization [facility] Address [address] [place] [id number] Phone Care Team Providers Care Foundry Worker Name Role Phone Ej Wyatt MD [phone] [ ] Conditions or Problems Problem Name Problem Code Onset Date Status Entry Date Provider Comment Standard Description Annotate Infective bursitis, right knee M71.161 (ICD-10-CM ) 09/03 Active 09/03 Luisa Hampton Other infective bursitis, right knee Staph lugdunesis infection B95.7 (ICD-10-CM ) 09/10 Active 09/10 Savannah Ayers Other staphylococcus as the cause of diseases classified elsewhere Prepatellar bursitis of right knee 61593435 (SNOMED CT) 09/03 Inactive 09/03 Savannah Ayers Prepatellar bursitis DM Type II E11.9 (ICD-10-CM ) 09/03 Active 09/03 Savannah Ayers Type 2 diabetes mellitus without complications Nicotine dependence, cigarettes F17.210 (ICD-10-CM ) 09/03 Active 09/03 Savannah Ayers Nicotine dependence, cigarettes, uncomplicated Medications Medication Instructions Start Date Stop Date Generic Name [facility] Provider CEFTRIAXONE SODIUM 2 GM SOLR ceftriaxone 2gm IV Q DAY INPAT CEFTRIAXONE SODIUM 42240481246 Rhea Ellis RN CEFTRIAXONE SODIUM 2 GM SOLR ceftriaxone 2gm IV Q DAY INPAT CEFTRIAXONE SODIUM 32250949535 Mahogany Goldberg RN CUBICIN 500 MG INTRAVENOUS SOLUTION RECONSTITUTED 500mg IV Q24hrs/ INPAT DAPTOMYCIN [id number] Mahogany Goldberg RN CUBICIN 500 MG INTRAVENOUS SOLUTION RECONSTITUTED 500mg IV Q24hrs/ INPAT DAPTOMYCIN 85776342044 Mahogany Goldberg RN LORTAB TABS HYDROCODONE-ROXANN TAMINOPHEN TABS [id number] Ej Wyatt MD LIPITOR TABS ATORVASTATIN CALCIUM TABS [id number] Ej Wyatt MD ASPIRIN TABS ASPIRIN TABS [id number] Ej Wyatt MD METFORMIN HCL TABS METFORMIN HCL TABS [id number] Ej Wyatt MD CARVEDILOL TABS CARVEDILOL TABS [id number] Ej Wyatt MD LISINOPRIL TABLET LISINOPRIL TABS [id number] Ej Wyatt MD HUMALOG SOLUTION INSULIN LISPRO (HUMAN) SOLN [id number] Ej Wyatt MD Medications Administered No information available. Allergies, Adverse Reactions, Alerts No information available. Results Date Name Value Unit Range Flag Description Lab Report: CBC w Auto Diff IMM GRANU % 0.4 % 0.0-0.6 N Immature granulocytes/100 leukocytes in Blood BASOPHIL % 0.5 % 0.0-1.0 N Basophils/ 100 leukocytes in Blood by Manual count % EOS AUTO 2.4 % 0.0-3.0 N Eosinophil s/100 leukocytes in Blood by Automated count MONOCYTE BF 7.8 % 0.0-12.0 N monocyte s as percent of body fluid leukocytes LYMPHOCY BF 17.1 % 24.0-44.0 L lymphoc ytes as percent of body fluid leukocytes NEUTROP BF 71.8 % 41.0-71.0 H Neutroph ils/100 leukocytes in Body fluid BASOABSOLMAN 0.04 K/MCL {Cells}/ uL 0.00-0.20 N basophils, absolute, manual EOS ABSLT 0.19 10*3/uL 0.10-0.30 N Eosinophi ls [#/volume] in Blood MONOCYTABMAN 0.62 K/MCL {Cells}/ uL 0.00-1.00 N monocytes, absolute, manual LYMPHSABSMAN 1.36 K/MCL {Cells}/ uL 0.60-4.80 N lymphocytes, absolute, manual ABS NEUTROPH 5.70 10*3/uL 1.50-8.30 N Neutro phils [#/volume] in Blood PLATELETS 368 10*3/mm3 150-450 N Platelets [#/volume] in Blood by Automated count RDW_ 13.0 11.3-14.5 N RDW, no uni ts MCHC 34.5 G/DL 32.0-36.0 N MCHC [Mass/ volume] by Automated count MCH 31.5 pg 27.0-31.0 H MCH [Entiti c mass] by Automated count MCV 91.2 fL 80.0-99.0 N MCV [Entiti c volume] by Automated count HCT 40.6 % 38.9-50.9 N Hematocrit [Volume Fraction] of Blood by Automated count HGB 14.0 g/dL 13.1-17.5 N Hemoglobin [Mass/volume] in Blood RBC 4.45 M/MCL 10*6/mm3 4.20-5.76 N Erythro cytes [#/volume] in Blood by Automated count WBC 7.94 10*3/mm3 3.50-10.8 0 N Leukocytes [#/volume] in Blood by Automated count Lab Report: Comprehensive Me tabolic Panel ANIONGAP 4 mmol/L 3-11 N anion gap, s dov GFRC 108 mL/min/1 .73m2 Glomerular Filtration Rate Calculation ALBUMIN 3.5 g/dL 3.2-4.8 N Albumin [Mass/volume] in Serum or Plasma PROTEIN, TOT 6.2 g/dL 5.7-8.2 N Protein [Mass/volume] in Serum or Plasma BILI TOTAL 0.4 mg/dL 0.3-1.2 N Bilirubin. total [Mass/volume] in Serum or Plasma SGPT (ALT) 20 U/L 7-40 N Alanine aminotransferase [Enzymatic activity/volume] in Serum or Plasma SGOT (AST) 18 U/L 0-33 N Aspartate aminotransferase [Enzymatic activity/volume] in Serum or Plasma ALK PHOS 69 U/L 46-116 N Alkaline nguyen sphatase [Enzymatic activity/volume] in Blood CALCIUM 9.1 mg/dL 8.7-10.4 N Calcium [Moles/volume] in Serum or Plasma CO2 29 mmol/L 20-31 N Carbon dioxid e, total [Moles/volume] in Venous blood CHLORIDE 104 mmol/L 99-109 N Chloride [Moles/volume] in Serum or Plasma POTASSIUM 4.6 mmol/L 3.5-5.5 N Potassium [Moles/volume] in Serum or Plasma SODIUM 137 mmol/L 132-146 N Sodium [Moles/volume] in Serum or Plasma CREATININE 0.8 mg/dL 0.6-1.3 N Creatinine [Mass/volume] in Serum or Plasma BUN 10 mg/dL 9-23 N Urea nitrogen [Mass/volume] in Serum or Plasma GLUCOSE SER 209 mg/dL 70-100 H Glucose [Mass/volume] in Serum or Plasma Lab Report: CBC With Differe ntial/Platelet, Comp. Metabolic Panel (14) EGFR NOT AFA 108 mL/min/1 .73m2 Glomerular filtration rate/1.73 sq M.predicted among non-blacks [Volume Rate/Area] in Serum, Plasma or Blood by Creatinine-based formula (MDRD) BG RANDOM 209 mg/dL 70-100 H Glucose [Mass/volume] in Blood IMMATUREGRAN 0.4 K/MCL 0.0-0.6 Immatu re granulocytes [#/volume] in Blood BASO# 0.04 K/mcL 0.00-0.20 Basophil s [#/volume] in Blood MONOSCT AUTO 0.62 10*3/uL 0.00-1.00 Monocy rafael [#/volume] in Blood by Automated count LYMPHCT AUTO 1.36 10*3/mm3 0.60-4.80 Lymph ocytes [#/volume] in Blood by Automated count MONOCYTE % 7.8 % 0.0-12.0 Monocytes /100 leukocytes in Blood by Automated count LYMPHS % 17.1 % 24.0-44.0 L Lymphocyte s/100 leukocytes in Blood by Automated count PMN % 71.8 % 41.0-71.0 H Neutrophils /100 leukocytes in Blood by Automated count RDW 13.0 % 11.3-14.5 Erythrocyte distribution width [Ratio] by Automated count Office Visit: 6 MEDS REVIEW Done Documenta tion of current medications (procedure) SMOK ADVICE yes Smoking c essation education (procedure) CIGARET SMKG yes Tobacco smoking status SMOK STATUS Current every day smoker Tobacco smoking status Plan of Care Type Date Detail Pending order STAT Labs Pending order CBC with Differe ntial Pending order CMP Pending order Change IV antibi otics Pending order PIV/Butterfly Pending order CMP Pending order CBC with Differe ntial Pending order Stat Weekly Labs Patient education Ceftriaxone%20 (Injection)%20(Injectable) Patient education Daptomycin%20( Injection)%20(Injectable) Procedures Code Procedure Name Date Entry Date CPT-sl STAT Labs [id number] CBC with Differential 2015 CPT-93976 CMP CPT-wanda Change IV antibiotics 09/05 CPT-41370 PIV/Butterfly CPT-47339 CMP [id number] CBC with Differential 2015 CPT- stat weekly Stat Weekly Labs Vital Signs Date Name Value Unit Description BMI (Body Mass Index) 28.50 kg/m2 Bod y Mass Index (Ratio) Body Temperature 97.8 [degF] temperat ure E&M BP Diastolic 82 mm[Hg] blood pressu re, diastolic BP Systolic 144 mm[Hg] blood pressur e, systolic Heart Rate 70 /min pulse rate Respiratory Rate 16 /min respirat ory rate E&M Weight Measured 234.2 [lb_av] weight E& M Weight Measured 234.2 [lb_av] weight E& M Height 76 [in_us] height E&M Immunizations No information available. Advance Directives No information available.
[2024-09-19 09:04] LABS: Hematocrit 26.4 % (42.0-52.0); Hemoglobin 8.6 g/dL (14.1-18.0)
== END 2024-09-19 23:59 | disposition home or self-care (01) ==
LOC: LAB 08:53
PROVIDERS: PCP Internal Medicine; Visit Provider Surgery
DX: D64.9 Anemia, unspecified (principal)
CPT/HCPCS: 36415; 85014; 85018

== ENCOUNTER 2024-09-26 08:18 | Outpatient (CLI) | payer BC, SELFPAY ==
--- OUTSIDE RECORDS SUMMARY | 2024-09-26 08:22 | XMS_ITS | Clinical Summary ---
Author Organization [facility] Address [address] [place] [id number] Phone Care Team Providers Care Automobile Parker Name Role Phone Ej Wyatt MD [ ] Conditions or Problems Problem Name Problem Code Onset Date Status Entry Date Provider Comment Standard Description Annotate Infective bursitis, right knee M71.161 (ICD-10-CM ) 09/03 Active 09/03 Luisa Hampton Other infective bursitis, right knee Staph lugdunesis infection B95.7 (ICD-10-CM ) 09/10 Active 09/10 Savannah Ayers Other staphylococcus as the cause of diseases classified elsewhere Prepatellar bursitis of right knee 15095590 (SNOMED CT) 09/03 Inactive 09/03 Savannah Ayers Prepatellar bursitis DM Type II E11.9 (ICD-10-CM ) 09/03 Active 09/03 Savannah Ayers Type 2 diabetes mellitus without complications Nicotine dependence, cigarettes F17.210 (ICD-10-CM ) 09/03 Active 09/03 Savannah Ayers Nicotine dependence, cigarettes, uncomplicated Medications Medication Instructions Start Date Stop Date Generic Name [facility] Provider CEFTRIAXONE SODIUM 2 GM SOLR ceftriaxone 2gm IV Q DAY INPAT CEFTRIAXONE SODIUM [id number] Rhea Ellis RN CEFTRIAXONE SODIUM 2 GM SOLR ceftriaxone 2gm IV Q DAY INPAT CEFTRIAXONE SODIUM 81632964096 Mahogany Goldberg RN CUBICIN 500 MG INTRAVENOUS SOLUTION RECONSTITUTED 500mg IV Q24hrs/ INPAT DAPTOMYCIN 04730053484 Mahogany Goldberg RN CUBICIN 500 MG INTRAVENOUS SOLUTION RECONSTITUTED 500mg IV Q24hrs/ INPAT DAPTOMYCIN 23154617816 Mahogany Goldberg RN LORTAB TABS HYDROCODONE-ROXANN TAMINOPHEN TABS 15137894156 Ej Wyatt MD LIPITOR TABS ATORVASTATIN CALCIUM TABS [id number] Ej Wyatt MD ASPIRIN TABS ASPIRIN TABS [id number] Ej Wyatt MD METFORMIN HCL TABS METFORMIN HCL TABS [id number] Ej Wyatt MD CARVEDILOL TABS CARVEDILOL TABS [id number] Ej Wyatt MD LISINOPRIL TABLET LISINOPRIL TABS [id number] Ej Wyatt MD HUMALOG SOLUTION INSULIN LISPRO (HUMAN) SOLN [id number] Ej Wyatt MD Medications Administered No information [...] Name Date Entry Date CPT-sl STAT Labs [id number] CBC with Differential 2015 CPT-37041 CMP CPT-wanda Change IV antibiotics 09/05 CPT-32912 PIV/Butterfly CPT-86992 CMP [id number] CBC with Differential 2015 CPT- stat weekly [...]
--- OUTSIDE RECORDS SUMMARY | 2024-09-26 08:22 | XMS_ITS | Clinical Summary ---
Author Organization [facility] Address [address] [place] [address] Care Team Providers Care Rural Health Consultant Name Role Phone Alphonso Yarbrough MD Primary Care Provider [phone] Allergies Active Allergy Reactions Criticality Noted Date [...] abnormal, but difficult to assess given hx [place] Carotid US to better assess for stenosis (CTA appx 20% by NASCET) -No evidence of hemodynamically significant stenosis (<50 %) Echo to assess for aortic stenosis, cardiac etiology -Unremarkable for cardiac etiology, no significant regurgitation/stenosis CAD (coronary artery disease) 06/27/2022 Overview (06/30/2022): TTE given hx [place], CAD, commorbidites -No significant regurgitation/stenosis -The left [...] 03/16/2010 Moderna COVID-19 Vaccine Bivalent 6months+ 12/23 Pfizer-BioNTTherosteon COVID-19 Vaccine (Purple Cap) 12 + 07/23/2020,06/25/2020 [...] drink first t melissa in the morning (EYE-RIP MACHINE OPERATOR) to steady your nerves or to get [...] A1C 04/04/2023, 09/24/2022, 06/27/2022, Additional history exists [id number] Vaccine ( season) 2023 12/23/2021, 07/23/2020, 06/25/2020 [...] Adults <6.0% Children and Adolescents <7.5% Source: [place] [employer]. Standards of medical care in diabetes,2017. Diabetes Care.2017:40 (suppl 1):S1-S135. HbA1c assay performed by an ion-exchange chromatography method that is certified traceable to the DCCT. us Renetta Fang MD LAB BLOOD ORDERABLES Final Re sult [facility] [address] [place] [address] from Last 3 Months or Most Recently Relevant to Health Maintenance Insurance ANTH Advance Directives * Full Code (Latest Code Status on File) Date Activated Date Inactivated Comments 06/27/2022 8:46 PM 06/30/2022 6:04 PM Question Answer Comments Patient has decision-making capacity? Yes Care Teams Rural Health Consultant Relationship Specialty Start Date End Date Alphonso Yarbrough MD [address] [facility] [address] [place] [address] PCP - General 08/22/20
[2024-09-26 08:37] LABS: Hematocrit 25.1 % (42.0-52.0); Hemoglobin 8.3 g/dL (14.1-18.0)
== END 2024-09-26 23:59 | disposition home or self-care (01) ==
LOC: LAB 08:19
PROVIDERS: PCP Internal Medicine; Visit Provider Surgery
DX: D64.9 Anemia, unspecified (principal)
CPT/HCPCS: 36415; 85014; 85018

== ENCOUNTER 2024-10-10 08:23 | Outpatient (CLI) | payer BC, SELFPAY ==
--- OUTSIDE RECORDS SUMMARY | 2024-10-10 08:28 | XMS_ITS | Clinical Summary ---
Author Organization [facility] Address [address] [place] [phone] Phone Care Team Providers Care Human Resources Receptionist Name Role Phone Ej Wyatt MD [ [...] classified elsewhere Prepatellar bursitis of right knee 03053859 (SNOMED CT) 09/03 Inactive 09/03 Savannah Ayers Prepatellar bursitis DM Type II E11.9 (ICD-10-CM ) 09/03 Active 09/03 Savannah Ayers Type 2 diabetes mellitus without complications Nicotine dependence, cigarettes F17.210 (ICD-10-CM ) 09/03 Active 09/03 Savannah Ayers Nicotine dependence, cigarettes, uncomplicated Medications Medication Instructions Start Date Stop Date Generic Name [facility] Provider CEFTRIAXONE SODIUM 2 GM SOLR ceftriaxone 2gm IV Q DAY INPAT CEFTRIAXONE SODIUM [id number] Rhea Ellis RN CEFTRIAXONE SODIUM 2 GM SOLR ceftriaxone 2gm IV Q DAY INPAT CEFTRIAXONE SODIUM 51818246787 Mahogany Goldberg RN CUBICIN 500 MG INTRAVENOUS SOLUTION RECONSTITUTED 500mg IV Q24hrs/ INPAT DAPTOMYCIN 67275039068 Mahogany Goldberg RN CUBICIN 500 MG INTRAVENOUS SOLUTION RECONSTITUTED 500mg IV Q24hrs/ INPAT DAPTOMYCIN 51640314942 Mahogany Goldberg RN LORTAB TABS HYDROCODONE-ROXANN TAMINOPHEN TABS 95447370448 Ej Wyatt MD LIPITOR TABS ATORVASTATIN CALCIUM TABS [id number] Ej Wyatt MD ASPIRIN TABS ASPIRIN TABS 58954562901 Ej Wyatt MD METFORMIN HCL TABS METFORMIN HCL TABS [id number] Ej Wyatt MD CARVEDILOL TABS CARVEDILOL TABS [id number] Ej Wyatt MD LISINOPRIL TABLET LISINOPRIL TABS [id number] Ej Wyatt MD HUMALOG SOLUTION INSULIN LISPRO (HUMAN) SOLN [id number] Ej Wyatt MD Medications Administered No information [...] Name Date Entry Date CPT-sl STAT Labs [id number] CBC with Differential 2015 CPT-43543 CMP CPT-wanda Change IV antibiotics 09/05 CPT-98023 PIV/Butterfly CPT-87788 CMP [id number] CBC with Differential 2015 CPT- stat weekly [...]
--- OUTSIDE RECORDS SUMMARY | 2024-10-10 08:29 | XMS_ITS | Clinical Summary ---
Author Organization [facility] Address [address] [place] [address] Care Team Providers Care Pre K Teacher Name Role Phone Alphonso Yarbrough MD Primary Care Provider [phone] Allergies Active Allergy Reactions Criticality Noted Date [...] 03/16/2010 Moderna COVID-19 Vaccine Bivalent 6months+ 12/23 Pfizer-BioNTOcimum Biosolutions COVID-19 Vaccine (Purple Cap) 12 + 07/23/2020,06/25/2020 [...] drink first t melissa in the morning (EYE-SURGICAL DRESSING MAKER) to steady your nerves or to get [...] [facility]-HIV Screening 1965 [facility]-Hepatitis C Screening 1965 [facility]-/Child/Adol SDOH Screenings 1965 Diabetes: Dental Exam 10/20/1975 [...] A1C 04/04/2023, 09/24/2022, 06/27/2022, Additional history exists [id number] Vaccine ( season) 2023 12/23/2021, 07/23/2020, 06/25/2020 [...] Adults <6.0% Children and Adolescents <7.5% Source: [place] [employer]. Standards of medical care in diabetes,2017. Diabetes Care.2017:40 (suppl 1):S1-S135. HbA1c assay performed by an ion-exchange chromatography method that is certified traceable to the DCCT. us Renetta Fang MD LAB BLOOD ORDERABLES Final Re sult [facility] [address] [place] [address] from Last 3 Months or Most Recently Relevant to Health Maintenance Insurance ANTH Advance Directives * Full Code (Latest Code Status on File) Date Activated Date Inactivated Comments 06/27/2022 8:46 PM 06/30/2022 6:04 PM Question Answer Comments Patient has decision-making capacity? Yes Care Teams Pre K Teacher Relationship Specialty Start Date End Date Alphonso Yarbrough MD [address] [facility] [address] [place] [address] PCP - General 08/22/20
[2024-10-10 09:44] LABS: Hematocrit 30.9 % (42.0-52.0); Hemoglobin 9.6 g/dL (14.1-18.0)
[2024-10-10 10:26] LABS: Anion Gap 7.3 mEq/L (5-15); Blood Urea Nitrogen 28 mg/dl (9-20); Calcium 8.2 mg/dl (8.4-10.2); Carbon Dioxide 29 mmol/L (22.0-30.0); Chloride 98 mmol/L (98-107); Creatinine,Serum 2.00 mg/dl (0.66-1.25); Estimated Glomerular Filt Rate 34 ml/min (>60); GFR (African American) 42 ML/MIN (>60); Potassium 4.3 mmoL/L (3.5-5.1); Sodium 130 mmol/L (136-145)
[2024-10-10 10:33] LABS: NT Pro Brain Natriuretic Pep. 3500 pg/mL (0-125)
[2024-10-10 11:02] LABS: Glucose 223 mg/dl (74-100)
== END 2024-10-10 23:59 | disposition home or self-care (01) ==
LOC: LAB 08:24
PROVIDERS: Nurse Practitioner Family; PCP Internal Medicine; Visit Provider Surgery
DX: D64.9 Anemia, unspecified (principal); I25.118 Atherosclerotic heart disease of native coronary artery with other forms of angina pectoris; N18.30 Chronic kidney disease, stage 3 unspecified; I12.9 Hypertensive chronic kidney disease with stage 1 through stage 4 chronic kidney disease, or unspecified chronic kidney disease
CPT/HCPCS: 36415; 80048; 83880; 85014; 85018

== ENCOUNTER 2024-10-24 08:13 | Outpatient (CLI) | payer BC, SELFPAY ==
--- OUTSIDE RECORDS SUMMARY | 2024-10-24 08:14 | XMS_ITS | Clinical Summary ---
Author Organization [facility] Address [address] [place] [phone] Phone Care Team Providers Care Advanced Manufacturing Vice President Name Role Phone Ej Wyatt MD [ [...] classified elsewhere Prepatellar bursitis of right knee [id number] (SNOMED CT) 09/03 Inactive 09/03 Savannah Ayers Prepatellar bursitis DM Type II E11.9 (ICD-10-CM ) 09/03 Active 09/03 Savannah Ayers Type 2 diabetes mellitus without complications Nicotine dependence, cigarettes F17.210 (ICD-10-CM ) 09/03 Active 09/03 Savannah Ayers Nicotine dependence, cigarettes, uncomplicated Medications Medication Instructions Start Date Stop Date Generic Name [facility] Provider CEFTRIAXONE SODIUM 2 GM SOLR ceftriaxone 2gm IV Q DAY INPAT CEFTRIAXONE SODIUM [id number] Rhea Ellis RN CEFTRIAXONE SODIUM 2 GM SOLR ceftriaxone 2gm IV Q DAY INPAT CEFTRIAXONE SODIUM [id number] Mahogany Goldberg RN CUBICIN 500 MG INTRAVENOUS SOLUTION RECONSTITUTED 500mg IV Q24hrs/ INPAT DAPTOMYCIN [id number] Mahogany Goldberg RN CUBICIN 500 MG INTRAVENOUS SOLUTION RECONSTITUTED 500mg IV Q24hrs/ INPAT DAPTOMYCIN 78011747606 Mahogany Goldberg RN LORTAB TABS HYDROCODONE-ROXANN TAMINOPHEN TABS [id number] Ej Wyatt MD LIPITOR TABS ATORVASTATIN CALCIUM TABS [id number] Ej Wyatt MD ASPIRIN TABS ASPIRIN TABS [id number] Ej Wyatt MD METFORMIN HCL TABS METFORMIN HCL TABS [id number] Ej Wyatt MD CARVEDILOL TABS CARVEDILOL TABS [id number] Ej Wyatt MD LISINOPRIL TABLET LISINOPRIL TABS [id number] Ej Wyatt MD HUMALOG SOLUTION INSULIN LISPRO (HUMAN) SOLN [id number] Ej Wyatt MD Medications Administered No information [...] Name Date Entry Date CPT-sl STAT Labs [id number] CBC with Differential 2015 CPT-41741 CMP CPT-wanda Change IV antibiotics 09/05 CPT-85743 PIV/Butterfly CPT-46603 CMP [id number] CBC with Differential 2015 CPT- stat weekly [...]
--- OUTSIDE RECORDS SUMMARY | 2024-10-24 08:15 | XMS_ITS | Clinical Summary ---
Author Organization [facility] Address [address] [place] [address] Care Team Providers Care Cement Crusher Operator Name Role Phone Alphonso Yarbrough MD Primary Care Provider [phone] Allergies Active Allergy Reactions Criticality Noted Date [...] 03/16/2010 Moderna COVID-19 Vaccine Bivalent 6months+ 12/23 Pfizer-BioNTWipit COVID-19 Vaccine (Purple Cap) 12 + 07/23/2020,06/25/2020 [...] drink first t melissa in the morning (EYE-EXERCISER) to steady your nerves or to get [...] A1C 04/04/2023, 09/24/2022, 06/27/2022, Additional history exists [id number] Vaccine ( season) 2023 12/23/2021, 07/23/2020, 06/25/2020 [facility]-Influenza Vaccine (#1) 2024 01/31/2017, [facility]-Obesity Intervention Completed 03/30/2024 HPV Vaccines Aged [...] Adults <6.0% Children and Adolescents <7.5% Source: [place] [employer]. Standards of medical care in diabetes,2017. Diabetes Care.2017:40 (suppl 1):S1-S135. HbA1c assay performed by an ion-exchange chromatography method that is certified traceable to the DCCT. us Renetta Fang MD LAB BLOOD ORDERABLES Final Re sult [facility] [address] [place] [address] from Last 3 Months or Most Recently Relevant to Health Maintenance Insurance ANTH Advance Directives * Full Code (Latest Code Status on File) Date Activated Date Inactivated Comments 06/27/2022 8:46 PM 06/30/2022 6:04 PM Question Answer Comments Patient has decision-making capacity? Yes Care Teams Cement Crusher Operator Relationship Specialty Start Date End Date Alphonso Yarbrough MD [address] [facility] [address] [place] [address] PCP - General 08/22/20
[2024-10-24 08:32] LABS: Hematocrit 31.4 % (42.0-52.0); Hemoglobin 10.1 g/dL (14.1-18.0)
== END 2024-10-24 23:59 | disposition home or self-care (01) ==
LOC: LAB 08:14
PROVIDERS: PCP Internal Medicine; Visit Provider Surgery
DX: D64.9 Anemia, unspecified (principal)
CPT/HCPCS: 36415; 85014; 85018

== ENCOUNTER 2024-10-25 09:55 | Outpatient (CLI) | payer BC, SELFPAY ==
--- OUTSIDE RECORDS SUMMARY | 2024-10-25 09:57 | XMS_ITS | Clinical Summary ---
Author Organization [facility] Address [address] [place] [address] Care Team Providers Care Fifth Grade Teacher Name Role Phone Alphonso Yarbrough MD Primary Care Provider [phone] Allergies Active Allergy Reactions Criticality Noted Date [...] abnormal, but difficult to assess given hx AR Carotid US to better assess for stenosis (CTA appx 20% by NASCET) -No evidence of hemodynamically significant stenosis (<50 %) Echo to assess for aortic stenosis, cardiac etiology -Unremarkable for cardiac etiology, no significant regurgitation/stenosis CAD (coronary artery disease) 06/27/2022 Overview (06/30/2022): TTE given hx AR, CAD, commorbidites -No significant regurgitation/stenosis -The left [...] 03/16/2010 Moderna COVID-19 Vaccine Bivalent 6months+ 12/23 Pfizer-BioNTMedEncentive COVID-19 Vaccine (Purple Cap) 12 + 07/23/2020,06/25/2020 [...] drink first t melissa in the morning (EYE-TURNER OFF) to steady your nerves or to get [...] A1C 04/04/2023, 09/24/2022, 06/27/2022, Additional history exists [id number] Vaccine ( season) 2023 12/23/2021, 07/23/2020, 06/25/2020 [...] Adults <6.0% Children and Adolescents <7.5% Source: [place] [employer]. Standards of medical care in diabetes,2017. Diabetes Care.2017:40 (suppl 1):S1-S135. HbA1c assay performed by an ion-exchange chromatography method that is certified traceable to the DCCT. us Renetta Fang MD LAB BLOOD ORDERABLES Final Re sult [facility] [address] [place] [address] from Last 3 Months or Most Recently Relevant to Health Maintenance Insurance ANTH Advance Directives * Full Code (Latest Code Status on File) Date Activated Date Inactivated Comments 06/27/2022 8:46 PM 06/30/2022 6:04 PM Question Answer Comments Patient has decision-making capacity? Yes Care Teams Fifth Grade Teacher Relationship Specialty Start Date End Date Alphonso Yarbrough MD [address] [facility] [address] [place] [address] PCP - General 08/22/20
--- OUTSIDE RECORDS SUMMARY | 2024-10-25 09:57 | XMS_ITS | Clinical Summary ---
Author Organization [facility] Address [address] [place] [phone] Phone Care Team Providers Care Account Clerk Name Role Phone Ej Wyatt MD [ [...] classified elsewhere Prepatellar bursitis of right knee [id number] (SNOMED CT) 09/03 Inactive 09/03 Savannah Ayers Prepatellar bursitis DM Type II E11.9 (ICD-10-CM ) 09/03 Active 09/03 Savannah Ayers Type 2 diabetes mellitus without complications Nicotine dependence, cigarettes F17.210 (ICD-10-CM ) 09/03 Active 09/03 Savannah Ayers Nicotine dependence, cigarettes, uncomplicated Medications Medication Instructions Start Date Stop Date Generic Name [facility] Provider CEFTRIAXONE SODIUM 2 GM SOLR ceftriaxone 2gm IV Q DAY INPAT CEFTRIAXONE SODIUM [id number] Rhea Ellis RN CEFTRIAXONE SODIUM 2 GM SOLR ceftriaxone 2gm IV Q DAY INPAT CEFTRIAXONE SODIUM 90534180005 Mahogany Goldberg RN CUBICIN 500 MG INTRAVENOUS SOLUTION RECONSTITUTED 500mg IV Q24hrs/ INPAT DAPTOMYCIN 77601229998 Mahogany Goldberg RN CUBICIN 500 MG INTRAVENOUS SOLUTION RECONSTITUTED 500mg IV Q24hrs/ INPAT DAPTOMYCIN 23765652483 Mahogany Goldberg RN LORTAB TABS HYDROCODONE-ROXANN TAMINOPHEN TABS 58151356142 Ej Wyatt MD LIPITOR TABS ATORVASTATIN CALCIUM TABS [id number] Ej Wyatt MD ASPIRIN TABS ASPIRIN TABS 77733357414 Ej Wyatt MD METFORMIN HCL TABS METFORMIN HCL TABS 12477871342 Ej Wyatt MD CARVEDILOL TABS CARVEDILOL TABS [id number] Ej Wyatt MD LISINOPRIL TABLET LISINOPRIL TABS [id number] Ej Wyatt MD HUMALOG SOLUTION INSULIN LISPRO (HUMAN) SOLN [id number] Ej Wyatt MD Medications Administered No information [...] Name Date Entry Date CPT-sl STAT Labs [id number] CBC with Differential 2015 CPT-17885 CMP CPT-wanda Change IV antibiotics 09/05 CPT-61836 PIV/Butterfly CPT-57972 CMP [id number] CBC with Differential 2015 CPT- stat weekly [...]
[2024-10-25 10:43] LABS: Iron 56 ug/dL (49-181)
[2024-10-25 10:53] LABS: Total Iron Binding Capacity 249 ug/dL (261-462)
[2024-10-25 11:19] LABS: Ferritin 25.8 ng/ml (17.9-464)
[2024-10-25 11:58] LABS: Vitamin B12 478 pg/mL (239-931)
== END 2024-10-25 23:59 | disposition home or self-care (01) ==
LOC: LAB 09:55
PROVIDERS: PCP Internal Medicine; Visit Provider Internal Medicine Medical Oncology
DX: D64.9 Anemia, unspecified (principal)
CPT/HCPCS: 36415; 82607; 82728; 83540; 83550

== ENCOUNTER 2024-10-30 06:20 | Day surgery (SDC) | payer BC, SELFPAY ==
[2024-10-29 11:27] VITALS: BMI 26.2
[2024-10-30] MEDS: LACTATED RINGERS 1000ML 1,000 ML 50 ML IV (06:44)
[2024-10-30 06:48] VITALS: BP 148/75; PULSE 58; RESP 18; TEMP 36.1; O2SAT 98
--- NOTE | 2024-10-30 06:58 | EXP.GEN.HP ---
HPI HPI HPI: History 59-year-old gentleman presents for esophagogastroduodenoscopy/. Over the past few months he has undergone esophagogastroduodenoscopy on 2 separate occasions for evaluation/management of duodenal ulcer with intermittent hemorrhage. Currently, he feels better . His most recent hemoglobin dated October 24, 2024 was 10.1 (trending upward). [facility] Disclaimer: The information contained in this section may have been updated after the patient was seen, as this information can be updated by other users. Medical History Anemia Dietary counseling Exercise counseling Screening for depression Screening for endocrine disorder JENNIFER (acute kidney injury) Hospital discharge follow-up Heart failure Screening for colon cancer Encounter for vitamin deficiency screening Vitamin deficiency Acute medical illness Establishing care with new doctor, encounter for Vaccine counseling Type 2 diabetes mellitus with stage 2 chronic kidney disease Atypical angina Abnormal result of cardiovascular function study (HFpEF) heart failure with preserved ejection fraction Type 2 diabetes mellitus Hyperlipidemia Hypertension CONNIE (obstructive sleep apnea) CAD (coronary artery disease) Lower extremity edema Surgical History History of esophagogastroduodenoscopy (EGD) H/O heart artery stent 4 stents History of cardiac catheterization Family History Father Cancer Mother Stroke Social History Smoking Status: Former smoker tobacco type: cigarettes how long ago did patient quit smoking: July 2024 alcohol intake: former year quit: 2019 substance use type: denies use current occupational status: employed Travel in the last 8 weeks?: None Have you lived/traveled outside US in past 30 days?: No Contact w/someone who lives/traveled outside US past 30 days?: No Exposure to someone with infectious disease in past 14 days?: No Do you have a fever (greater than 100.4 F or 38 C)?: No Have you tested positive for COVID-19?: No Exposed to someone with COVID-19 in past 14 days?: No Do you have a sore throat?: No Do you have a cough?: No Do you have any weakness?: No Do you have any diarrhea?: No Are you experiencing any unusual bleeding?: No Do you have any muscle aches/pain?: No Do you have any abdominal pain?: No Are you experiencing loss of taste or smell?: No Other Medical History Have you received the Flu Vaccine for this season: No Have you received the Pneumonia Vaccine: No Review of Systems Review of Systems Review of systems:: pertinent systems reviewed and negative unless documented below Meds Home Medications and Allergies Home Medications ?Medication ?Instructions ?Recorded ?Confirmed ?Type clopidogrel 75 mg tablet (Plavix) 75 mg PO DAILY #90 tabs 04/05/24 10/29/24 Rx furosemide 40 mg tablet (Lasix) 40 mg PO DAILY 30 days #30 tabs 09/16/24 10/29/24 Rx insulin glargine 100 unit/mL (3 30 unit SQ HS 09/18/24 10/29/24 History mL) subcutaneous pen (Lantus Solostar U-100 Insulin) insulin lispro 100 unit/mL See Protocol SQ TID 09/26/24 10/29/24 History subcutaneous pen sod picosulf 10 mg-magnes 3.5 175 ml PO DAILY 2 doses #350 mL 10/03/24 10/25/24 Rx gram-citric 12 gram/175 mL oral solution (Clenpiq) amlodipine 5 mg tablet (Norvasc) 5 mg PO DAILY #30 tabs 10/17/24 10/29/24 Rx carvedilol 25 mg tablet (Coreg) 25 mg PO BID #60 tabs 10/25/24 10/29/24 Rx New Prescriptions to Start Prescriptions: Allergies Allergy/AdvReac Type Severity Reaction Status Date / Time NSAIDS (Non-Steroidal Allergy itch Verified 10/30/24 06:47 Anti-Inflamma gabapentin AdvReac Severe Hives Verified 10/30/24 06:47 Exam Data for Last 24 hours I & O for Last 24 hours: Intake & Output 10/27/24 10/28/24 10/29/24 10/30/24 11:59 11:59 11:59 11:59 Weight 216 lb Constitutional Constitutional: no acute distress *Routine HEENT Exam Head: Present normocephalic Eye: Present EOMI ENT: Present mucous membranes moist *Routine Neck Exam Neck: Present full ROM *Routine Respiratory Exam Respiratory: Absent respiratory distress *Routine Cardiovascular Exam Cardiovascular: Absent tachycardia *Routine Abdominal Exam Abdominal: Present soft *Routine Rectal Exam Rectal:: deferred *Routine Genitalia Exam Genitalia:: deferred *Routine Extremities Exam Extremities: Present full ROM *Routine Skin Exam Skin: Absent erythema *Routine Neurological Exam Neurological: Present alert Assessment and Plan *Assessment and plan (1) Anemia: Status: Acute Qualifiers: Anemia type: unspecified type Qualified Code(s): D64.9 - Anemia, unspecified Category: Medical Code(s): D64.9 - Anemia, unspecified (2) Duodenal ulcer: Status: Acute Category: Medical Code(s): K26.9 - Duodenal ulcer, unspecified as acute or chronic, without hemorrhage or perforation Plan Esophagogastroduodenoscopy/colonoscopy today I have discussed the risks and benefits including, but not limited to: Bleeding Infection Damage to surrounding tissue Inherent risks of sedation The patient agrees to proceed.
--- NOTE | 2024-10-30 07:10 | EXP.ANES.CKL ---
[facility] Disclaimer: The information contained in this section may have been updated after the patient was seen, as this information can be updated by other users. Medical History Anemia Dietary counseling Exercise counseling Screening for depression Screening for endocrine disorder JENNIFER (acute kidney injury) Hospital discharge follow-up Heart failure Screening for colon cancer Encounter for vitamin deficiency screening Vitamin deficiency Acute medical illness Establishing care with new doctor, encounter for Vaccine counseling Type 2 diabetes mellitus with stage 2 chronic kidney disease Atypical angina Abnormal result of cardiovascular function study (HFpEF) heart failure with preserved ejection fraction Type 2 diabetes mellitus Hyperlipidemia Hypertension CONNIE (obstructive sleep apnea) CAD (coronary artery disease) Lower extremity edema Surgical History History of esophagogastroduodenoscopy (EGD) H/O heart artery stent 4 stents History of cardiac catheterization Family History Father Cancer Mother Stroke Social History Smoking Status: Former smoker tobacco type: cigarettes how long ago did patient quit smoking: July 2024 alcohol intake: former year quit: 2019 substance use type: denies use current occupational status: employed Travel in the last 8 weeks?: None Have you lived/traveled outside US in past 30 days?: No Contact w/someone who lives/traveled outside US past 30 days?: No Exposure to someone with infectious disease in past 14 days?: No Do you have a fever (greater than 100.4 F or 38 C)?: No Have you tested positive for COVID-19?: No Exposed to someone with COVID-19 in past 14 days?: No Do you have a sore throat?: No Do you have a cough?: No Do you have any weakness?: No Do you have any diarrhea?: No Are you experiencing any unusual bleeding?: No Do you have any muscle aches/pain?: No Do you have any abdominal pain?: No Are you experiencing loss of taste or smell?: No [facility] Anesthesia Checklist Patient Identification Patient Identification: Arm Band Structural Data Admitted From: Home Planned Operative Procedure/s: EGD/Colonoscopy Consent for Planned Operative Procedure(s) Verified: Yes Verified Documents: Surgical Consent and History and Physical NPO Status Verified Time NPO: 03:00 (finished prep) Additional verifications Anesthesia Reactions: No Airway Assessment Mallampati Score:: Class II C-Spine Mobility Assessed: Yes TMJ Mobility Assessed: Yes Dentition: Good Dentition Neurological Assessment Level of Consciousness: Awake, Alert and Appropriate Anesthesia Plan Anesthesia Risk discussed: Yes Anesthesia Plan: Verified ASA Class: III Anesthesia Type: MAC
[2024-10-30 07:11] LABS: POC Glucose,Bedside 141 (70-110)
[2024-10-30 08:11] VITALS: BP 120/66; PULSE 58; RESP 18; TEMP 36.1; O2SAT 98
--- NOTE | 2024-10-30 08:13 | HMH.SCOPE ---
Procedure: Date: 10/30/24 Patient Date of :: 1965 Procedure Performed:: Esophagogastroduodenoscopy Colonoscopy Indications:: Duodenal ulcer with recent hemorrhage Anemia Screening Performing Provider:: Armen Hines MD Referring Provider:: . Sedation:: Monitored anesthesia care Procedure:: After informed consent was obtained the patient was taken to the endoscopy suite. Sedation ensued after the patient was transferred to the left lateral decubitus position. Pulse, blood pressure, and oxygen saturation were monitored throughout the procedure. The endoscope was advanced beyond the duodenal bulb. Retroflexion within the gastric lumen was accomplished. The gastroscope was carefully removed. Digital rectal exam revealed no significant abnormality. The colonoscope was placed in position. The entire colon was evaluated. The colonoscope was carefully removed and the patient was transferred to recovery in stable condition. Please see findings and specimens below for detail. Findings:: Duodenal ulcer with no evidence of bleeding Duodenal ulcer with continued evidence of healing/contraction Bowel preparation poor Hemorrhoidal cushions Sigmoid diverticulosis Specimens:: None Recommendations:: Continue proton pump inhibition Repeat colonoscopy in 6-12 months with extended/alternate bowel preparation Complications:: No immediate with the exception of poor bowel preparation Estimated blood obtained (mL): 0 Colonoscopy Component Colonoscopy Component Was a colonoscopy performed during today's procedure?: Yes Recommended follow up colonoscopy of at least 10 years?: No If no, follow up colonoscopy recommended in ___ years?: (See above) Reason for not recommending >/= 10 yr follow-up interval?: (See above)
[2024-10-30 08:21] VITALS: BP 124/66; PULSE 56; RESP 18; O2SAT 98
[2024-10-30 08:31] VITALS: BP 142/75; PULSE 56; RESP 16; O2SAT 97
[2024-10-30 08:41] VITALS: BP 150/73; PULSE 60; RESP 16; TEMP 36.1; O2SAT 98
== END 2024-10-30 08:41 | disposition home or self-care (01) ==
PROVIDERS: PCP Internal Medicine; Visit Provider Surgery
PROC: 0DJ08ZZ Inspection of Upper Intestinal Tract, Via Natural or Artificial Opening Endoscopic (ICD-10-PCS; CPT 45378; principal; 2024-10-30 07:30)
DX: K26.9 Duodenal ulcer, unspecified as acute or chronic, without hemorrhage or perforation (principal); K64.9 Unspecified hemorrhoids; K57.30 Diverticulosis of large intestine without perforation or abscess without bleeding; D64.9 Anemia, unspecified; I11.0 Hypertensive heart disease with heart failure; I50.30 Unspecified diastolic (congestive) heart failure; I25.10 Atherosclerotic heart disease of native coronary artery without angina pectoris; E78.5 Hyperlipidemia, unspecified; E11.9 Type 2 diabetes mellitus without complications; Z87.891 Personal history of nicotine dependence; Z88.6 Allergy status to analgesic agent; Z79.4 Long term (current) use of insulin; Z79.899 Other long term (current) drug therapy
CPT/HCPCS: 43235; 45378; 82962; J2003; J2704; J7120

== ENCOUNTER 2024-12-11 11:20 | Outpatient (CLI) | payer BC, SELFPAY ==
--- NOTE | 2024-12-11 | CA_ITS ---
APPROVED REPORT Exam: Pharmacologic Technologist: Nella Bear Ht: 6 ft 4 in Wt: 230 lbs BSA: 2.35 m2 HR: 52 bpm BP: 154/76 mmHg Stress Test Details Test: Lexiscan HR Resting HR: 52 bpm Max Heart Rate (APMHR): 161.148125 bpm Max HR Achieved: 69 bpm Target HR (85% APMHR): 136.830358 bpm % of APMHR: 42.86 Recovery HR: 59 bpm BP Resting BP: 154.0/76.0 mmHg Max BP: 155.0/75.0 mmHg Recovery BP: 155.0/75.0 mmHg ECG Resting ECG: Sinus rhythm, incomplete right bundle branch block Stress ECG Conclusion Lungs CTA prior to test start. Symptoms: Dyspnea Arrhythmias/Ectopy: PVC/ Ventricular couplet. ST-T Changes: Less than 0.[address] segment changes. Conclusion: Non-diagnostic ECG/ Lexiscan Electronically signed by : Emeli Paniagua MD 12/12/2024 00:19:48
--- NOTE | 2024-12-11 11:30 | NM_ITS ---
APPROVED REPORT Exam: Nuclear Stress Test Indication: cad, hx mi, htn, diabetes, tob use, c.p., sob, fatigue Patient Location: Outpatient Stress Tech: Nella Bear CT Tech:RHONDA Smith RT (R)(N)(M) Ht: 6 ft 4 in Wt: 220 lbs HR: 56 bpm BP: 154/76 mmHg BSA: 2.31 m2 TID: 1.06 BMI: 26.7 History: cad, hx mi, htn, diabetes, tob use, chest pain, dyspnea, fatigue pt could not lay on stomach for prone images. Procedure: Patient received 0.4 mg of intravenous Lexiscan, resting heart rate 56 bpm, resting blood pressure 154/76 mmHg, with AdenosineLexiscan maximum heart rate achieved was 70 bpm which is % of the maximum predicted heart rate and blood pressure was 130/69 mmHg. With Lexiscan, patient denied any complaint of chest pain. Cardiac Stress and Resting SPECT Images: Cardiac Stress and Resting SPECT images were obtained using technetium 99m Myoview 31.9 mCi stress and 9.99 mCi at rest. The patient was unable to lie on his abdomen. Therefore, prone stress imaging could not be performed. This may affect the diagnostic interpretation of the study findings. Resting and stress imaging in supine positions demonstrate a large sized, severe, predominantly fixed perfusion defect in the inferior LV wall from the base and extending towards the inferoapical region. There is a small region of reversibility towards the distal inferior LV wall. Gated imaging demonstrates mild reduction in global LV systolic function. There is moderate hypokinesis of the inferior LV wall. LVEF is calculated at 42%. Conclusion: Large sized, severe, predominantly fixed perfusion defect in the inferior LV wall from the base and extending towards the inferoapical region. There is a small region of reversibility towards the distal inferior LV wall. Findings are suggestive of partial reversible ischemia. Gated imaging demonstrates mild reduction in global LV systolic function. There is moderate hypokinesis of the inferior LV wall. LVEF is calculated at 42%. Electronically signed by : Emeli Paniagua MD 12/12/2024 00:17:46
[2024-12-11] MEDS: SODIUM CHLORIDE 0.9% 10ML SYR (RAD ONLY) 10 ML IV ×2 (11:35→13:00)
--- OUTSIDE RECORDS SUMMARY | 2024-12-11 11:49 | XMS_ITS | Clinical Summary ---
Author Organization [facility] Address [address] [place] [phone] Phone Care Team Providers Care Order Booker Name Role Phone Ej Wyatt MD [ [...] classified elsewhere Prepatellar bursitis of right knee [id number] (SNOMED CT) 09/03 Inactive 09/03 Savannah Ayers Prepatellar bursitis DM Type II E11.9 (ICD-10-CM ) 09/03 Active 09/03 Savannah Ayers Type 2 diabetes mellitus without complications Nicotine dependence, cigarettes F17.210 (ICD-10-CM ) 09/03 Active 09/03 Savannah Ayers Nicotine dependence, cigarettes, uncomplicated Medications Medication Instructions Start Date Stop Date Generic Name [facility] Provider CEFTRIAXONE SODIUM 2 GM SOLR ceftriaxone 2gm IV Q DAY INPAT CEFTRIAXONE SODIUM [id number] Rhea lElis RN CEFTRIAXONE SODIUM 2 GM SOLR ceftriaxone 2gm IV Q DAY INPAT CEFTRIAXONE SODIUM 51046299511 Mahogany Goldberg RN CUBICIN 500 MG INTRAVENOUS SOLUTION RECONSTITUTED 500mg IV Q24hrs/ INPAT DAPTOMYCIN 40343674661 Mahogany Goldberg RN CUBICIN 500 MG INTRAVENOUS SOLUTION RECONSTITUTED 500mg IV Q24hrs/ INPAT DAPTOMYCIN 19066120963 Mahogany Goldberg RN LORTAB TABS HYDROCODONE-ROXANN TAMINOPHEN TABS 85087973390 Ej Wyatt MD LIPITOR TABS ATORVASTATIN CALCIUM TABS 86055478714 Ej Wyatt MD ASPIRIN TABS ASPIRIN TABS 67572385435 Ej Wyatt MD METFORMIN HCL TABS METFORMIN HCL TABS 29565540249 Ej Wyatt MD CARVEDILOL TABS CARVEDILOL TABS 78932890652 Ej Wyatt MD LISINOPRIL TABLET LISINOPRIL TABS 56485531883 Ej Wyatt MD HUMALOG SOLUTION INSULIN LISPRO (HUMAN) SOLN [id number] Ej Wyatt MD Medications Administered No information [...] ALK PHOS 69 U/L 46-116 N Alkaline nguyne sphatase [Enzymatic activity/volume] in Blood CALCIUM 9.1 [...] Name Date Entry Date CPT-sl STAT Labs [id number] CBC with Differential 2015 CPT-68333 CMP CPT-wanda Change IV antibiotics 09/05 CPT-84964 PIV/Butterfly CPT-46670 CMP [id number] CBC with Differential 2015 CPT- stat weekly [...]
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
--- OUTSIDE RECORDS SUMMARY | 2024-12-11 11:50 | XMS_ITS | Clinical Summary ---
Author Organization [facility] Address [address] [place] [address] Care Team Providers Care City Supervisor Name Role Phone Alphonso Yarbrough MD Primary Care Provider [phone] Allergies Active Allergy Reactions Criticality Noted Date [...] abnormal, but difficult to assess given hx [place] Carotid US to better assess for stenosis (CTA appx 20% by NASCET) -No evidence of hemodynamically significant stenosis (<50 %) Echo to assess for aortic stenosis, cardiac etiology -Unremarkable for cardiac etiology, no significant regurgitation/stenosis CAD (coronary artery disease) 06/27/2022 Overview (06/30/2022): TTE given hx [place], CAD, commorbidites -No significant regurgitation/stenosis -The left [...] 03/16/2010 Moderna COVID-19 Vaccine Bivalent 6months+ 12/23 Pfizer-BioNTExinda COVID-19 Vaccine (Purple Cap) 12 + 07/23/2020,06/25/2020 [...] drink first t melissa in the morning (EYE-DYNAMIC ETCHING PROCESSOR) to steady your nerves or to get [...] A1C 04/04/2023, 09/24/2022, 06/27/2022, Additional history exists [id number] Vaccine ( season) 2023 12/23/2021, 07/23/2020, 06/25/2020 [...] Adults <6.0% Children and Adolescents <7.5% Source: [place] [employer]. Standards of medical care in diabetes,2017. Diabetes Care.2017:40 (suppl 1):S1-S135. HbA1c assay performed by an ion-exchange chromatography method that is certified traceable to the DCCT. us Renetta Fang MD LAB BLOOD ORDERABLES Final Re sult [facility] [address] [place] [address] from Last 3 Months or Most Recently Relevant to Health Maintenance Insurance ANTH Advance Directives * Full Code (Latest Code Status on File) Date Activated Date Inactivated Comments 06/27/2022 8:46 PM 06/30/2022 6:04 PM Question Answer Comments Patient has decision-making capacity? Yes Care Teams City Supervisor Relationship Specialty Start Date End Date Alphonso Yarbrough MD [address] [facility] [address] [place] [address] PCP - General 08/22/20
[2024-12-11 13:35] VITALS: BP 154/76; PULSE 52; RESP 16
[2024-12-11] MEDS: ISOTOPE MYOVIEW (PER STUDY) 1 DOSE IV (13:37)
== END 2024-12-11 23:59 | disposition home or self-care (01) ==
LOC: RAD 11:20
PROVIDERS: PCP Internal Medicine; Visit Provider Nurse Practitioner Family
DX: I49.3 Ventricular premature depolarization (principal); I25.119 Atherosclerotic heart disease of native coronary artery with unspecified angina pectoris; I10 Essential (primary) hypertension; R94.39 Abnormal result of other cardiovascular function study; I25.2 Old myocardial infarction; E11.9 Type 2 diabetes mellitus without complications; Z72.0 Tobacco use
CPT/HCPCS: 78452; 93017; 93018; A9502; J2785

== ENCOUNTER 2025-01-03 10:04 | Outpatient (CLI) | payer BC, SELFPAY ==
[2025-01-03 14:02] LABS: Hematocrit 32.6 % (42.0-52.0); Hemoglobin 10.5 g/dL (14.1-18.0); Immature Granulocytes % 0.2 %; Mean Corpuscular HGB Conc 32.2 g/dL (31.8-35.4); Mean Corpuscular Hemoglobin 26.7 pg (27.0-31.2); Mean Corpuscular Volume 83.0 fl (80-94); Nucleated Red Blood Cells % 0 %; Platelet Count 313 K/mm3 (142-424); Red Blood Count 3.93 M/mm3 (4.60-6.20); Red Cell Distribution Width-SD 49.6 fL; White Blood Count 5.1 K/mm3 (4.8-10.8)
--- OUTSIDE RECORDS SUMMARY | 2025-01-07 09:31 | XMS_ITS | Clinical Summary ---
Author Organization [facility] Address [address] [place] [id number] Phone Care Team Providers Care Construction Trades Teacher Name Role Phone Ej Wyatt MD [phone] [ ] Conditions or Problems Problem Name Problem Code Onset Date Status Entry Date Provider Comment Standard Description Annotate Infective bursitis, right knee M71.161 (ICD-10-CM ) 09/03 Active 09/03 Luisa Hampton Other infective bursitis, right knee Staph lugdunesis infection B95.7 (ICD-10-CM ) 09/10 Active 09/10 Savannah Ayers Other staphylococcus as the cause of diseases classified elsewhere Prepatellar bursitis of right knee 48138494 (SNOMED CT) 09/03 Inactive 09/03 Savannah Ayers Prepatellar bursitis DM Type II E11.9 (ICD-10-CM ) 09/03 Active 09/03 Savannah Ayers Type 2 diabetes mellitus without complications Nicotine dependence, cigarettes F17.210 (ICD-10-CM ) 09/03 Active 09/03 Savannah Ayers Nicotine dependence, cigarettes, uncomplicated Medications Medication Instructions Start Date Stop Date Generic Name [facility] Provider CEFTRIAXONE SODIUM 2 GM SOLR ceftriaxone 2gm IV Q DAY INPAT CEFTRIAXONE SODIUM [id number] Rhea Ellis RN CEFTRIAXONE SODIUM 2 GM SOLR ceftriaxone 2gm IV Q DAY INPAT CEFTRIAXONE SODIUM [id number] Mahogany Goldberg RN CUBICIN 500 MG INTRAVENOUS SOLUTION RECONSTITUTED 500mg IV Q24hrs/ INPAT DAPTOMYCIN [id number] Mahogany Goldberg RN CUBICIN 500 MG INTRAVENOUS SOLUTION RECONSTITUTED 500mg IV Q24hrs/ INPAT DAPTOMYCIN [id number] Mahogany Goldberg RN LORTAB TABS HYDROCODONE-ROXANN TAMINOPHEN TABS [id number] Ej Wyatt MD LIPITOR TABS ATORVASTATIN CALCIUM TABS [id number] Ej Wyatt MD ASPIRIN TABS ASPIRIN TABS [id number] Ej Wyatt MD METFORMIN HCL TABS METFORMIN HCL TABS [id number] Ej Wyatt MD CARVEDILOL TABS CARVEDILOL TABS [id number] Ej Wyatt MD LISINOPRIL TABLET LISINOPRIL TABS [id number] Ej Wyatt MD HUMALOG SOLUTION INSULIN LISPRO (HUMAN) SOLN [id number] Ej Wyatt MD Medications Administered No information [...] Name Date Entry Date CPT-sl STAT Labs [id number] CBC with Differential 2015 CPT-56303 CMP CPT-wanda Change IV antibiotics 09/05 CPT-24237 PIV/Butterfly CPT-24743 CMP [id number] CBC with Differential 2015 CPT- stat weekly [...]
--- OUTSIDE RECORDS SUMMARY | 2025-01-07 09:33 | XMS_ITS | Clinical Summary ---
Author Organization [facility] Address [address] [place] [address] Care Team Providers Care Datapower Consultant Name Role Phone Karel Gomez MD Primary Care Provider [phone] Allergies Active Allergy Reactions Criticality Noted Date [...] tabletIndication s:Mixed hyperlipidemia,C oronary artery disease involving [place] coronary artery of [place] heart without angina pectoris Take 1 tablet [...] pain 09/11/2018 Coronary artery disease invo lving [place] coronary artery of [place] heart 02/14/2017 Overview (02/14/2017): a. 08/06/09 inferior [...] (03/11/2017): Added automatically from request for surgery [id number] Immunizations Immunization Administration Dates Next Due Flu [...] 07/04/2023 01/03/2023, 06/09/2022, 06/27/2022, Additional history exists LIPID PANEL 01/04/2024 01/03/2023, 09/09, 12/01/2021, Additional history exists INFLUENZA VACCINE 11/09/2024 01/31/2017 LUNG CANCER SCREENING Discontinued 06/27/2022, 023 [...] - 01/04/2023 3:07 AM EDT Performed at: [address] [place] [address] [id number] Clinical Education Specialist: Hitesh Galarza MD, Phone: [phone] Patient Fasting: Y us Karel Gomez MD LAB BLOOD ORDERABLES Final Resu lt Performing Organization Address City/[facility]/ZIP Co de Phone Number [facility]) [address] [place] [address], [place] [phone] [facility] [address] [place] [address], [place] [phone] * (ABNORMAL) Hemoglobin A1c (01/03/2023 8:23 AM EDT) [facility] Hemoglobin A1C 9.10(H) 4.80 - 5.60 % [facility] Comment: Hemoglobin A1C Ranges: Increased Risk for Diabetes 5.7% to 6.4% Diabetes >= 6.5% Diabetic Goal < 7.0% Blood 01/03/2023 8:23 AM EDT 01/03/2023 Narrative [facility]) - 01/04/2023 3:07 AM EDT Performed at: [address] [place] [address] [id number] Clinical Education Specialist: Hitesh Galarza MD, Phone: [phone] Patient Fasting: Y us Karel Gomez MD LAB BLOOD ORDERABLES Final Resu lt Performing Organization Address City/[facility]/ZIP Co de Phone Number [facility]) [address] [place] [address], [place] [phone] [facility] [address] [place] [address], [place] [phone] from Last 3 Months or Most Recently Relevant to Health Maintenance Insurance Advance Directives * CPR (Attempt to Resuscitate) (Latest Code Status on File) Date Activated Date Inactivated Comments 09/11/2018 3:47 AM 09/11/2018 7:25 AM Question Answer Comments Code Status (Patient has no pulse and is not breathing): CPR (Attempt to Resuscitate) Medical Interventions (Patie nt has pulse or is breathing): Full Level Of Support Discussed With: Patient Care Teams Datapower Consultant Relationship Specialty Start Date End Date [place]arel [place] [address] PCP - General Family Medicine 04/08/21
--- OUTSIDE RECORDS SUMMARY | 2025-01-07 09:33 | XMS_ITS | Clinical Summary ---
Author Organization [facility] Address [address] [place] [address] Care Team Providers Care Accounting Policy Consultant Name Role Phone Alphonso Yarbrough MD Primary Care Provider [phone] Allergies Active Allergy Reactions Criticality Noted Date [...] Lactic acidosis 06/27/2022 Overview (06/27/2022): Fluid resuscitate Hx of myocardial infarction 06/27/2022 Overview (06/29/2022): [...] (BMI 25.0-29.9) 06/27/2022 Overview (06/27/2022): Complicates care CAD (coronary artery disease) 06/27/2022 Overview (06/30/2022): [...] Fall ~12ft from ladder s/p syncopal event Resolved Problems Problem Noted Date Diagnosed Date Resolved Date JENNIFER (acute kidney injury) 06/27/2022 Overview (06/30/2022): Cr 1.62 on admit, unclear baseline IVF, PO hydration, continue to monitor Stable 1.67 Follow up with PCP for continued surveillance Syncope 06/27/2022 12/30/2024 Overview (06/30/2022): Possible cause for fall EKG abnormal, but difficult to assess given hx [place] Carotid US to better assess for stenosis (CTA appx 20% by NASCET) -No evidence of hemodynamically significant stenosis (<50 %) Echo to assess for aortic stenosis, cardiac etiology -Unremarkable for cardiac etiology, no significant regurgitation/stenosis Immunizations Immunization Administration Dates Next Due Influenza, injectable, quadrivalent, preservativ e free 01/31/2017 Influenza, seasonal, injectable, preservative fr ee 03/16/2010 Moderna COVID-19 Vaccine Bivalent 6months+ 12/23 Pfizer-BioNTech COVID-19 Vaccine (Purple Cap) 12 + 07/23/2020,06/25/2020 [...] drink first t melissa in the morning (EYE-BASKETBALL COACH) to steady your nerves or to get [...] A1C 04/04/2023, 09/24/2022, 06/27/2022, Additional history exists [id number]-05 Vaccine (2024- season) 2024 12/23/2021, 07/23/2020, 06/25/2020 UKY-Influenza Vaccine (#1) 2024 [...] Adults <6.0% Children and Adolescents <7.5% Source: [place] [employer]. Standards of medical care in diabetes,2017. Diabetes Care.2017:40 (suppl 1):S1-S135. HbA1c assay performed by an ion-exchange chromatography method that is certified traceable to the DCCT. us Renetta Fang MD LAB BLOOD ORDERABLES Final Re sult [facility] [address] [place] [address] from Last 3 Months or Most Recently Relevant to Health Maintenance Insurance ANTHEM Advance Directives * Full Code (Latest Code Status on File) Date Activated Date Inactivated Comments 06/27/2022 8:46 PM 06/30/2022 6:04 PM Question Answer Comments Patient has decision-making capacity? Yes Care Teams Accounting Policy Consultant Relationship Specialty Start Date End Date Alphonso Yarbrough MD [address] [place] [address] PCP - General 08/22/20
== END 2025-01-03 23:59 ==
LOC: LAB.DROPOF 01-07 09:20
PROVIDERS: PCP Physician Assistant; Visit Provider Physician Assistant
DX: I25.10 Atherosclerotic heart disease of native coronary artery without angina pectoris (principal); I70.211 Atherosclerosis of native arteries of extremities with intermittent claudication, right leg; N17.9 Acute kidney failure, unspecified; I10 Essential (primary) hypertension; E78.5 Hyperlipidemia, unspecified; D64.9 Anemia, unspecified; E11.22 Type 2 diabetes mellitus with diabetic chronic kidney disease; N18.30 Chronic kidney disease, stage 3 unspecified
CPT/HCPCS: 85025

== ENCOUNTER 2025-03-08 11:56 | Observation (INO) | payer SELFPAY ==
[2025-03-08] VITALS (9 sets, daily range): BP systolic 145–184; BP diastolic 76–92; PULSE 50–64; RESP 14–21; TEMP 36.6–36.8; O2SAT 98–100; BMI 26.7
--- NOTE | 2025-03-08 12:21 | ED_ITS ---
<Statement entered by Dat Garcia MD - 03/08/25 17:35> I was consulted by the LANA, and we discussed the complexity of the problems being addressed. I approve the treatment and management plan for this patient's care in the emergency department, thus performing a substantive portion of the medical decision making. Dat Garcia MD Discharge Plan Disposition Patient Disposition: Admitted Condition: Fair Prescriptions Prescriptions: No Action insulin lispro 100 unit/mL insulin pen See Protocol SQ TID Protocol: Insulin Corrective Med-Dose Regimen Condition: Fingerstick Blood Glucose Dose/Route: Insulin Units Condition: 151-200 mg/dl Dose/Route: 2 units/SQ Condition: 201-250 mg/dl Dose/Route: 5 units/SQ Condition: 251-300 mg/dl Dose/Route: 8 units/SQ Condition: 301-350 mg/dl Dose/Route: 10 units/SQ Condition: 351-400 mg/dl Dose/Route: 12 units/SQ Condition: 401-450 mg/dl Dose/Route: 15 units/SQ Condition: > 450 mg/dl Dose/Route: CALL MD Protocol Text: Medium Intensity Sliding Scale Insulin torsemide 100 mg tablet 100 mg PO DAILY Patient Comments: TAKE 1/2 (ONE-HALF) TABLET BY MOUTH ONCE DAILY hydralazine 25 mg tablet 25 mg PO TID Qty: 90 2RF rosuvastatin 5 mg tablet 5 mg PO DAILY Patient Comments: TAKE 1 TABLET BY MOUTH ONCE DAILY insulin lispro [Humalog KwikPen Insulin] 100 unit/mL insulin pen 1 sliding scale dose SQ USEASDIRECTD MDD 40 Qty: 15 12RF insulin glargine [Basaglar KwikPen U-100 Insulin] 100 unit/mL (3 mL) insulin pen 30 unit SQ HS Qty: 15 12RF clopidogrel [Plavix] 75 mg tablet 75 mg PO DAILY Qty: 90 3RF carvedilol [Coreg] 25 mg tablet 25 mg PO BID Qty: 60 5RF insulin glargine [Lantus Solostar U-100 Insulin] 100 unit/mL (3 mL) insulin pen 30 unit SQ HS Qty: 15 0RF pantoprazole [Protonix] 40 mg tablet,delayed release (DR/EC) 40 mg PO DAILY Qty: 90 3RF Referrals Follow up/Referrals: Rajinder Reynolds DO [Primary Care Provider, Family Practice] - See instructions Clinical Impressions Clinical Impression: Acute exacerbation of CHF (congestive heart failure), Chronic kidney disease (CKD) Print Language Print Language: Danish Discharge ED Provider: Dat Garcia Adult HPI General Chief complaint: Neuro Symptoms/Deficit Stated complaint: Right side arm & leg numbness and swelling Time Seen by Provider: 03/08/25 12:21 Mode of Arrival: Wheelchair Source of Information: Patient Description of Symptoms (Recalled from ER Triage Doc. by RN): Pt presents for evaluation of nausea, and right leg pain/tingling, and right arm/lips/tongue tingling. Pt states LKN was 10pm last night when he went to bed and he woke up with the symptoms. BGL 81 History of Present Illness HPI narrative: 59-year-old male with a history of previous DVT, heart failure, LA, diabetic neuropathy presents to the emergency with complaints of numbness and tingling to the right side of his body since waking this morning. Last known normal was 10 PM last night. Patient reports he does have a history of diabetic neuropathy but states this does not feel like his normal pain. He reports taking Plavix as prescribed. Patient is also complaining of pain to his right thigh. He denies any injury to the areas. Related Data Home Medications ?Medication ?Instructions ?Recorded ?Confirmed insulin lispro 100 unit/mL See Protocol SQ TID 5 02/07/25 subcutaneous pen torsemide 100 mg tablet 100 mg PO DAILY 11/19/24 rosuvastatin 5 mg tablet 5 mg PO DAILY 02/07/2502/07 Previous Rx's ?Medication ?Instructions ?Recorded clopidogrel 75 mg tablet (Plavix) 75 mg PO DAILY #90 t abs 04/05/24 carvedilol 25 mg tablet (Coreg) 25 mg PO BID #60 tabs 10/25/24 pantoprazole 40 mg tablet,delayed 40 mg PO DAILY #90 t abs 10/30/24 release (Protonix) hydralazine 25 mg tablet 25 mg PO TID #90 tabs insulin glargine 100 unit/mL (3 30 unit (0.3 mL) SQ HS #15 mL 12/18/24 mL) subcutaneous pen (Lantus Solostar U-100 Insulin) insulin glargine 100 unit/mL (3 30 unit (0.3 mL) SQ HS #15 mL 02/07/25 mL) subcutaneous pen (Basaglar KwikPen U-100 Insulin) insulin lispro 100 unit/mL 1 sliding scale dose SQ subcutaneous pen (Humalog KwikPen USEASDIRECTD #15 mL (U-100) Insulin) Allergies Allergy/AdvReac Type Severity Reaction Status Date / Time NSAIDS (Non-Steroidal Allergy itch Verified 02/07/25 11:23 Anti-Inflamma gabapentin AdvReac Severe Hives Verified 02/07/25 11:23 PFSH [facility] Disclaimer: The information contained in this section may have been updated after the patient was seen, as this information can be updated by other users. Medical History Edema Angina pectoris SOB (shortness of breath) Anemia Dietary counseling Exercise counseling Screening for depression Screening for endocrine disorder JENNIFER (acute kidney injury) Hospital discharge follow-up Heart failure Screening for colon cancer Encounter for vitamin deficiency screening Vitamin deficiency Acute medical illness Establishing care with new doctor, encounter for Vaccine counseling Type 2 diabetes mellitus with stage 2 chronic kidney disease Atypical angina Abnormal result of cardiovascular function study (HFpEF) heart failure with preserved ejection fraction Type 2 diabetes mellitus Hyperlipidemia Hypertension CONNIE (obstructive sleep apnea) CAD (coronary artery disease) Lower extremity edema Surgical History History of esophagogastroduodenoscopy (EGD) H/O heart artery stent 4 stents History of cardiac catheterization Family History Father Cancer Mother Stroke Social History Smoking Status: Current every day smoker tobacco type: cigarettes how long ago did patient quit smoking: July 2024 alcohol intake: former year quit: 2019 substance use type: denies use current occupational status: employed Travel in the last 8 weeks?: None Have you lived/traveled outside US in past 30 days?: No Contact w/someone who lives/traveled outside US past 30 days?: No Exposure to someone with infectious disease in past 14 days?: No Do you have a fever (greater than 100.4 F or 38 C)?: No Have you tested positive for COVID-19?: No Exposed to someone with COVID-19 in past 14 days?: No Do you have a sore throat?: No Do you have a cough?: No Do you have any weakness?: No Do you have any diarrhea?: No Are you experiencing any unusual bleeding?: No Do you have any muscle aches/pain?: No Do you have any abdominal pain?: No Are you experiencing loss of taste or smell?: No Other Medical History Have you received the Flu Vaccine for this season: No Have you received the Pneumonia Vaccine: No ROS Obtained: Yes other Swelling to bilateral lower extremities, pain to right thigh, numbness and tingling to right upper and lower extremity Physical Exam Narrative Physical exam: General: Awake, aware, in no acute distress HEENT: Normocephalic, no evidence of trauma, PERRLA, EOMI CV: RRR, no murmurs, rubs, or gallops. Patient with 2-3+ pitting edema to bilateral lower extremities. Unable to palpate pedal pulses bilaterally Pulm: CTA bilaterally with no rhonchi, rales, or wheezes ABD: Nontender, no swelling, guarding, or rebound tenderness Neuro: Provides appropriate history, GCS 15, patient reports decree sensation to right lower extremity. NIH 2 as patient has decree sensation as well as drift to right upper extremity. Psych: Appropriate mood and affect General General appearance: alert Respiratory Respiratory exam: Present normal lung sounds bilaterally Cardiovascular Cardiovascular exam: Present bradycardia Neurological Exam Neurological exam: Present alert Medical Decision Making Medical Records Screening: Per USPSTF and CDC recommendations, given the prevalence of disease in our region, it is our hospital?s policy to screen for HIV and viral Hepatitis for all patients aged 18 and over and those with ongoing risk factors. Wali Inquiry Pt receiving controlled substance: No Vital Signs: 03/08/25 12:04 03/08/25 12:05 03/08/25 13:01 Temperature 97.8 F Temperature Source Temporal Artery Scan Pulse Rate 58 L 53 L Pulse Rate [Right] 58 L Respiratory Rate 20 21 Blood Pressure 159/87 H 145/92 H Blood Pressure [Right Arm] 159/87 H Blood Pressure Mean [Right Arm] 111 Blood Pressure Source [Right Arm] Automatic Cuff Blood Pressure Position [Right Arm] Sitting 02 Sat by Pulse Oximetry 99 99 100 Oxygen Delivery Method Room Air Room Air Room Air 03/08/25 13:31 03/08/25 14:00 Temperature Temperature Source Pulse Rate 50 L 50 L Pulse Rate [Right] Respiratory Rate 15 Blood Pressure 160/76 H 165/84 H Blood Pressure [Right Arm] Blood Pressure Mean [Right Arm] Blood Pressure Source [Right Arm] Blood Pressure Position [Right Arm] 02 Sat by Pulse Oximetry 99 98 Oxygen Delivery Method Room Air Room Air Lab Data Lab Results 03/08/25 12:08: WBC 6.5, RBC 3.79 L, Hgb 10.7 L, Hct 32.7 L, MCV 86.3, MCH 28.2, MCHC 32.7, RDW 17.1, Plt Count 314, MPV 10.4, Neut % (Auto) 54.6, Lymph % (Auto) 26.6, [place] % (Auto) 14.5 H, Eos % (Auto) 3.4, Baso % (Auto) 0.6, Neut # (Auto) 3.6, Lymph # (Auto) 1.7, [place] # (Auto) 0.9, Eos # (Auto) 0.2, Baso # (Auto) 0.0, PT 10.6, INR 0.95, APTT 24.8, Sodium 138, Potassium 3.8, Chloride 106, Carbon Dioxide 27, Anion Gap 8.8, BUN 43 H, Creatinine 2.80 H, Estimated Creat Clear 40, Estimated GFR 23 L, Est GFR ( Amer) 28 L, Glucose 72 L, Calcium 7.9 L , Total Bilirubin 0.5, AST 27, ALT 15, Alkaline Phosphatase 70, Troponin I 0.04 H, Total Protein 6.2 L D, Albumin 2.9 L, Globulin 3.3 H, Albumin/Globulin Ratio 0.9 L, Triglycerides 78, Cholesterol 292 H, LDL Cholesterol Direct 254.38 H, VLDL Cholesterol 16, HDL Cholesterol 34 L, Cholesterol/HDL Ratio 8.6 H, Plasma/Serum Alcohol < 10 03/08/25 12:25: Urine Color Yellow, Urine Appearance Clear, Urine pH 6.5, Ur Specific [place] 1.015, Urine Protein 3+ A, Urine Glucose (UA) Trace, Urine Ketones Negative, Urine Blood Trace-i, Urine Nitrate Negative, Urine Bilirubin Negative, Urine Urobilinogen 0.2, Ur Leukocyte Esterase Negative, Urine RBC Occasional, Urine WBC None, Ur Squamous Epith Cells None, Urine Bacteria None, Urine Opiates Screen Negative, Urine Methadone Screen Negative, Ur Barbituates Screen Negative, Ur Phencyclidine Scrn Negative, Ur Amphetamines Screen Negative, U Benzodiazepines Scrn Negative, Urine Cocaine Screen Negative, U Marijuana (THC) Screen Negative 03/08/25 12:08 03/08/25 12:08 Orders (Tests/Meds): ED MEDICATIONS Generic Name Dose Route Start Last Admin Trade Name Freq PRN Reason Stop Dose Admin Sodium Chloride 10 ml 03/08/25 12:22 Sodium Chloride 0.9% 10ml Flush Syringe IV 04/07/25 12:21 NEEDED PRN Maintain IV Site Sodium Chloride 10 ml 03/08/25 12:35 03/08/25 12:37 Sodium Chloride 0.9% 10ml Syr (Rad Only) IV 04/07/25 12:34 10 ml NEEDED PRN Administration Maintain IV Site Discontinued Medications Generic Name Dose Route Start Last Admin Trade Name Freq PRN Reason Stop Dose Admin Iopamidol 75 ml 03/08/25 12:35 03/08/25 12:37 Iopamidol-370 (76%);100ml Bottle IV 03/08/25 12:36 75 ml ONCE ONE Administration Sodium Chloride 50 ml 03/08/25 12:35 03/08/25 12:37 0.9 % Sodium Chloride 50 Ml Vial IV 03/08/25 12:36 50 ml ONCE ONE Administration ORDERS Category Date Time Status CT angio head Stat Cat Scan 03/08/25 12:[address] angio neck Stat Cat Scan 03/08/25 12:[address] head/brain wo con Stat Cat Scan 03/08/25 12:22 Completed XR chest portable Stat Exams 03/08/25 12:22 Completed Activated Partial Thrombo Time Stat Lab 03/08/25 12:08 Completed Complete Blood Count Auto Diff Stat Lab 03/08/25 12:08 Completed Comprehensive Metabolic Panel Stat Lab 03/08/25 12:08 Completed Drug Screen,Urine Stat Lab 03/08/25 12:25 Completed Ethyl Alcohol Stat Lab 03/08/25 12:08 Completed Lipid Panel Stat Lab 03/08/25 12:08 Completed Prothrombin Time INR Stat Lab 03/08/25 12:08 Completed Troponin I Q3H Lab 03/08/25 15:30 Ordered Troponin I Q3H Lab 03/08/25 18:30 Ordered Troponin I Stat Lab 03/08/25 12:08 Completed Urinalysis and Microscopic Stat Lab 03/08/25 12:25 Completed CA venous doppler LE RT Stat Y 03/08/25 12:29 Completed Medical Decision Narrative: Initial impression of presenting illness: 59-year-old male with a history of heart failure, previous LA, diabetes, DVT presents emergency department with complaints of numbness and tingling to right upper and lower extremity as well as pain to his right thigh. He denies any injury to the areas. Patient's last known normal 10 PM last night. He states when he woke this morning the symptoms were present. He states that he takes Plavix daily as prescribed. He reports that he does have a stent in his left lower extremity from a previous DVT. Differential diagnosis includes but is not limited to: CVA, heart failure exacerbation, diabetic neuropathy exacerbation, DVT, kidney disease, electrolyte abnormality, other intracranial abnormality Patient arrives hemodynamically stable, afebrile, without respiratory distress with vital signs interpreted by myself. Initial physical exam reveals 2-3+ pitting edema to bilateral lower extremities. Unable to palpate pedal pulses. Pupils are equal round reactive to light with intact extraocular movements. Patient does have drift to right upper extremity. Patient reports decreased sensation to right lower extremity. Strength is 4 out of 5 in all extremities. Abdomen soft nontender with normoactive bowel sounds. Lung sounds are clear bilaterally. NIH 2 for decree sensation to right lower extremity as well as drift to right upper extremity. Initial diagnostic plan: Stroke protocol, ultrasound of right lower extremity for DVT rule out Results from initial plan were reviewed and interpreted by myself, pertinent positives include: Creatinine 2.8, BUN 43, GFR 23, initial troponin 0.04. Rest of laboratory studies were nonactionable. CT head without contrast as well as CTA of head were unremarkable for acute findings. CTA of neck shows 50 to 60% stenosis of the left proximal internal carotid artery. Ultrasound of patient's right lower extremity was negative for DVT. Patient was made aware of the results and the findings, upon reevaluation patient has remained stable throughout stay, symptoms remain stable. Upon reevaluation patient is resting comfortably in bed with no signs of acute distress. Consultation/discussion with other physicians: Spoke with birth certificate clerk Dr. Mccullough regarding patient's presenting complaint and workup findings. He recommended admitting patient for further evaluation including a renal ultrasound as well as echocardiogram and diuresis. I then spoke with hospitalist who is agreeable to admit patient to [facility] telemetry for further evaluation. Disposition: Reviewed findings today's workup with patient and spouse and informed that we would like to admit patient for further evaluation of his kidney function and heart failure. Patient was agreeable to admission at this time. Critical Care Critical Care Time Critical Care Time: No
--- NOTE | 2025-03-08 12:22 | CT_ITS ---
FINAL REPORT TECHNIQUE: Thin section axial images were obtained from skull base to vertex without contrast. Coronal reconstruction images were obtained from the axial data. Exam was performed using dose reduction techniques such as automated exposure control, adjustment of the mA and kV according to patient size, and use of iterative reconstruction technique. CLINICAL HISTORY: possible stroke COMPARISON: 09/15/2023 FINDINGS: There is mild atrophy. No mass effect or midline shift. No intracranial hemorrhage. No hydrocephalus. Periventricular low density is likely related to changes of chronic small vessel ischemia. The basilar cisterns are preserved. The posterior fossa is without acute abnormality. The soft tissues are without acute abnormality. No acute osseous abnormality is identified. IMPRESSION: No acute intracranial hemorrhage or evidence of acute large cortical infarct. Authenticated and ERN
--- NOTE | 2025-03-08 12:22 | ECG_ITS ---
APPROVED REPORT Exam: Resting ECG HR:59 bpm ECG Measurements Heart Rate 59 AXES IN 182 P 42 QRSd 156 QRS -2 QT 440 T 52 QTc 440 Conclusion SINUS BRADYCARDIA INDETERMINATE AXIS RIGHT BUNDLE BRANCH BLOCK [120+ ms QRS DURATION, UPRIGHT V1, 40+ ms S IN I/aVL/V4/V5/V6] ABNORMAL ECG UNCONFIRMED REPORT Sinus bradycardia. Right bundle branch block. No ST elevation or depression. Electronically signed by : LISBET LEAVITT, 03/08/2025 15:22:49
--- NOTE | 2025-03-08 12:22 | XR_ITS ---
FINAL REPORT CLINICAL HISTORY: heart failure COMPARISON: 08/20/2024 FINDINGS: A portable view of the chest was obtained. Cardiac and mediastinal silhouettes are within normal limits. There are bilateral interstitial opacities, could represent pulmonary edema or interstitial pneumonia. There is no pleural effusion or pneumothorax. IMPRESSION: Pulmonary edema versus interstitial pneumonia. Reviewed, Interpreted and Dictated by Earnestine Marsh MD Transcribed by Kayla Martinez Authenticated and . [facility]
--- NOTE | 2025-03-08 12:22 | CT_ITS ---
FINAL REPORT TECHNIQUE: Thin section axial images were obtained from the aortic arch to the skull base after intravenous contrast injection per CTA protocol. Multiplanar reconstruction images were obtained. Exam was performed using dose reduction techniques and the ALARA principle. CLINICAL HISTORY: possible stroke COMPARISON: 06/27/2022. Report of an exam dated 09/15/2023. FINDINGS: CTA NECK: Aortic arch: There is a normal three-vessel configuration to the aortic arch. There is no significant stenosis of the great vessels at their origins. Right carotid artery: The right common carotid artery is patent without stenosis. The cervical portions of the right internal carotid artery are patent without stenosis. 0% stenosis per NASCET criteria. Left carotid artery: The left common carotid artery is patent without stenosis. There is calcified plaque at and just distal to the carotid bulb with 50 to 60% stenosis of the proximal left ICA. The remaining left ICA is patent to the skull base. Vertebral arteries: The vertebral arteries are patent. The left vertebral artery is small. Additionally, there is atherosclerotic disease of the left vertebral artery. These findings are similar to the prior exam. Other soft tissues: Limited evaluation of the upper lungs reveals bilateral upper lobe reticulonodular opacities concerning for bronchopneumonia. IMPRESSION: 1. 50 to 60% stenosis of the left proximal internal carotid artery. 2. 0% stenosis of the right carotid artery. 3. Patent bilateral vertebral arteries. 4. Findings in the upper lungs concerning for bilateral bronchopneumonia. Consider follow-up chest CT to ensure resolution. Authenticated and ERN
--- NOTE | 2025-03-08 12:22 | CT_ITS ---
FINAL REPORT TECHNIQUE: Thin section axial images are obtained through the brain after intravenous contrast injection. Multiplanar reconstructions were obtained from the axial data. Exam was performed using dose reduction techniques such as automated exposure control, adjustment of the mA and kV according to patient size, and use of iterative reconstruction technique. CLINICAL HISTORY: possible stroke COMPARISON: 06/27/2022 FINDINGS: The intracerebral portions of the carotid arteries are patent. The anterior circulation is patent without stenosis or evidence of large vessel occlusion. The posterior circulation is patent without stenosis or evidence of large vessel occlusion. No evidence of aneurysm or AVM. IMPRESSION: No evidence of large vessel occlusion or significant stenosis. Patent intracerebral vasculature. Authenticated and ERN
[2025-03-08 12:29] LABS: Microscopic, Urine URINE MICROSCOPIC (MICROSCOPIC)
--- NOTE | 2025-03-08 12:29 | CA_ITS ---
FINAL REPORT CLINICAL HISTORY: Pain in RLE, denies trauma, states he woke up with this pain today. edema ongoing in bilateral lower extremities. DM, HLD, HTN, CAD, PAD. FINDINGS: DUPLEX VENOUS SONOGRAPHY OF THE RIGHT LOWER EXTREMITY Multiple transverse and longitudinal scans were performed of the femoropopliteal deep venous system, with augmentation and compression maneuvers. Normal phasic flow was noted in the visualized deep venous system. No intraluminal increased echogenicity is noted to suggest thrombus. There is normal compression and augmentation of the venous structures. No abnormal venous collaterals are seen. IMPRESSION: No evidence of deep venous thrombosis of the right lower extremity. Reviewed, Interpreted and Dictated by Earnestine Marsh MD Transcribed by Kayla Martinez Authenticated and [facility]
[2025-03-08 12:32] LABS: Hematocrit 32.7 % (42.0-52.0); Hemoglobin 10.7 g/dL (14.1-18.0); Immature Granulocytes % 0.3 %; Mean Corpuscular HGB Conc 32.7 g/dL (31.8-35.4); Mean Corpuscular Hemoglobin 28.2 pg (27.0-31.2); Mean Corpuscular Volume 86.3 fl (80-94); Nucleated Red Blood Cells % 0 %; Platelet Count 314 K/mm3 (142-424); Red Blood Count 3.79 M/mm3 (4.60-6.20); Red Cell Distribution Width-SD 53.6 fL; White Blood Count 6.5 K/mm3 (4.8-10.8)
--- OUTSIDE RECORDS SUMMARY | 2025-03-08 12:32 | XMS_ITS | Clinical Summary ---
Author Organization [facility] Address [address] [place] [address] Care Team Providers Care Security System Administrator Name Role Phone Alphonso Yarbrough MD Primary Care Provider Allergies Active Allergy Reactions Criticality Noted Date [...] disease) 06/27/2022 Overview (06/30/2022): TTE given hx NH, CAD, commorbidites -No significant regurgitation/stenosis -The left [...] abnormal, but difficult to assess given hx NH Carotid US to better assess for stenosis [...] drink first t melissa in the morning ([employer]) to steady your nerves or to get [...] (1 of 2) 10/20/2015 [facility]-Diabetes: Hemoglobin A1C 07/03/2023, 09/24/2022, 06/27/2022, Additional history exists BFU-BGCAM-17 Vaccine (2024- season) 2024 12/23/2021, 07/23/2020, 06/25/2020 [...] Adults <6.0% Children and Adolescents <7.5% Source: [place] [employer]. Standards of medical care in diabetes,2017. Diabetes Care.2017:40 (suppl 1):S1-S135. HbA1c assay performed by an ion-exchange chromatography method that is certified traceable to the DCCT. us Renetta Fang MD LAB BLOOD ORDERABLES Final Re sult [facility] [address] [place] [address] from Last 3 Months or Most Recently Relevant to Health Maintenance Insurance ANTHEM Advance Directives * Full Code (Latest Code Status on File) Date Activated Date Inactivated Comments 06/27/2022 8:46 PM 06/30/2022 6:04 PM Question Answer Comments Patient has decision-making capacity? Yes Care Teams Security System Administrator Relationship Specialty Start Date End Date Alphonso Yarbrough MD [address] [place] [address] PCP - General 08/22/20
--- OUTSIDE RECORDS SUMMARY | 2025-03-08 12:32 | XMS_ITS | Clinical Summary ---
Author Organization [facility] Address [address] [place] [address] Phone Care Team Providers Care [place] Name Role Phone Ej Wyatt MD [ [...] classified elsewhere Prepatellar bursitis of right knee [id number] (SNOMED CT) 09/03 Inactive 09/03 Savannah Ayers Prepatellar bursitis DM Type II E11.9 (ICD-10-CM ) 09/03 Active 09/03 Savannah Ayers Type 2 diabetes mellitus without complications Nicotine dependence, cigarettes F17.210 (ICD-10-CM ) 09/03 Active 09/03 Savannah Ayers Nicotine dependence, cigarettes, uncomplicated Medications Medication Instructions Start Date Stop Date Generic Name [facility] Provider CEFTRIAXONE SODIUM 2 GM SOLR ceftriaxone 2gm IV Q DAY INPAT CEFTRIAXONE SODIUM [id number] Rhea Ellis RN CEFTRIAXONE SODIUM 2 GM SOLR ceftriaxone 2gm IV Q DAY INPAT CEFTRIAXONE SODIUM [id number] Mahogany Goldberg RN CUBICIN 500 MG INTRAVENOUS SOLUTION RECONSTITUTED 500mg IV Q24hrs/ INPAT DAPTOMYCIN [id number] Mahogany Goldberg RN CUBICIN 500 MG INTRAVENOUS SOLUTION RECONSTITUTED 500mg IV Q24hrs/ INPAT DAPTOMYCIN [id number] Mahogany Goldberg RN LORTAB TABS HYDROCODONE-ROXANN TAMINOPHEN TABS [id number] Ej Wyatt MD LIPITOR TABS ATORVASTATIN CALCIUM TABS [id number] Ej Wyatt MD ASPIRIN TABS ASPIRIN TABS [id number] Ej Wyatt MD METFORMIN HCL TABS METFORMIN HCL TABS [id number] Ej Wyatt MD CARVEDILOL TABS CARVEDILOL TABS [id number] Ej Wyatt MD LISINOPRIL TABLET LISINOPRIL TABS [id number] Ej Wyatt MD HUMALOG SOLUTION INSULIN LISPRO (HUMAN) SOLN [id number] Ej Wyatt MD Medications Administered No information [...] Name Date Entry Date CPT-sl STAT Labs [id number] CBC with Differential 2015 CPT-47371 CMP CPT-wanda Change IV antibiotics 09/05 CPT-21442 PIV/Butterfly CPT-08946 CMP [id number] CBC with Differential 2015 CPT- stat weekly [...]
--- OUTSIDE RECORDS SUMMARY | 2025-03-08 12:32 | XMS_ITS | Clinical Summary ---
Author Organization [facility] Address [address] [place] [address] Care Team Providers Care Capsule Inspector Name Role Phone Karel Gomez MD Primary Care Provider [phone] Allergies Active Allergy Reactions Criticality Noted Date [...] tabletIndication s:Mixed hyperlipidemia,C oronary artery disease involving [place] coronary artery of [place] heart without angina pectoris Take 1 tablet [...] pain 09/11/2018 Coronary artery disease invo lving [place] coronary artery of [place] heart 02/14/2017 Overview (02/14/2017): a. 08/06/09 inferior [...] (03/11/2017): Added automatically from request for surgery [id number] Immunizations Immunization Administration Dates Next Due Flu [...] - 01/04/2023 3:07 AM EDT Performed at: [address] [place] [address] [id number] Gun Welder: Hitesh Galarza MD, Phone: [phone] Patient Fasting: Y us Karel Gomez MD LAB BLOOD ORDERABLES Final Resu lt Performing Organization Address City/[facility]/ZIP Co de Phone Number [facility] (AMB[facility]) [address] [place] [address], [place] [phone] [facility] [address] [place] [address], [place] [phone] * (ABNORMAL) Hemoglobin A1c (01/03/2023 8:23 AM EDT) [facility] Hemoglobin A1C 9.10(H) 4.80 - 5.60 % [facility] Comment: Hemoglobin A1C Ranges: Increased Risk for Diabetes 5.7% to 6.4% Diabetes >= 6.5% Diabetic Goal < 7.0% Blood 01/03/2023 8:23 AM EDT 01/03/2023 Narrative [facility] ([facility]) - 01/04/2023 3:07 AM EDT Performed at: [address] [place] [address] [id number] Gun Welder: Hitesh Galarza MD, Phone: [phone] Patient Fasting: Y us Karel Gomez MD LAB BLOOD ORDERABLES Final Resu lt Performing Organization Address City/[facility]/ZIP Co de Phone Number [facility] (AMBUL[facility]) [address] [place] [address], [place] [phone] [facility] [address] [place] [address], [place] [phone] from Last 3 Months or Most Recently [...] Of Support Discussed With: Patient Care Teams Capsule Inspector Relationship Specialty Start Date End Date Karel [place] [address] PCP - General Family Medicine 04/08/21
[2025-03-08 12:35] LABS: Bilirubin,Urine Negative (Negative); Color,Urine YELLOW (Yellow); Glucose,Urine (UA) TRACE (Negative); Ketones,Urine Negative (Negative); Leukocyte Esterase,Urine Negative (Negative); PH,Urine 6.5 (5.0-8.5); Protein,Urine 3+ (Negative); Specific Gravity, Urine 1.015 (1.005-1.030); Urobilinogen,Urine 0.2 EU/dl (0.2)
[2025-03-08 12:36] LABS: Albumin Level 2.9 g/dl (3.5-5.0); Chloride 106 mmol/L (98-107)
[2025-03-08 12:37] LABS: Potassium 3.8 mmoL/L (3.5-5.1); Sodium 138 mmol/L (136-145)
[2025-03-08] MEDS: 0.9 % SODIUM CHLORIDE 50 ML VIAL IV (12:37)
[2025-03-08] MEDS: SODIUM CHLORIDE 0.9% 10ML SYR (RAD ONLY) 10 ML IV (12:37)
[2025-03-08] MEDS: IOPAMIDOL-370 (76%);100ML BOTTLE 75 ML IV (12:37)
--- NOTE | 2025-03-08 12:37 | PC.NURSE ---
1225- Pt to CT via stretcher [address], warm blanket provided
[2025-03-08 12:39] LABS: Activated Partial Thrombo Time 24.8 seconds (22.8-30.6); Alanine Aminotransferase 15 U/L (12-78); Albumin/Globulin Ratio 0.9 (1.1-1.8); Alkaline Phosphatase 70 U/L (38-126); Anion Gap 8.8 mEq/L (5-15); Aspartate Amino Transferase 27 U/L (17-59); Bilirubin,Total 0.5 mg/dl (0.2-1.3); Blood Urea Nitrogen 43 mg/dl (9-20); Carbon Dioxide 27 mmol/L (22.0-30.0); Cholesterol 292 mg/dl (140-200); Creatinine Clearance Estimated 40 mL/min (50-200); Creatinine,Serum 2.80 mg/dl (0.66-1.25); Estimated Glomerular Filt Rate 23 ml/min (>60); GFR (African American) 28 ML/MIN (>60); Globulin 3.3 g/dL (1.3-3.2); INR 0.95 (0.9-1.1); Prothrombin Time 10.6 seconds (10.1-12.5); Total Protein,Serum 6.2 g/dl (6.3-8.2); Triglycerides 78 mg/dl (30-150)
[2025-03-08 12:40] LABS: Calcium 7.9 mg/dl (8.4-10.2); Glucose 72 mg/dl (74-100); HDL Cholesterol 34 mg/dl (40-60)
[2025-03-08 12:48] LABS: Amphetamine/Metha Screen,Urine Negative ng/ml (<1000); Barbiturates Screen,Urine Negative ng/ml (<200)
[2025-03-08 12:49] LABS: Benzodiazepines Screen,Urine Negative ng/ml (<200)
--- NOTE | 2025-03-08 12:49 | PC.NURSE ---
Pulses obtained by doppler by this RN. Left foot had audible strong pulse. Right dp pulse noted to be present but fainter.
[2025-03-08 12:53] LABS: Methadone Screen,Urine Negative ng/ml (<300)
[2025-03-08 12:54] LABS: Opiate Screen,Urine Negative ng/ml (<300); Phencyclidine Screen,Urine Negative ng/ml (<25)
[2025-03-08 12:59] LABS: RBC,Urine Occasional #/hpf (0-3)
[2025-03-08 13:03] LABS: Troponin I 0.04 ng/ml (0.00-0.034)
--- NOTE | 2025-03-08 14:37 | CA_ITS ---
FINAL REPORT TECHNIQUE: Grayscale, color Doppler and duplex Doppler ultrasound of the kidneys, aorta and renal arteries was performed. Multiple velocities were measured. CLINICAL HISTORY: HTN,ELEVATED KIDNEY FUNCTION FINDINGS: Aorta velocity: 92 cm/sec Right kidney: 12.4 cm. No evidence of hydronephrosis or mass. Right intrarenal RI: 0.29-0.74 Right renal artery velocity: 233 cm/sec. Right RAR (Renal artery-Aortic Ratio): 2.52 Left Kidney: 11.8 cm. No evidence of hydronephrosis or mass. Left intrarenal RI: 0.72-0.84 Left renal artery velocity: 198 cm/sec. Left RAR (Renal Artery-Aortic Ratio): 2.14 IMPRESSION: Less than 60% bilateral renal artery stenosis. CT angiogram or postcontrast MR angiogram would be more sensitive for evaluation of possible renal artery stenosis. Reviewed, Interpreted and Dictated by Earnestine Marsh MD Transcribed by Dagmar Handley Authenticated and [facility]
--- NOTE | 2025-03-08 14:37 | CA_ITS ---
APPROVED REPORT EXAM: Comprehensive 2D, Doppler, and color-flow Echocardiogram Accounting Representative: Dana Do RT(R) Ht: 6 ft 4 in Wt: 220lbs BSA: 2.31 BP: 157/87 mmHg Indications: heart failure, edema, HTN, DM, hx IN, CAD, right arm numb and tingling, RLE pain in groin and thigh. Echo Enhancing Agent Indication: Endocardial border delineation Agent(s) / Amount(s) Used: Definity 2 cc 2D Dimensions LVEF (Zarate's) 49.50 % M: 52 - 72 LV Volume 184.90 mL M: 62 - 150 LV Volume Index 80.0 mL/m2 M: 34 - 74 LA Volume 57.40 mL LA Volume Index 24.85 mL/m2 (M/F) 16-34 EF AP4 49.40 % EF AP2 51.1 % EF BP 49.5 % GL Strain -17.5 % M-Mode Dimensions RVDd 4.21 cm (0.9-2.6) LA Diam 4.52 cm (1.9-4.0) LVDd 5.38 cm (3.5-5.7) LVDs 4.29 cm (3.5-5.7) IVSd 0.92 cm (0.6-1.1) PWd 0.76 cm (0.6-1.1) EF (Teich) 41.00% FS 20.30% EDV (Teich) 140.10 mL ESV (Teich) 82.60 mL LV Diastology E Decel Time 323 (160-240 msec) E/A Ratio 1.6 Mitral Valve MV E Max Ishaan. 86.0 (40-130 cm/s) MV A Velocity 53.0 (40-130 cm/s) E/A Ratio 1.61 MV PHT 95.0 ms Left Ventricle The left ventricle is normal size. Left ventricular systolic function is normal. The left ventricular ejection fraction is within the normal range. There is marked asymmetric increase in left ventricular wall thickness. IVSd is 1.5 cm. There is no evidence of LVOT obstruction at rest. There is normal LV segmental wall motion. The left ventricular diastolic function is indeterminate. No left ventricle thrombus noted on this study. LVEF is 55% Right Ventricle The right ventricle is normal size. The right ventricular systolic function is normal. Atria Left atrium is mildly dilated. Right atrium is mildly dilated. There is no color Doppler evidence of interatrial shunt. Aortic Valve The aortic valve is mildly thickened. There is no hemodynamically significant aortic valvular stenosis. Mild aortic regurgitation is present. Mitral Valve The mitral valve is normal in structure. No evidence of mitral valve stenosis. Mild mitral regurgitation is present. Tricuspid Valve The tricuspid valve leaflets are thin and pliable. Trace tricuspid regurgitation. There is insufficient TR jet to estimate RVSP. Pulmonic Valve The pulmonary valve is grossly normal in structure. Trace pulmonic valve regurgitation is present. Great Vessels The aortic root is normal in size. IVC is normal in size and collapses >50% with inspiration. Pericardium There is no pericardial effusion. Other Information Study Quality: Fair Conclusion Normal biventricular systolic function. Marked asymmetric increase in left ventricular wall thickness. IVSd is 1.5 cm. There is no evidence of LVOT obstruction at rest. Mild biatrial dilation. Mild MR, mild TR. In the setting of marked asymmetric increase in LV wall thickness, further evaluation for HCM is suggested with cardiac MRI (HCM protocol). Electronically signed by : Emeli Paniagua MD 03/09/2025 20:16:02
--- NOTE | 2025-03-08 14:40 | PC.NURSE ---
supervisor front notified of admission
--- NOTE | 2025-03-08 14:50 | HMH.PHAINT1 ---
Pharmacy Intervention Comments: MEDICATION RECONCILIATION COMPLETED ON PATIENT USING EXTERNAL FILL HISTORY FROM PHARMACY AND LIST FROM PCP OFFICE. -LIDIA BERNARDO, CINDYD
--- NOTE | 2025-03-08 14:57 | PC.NURSE ---
Care handoff report called to Uzair RUTHERFORD. Pt taken to echo, and will be transported to assigned room after.
--- NOTE | 2025-03-08 15:08 | EXP.HP ---
History of Present Illness *Admission Date: 03/08/25 *Reason for visit:: weakness, leg swelling, right leg pain *History of present illness: Mr. Lopez is a 59-year-old male with history of HFpEF, diabetes, CKD, previous history of DVT, IN, diabetic neuropathy. He presented to the ER with complaint of right leg pain and tingling that has worsened over the past 12 hours. Woke up with pain today. On presentation, complaining of pain in the right leg, tingling in the right foot but pain in the right thigh. Denies any headache or confusion. Is hard of hearing but this is his baseline. Workup with CT head and ultrasound of leg did not show DVT. CT was negative for stroke. Patient found to have elevated BNP however and findings most consistent with CHF given his 3+ edema in his legs to his thighs. Kidney function worse than normal. Creatinine elevated at 2.8. Baseline in October of 1.9. In light of his worsening volume overload, edema, JENNIFER, medicine consulted for admission and further management of CHF exacerbation. On arrival to the floor, patient stable on room air. Denies nausea or vomiting. Has had some subjective shortness of breath with exertion. Reports mixed compliance with his diabetes regimen. Has been taking torsemide and was having benefit until about a week ago and has noticed worsening swelling in his legs. Legs feel heavy. Denies fever. [facility] Disclaimer: The information contained in this section may have been updated after the patient was seen, as this information can be updated by other users. Medical History Edema Angina pectoris SOB (shortness of breath) Anemia Dietary counseling Exercise counseling Screening for depression Screening for endocrine disorder JENNIFER (acute kidney injury) Hospital discharge follow-up Heart failure Screening for colon cancer Encounter for vitamin deficiency screening Vitamin deficiency Acute medical illness Establishing care with new doctor, encounter for Vaccine counseling Type 2 diabetes mellitus with stage 2 chronic kidney disease Atypical angina Abnormal result of cardiovascular function study (HFpEF) heart failure with preserved ejection fraction Type 2 diabetes mellitus Hyperlipidemia Hypertension CONNIE (obstructive sleep apnea) CAD (coronary artery disease) Lower extremity edema Surgical History History of esophagogastroduodenoscopy (EGD) H/O heart artery stent History of cardiac catheterization Family History Father Cancer Mother Stroke Social History Smoking Status: Current every day smoker tobacco type: cigarettes how long ago did patient quit smoking: July 2024 alcohol intake: former year quit: 2018 substance use type: denies use current occupational status: employed Travel in the last 8 weeks?: None Other Medical History Have you received the Flu Vaccine for this season: No Have you received the Pneumonia Vaccine: No Review of Systems Review of Systems Review of systems (narrative): 14 point review of systems performed, pertinent positives and negatives as per HPI Meds Home Medications and Allergies Home Medications ?Medication ?Instructions ?Recorded ?Confirmed ?Type clopidogrel 75 mg tablet (Plavix) 75 mg PO DAILY #90 tabs 04/05/24 03/08/25 Rx carvedilol 25 mg tablet (Coreg) 25 mg PO BID #60 tabs 10/25/24 03/08/25 Rx pantoprazole 40 mg tablet,delayed 40 mg PO DAILY #90 tabs 10/30/24 03/08/25 Rx release (Protonix) hydralazine 25 mg tablet 25 mg PO TID #90 tabs 11/19/24 03/08/25 Rx torsemide 100 mg tablet 50 mg PO DAILY 11/19/24 03/08/25 History insulin glargine 100 unit/mL (3 30 unit (0.3 mL) SQ HS #15 mL 12/18/24 03/08/25 Rx mL) subcutaneous pen (Lantus Solostar U-100 Insulin) insulin lispro 100 unit/mL 1 sliding scale dose SQ 02/07/25 03/08/25 Rx subcutaneous pen (Humalog KwikPen USEASDIRECTD #15 mL (U-100) Insulin) rosuvastatin 5 mg tablet 5 mg PO DAILY 02/07/25 03/08/25 History New Prescriptions to Start Prescriptions: Allergies Allergy/AdvReac Type Severity Reaction Status Date / Time NSAIDS (Non-Steroidal Allergy itch Verified 02/07/25 11:23 Anti-Inflamma gabapentin AdvReac Severe Hives Verified 02/07/25 11:23 Exam Data for Last 24 hours Vital signs and Labs for Last 24 Hours: Temp Pulse Resp BP Pulse Ox O2 Del Method 98.2 F 53 L 18 170/85 H 98 Room Air 03/08/25 14:57 03/08/25 14:57 03/08/25 14:57 03/08/25 14:57 03/08/25 14:00 03/08/25 14:57 Laboratory Results - last 24 hr 03/08/25 12:08: WBC 6.5, RBC 3.79 L, Hgb 10.7 L, Hct 32.7 L, MCV 86.3, MCH 28.2, MCHC 32.7, RDW 17.1, Plt Count 314, MPV 10.4, Neut % (Auto) 54.6, Lymph % (Auto) 26.6, Twiggs % (Auto) 14.5 H, Eos % (Auto) 3.4, Baso % (Auto) 0.6, Neut # (Auto) 3.6, Lymph # (Auto) 1.7, Twiggs # (Auto) 0.9, Eos # (Auto) 0.2, Baso # (Auto) 0.0, PT 10.6, INR 0.95, APTT 24.8, Sodium 138, Potassium 3.8, Chloride 106, Carbon Dioxide 27, Anion Gap 8.8, BUN 43 H, Creatinine 2.80 H, Estimated Creat Clear 40, Estimated GFR 23 L, Est GFR ( Amer) 28 L, Glucose 72 L, Calcium 7.9 L, Total Bilirubin 0.5, AST 27, ALT 15, Alkaline Phosphatase 70, Troponin I 0.04 H, Total Protein 6.2 L D, Albumin 2.9 L, Globulin 3.3 H, Albumin/Globulin Ratio 0.9 L, Triglycerides 78, Cholesterol 292 H, LDL Cholesterol Direct 254.38 H, VLDL Cholesterol 16, HDL Cholesterol 34 L, Cholesterol/HDL Ratio 8.6 H, Plasma/Serum Alcohol < 10 03/08/25 12:25: Urine Color Yellow, Urine Appearance Clear, Urine pH 6.5, Ur Specific Cosmos 1.015, Urine Protein 3+ A, Urine Glucose (UA) Trace, Urine Ketones Negative, Urine Blood Trace-i, Urine Nitrate Negative, Urine Bilirubin Negative, Urine Urobilinogen 0.2, Ur Leukocyte Esterase Negative, Urine RBC Occasional, Urine WBC None, Ur Squamous Epith Cells None, Urine Bacteria None, Urine Opiates Screen Negative, Urine Methadone Screen Negative, Ur Barbituates Screen Negative, Ur Phencyclidine Scrn Negative, Ur Amphetamines Screen Negative, U Benzodiazepines Scrn Negative, Urine Cocaine Screen Negative, U Marijuana (THC) Screen Negative I & O for Last 24 hours: Intake & Output 03/05/25 03/06/25 03/07/25 03/08/25 23:59 23:59 23:59 23:59 Weight 99.79 kg Constitutional Constitutional: no acute distress, average body habitus, chronically ill appearing and cooperative *Routine HEENT Exam Head: Present normocephalic Eye: Present EOMI and PERRL ENT: Present mucous membranes moist *Routine Neck Exam Neck: Present supple; Absent lymphadenopathy *Routine Respiratory Exam Respiratory: Absent respiratory distress, rhonchi, stridor or wheezes *Routine Cardiovascular Exam Cardiovascular: Present RRR *Routine Abdominal Exam Abdominal: Present soft and normoactive bowel sounds; Absent tenderness *Routine Rectal Exam Rectal:: deferred *Routine Genitalia Exam Genitalia:: deferred *Routine Extremities Exam Extremities: Present edema (3+ to thighs); Absent cyanosis or clubbing Comments: Significant varicosities *Routine Skin Exam Skin: Present intact and warm; Absent rash *Routine Neurological Exam Neurological: Present alert, oriented X3 and moving all extremities; Absent altered mental status or hearing grossly intact (Very hard of hearing) Assessment and Plan *Assessment and plan (1) Acute exacerbation of CHF (congestive heart failure): Status: Acute Qualifiers: Heart failure type: diastolic Qualified Code(s): I50.33 - Acute on chronic diastolic (congestive) heart failure Category: Medical Code(s): I50.9 - Heart failure, unspecified (2) Chronic kidney disease (CKD): Status: Acute Category: Medical Code(s): N18.9 - Chronic kidney disease, unspecified (3) Angina pectoris: Status: Acute Category: Medical Code(s): I20.9 - Angina pectoris, unspecified (4) Diabetes mellitus: Status: Acute Qualifiers: Diabetes mellitus complication status: without complication Diabetes mellitus chcf insulin use: unspecified chcf insulin use status Diabetes mellitus type: type 2 Qualified Code(s): E11.9 - Type 2 diabetes mellitus without complications Category: Medical Code(s): E11.9 - Type 2 diabetes mellitus without complications (5) Hypertension: Status: Chronic Qualifiers: Hypertension type: primary hypertension Qualified Code(s): I10 - Essential (primary) hypertension Category: Medical Code(s): I10 - Essential (primary) hypertension (6) Hyperlipidemia: Status: Chronic Qualifiers: Hyperlipidemia type: unspecified Qualified Code(s): E78.5 - Hyperlipidemia, unspecified Category: Medical Code(s): E78.5 - Hyperlipidemia, unspecified (7) (HFpEF) heart failure with preserved ejection fraction: Status: Acute Qualifiers: Heart failure chronicity: acute on chronic Qualified Code(s): I50.33 - Acute on chronic diastolic (congestive) heart failure Category: Medical Code(s): I50.30 - Unspecified diastolic (congestive) heart failure Plan Ciaran Lopez is a 59-year-old male with a medical history significant for CAD with stents, hypertension, type 2 diabetes, HFpEF. Presented to the ER with complaint of swelling in his legs and pain/tingling in right leg. CT head negative for stroke. Right lower extremity Doppler negative for DVT. Found to have JENNIFER and CHF exacerbation however. Medicine consulted for admission and further management. Discussed case with ER physician, request admission for diuresis and serial monitoring of kidney function. I decided to admit for further care. Initiated on Bumex 2 mg IV twice daily. Problems addressed as follows: #Acute on chronis HFpEF exacerbation #JENNIFER on CKD stage III Acute myocardial injury Hypertension - Presented with volume overload, BNP 5k, Concern of volume overload and has caused artificially low hemoglobin. -Elevated troponin at 0.04. Flat on serial levels. Denies chest pain. ? ECHO obtained, preliminary shows preserved EF. Waiting on formal read. Previous echo with normal BiV function. ? Initiate Bumex 2mg BID. - Will resume home regimen for heart failure, hypertension, CAD including carvedilol 25 mg twice daily, Plavix 75 mg daily, and Crestor 5 mg daily. - On hydralazine at home, will monitor for additional blood pressure needs pending response to diuresis - Creatinine elevated at 2.8, BUN 43; baseline creatinine 1.9 in October, monitor for improvement with diuresis - EKG per my review with right bundle branch block but no ST elevations. - Chest x-ray per my review with mild diffuse pulmonary edema and prominent right fissure. #Type 2 diabetes ? Hemoglobin A1c 10.1, uncontrolled ? ACHS glucose checks, High intensity SSI. - resume lantus 30units HS #CAD with stents #PAD with stent Hyperlipidemia ? Continue Plavix 75 mg, Crestor 5 mg daily. Chronic anemia: History of duodenal ulcer - hemoglobin 10.7, improved from previous levels. Previously worked up with EGD in December, had duodenal ulcer. Will continue pantoprazole 40 mg nightly. Transfusion threshold hemoglobin less than 7. Repeat CBC, CMP, magnesium ordered for the morning Full code DVT prophylaxis:Heparin 5000units TID cardiac diet
[2025-03-08 15:15] LABS: NT Pro Brain Natriuretic Pep. 5230 pg/mL (0-125)
[2025-03-08 15:15] LABS: Hemoglobin A1C 10.1 % (4.0-6.0)
[2025-03-08 15:18] LABS: Troponin I 0.04 ng/ml (0.00-0.034)
[2025-03-08] MEDS: DEFINITY US ECHO CONTRAST 2ML INJ 2 MG IV (15:33)
--- NOTE | 2025-03-08 15:56 | PC.NURSE ---
patient arrived on floor by wheelchair @ 6114
[2025-03-08] MEDS: BUMETANIDE 1MG/4ML VIAL 2 MG IV (16:15)
[2025-03-08] MEDS: humaLOG 100 UNITS/ML 10ML VIAL (SSI) SUBCUT (17:11)
[2025-03-08 17:20] LABS: POC Glucose,Bedside 176 gm/dL (70-110)
[2025-03-08 19:11] LABS: Troponin I 0.03 ng/ml (0.00-0.034)
[2025-03-08 19:58] LABS: POC Glucose,Bedside 148 gm/dL (70-110)
[2025-03-08] MEDS: CARVEDILOL 25MG TABLET 25 MG PO (20:01)
[2025-03-08] MEDS: HEPARIN SODIUM 5,000 UNIT/ML VIAL 5000 UNIT SUBCUT (20:01)
[2025-03-08] MEDS: HYDRALAZINE HCL 25MG TABLET 25 MG PO (20:01)
[2025-03-08] MEDS: INSULIN GLARGINE 100 UNITS/ML 3ML FLEXPEN 30 UNIT SUBCUT (20:01)
[2025-03-09] VITALS: BP 158/85; PULSE 62; RESP 16; TEMP 36.4; O2SAT 97
--- NOTE | 2025-03-09 03:03 | PC.NURSE ---
Pt AOx4. Tolerating room air. 3+ pitting edema to BLE. Pt continually denies pain or any additional needs. Currently resting in bed with eyes closed. Respirations even and unlabored. Bed is low, locked, and call light is in reach.
[2025-03-09 04:00] VITALS: BP 146/80; PULSE 50; PULSE 70; RESP 14; TEMP 36.7; O2SAT 96; BMI 27.5
[2025-03-09 05:00] VITALS: PULSE 60
[2025-03-09 05:45] LABS: POC Glucose,Bedside 82 gm/dL (70-110)
[2025-03-09 06:58] LABS: Hematocrit 28.0 % (42.0-52.0); Immature Granulocytes % 0.2 %; Mean Corpuscular HGB Conc 32.9 g/dL (31.8-35.4); Mean Corpuscular Hemoglobin 28.1 pg (27.0-31.2); Mean Corpuscular Volume 85.6 fl (80-94); Nucleated Red Blood Cells % 0 %; Platelet Count 274 K/mm3 (142-424); Red Blood Count 3.27 M/mm3 (4.60-6.20); Red Cell Distribution Width-SD 53.5 fL; White Blood Count 6.2 K/mm3 (4.8-10.8)
[2025-03-09 07:30] LABS: Alanine Aminotransferase 11 U/L (12-78); Albumin Level 2.2 g/dl (3.5-5.0); Albumin/Globulin Ratio 0.8 (1.1-1.8); Alkaline Phosphatase 68 U/L (38-126); Anion Gap 2.3 mEq/L (5-15); Aspartate Amino Transferase 20 U/L (17-59); Bilirubin,Total 0.3 mg/dl (0.2-1.3); Blood Urea Nitrogen 40 mg/dl (9-20); Calcium 7.7 mg/dl (8.4-10.2); Carbon Dioxide 24 mmol/L (22.0-30.0); Chloride 109 mmol/L (98-107); Creatinine Clearance Estimated 41 mL/min (50-200); Creatinine,Serum 2.80 mg/dl (0.66-1.25); Estimated Glomerular Filt Rate 23 ml/min (>60); GFR (African American) 28 ML/MIN (>60); Globulin 2.7 g/dL (1.3-3.2); Glucose 76 mg/dl (74-100); Magnesium 1.8 mg/dl (1.6-2.3); Potassium 3.3 mmoL/L (3.5-5.1); Sodium 132 mmol/L (136-145); Total Protein,Serum 4.9 g/dl (6.3-8.2)
[2025-03-09 07:51] LABS: Hemoglobin 9.2 g/dL (14.1-18.0)
[2025-03-09 08:00] VITALS: BP 155/77; PULSE 62; RESP 18; TEMP 36.4; O2SAT 98
[2025-03-09] MEDS: CLOPIDOGREL 75MG TAB 75 MG PO (09:59)
[2025-03-09] MEDS: HYDRALAZINE HCL 25MG TABLET 25 MG PO (09:59)
[2025-03-09] MEDS: POTASSIUM CHLORIDE 20MEQ TAB 40 MEQ PO (09:59)
[2025-03-09] MEDS: CARVEDILOL 25MG TABLET 25 MG PO (09:59)
[2025-03-09] MEDS: BUMETANIDE 1MG/4ML VIAL 2 MG IV (10:00)
--- NOTE | 2025-03-09 10:10 | EXP.DC.SUM ---
General Admission date:: 03/08/25 Discharge date: 03/09/25 HPI HPI HPI: Mr. Lopez is a 59-year-old male with history of HFpEF, diabetes, CKD, previous history of DVT, TN, diabetic neuropathy. He presented to the ER with complaint of right leg pain and tingling that has worsened over the past 12 hours. Woke up with pain today. On presentation, complaining of pain in the right leg, tingling in the right foot but pain in the right thigh. Denies any headache or confusion. Is hard of hearing but this is his baseline. Workup with CT head and ultrasound of leg did not show DVT. CT was negative for stroke. Patient found to have elevated BNP however and findings most consistent with CHF given his 3+ edema in his legs to his thighs. Kidney function worse than normal. Creatinine elevated at 2.8. Baseline in October of 1.9. In light of his worsening volume overload, edema, JENNIFER, medicine consulted for admission and further management of CHF exacerbation. On arrival to the floor, patient stable on room air. Denies nausea or vomiting. Has had some subjective shortness of breath with exertion. Reports mixed compliance with his diabetes regimen. Has been taking torsemide and was having benefit until about a week ago and has noticed worsening swelling in his legs. Legs feel heavy. Denies fever. Hospital Course Hospital Course Hospital Course: Ciaran Lopez is a 59-year-old male with a medical history significant for CAD with stents, hypertension, type 2 diabetes, HFpEF. Presented to the ER with complaint of swelling in his legs and pain/tingling in right leg. CT head negative for stroke. Right lower extremity Doppler negative for DVT. Found to have JENNIFER and CHF exacerbation however. Medicine consulted for admission and further management. Discussed case with ER physician, request admission for diuresis and serial monitoring of kidney function. I decided to admit for further care. Initiated on Bumex 2 mg IV twice daily. Problems addressed as follows: #Acute on chronis HFpEF exacerbation #JENNIFER on CKD stage III Acute myocardial injury Hypertension - Presented with volume overload, BNP 5k, Concern of volume overload. Elevated troponin at 0.04. Flat on serial levels. Denies chest pain. ECHO obtained, preliminary shows preserved EF. Waiting on formal read. Previous echo with normal BiV function. Has been taking torsemide 100 mg once daily for the past few days but still noticing swelling in his legs. Initiated on Bumex 2 mg IV twice daily. Regimen for heart failure, hypertension, CAD including carvedilol 25 mg twice daily, Plavix 75 mg daily, and Crestor 5 mg daily. Blood pressure increasing by morning. Held hydralazine during admission to recommend resuming at discharge. Creatinine was elevated at 2.8 on admission above his baseline of 1.9 consistent with JENNIFER. Repeat 2.8 on morning labs. Strongly recommended patient to stay inpatient for continued diuresis and monitoring of kidney function due to risk for worsening renal failure. After much discussion, patient elected to discharge home and states that he has too much to take care of at home and cannot stay in the hospital. We agreed to disagree on course of treatment. Encouraged him to take 100 mg of torsemide twice daily for the next 3 days to continue the diuresis that we planned for inpatient. Strongly encouraged him to follow-up with his PCP within the next week for repeat labs. High risk for further decompensation by going home. Encouraged to stay, nursing staff at bedside during discussion. Patient electing to discharge under patient directed discharge. Paperwork signed. - Chest imaging on admission consistent with pulmonary edema. Low concern for pneumonia. No cough. White count normal. #Type 2 diabetes ? Hemoglobin A1c 10.1, uncontrolled. Glucose better in the morning at approximately 90 after receiving long-acting insulin. Strongly encourage patient to adhere with his regimen at home as it appears that it will likely control his diabetes fairly well. Risk for continued neuropathy and complications of uncontrolled diabetes if he does not adhere to his insulin/diabetes medication regimen. #CAD with stents #PAD with stent Hyperlipidemia ? Continue Plavix 75 mg, Crestor 5 mg daily. Chronic anemia: History of duodenal ulcer - hemoglobin stable at 10 during admission. No transfusion needed. Continue pantoprazole 40 mg nightly per home regimen given previous workup in December with EGD showing duodenal ulcer. Total time spent on discharge 35 minutes in counseling on risks of leaving via patient directed discharge prior to continuing treatment for CHF exacerbation and volume overload in light of his persistent JENNIFER; documentation, chart review, and direct care with patient. Exam Data for Last 24 hours Vital signs and Labs for Last 24 Hours: Temp Pulse Resp BP Pulse Ox O2 Del Method 97.6 F 62 18 155/77 H 98 Room Air 03/09/25 08:00 03/09/25 08:00 03/09/25 08:00 03/09/25 08:00 03/09/25 08:00 03/09/25 08:00 Laboratory Results - last 24 hr 03/08/25 12:08: WBC 6.5, RBC 3.79 L, Hgb 10.7 L, Hct 32.7 L, MCV 86.3, MCH 28.2, MCHC 32.7, RDW 17.1, Plt Count 314, MPV 10.4, Neut % (Auto) 54.6, Lymph % (Auto) 26.6, [place] % (Auto) 14.5 H, Eos % (Auto) 3.4, Baso % (Auto) 0.6, Neut # (Auto) 3.6, Lymph # (Auto) 1.7, Hawkins # (Auto) 0.9, Eos # (Auto) 0.2, Baso # (Auto) 0.0, PT 10.6, INR 0.95, APTT 24.8, Sodium 138, Potassium 3.8, Chloride 106, Carbon Dioxide 27, Anion Gap 8.8, BUN 43 H, Creatinine 2.80 H, Estimated Creat Clear 40, Estimated GFR 23 L, Est GFR ( Amer) 28 L, Glucose 72 L, Hemoglobin A1c 10.1 H, Calcium 7.9 L, Total Bilirubin 0.5, AST 27, ALT 15, Alkaline Phosphatase 70, Troponin I 0.04 H, Total Protein 6.2 L D, Albumin 2.9 L, Globulin 3.3 H, Albumin/Globulin Ratio 0.9 L, Triglycerides 78, Cholesterol 292 H, LDL Cholesterol Direct 254.38 H, VLDL Cholesterol 16, HDL Cholesterol 34 L, Cholesterol/HDL Ratio 8.6 H, Plasma/Serum Alcohol < 10 03/08/25 12:25: Urine Color Yellow, Urine Appearance Clear, Urine pH 6.5, Ur Specific [place] 1.015, Urine Protein 3+ A, Urine Glucose (UA) Trace, Urine Ketones Negative, Urine Blood Trace-i, Urine Nitrate Negative, Urine Bilirubin Negative, Urine Urobilinogen 0.2, Ur Leukocyte Esterase Negative, Urine RBC Occasional, Urine WBC None, Ur Squamous Epith Cells None, Urine Bacteria None, Urine Opiates Screen Negative, Urine Methadone Screen Negative, Ur Barbituates Screen Negative, Ur Phencyclidine Scrn Negative, Ur Amphetamines Screen Negative, U Benzodiazepines Scrn Negative, Urine Cocaine Screen Negative, U Marijuana (THC) Screen Negative 03/08/25 14:50: Troponin I 0.04 H, NT-Pro-B Natriuret Pep 5230 H 03/08/25 17:08: POC Glucose 176 H 03/08/25 18:40: Troponin I 0.03 03/08/25 19:50: POC Glucose 148 H 03/09/25 05:35: POC Glucose 82 03/09/25 06:25: WBC 6.2, RBC 3.27 L, Hgb 9.2 L D, Hct 28.0 L, MCV 85.6, MCH 28.1, MCHC 32.9, RDW 17.2, Plt Count 274, MPV 10.4, Neut % (Auto) 48.3, Lymph % (Auto) 33.7, [place] % (Auto) 13.6 H, Eos % (Auto) 3.4, Baso % (Auto) 0.8, Neut # (Auto) 3.0, Lymph # (Auto) 2.1, [place] # (Auto) 0.9, Eos # (Auto) 0.2, Baso # (Auto) 0.1, Sodium 132 L, Potassium 3.3 L, Chloride 109 H, Carbon Dioxide 24, Anion Gap 2.3 L, BUN 40 H, Creatinine 2.80 H, Estimated Creat Clear 41, Estimated GFR 23 L, Est GFR ( Amer) 28 L, Glucose 76, Calcium 7.7 L, Magnesium 1.8, Total Bilirubin 0.3, AST 20 D, ALT 11 L D, Alkaline Phosphatase 68, Total Protein 4.9 L, Albumin 2.2 L D, Globulin 2.7, Albumin/Globulin Ratio 0.8 L I & O for Last 24 hours: Intake & Output 03/06/25 03/07/25 03/08/25 03/09/25 23:59 23:59 23:59 23:59 Intake Total 100 / 100 480 / 480 Output Total 1650 / 2250 900 / 900 Balance -1550 / -2150 -420 / -420 Weight 99.609 kg 102.557 kg Constitutional Constitutional: no acute distress, average body habitus and chronically ill appearing *Routine HEENT Exam Head: Present normocephalic Eye: Present EOMI and PERRL ENT: Present mucous membranes moist *Routine Neck Exam Neck: Present supple; Absent lymphadenopathy *Routine Respiratory Exam Respiratory: Present CTA bilaterally; Absent rhonchi, wheezes or crackles *Routine Cardiovascular Exam Cardiovascular: Present RRR *Routine Abdominal Exam Abdominal: Present soft and normoactive bowel sounds; Absent tenderness *Routine Rectal Exam Patient deferred: visual exam *Routine Exam Patient deferred: penile exam *Routine Extremities Exam Extremities: Present edema (3+ to thighs); Absent cyanosis or clubbing *Routine Skin Exam Skin: Present intact and warm; Absent rash *Routine Neurological Exam Neurological: Present alert, oriented X3 and moving all extremities; Absent altered mental status Results Data Completed and Pending Labs on day of discharge: Labs from last 24 hours 03/09/25 03/09/25 03/08/25 06:25 05:35 19:50 WBC 6.2 RBC 3.27 L Hgb 9.2 L D Hct 28.0 L MCV 85.6 MCH 28.1 MCHC 32.9 RDW 17.2 Plt Count 274 MPV 10.4 Neut % (Auto) 48.3 Lymph % (Auto) 33.7 [place] % (Auto) 13.6 H Eos % (Auto) 3.4 Baso % (Auto) 0.8 Neut # (Auto) 3.0 Lymph # (Auto) 2.1 [place] # (Auto) 0.9 Eos # (Auto) 0.2 Baso # (Auto) 0.1 PT INR APTT Sodium 132 L Potassium 3.3 L Chloride 109 H Carbon Dioxide 24 Anion Gap 2.3 L BUN 40 H Creatinine 2.80 H Estimated Creat Clear 41 Estimated GFR 23 L Est GFR ( Amer) 28 L Glucose 76 POC Glucose 82 148 H Hemoglobin A1c Calcium 7.7 L Magnesium 1.8 Total Bilirubin 0.3 AST 20 D ALT 11 L D Alkaline Phosphatase 68 Troponin I NT-Pro-B Natriuret Pep Total Protein 4.9 L Albumin 2.2 L D Globulin 2.7 Albumin/Globulin Ratio 0.8 L Triglycerides Cholesterol LDL Cholesterol Direct VLDL Cholesterol HDL Cholesterol Cholesterol/HDL Ratio Urine Color Urine Appearance Urine pH Ur Specific [place] Urine Protein Urine Glucose (UA) Urine Ketones Urine Blood Urine Nitrate Urine Bilirubin Urine Urobilinogen Ur Leukocyte Esterase Urine RBC Urine WBC Ur Squamous Epith Cells Urine Bacteria Urine Opiates Screen Urine Methadone Screen Ur Barbituates Screen Ur Phencyclidine Scrn Ur Amphetamines Screen U Benzodiazepines Scrn Urine Cocaine Screen U Marijuana (THC) Screen Plasma/Serum Alcohol 03/08/25 03/08/25 03/08/25 18:40 17:08 14:50 WBC RBC Hgb Hct MCV MCH MCHC RDW Plt Count MPV Neut % (Auto) Lymph % (Auto) [place] % (Auto) Eos % (Auto) Baso % (Auto) Neut # (Auto) Lymph # (Auto) [place] # (Auto) Eos # (Auto) Baso # (Auto) PT INR APTT Sodium Potassium Chloride Carbon Dioxide Anion Gap BUN Creatinine Estimated Creat Clear Estimated GFR Est GFR ( Amer) Glucose POC Glucose 176 H Hemoglobin A1c Calcium Magnesium Total Bilirubin AST ALT Alkaline Phosphatase Troponin I 0.03 0.04 H NT-Pro-B Natriuret Pep 5230 H Total Protein Albumin Globulin Albumin/Globulin Ratio Triglycerides Cholesterol LDL Cholesterol Direct VLDL Cholesterol HDL Cholesterol Cholesterol/HDL Ratio Urine Color Urine Appearance Urine pH Ur Specific [place] Urine Protein Urine Glucose (UA) Urine Ketones Urine Blood Urine Nitrate Urine Bilirubin Urine Urobilinogen Ur Leukocyte Esterase Urine RBC Urine WBC Ur Squamous Epith Cells Urine Bacteria Urine Opiates Screen Urine Methadone Screen Ur Barbituates Screen Ur Phencyclidine Scrn Ur Amphetamines Screen U Benzodiazepines Scrn Urine Cocaine Screen U Marijuana (THC) Screen Plasma/Serum Alcohol 03/08/25 03/08/25 12:25 12:08 WBC 6.5 RBC 3.79 L Hgb 10.7 L Hct 32.7 L MCV 86.3 MCH 28.2 MCHC 32.7 RDW 17.1 Plt Count 314 MPV 10.4 Neut % (Auto) 54.6 Lymph % (Auto) 26.6 [place] % (Auto) 14.5 H Eos % (Auto) 3.4 Baso % (Auto) 0.6 Neut # (Auto) 3.6 Lymph # (Auto) 1.7 [place] # (Auto) 0.9 Eos # (Auto) 0.2 Baso # (Auto) 0.0 PT 10.6 INR 0.95 APTT 24.8 Sodium 138 Potassium 3.8 Chloride 106 Carbon Dioxide 27 Anion Gap 8.8 BUN 43 H Creatinine 2.80 H Estimated Creat Clear 40 Estimated GFR 23 L Est GFR ( Amer) 28 L Glucose 72 L POC Glucose Hemoglobin A1c 10.1 H Calcium 7.9 L Magnesium Total Bilirubin 0.5 AST 27 ALT 15 Alkaline Phosphatase 70 Troponin I 0.04 H NT-Pro-B Natriuret Pep Total Protein 6.2 L D Albumin 2.9 L Globulin 3.3 H Albumin/Globulin Ratio 0.9 L Triglycerides 78 Cholesterol 292 H LDL Cholesterol Direct 254.38 H VLDL Cholesterol 16 HDL Cholesterol 34 L Cholesterol/HDL Ratio 8.6 H Urine Color Yellow Urine Appearance Clear Urine pH 6.5 Ur Specific [place] 1.015 Urine Protein 3+ A Urine Glucose (UA) Trace Urine Ketones Negative Urine Blood Trace-i Urine Nitrate Negative Urine Bilirubin Negative Urine Urobilinogen 0.2 Ur Leukocyte Esterase Negative Urine RBC Occasional Urine WBC None Ur Squamous Epith Cells None Urine Bacteria None Urine Opiates Screen Negative Urine Methadone Screen Negative Ur Barbituates Screen Negative Ur Phencyclidine Scrn Negative Ur Amphetamines Screen Negative U Benzodiazepines Scrn Negative Urine Cocaine Screen Negative U Marijuana (THC) Screen Negative Plasma/Serum Alcohol < 10 DS: Diagnosis Discharge Diagnosis (1) Acute exacerbation of CHF (congestive heart failure): Status: Acute Code(s): I50.9 - Heart failure, unspecified Qualifiers: Heart failure type: diastolic Qualified Code(s): I50.33 - Acute on chronic diastolic (congestive) heart failure (2) Chronic kidney disease (CKD): Status: Acute Code(s): N18.9 - Chronic kidney disease, unspecified (3) Angina pectoris: Status: Acute Code(s): I20.9 - Angina pectoris, unspecified (4) Diabetes mellitus: Status: Acute Code(s): E11.9 - Type 2 diabetes mellitus without complications Qualifiers: Diabetes mellitus complication status: without complication Diabetes mellitus ocean transportation intermediary insulin use: unspecified custodial insulin use status Diabetes mellitus type: type 2 Qualified Code(s): E11.9 - Type 2 diabetes mellitus without complications (5) Hypertension: Status: Chronic Code(s): I10 - Essential (primary) hypertension Qualifiers: Hypertension type: primary hypertension Qualified Code(s): I10 - Essential (primary) hypertension (6) Hyperlipidemia: Status: Chronic Code(s): E78.5 - Hyperlipidemia, unspecified Qualifiers: Hyperlipidemia type: unspecified Qualified Code(s): E78.5 - Hyperlipidemia, unspecified (7) (HFpEF) heart failure with preserved ejection fraction: Status: Acute Code(s): I50.30 - Unspecified diastolic (congestive) heart failure Qualifiers: Heart failure chronicity: acute on chronic Qualified Code(s): I50.33 - Acute on chronic diastolic (congestive) heart failure Meds Home Medications and Allergies Home Medications ?Medication ?Instructions ?Recorded ?Confirmed ?Type clopidogrel 75 mg tablet (Plavix) 75 mg PO DAILY #90 tabs 04/05/24 03/08/25 Rx carvedilol 25 mg tablet (Coreg) 25 mg PO BID #60 tabs 10/25/24 03/08/25 Rx pantoprazole 40 mg tablet,delayed 40 mg PO DAILY #90 tabs 10/30/24 03/08/25 Rx release (Protonix) hydralazine 25 mg tablet 25 mg PO TID #90 tabs 11/19/24 03/08/25 Rx torsemide 100 mg tablet 50 mg PO DAILY 11/19/24 03/08/25 History insulin glargine 100 unit/mL (3 30 unit (0.3 mL) SQ HS #15 mL 12/18/24 03/08/25 Rx mL) subcutaneous pen (Lantus Solostar U-100 Insulin) insulin lispro 100 unit/mL 1 sliding scale dose SQ 02/07/25 03/08/25 Rx subcutaneous pen (Humalog KwikPen USEASDIRECTD #15 mL (U-100) Insulin) rosuvastatin 5 mg tablet 5 mg PO DAILY 02/07/25 03/08/25 History New Prescriptions to Start Prescriptions: Allergies Allergy/AdvReac Type Severity Reaction Status Date / Time NSAIDS (Non-Steroidal Allergy itch Verified 02/07/25 11:23 Anti-Inflamma gabapentin AdvReac Severe Hives Verified 02/07/25 11:23 Discharge Plan Disposition Patient Disposition: Left Against Medical Advice Condition: Undetermined Patient Discharge Instructions Print Language: [place] Providers Admit Provider: Giorgi Conley Attending Provider: Giorgi Conley
--- NOTE | 2025-03-09 10:23 | PC.NURSE ---
PT STATED HIS INTENTION TO SIGN OUT AMA THIS MORNING DURING INTERDISCIPLINARY ROUNDS IN THE PRESENCE OF MYSELF AND DR KAPLAN. PT WAS EDUCATED BY MD ON RISKS OF LEAVING AMA. PT STATED HIS UNDERSTANDING. AMA FORM WAS PROVIDED AND SIGNED BY PT AND MYSELF.
== END 2025-03-09 11:12 | disposition left against medical advice (07) ==
LOC: ER 14:42 → 2ND 14:43
PROVIDERS: Nurse Practitioner Family; Admitting Provider Internal Medicine Adolescent Medicine; Emergency Provider Student in an Organized Health Care Education/Training Program; PCP Internal Medicine; Visit Provider Internal Medicine Adolescent Medicine
DX: I13.0 Hypertensive heart and chronic kidney disease with heart failure and stage 1 through stage 4 chronic kidney disease, or unspecified chronic kidney disease (principal); N18.9 Chronic kidney disease, unspecified; E78.5 Hyperlipidemia, unspecified; Z79.01 Long term (current) use of anticoagulants; Z79.4 Long term (current) use of insulin; Z79.899 Other long term (current) drug therapy; Z88.6 Allergy status to analgesic agent; Z88.8 Allergy status to other drugs, medicaments and biological substances; E11.40 Type 2 diabetes mellitus with diabetic neuropathy, unspecified; Z86.718 Personal history of other venous thrombosis and embolism; I25.2 Old myocardial infarction; Z95.5 Presence of coronary angioplasty implant and graft; N17.9 Acute kidney failure, unspecified; E11.51 Type 2 diabetes mellitus with diabetic peripheral angiopathy without gangrene; D64.9 Anemia, unspecified; Z87.11 Personal history of peptic ulcer disease; E11.22 Type 2 diabetes mellitus with diabetic chronic kidney disease; I25.119 Atherosclerotic heart disease of native coronary artery with unspecified angina pectoris; G47.33 Obstructive sleep apnea (adult) (pediatric); F17.210 Nicotine dependence, cigarettes, uncomplicated; R00.1 Bradycardia, unspecified; I45.10 Unspecified right bundle-branch block; I65.22 Occlusion and stenosis of left carotid artery; I70.1 Atherosclerosis of renal artery; I50.33 Acute on chronic diastolic (congestive) heart failure
CPT/HCPCS: 36415; 70450; 70496; 70498; 71045; 80053; 80061; 80307; 80320; 81001; 82962; 83036; 83735; 83880; 84484; 85025; 85610; 85730; 93005; 93306; 93971; 93976; 96374; 96375; 99285; G0378; J1644; J1939; Q9957; Q9967